=== PATIENT | female | born 2000 | race Caucasian/White ===

== ENCOUNTER 2022-08-26 20:04 | Outpatient (CLI) | payer OTHER, SELFPAY ==
--- OUTSIDE RECORDS SUMMARY | 2022-09-20 11:51 | XMS_ITS | Encounter Summary ---
:2001 Author Organization [facility] Address [address] [place] [address] [address] [place] [address] Care Team Providers Name Role Phone Araceli Desai Md Primary Care Provider Araceli Desai Md Unavailable Encounter Details Date Type Department Care Team Description 09/13/2020 Telephone [facility] Telemed[facility] Hema Spicer Follow Up (Primary Dx); Covid-19 [place] Encounter to Discuss [address] [facility] [place] [address] Social History Tobacco Use Types Packs/Day Years [...] clean your hands with an alcohol based store gift wrap associate that contains at least 60% alcohol, covering all surfaces of yourhands and rubbing them together until they feel dry. Avoid touching your eyes, nose, and mouth with unwashed hands. What you can do to help others: The [place] is supportive of FDA's effort and is committed to assisting with plasma collections from carefully-screened recovered COVID-19 patients to enable rapid access to treatment for the most seriously ill patients. At this time, the [facility] is working closely with FDA to develop a process to identify and qualify individuals who have recovered from the virus and have the necessary antibodies to participate in this effort. The [facility] encourages individuals who have recovered fromCOVID-19 and are currently healthy, to visit [email or web address] to submit their contact i nformation and answer questions to help determine initial eligibility. The [facility] will then follow-up with prospective candidates to confirm eligibility and participation. Please contact the [facility] at [phone] [employer] ( ) and press the prompt for blood or email the Customer Care Group at [email or web address] for further assistance. Advice for caregivers: You [...] follows: Timing of ending quarantine as a facility planner or cohabitant: Your quarantine will end 14 [...] from isolation. Measures that you as a facility planner or cohabitant can take in the home: [...] Office Visit Internal Medicine James Matthews MD [address] [place] [address] 472 (Wo rk) documented as of this encounter Visit Diagnoses Diagnosis Follow up - Primary Encounter to discuss test results Other specified counseling documented in this encounter Additional Health Concerns Infection Onset Date Last Indicated Resolved Time COVID-19 (Confirmed) 09/12/2020 09/12/2020 09/26/2020 7:06 PM EST documented as of this encounter Care Teams Composition Tile Layer Relationship Specialty Start Date End Date Araceli Desai MD PCP - General Pediatrics 07/22/17 04/05/[address] [place] [phone] Araceli Desai MD PCP - Payer 02/03/18 06/02/[address] [place] [address] documented as of this encounter
--- OUTSIDE RECORDS SUMMARY | 2022-09-20 11:51 | XMS_ITS | Encounter Summary ---
:2001 Author Organization [facility] Address [address] [place] [address] [place] [address] Care Team Providers Name Role Phone Araceli [...] Office Visit Internal Medicine James Matthews MD [address] [place] [address] [phone] (Wo rk) documented as of this encounter Visit Diagnoses Not on filedocumented in this encounter Additional Health Concerns Infection Onset Date Last Indicated Resolved Time COVID-19 (Lab Pend) 05/09/2020 05/09/2020 05/10/2020 1 2:55 AM EDT documented as of this encounter Care Teams Nuclear Weapons Specialist Relationship Specialty Start Date End Date Araceli Desai MD PCP - General Pediatrics 07/22/17 04/05/[address] [place] [address] Araceli Desai MD PCP - Payer 02/03/18 06/02/[address] [place] [address] documented as of this encounter
--- OUTSIDE RECORDS SUMMARY | 2022-09-20 11:51 | XMS_ITS | Encounter Summary ---
:2001 Author Organization [facility] Address [address] [facility] [address] [address] Care Team Providers Name Role Phone Araceli Desai Md Primary Care Provider Araceli Desai Md Unavailable Encounter Details Date Type Department Care Team Description 10/17/2020 Letter (Out) [facility] Derek Montero [address] [place] [phone] Social History Tobacco Use Types [...] Visit Internal Medicine James Matthews MD [address] [place], [place] [phone] (Wo rk) documented as of this encounter Visit Diagnoses Not on filedocumented in this encounter Care Teams Manager Casino Relationship Specialty Start Date End Date Araceli Desai MD PCP - General Pediatrics 07/22/17 04/05/[address] [place] [address] Araceli Desai MD PCP - Payer 02/03/18 06/02/[address] [place] [phone] documented as of this encounter
--- OUTSIDE RECORDS SUMMARY | 2022-09-20 11:51 | XMS_ITS | Encounter Summary ---
:2001 Author Organization [facility] Address [address] [facility] [address] [address] Care Team Providers Name Role Phone Araceli Desai Md Primary Care Provider Araceli Desai Md Unavailable Encounter Details Date Type Department Care Team Description 05/09/2020 Office Visit [facility] Araceli Desai MD Shortness of breath (Primary Dx); [address] Encounter for control pills [facility] [place] [place] [address] [phone] Social History Tobacco Use Types Packs/Day Years [...] mother who provides history. Leann. 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 She did practice social distancing other than working. She said it has been hard to take a deep breath since Wednesday. No other symptoms,no hx of asthma. Lives with her Mom and another adult . Appointment made. The family were here in [place] actually when they had COVID, was back [...] DISEASE (COVID-19 PCR) (05/09/2020 5:07 PM EDT) [facility] Method Time Signature CORONAVIRUS Not Detected Not 05/10/2020 [facility] RESULTS Detected 12:55 AM DEPARTMENT OF EDT [...] considered. The Aptima SARS-CoV-2 reagents for the [employer] System are intended for use only by [...] Organization Address City/State/ZIP Code Phon e Number [facility] DEPARTMENT OF PATHOLOGY AND [address] [place] [address] [place] [phone] LAB MEDICINE documented in this encounter Visit Diagnoses Diagnosis Shortness of breath - Primary Encounter for control pills elizabeth mauriciorocky Surveillance of previously prescribed co ntraceptive pill documented in this encounter Additional Health Concerns Infection Onset Date Last Indicated Resolved Time COVID-19 (Lab Pend) 05/09/2020 05/09/2020 05/10/2020 1 2:55 AM EDT documented as of this encounter Care Teams Transportation Consultant Relationship Specialty Start Date End Date Araceli Desai MD PCP - General Pediatrics 07/22/17 04/05/[address] [place] [address] Araceli Desai MD PCP - Payer 02/03/18 06/02/[address] [place] [address] documented as of this encounter
--- OUTSIDE RECORDS SUMMARY | 2022-09-20 11:51 | XMS_ITS | Encounter Summary ---
:[address] [facility] Address [address] [facility] [address] [address] Care Team Providers Name Role Phone Araceli Perry Md Primary Care Provider Araceli Perry Md Unavailable Reason for Visit Reason Comments Complete Physical Exam 21y/o no concerns Encounter Details Date Type Department Care Team Description 10/08/2021 Office Visit [facility] Araceli Perry MD Encounter for routine adult health exami [facility] without abnormal findings (Primary Dx); [address] [place] [address] Low grade glioma of brain ([facility], [place] Seizure disor george ([facility]) [phone] Social History Tobacco Use Types Packs/Day Years [...] those of you cared for by a Child Therapist, we are happy to see you in Pediatrics until your 23rd birthday. Let'smake sure to discuss your transition at each visit to assist you in identifying an Home Administrator or Family Medicine Clinician to assume your [...] for alcohol addiction. ?? Have a designated locomotive driver at all times. A designated locomotive driver is the person who has NOT [...] great place to go for more information: www.[email or web address] [email or web address].org ?? For men: * Tests for sexually [...] great place to go for more information: [email or web address] documented in this encounter Progress Notes Alana Venegas RN - 10/08/2021 2:00 PM EST Patient requests seasonal influenza vaccine. Per Atri standing medication order for FLU vaccine, the vaccine was administered from floor stock; see immunization module for detail. Pt denies history of any severe, life-threatening allergies to the flu vaccine, including componentsof the vaccine and Guillain-Roland Syndrome. Pt is afebrile and has no [...] is followed by the following specialist/s: [facility] specialists for brain tumor care. Eye doctor, [...] 10/2020 no residual tumor on MRI at [facility] ??? Medication intolerance: ibuprofen [Z78.9] 08/11/2017 Got [...] No Known Drug Allergies. School/work: sophomore at [employer] in [place]--philosophy and political science, pre-law track. Diet: Discussed healthy diet for age and importance of not skipping meals, drinking plenty of water and avoiding sugar drinks and processed foods. Discussed need for calcium and vitamin d in diet. pescatarian diet. Cheese, drinks milk. 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 and coming when expected Sleep Problems: [...] 10/08/2021 8:00 PM ESTAssociated Problem(s): Seizure disorder ([facility]) Seizure February 2021 continues on Keppra Assessment & Plan Note - Araceli Perry MD - 10/08/2021 7:56 PM ESTAssociated Problem(s): Glioma of brain ([facility]) MRI q 3 months, now q 6 [...] Visit Internal Medicine James Matthews MD [address] [place] [address] [phone] (Wo rk) documented as of [...] Time Signature CHLAMYDIA PCR Negative Negative 10/09/2021 [facility] 12:42 PM EST DEPARTMENT OF PATHOLOGY AND LAB MEDICINE Comment: Test performed using Aptima Combo2 PCR a ssay. SOURCE URINE 10/09/2021 12:42 PM EST [facility] D EPARTMENT OF PATHOLOGY AND LAB MEDICINE Specimen Anatomical Collection Method Collection Time Receive d Time (Source) Location / / Volume Laterality Urine (URINE) Urine / Unknown 10/08/2021 3:56 PM 10/08 3:56 EST PM EST Araceli Perry LAB URINE ORDERABLES Performing Organization Address City/State/ZIP Code Phon e Number [facility] DEPARTMENT OF PATHOLOGY AND [address] [place] [address] [place] [phone] LAB MEDICINE documented in this encounter Visit [...] INSTRUMENT documented in this encounter Care Teams Machine Or Machinery Mechanic Relationship Specialty Start Date End Date Araceli Perry MD PCP - General Pediatrics 07/22/17 04/05/[address] [place] [address] Araceli Perry MD PCP - Payer 02/03/18 06/02/[address] [place] [address] documented as of this encounter
--- OUTSIDE RECORDS SUMMARY | 2022-09-20 11:51 | XMS_ITS | Encounter Summary ---
:2001 Author Organization [facility] Address [address] [place] [address] Care Team Providers Name Role Phone Elsewhere, Pcp Primary Care Provider Unavailable Reason for Referral MRI/CAT/PET Scan (Routine) - Closed Specialty Diagnoses / Procedures Referred By Contact Refer red To Contact Radiology Diagnoses Glioma Brain (HCC) Darrin Brewster M.D. [place] [facility] Procedures MR Brain without and with IV Contrast [address] [place] [address] Referral ID Status Reason Start Date Expiration Date Visits Requ ested Visits Authorized [id number] Closed 05/23/2021 05/23/2022 1 1 Reason for Visit MRI/CAT/PET Scan (Routine) - Closed Specialty Diagnoses / Procedures Referred By Contact Refer red To Contact Radiology Diagnoses Glioma Brain (HCC) Darrin Brewster M.D. [place] [facility] Procedures MR Brain without and with IV Contrast [address] [place] [address] Referral ID Status Reason Start Date Expiration Date Visits Requ ested Visits Authorized [id number] Closed 05/23/2021 05/23/2022 1 1 Encounter Details Date Type Department Care Team Description 05/26/2021 Hospital Encounter Department of Darrin Brewster Glioma B rain (HCC) Radiology, Timoteo Mora, in [place], [address] [place], [place] [address] [facility] [address] [place], [place] [phone] (Work) [phone] Social History Tobacco Use Types Packs/Day Years [...] Orders documented in this encounter Care Teams Accountant Property Relationship Specialty Start Date End Date Elsewhere, Pcp PCP - General Family Medicine 05/22/21 documented as of this encounter
--- OUTSIDE RECORDS SUMMARY | 2022-09-20 11:51 | XMS_ITS | Encounter Summary ---
:2001 Author Organization [facility] Address [address] [place] [address] Care Team Providers Name Role Phone Elsewhere, Pcp Primary Care Provider Unavailable Reason for Visit Reason Comments Pre-visit Intake Appointment Request (Routine) - Closed Specialty Diagnoses / Procedures Referred By Contact Refer red To Contact Neurology Diagnoses Glioma Brain (HCC) Referral ID Status Reason Start Date Expiration Date Visits Requ ested Visits Authorized [id number] Closed 05/19/2021 05/19/2022 2 1 Encounter Details Date Type Department Care Team Description 05/22/2021 Clinical Communication Visit Review in Pr e-visit Intake [place], [place] [address] [place] [address] Social History Tobacco Use Types Packs/Day Years Used Date Smoking Tobacco: Never Smokeless Tobacco: Never Sex Assigned at Date Recorded Not on file documented as of this encounter Plan of Treatment Not on filedocumented as of this encounter Visit Diagnoses Not on filedocumented in this encounter Care Teams Room Attendants Relationship Specialty Start Date End Date Elsewhere, Pcp PCP - General Family Medicine 05/22/21 documented as of this encounter
--- OUTSIDE RECORDS SUMMARY | 2022-09-20 11:51 | XMS_ITS | Encounter Summary ---
:2001 Author Organization [facility] Address [address] [facility] [address] [place] [address] Care Team Providers Name Role Phone Araceli Desai Md Unavailable James Matthews Md Primary Care Provider Reason for Visit Reason Comments Reschedule Appointment Encounter Details Date Type Department Care Team Description 05/08/2022 Telephone [facility] and Derek Montero RE SCHEDULE APPOINTMENT Gynecology [address] [place] [address] Social History Tobacco Use [...] Office Visit Internal Medicine James Matthews MD [address] [place] [address] 47 (Wo rk) documented as of this encounter Visit Diagnoses Not on filedocumented in this encounter Care Teams Halftone Operator Relationship Specialty Start Date End Date Araceli Desai MD PCP - Payer 02/03/18 06/02/[address] [place] [address] James Matthews MD PCP - General Internal Medicine 04/06/[address] [place] [address] [phone] documented as of this encounter
--- OUTSIDE RECORDS SUMMARY | 2022-09-20 11:51 | XMS_ITS | Encounter Summary ---
:2001 Author Organization [facility] Address [address] [facility] [address] [place] [address] Care Team Providers Name Role Phone Araceli Desai Md Primary Care Provider Araceli Desai Md Unavailable Reason for Visit Reason Comments COVID-19 Medical Advice - with Symptoms Fever Encounter Details Date Type Department Care Team Description 09/11/2020 Telephone [email or web address] Annabelle Dallas RN Suspected Covid-19 Covid-19 [address] Virus Infection [address] [facility] (Primary Dx) [place] [address] [place], [place] [phone] Social History Tobacco Use Types Packs/Day Years [...] patient agrees, appt scheduled for tomorrow in [facility] @ 1:45pm,appt instrux provided. Advised comfort [...] do allow for walk up testing at [facility] if you do not have a car. If you are driving-up, the restaurant team member will be in full personal protective equipment including a mask w/face shield, gown, and gloves. You will not leave your vehicle. If you are walking up at [place], you will be tested outside and will need to call a designated number when you arrive. - There will not be opportunity for an evaluation, assessment, or medical advice. This is similar toa lab visit. - This testing will take place at (location). o [place]: [address] [place] [address]. 3rd level of our patient parking structure. While driving in they should continue driving to the far end of the 3rd level to the south side. There is signage for ???south?? . If the patient is walking up, please call [phone] before entering the building and let the staff know you are walking in for further instructions. o [place]: [address], [place] [address]. Three spots identified on the lower level close to the lower level patient entrance. We will have staff and signs to direct patients. o [place]: [address] [facility] , [place], [place] [address] into the lower level of the garage at [facility] and someone will be helping with way finding. o [place]: [address] [place] [address]. Proceed to the roof of the garage and there willbe people helping with way finding. o [place]: [address] [place] [address]. Patients should be directed towards the parking lot behind the building. At the bottom of the hill leading to the back parking lot, patients shouldtake an immediate left and will see the drive up testing area clearly marked. Staff will be waiting to greet them. We recommend patients requiring testing be on the xm1 tank driver side of the vehicle for ease of testing. o [place]: [address] [place] [address]. Patients should pull up at the front [...] clean your hands with an alcohol based client support manager that contains at least 60% alcohol, covering [...] clean your hands with an alcohol based client support manager thatcontains at least 60% alcohol, covering all [...] or depression? No Is the patient an [employer] Employee? No Time Spent: 5-10 min documented in this encounter Plan of Treatment Upcoming Encounters Date Type Specialty Care Team Description 10/09/2022 Office Visit Internal Medicine James Matthews MD [address] [place] [address] 472 (Wo rk) documented as of this encounter Results (ABNORMAL) CORONAVIRUS DISEASE (COVID-19 PCR) (09/12/2020 3:18 PM EST) [facility] Method Time Signature CORONAVIRUS Detected (A) Not 09/13/2020 [facility] RESULTS Detected 3:23 PM EST DEPARTMENT OF [...] considered. The Aptima SARS-CoV-2 reagents for the [employer] System are intended for use only by qualified and trained clinical laboratory personnel. ??They are for use only under the Food and Drug Administration's Emergency Use Authorization (EUA). IS PATIENT SYMPTOMATIC? Yes 09/13/2020 3 :23 PM EST [facility] DEPARTMENT OF PATHOLOGY AND LAB MEDICINE Specimen Anatomical Collection Method Collection Time Receive d Time (Source) Location / / Volume Laterality Swab Non-blood 09/12/2020 3:18 PM 0 3:18 collection / EST PM EST Unknown Araceli Desai GENERAL LAB Performing Organization Address City/State/ZIP Code Phon e Number [facility] DEPARTMENT OF PATHOLOGY AND [address] [place] [phone] LAB MEDICINE documented in this encounter Visit Diagnoses Diagnosis Suspected COVID-19 virus infection - Makayla renuka documented in this encounter Care Teams Senior Back End Java Developer Relationship Specialty Start Date End Date Araceli Desai MD PCP - General Pediatrics 07/22/17 04/05/[address] [place] [address] Araceli Desai MD PCP - Payer 02/03/18 06/02/[address] [place] [address] documented as of this encounter
--- OUTSIDE RECORDS SUMMARY | 2022-09-20 11:51 | XMS_ITS | Clinical Summary ---
:[address] [facility] Address [address] [place] [address] Care Team Providers Name Role Phone James [...] 10/2020 no residual tumor on MRI at [facility] Medication intolerance: ibuprofen 08/11/2017 Overview: Got [...] by headache specialist Sushil murillo MD in [facility]. Trial of amitriptyline. Then lamictal. Now off all meds except alleve, sumaptriptan. Moved fall 2016 to [place]; doing much debbie r emotionally. MRI x 2 at [facility] (10/06/2016 and) 10/16/2016. Initial finding in left periatrial white matter, second MRI notes minimal if any. 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 Saw neurosurgery at [facility] 09/2017 M [place] ordered Slow growth of [...] Team Description 08/12/2022 Nurse Triage Internal Medicine Viir Corey (Primary Dx); LUIS Rodriguez Insect Bite [...] not intractable Juan Diego lawton MD in [facility]. Trial of am itriptyline. Then lamictal. Now off al l meds except alleve, sumaptriptan . Moved fall 2016 to [place]; doing muc h better emotionally. MRI x 2 at [facility] (10/06/2016 and) 10/16/2016. Initial fi nding in [...] 2021 FLU SEASONAL (#1) 06/11/2022 10/08/2021, 07/13/2018 PAP: UPDATE W EDIT 2022 MODIFIERS CHLAMYDIA SCREENING FEMALE 10/08/2022 10/08/2021, 8, 16-24 [...] Dates Phone Addre ss Type Group [facility] [id number] 2019-Present PO DONN X [id number] PRIMARY CHOICE TOM COLES W/ RIDER [phone] Care Teams Top Lift And Automatic Window Repairer Relationship Specialty Start Date End Date James Matthews MD PCP - General Internal Medicine 04/06/[address] [place] [address] James Matthews MD PCP - Payer 06/03/[address] [place] [address]
--- OUTSIDE RECORDS SUMMARY | 2022-09-20 11:51 | XMS_ITS | Encounter Summary ---
:2001 Author Organization [facility] Address [address] [place] [address] [address] Care Team Providers Name Role Phone Araceli Desai Md Primary Care Provider Araceli Desai Md Unavailable Encounter Details Date Type Department Care Team Description 09/30/2021 Email Encounter [facility] Darlin Galvan, RN My Prescriptions [address] [place] [phone] Social History Tobacco Use Types Packs/Day [...] documented as of this encounter Progress Notes Dralin Galvan, RN - 09/30/2021 11:19 AM EST Time Spent: I spent approximately 11-20 min in chart review, documentation, triage, nursing assessment, patient counseling or providing patient education. documented in this encounter Plan of Treatment Upcoming Encounters Date Type Specialty Care Team Description 10/09/2022 Office Visit Internal Medicine James Matthews MD [address] [place] [phone] (Wo rk) documented as of this encounter Visit Diagnoses Not on filedocumented in this encounter Care Teams Order Desk Caller Relationship Specialty Start Date End Date Araceli Desai MD PCP - General Pediatrics 07/22/17 04/05/[address] [place] [address] Araceli Desai MD PCP - Payer 02/03/18 06/02/[address] [place] [address] documented as of this encounter
--- OUTSIDE RECORDS SUMMARY | 2022-09-20 11:51 | XMS_ITS | Encounter Summary ---
:2001 Author Organization [facility] Address 275 [facility] [address] [address] Care Team Providers Name Role Phone Araceli Desai Md Primary Care Provider Araceli Desai Md Unavailable Encounter Details Date Type Department Care Team Description 02/12/2021 Email Encounter My[facility] Dept Online, [facility] Your invitation to USED BY [facility] TO schedule a COVID-19 CREATE vaccine appointment at USER MESSAGE [employer] ENCOUNTERS BY NON-PROVIDERS Social History Tobacco Use [...] Office Visit Internal Medicine James Matthews MD [address] [place] [address] 02 472 (Wo rk) documented as of this encounter Visit Diagnoses Not on filedocumented in this encounter Care Teams Associate Professor Of Biblical Studies Relationship Specialty Start Date End Date Araceli Desai MD PCP - General Pediatrics 07/22/17 04/05/[address] [place] [address] Araceli Desai MD PCP - Payer 02/03/18 06/02/[address] [place] [address] documented as of this encounter
--- OUTSIDE RECORDS SUMMARY | 2022-09-20 11:51 | XMS_ITS | Encounter Summary ---
:2001 Author Organization [facility] Address [address] [place] [address] Care Team Providers Name Role Phone Elsewhere, Pcp Primary Care Provider Unavailable Reason for Referral Outpatient (Routine) - Closed Specialty Diagnoses / Procedures Referred By Contact Refer red To Contact Neurology Laith Ayala M.D. [facility] [address] [place], [place] [address] Referral ID Status Reason Start Date Expiration Date Visits Requ ested Visits Authorized [id number] Closed 05/26/2021 05/26/2022 1 1 MRI/CAT/PET Scan (Routine) - Closed Specialty Diagnoses / Procedures Referred By Contact Refer red To Contact Radiology Diagnoses Glioma Brain (HCC) Laith Ayala M.D. [facility] Procedures MR Brain without and with IV Contrast [address] [place], [place] [address] Referral ID Status Reason Start Date Expiration Date Visits Requ ested Visits Authorized [id number] Closed 05/26/2021 05/26/2022 1 1 Reason for Visit Appointment Request (Routine) - Closed Specialty Diagnoses / Procedures Referred By Contact Refer red To Contact Neurology Diagnoses Glioma Brain (HCC) Referral ID Status Reason Start Date Expiration Date Visits Requ ested Visits Authorized [id number] Closed 05/19/2021 05/19/2022 2 1 Encounter Details Date Type Department Care Team Description 05/26/2021 Comprehensive Visit Department of Jamie, Glioma Brain (HCC) Neurology in Laith Laughlin M.D. 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 Laith Ayala M.D. - 05/26/2021 1:00 PM [...] total resection. 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 There is no dysmetriaon zhkhjz-hp-itlu and eogt-rbag-naee. Gait/Stance: Stance is normal. Gait is steady [...] Seizure disorder Ms. Garcia now lives in [place] and schedule an appointment today to establish [...] Primary documented in this encounter Care Teams Scientist Propagator Relationship Specialty Start Date End Date Elsewhere, Pcp PCP - General Family Medicine 05/22/21 documented as of this encounter
--- OUTSIDE RECORDS SUMMARY | 2022-09-20 11:51 | XMS_ITS | Encounter Summary ---
:2001 Author Organization [facility] Address [address] [place] [address] Care Team Providers Name Role Phone Elsewhere, Pcp Primary Care Provider Unavailable Reason for Referral MRI/CAT/PET Scan (Routine) - Closed Specialty Diagnoses / Procedures Referred By Contact Refer red To Contact Radiology Diagnoses Glioma Brain (HCC) Darrin Brewster M.D. [facility] Procedures MR Brain without and with IV Contrast [address] [place] [address] Referral ID Status Reason Start Date Expiration Date Visits Requ ested Visits Authorized [id number] Closed 05/23/2021 05/23/2022 1 1 Encounter Details Date Type Department Care Team Description 05/23/2021 Orders Only Department of Neurology Darrin Brewster Glio ma Brain (HCC) in [facility] carol Olivera (Primary Dx) [address] [facility] [address] [place] [phone] [phone] Social History Tobacco Use Types Packs/Day Years [...] (HCC) documented in this encounter Care Teams Leather Patcher Relationship Specialty Start Date End Date Elsewhere, Pcp PCP - General Family Medicine 05/22/21 documented as of this encounter
--- OUTSIDE RECORDS SUMMARY | 2022-09-20 11:51 | XMS_ITS | Encounter Summary ---
:2001 Author Organization [facility] Address [address] [place] [address] [place] [address] Care Team Providers Name Role Phone Araceli Desai Md Primary Care Provider Araceli Desai Md Unavailable Encounter Details Date Type Department Care Team Description 05/10/2020 Letter (Out) Araceli Desai MD [address] [place] [address] 472 (Wo rk) Social History Tobacco [...] Office Visit Internal Medicine James Matthews MD [address] [place] [address] 02 472 (Wo rk) documented as of this encounter Visit Diagnoses Not on filedocumented in this encounter Additional Health Concerns Infection Onset Date Last Indicated Resolved Time COVID-19 (Lab Pend) 05/09/2020 05/09/2020 05/10/2020 1 2:55 AM EDT documented as of this encounter Care Teams Trash Hauler Relationship Specialty Start Date End Date Araceli Desai MD PCP - General Pediatrics 07/22/17 04/05/[address] [place] [address] Araceli Desai MD PCP - Payer 02/03/18 06/02/[address] [place] [address] documented as of this encounter
--- OUTSIDE RECORDS SUMMARY | 2022-09-20 11:51 | XMS_ITS | Clinical Summary ---
:[address] [facility] Address [address] [place] [address] Care Team Providers Name Role Phone Elsewhere, Pcp Primary Care Provider Unavailable Source Comments Patient records contain information from all sites at [facility]. For routine questions regarding patient records, call [phone] during business hours, M-F 8:00 AM - 5:00 PM Central Time. Record requests for emergency care only can be directed to [phone] at any time.[facility] Allergies No known active allergies Medications Medication [...] this topic Medical Devices Implanted Type Area Curing Room Supervisor Device Shelf Expiration Model / Identifier Date Serial / Lot Misc Other Misc Other Mouth Description: Permanent retainer Insurance Payer Benefit Plan / Subscriber ID Effective Phone Address T ype Group Dates [facility] [id number] 2021-Pres [phone] [address] [employer] ent [id number] [place] [address] Care Teams Caustic Liquor Maker Relationship Specialty Start Date End Date Elsewhere, Pcp PCP - General Family Medicine 05/22/21
--- OUTSIDE RECORDS SUMMARY | 2022-09-20 11:51 | XMS_ITS | Encounter Summary ---
:2001 Author Organization [facility] Address [address] [place] [address] [address] [place] [address] Care Team Providers Name Role Phone Araceli [...] Visit Internal Medicine James Matthews MD [address] [place], [place] [address] 472 (Wo rk) documented as of this encounter Visit Diagnoses Not on filedocumented in this encounter Care Teams Furnace Attendant Relationship Specialty Start Date End Date Araceli Desai MD PCP - General Pediatrics 07/22/17 04/05/[address] [place] [address] Araceli Desai MD PCP - Payer 02/03/18 06/02/[address] [place] [address] documented as of this encounter
--- OUTSIDE RECORDS SUMMARY | 2022-09-20 11:51 | XMS_ITS | Encounter Summary ---
:2001 Author Organization [facility] Address [address] [place] [address] [place] [address] Care Team Providers Name Role Phone Araceli Desai Md Primary Care Provider Araceli Desai Md Unavailable Encounter Details Date Type Department Care Team Description 09/13/2020 Letter (Out) Araceli Desai MD [address] [place] [address] 472 (Wo rk) Social History Tobacco Use [...] Visit Internal Medicine James Matthews MD [address] [place] [address] 472 (Wo rk) documented as of this encounter Visit Diagnoses Not on filedocumented in this encounter Additional Health Concerns Infection Onset Date Last Indicated Resolved Time COVID-19 (Confirmed) 09/12/2020 09/12/2020 09/26/2020 7:06 PM EST documented as of this encounter Care Teams Law Firm Receptionist Relationship Specialty Start Date End Date Araceli Desai MD PCP - General Pediatrics 07/22/17 04/05/[address] [place] [address] Araceli Desai MD PCP - Payer 02/03/18 06/02/[address] [place] [address] documented as of this encounter
--- OUTSIDE RECORDS SUMMARY | 2022-09-20 11:51 | XMS_ITS | Encounter Summary ---
:2001 Author Organization [facility] In[facility] Address 275 [facility] [address] [address] Care Team Providers Name Role Phone Araceli Desai Md Primary Care Provider Araceli Desai Md Unavailable Encounter Details Date Type Department Care Team Description 10/17/2020 Notation [facility] Derek Montero [address] [place] [phone] Social History Tobacco Use Types [...] - 10/17/2020 4:54 PM EST Lvm, sent [facility] letter to call to schedule PHR for 2020. documented in this encounter Plan of Treatment Upcoming Encounters Date Type Specialty Care Team Description 10/09/2022 Office Visit Internal Medicine James Matthews MD [address] [place] [address] 472 (Wo rk) documented as of this encounter Visit Diagnoses Not on filedocumented in this encounter Care Teams Rn Pediatric Relationship Specialty Start Date End Date Araceli Desai MD PCP - General Pediatrics 07/22/17 04/05/[address] [place] [address] Araceli Desai MD PCP - Payer 02/03/18 06/02/[address] [place] [address] documented as of this encounter
--- OUTSIDE RECORDS SUMMARY | 2022-09-20 11:51 | XMS_ITS | Encounter Summary ---
:2001 Author Organization [facility] Address [address] [place] [address] [address] [place] [address] Care Team Providers Name Role Phone Araceli Desai Md Primary Care Provider Araceli Desai Md Unavailable Encounter Details Date Type Department Care Team Description 05/30/2021 Email Encounter [facility], [place] [facility] You are eligible to Covid-19 USED BY [employer]ity TO schedule your [address] [facility] CREATE COVID-[place] [address] USER MESSAGE Appointment [phone] ENCOUNTERS BY NON-PROVIDERS Social History Tobacco Use [...] Medicine James Matthews MD [address] [place] [address] 472 (Wo rk) documented as of this encounter Visit Diagnoses Not on filedocumented in this encounter Care Teams Personal Trainer Relationship Specialty Start Date End Date Araceli Desai MD PCP - General Pediatrics 07/22/17 04/05/[address] [place] [address] Araceli Desai MD PCP - Payer 02/03/18 06/02/[address] [place] [address] documented as of this encounter
--- OUTSIDE RECORDS SUMMARY | 2022-09-20 11:51 | XMS_ITS | Encounter Summary ---
:2001 Author Organization [facility] Address 275 [facility] [address] [address] Care Team Providers Name Role Phone James Matthews Md Primary Care Provider James Matthews Md Unavailable Reason for Visit Reason Comments Rash Insect Bite/Sting Encounter Details Date Type Department Care Team Description 08/12/2022 Nurse Triage [place] [facility], Viri Cespedes (Primary Dx); Medicine Jennifer, RN Insect Bite of [address] [place] [address] Abdominal Wall, [place], [place] Initial Encoun ter [phone] Social History [...] Office Visit Internal Medicine James Matthews MD [address] [place] [address] 472 (Wo rk) documented as of this encounter Visit Diagnoses Diagnosis Rash - Primary Rash and other nonspecific skin eruption Insect bite of abdominal wall, initial e ncounter documented in this encounter Care Teams Funeral Planning Counselor Relationship Specialty Start Date End Date James Matthews MD PCP - General Internal Medicine 04/06/[address] [place] [address] James Matthews MD PCP - Payer 06/03/[address] [place] [address] documented as of this encounter
--- OUTSIDE RECORDS SUMMARY | 2022-09-20 11:51 | XMS_ITS | Encounter Summary ---
:2001 Author Organization [facility] Address [address] [place] [address] [place] [address] Care Team Providers Name Role Phone Araceli [...] Visit Internal Medicine James Matthews MD [address] [place] [address] 472 (Wo rk) documented as of this encounter Visit Diagnoses Not on filedocumented in this encounter Care Teams Director Of Grants Relationship Specialty Start Date End Date Araceli Desai MD PCP - General Pediatrics 07/22/17 04/05/[address] [place] [address] Araceli Desai MD PCP - Payer 02/03/18 06/02/[address] [place] [address] documented as of this encounter
--- OUTSIDE RECORDS SUMMARY | 2022-09-20 11:51 | XMS_ITS | Encounter Summary ---
:2001 Author Organization [facility] Address 275 [facility] [place] [address] [place] [address] Care Team Providers Name Role Phone Araceli Desai Md Primary Care Provider Araceli Desai Md Unavailable Encounter Details Date Type Department Care Team Description 10/17/2020 Letter (Out) [facility] Derek Montero [address] [place] [phone] Social History Tobacco Use Types [...] Visit Internal Medicine James Matthews MD [address] [place], [place] [phone] (Wo rk) documented as of this encounter Visit Diagnoses Not on filedocumented in this encounter Care Teams Workers Compensation Defense Attorney Relationship Specialty Start Date End Date Araceli Desai MD PCP - General Pediatrics 07/22/17 04/05/[address] [place] [address] Araceli Desai MD PCP - Payer 02/03/18 06/02/[address] [place] [address] documented as of this encounter
--- OUTSIDE RECORDS SUMMARY | 2022-09-20 11:51 | XMS_ITS | Encounter Summary ---
:2001 Author Organization [facility] Address [address] [place] [address] Care Team Providers Name Role Phone Elsewhere, Pcp Primary Care Provider Unavailable Reason for Visit Reason Comments [facility] (pathology) [facility] Encounter Details Date Type Department Care Team Description 05/30/2021 Clinical Communication Department of Jamie, Auth orization Neurology in Laith Laughlin M.D. (pathology) [place], [facility] [address] (Abarbanel) [place], [place] [address] [facility] [address] [place], [place] [phone] (Work) [phone] Social History Tobacco Use Types Packs/Day Years [...] complete one and fax it back to [phone]. Once received, request will be sent to [...] on filedocumented in this encounter Care Teams Soda Fountain Manager Relationship Specialty Start Date End Date Elsewhere, Pcp PCP - General Family Medicine 05/22/21 documented as of this encounter
--- OUTSIDE RECORDS SUMMARY | 2022-09-20 11:52 | XMS_ITS | Encounter Summary ---
:2001 Author Organization [facility] Address 275 [facility] [address] [address] Care Team Providers Name Role Phone Araceli Desai Md Primary Care Provider Araceli Desai Md Unavailable Reason for Visit Reason Comments Period Concerns Encounter Details Date Type Department Care Team Description 03/29/2018 Nurse Triage [facility] [place], Menstrual Bleeding 485 [facility] [place] Problem (Primary Dx) [facility] [phone] Social History Tobacco Use [...] pills Protocols used: VAGINAL BLEEDING - AFTER [id number] Telephone Encounter - Tami Suh - 03/29/2018 [...] Visit Internal Medicine James Matthews MD [address] [place] [address] 472 (Wo rk) documented as of this encounter Visit Diagnoses Diagnosis Menstrual bleeding problem - Primary Unspecified disorder of menstruation and other abnormal bleeding from female genital tract documented in this encounter Care Teams Consulting Solution Director Relationship Specialty Start Date End Date Araceli Desai MD PCP - General Pediatrics 07/22/17 04/05/[address] [place] [address] Araceli Desai MD PCP - Payer 02/03/18 06/02/[address] [place] [address] documented as of this encounter
--- OUTSIDE RECORDS SUMMARY | 2022-09-20 11:52 | XMS_ITS | Encounter Summary ---
:2001 Author Organization [facility] Address 275 [facility] [address] [address] Care Team Providers Name Role Phone Araceli Desai Md Primary Care Provider Jose Drmumond Md Unavailable [phone] Encounter Details Date Type Department Care Team Description 09/15/2017 Notation [facility] Araceli Dseai MD [address] [place] [phone] [place] [phone] (Wo rk) Social History Tobacco Use Types [...] the original note were not included. Lucero Mark. Araceli Desai MD ? This mom came [...] the hospital about her mri and results(from [place]) They were sent to me on 08/23/2017-by [place] mail, so they should be arriving any day... Lucero ? documented in this encounter Plan of Treatment Upcoming Encounters Date Type Specialty Care Team Description 10/09/2022 Office Visit Internal Medicine James Matthews MD [address] [place] [address] 472 (Wo rk) documented as of this encounter Visit Diagnoses Not on filedocumented in this encounter Care Teams Print Finishing Worker Relationship Specialty Start Date End Date Araceli Desai MD PCP - General Pediatrics 07/22/17 04/05/[address] [place] [address] Jose Drummond MD PCP - Payer 08/11/17 02/02/[address] [place] [phone] documented as of this encounter
--- OUTSIDE RECORDS SUMMARY | 2022-09-20 11:52 | XMS_ITS | Encounter Summary ---
:2001 Author Organization [facility] Address [address] [place] [address] [place] [address] Care Team Providers Name Role Phone Araceli Desai Md Primary Care Provider Araceli Desai Md Unavailable Encounter Details Date Type Department Care Team Description 03/31/2020 Email Encounter [facility] Makenna King, Health Counseling One Robbie Berg MD (Primary Dx) [place] [address] 1 [facility] [phone] [place], [place] [phone] Social History Tobacco Use Types Packs/Day Years [...] Office Visit Internal Medicine James Matthews MD [address] [place] [address] 472 (Wo rk) documented as of this encounter Visit Diagnoses Diagnosis Health counseling - Primary Other specified counseling documented in this encounter Care Teams Drywall Sander Relationship Specialty Start Date End Date Araceli Desai MD PCP - General Pediatrics 07/22/17 04/05/[address] [place] [address] Araceli Desai MD PCP - Payer 02/03/18 06/02/[address] [place] [address] documented as of this encounter
--- OUTSIDE RECORDS SUMMARY | 2022-09-20 11:52 | XMS_ITS | Encounter Summary ---
:2001 Author Organization [facility] Address 275 [facility] [address] [address] Care Team Providers Name Role Phone Araceli Desai Md Primary Care Provider Araceli Desai Md Unavailable Encounter Details Date Type Department Care Team Description 07/21/2018 Telephone [facility] Hema Spicer Follow Up (Primary Dx) [address] [place] [address] Social History Tobacco Use [...] Visit Internal Medicine James Matthews MD [address] [place] [address] 472 (Wo rk) documented as of this encounter Visit Diagnoses Diagnosis Follow up - Primary documented in this encounter Care Teams In Home Aide Relationship Specialty Start Date End Date Araceli Desai MD PCP - General Pediatrics 07/22/17 04/05/[address] [place] [address] Araceli Desai MD PCP - Payer 02/03/18 06/02/[address] [place] [address] documented as of this encounter
--- OUTSIDE RECORDS SUMMARY | 2022-09-20 11:52 | XMS_ITS | Encounter Summary ---
:2001 Author Organization [facility] Address 275 [facility] [address] [address] Care Team Providers Name Role Phone Araceli Desai Md Primary Care Provider Araceli Desai Md Unavailable Reason for Visit Reason Comments Triage/Advice Encounter Details Date Type Department Care Team Description 08/15/2018 Nurse Triage [facility] Nathalie Horan Diagnosis Deferred 485 [facility] (Primary Dx) [place] [address] Social History Tobacco Use Types [...] 08/15/2018 3:54 PM EST Child works at [email or web address] in [place]. Co worker has Hep A. They were [...] Visit Internal Medicine James Matthews MD [address] [place] [address] 472 (Wo rk) documented as of this encounter Visit Diagnoses Diagnosis Diagnosis deferred - Primary Other unknown and unspecified cause of m orbidity or mortality documented in this encounter Care Teams Newborn Photographer Relationship Specialty Start Date End Date Araceli Desai MD PCP - General Pediatrics 07/22/17 04/05/[address] [place] [address] Araceli Desai MD PCP - Payer 02/03/18 06/02/[address] [place] [address] documented as of this encounter
--- OUTSIDE RECORDS SUMMARY | 2022-09-20 11:52 | XMS_ITS | Encounter Summary ---
:2001 Author Organization [facility] Address 275 [facility] [address] [address] Care Team Providers Name Role Phone Araceli Desai Md Primary Care Provider Araceli Desai Md Unavailable Reason for Visit Reason Comments Arm pain/anxiety Room 6 JG Encounter Details Date Type Department Care Team Description 06/21/2019 Office Visit [facility] Ángel Constance Left upper arm pain (Primary Dx); [address] [place] [address] [phone] Social History Tobacco Use Types Packs/Day Years [...] arms/forearms no swelling/bruising/tenderness strength intact warm/pink/well perfused PRODUCTION CONTROL PLANNER MS: appropriate alert/oriented CN: II nml visual [...] Office Visit Internal Medicine James Matthews MD [address] [place] [address] 472 (Wo rk) documented as of this encounter Visit Diagnoses Diagnosis Left upper arm pain - Primary Pain in limb Anxiety Anxiety state, unspecified documented in this encounter Care Teams Warning Coordination Meteorologist Relationship Specialty Start Date End Date Araceli Desai MD PCP - General Pediatrics 07/22/17 04/05/[address] [place] [address] Araceli Desai MD PCP - Payer 02/03/18 06/02/[address] [place] [address] documented as of this encounter
--- OUTSIDE RECORDS SUMMARY | 2022-09-20 11:52 | XMS_ITS | Encounter Summary ---
:2001 Author Organization [facility] Address 275 [facility] [address] [place] [address] Care Team Providers Name Role Phone Araceli Desai Md Primary Care Provider Araceli Desai Md Unavailable Reason for Visit Reason Comments Talk about period Rm 5 DB Encounter Details Date Type Department Care Team Description 02/04/2018 Office Visit [facility] Araceli Desai MD Counseling for [address], oral [facility] contraceptives (Primary [phone] [place], [place] Dx) [phone] Social History Tobacco Use Types Packs/Day Years [...] before you use any other medicines, including onlk-zan-uokmvra medicines. Make sure your doctor knows all [...] Where can you learn more? Go to http://www.Sproxil.net/[employer]ealThinkUp/. Enter P365 in the search box to learn more about Combination Control Pills for Teens: Care Instructions. Current as of: August 31, 2017 Content Version: 11.6 ?? 1231-3915 [facility]. Care instructions adapted under license by [employer]. If you have questions about a medical condition or this instruction, always ask your healthcare professional. [facility] disclaims any warranty or liability for your [...] Visit Internal Medicine James Matthews MD [address] [place] [address] 02 472 (Wo rk) documented as of [...] DAYS added in this encounter Care Teams Secondary Spanish Teacher Relationship Specialty Start Date End Date Araceli Desai MD PCP - General Pediatrics 07/22/17 04/05/[address] [place] [address] Araceli Desai MD PCP - Payer 02/03/18 06/02/[address] [place] [address] documented as of this encounter
--- OUTSIDE RECORDS SUMMARY | 2022-09-20 11:52 | XMS_ITS | Encounter Summary ---
:2001 Author Organization [facility] Address 275 [facility] [address] [place] [address] Care Team Providers Name Role Phone Araceli Desai Md Primary Care Provider Araceli Desai Md Unavailable Reason for Visit Reason Comments Sore Throat room K.B. Encounter Details Date Type Department Care Team Description 07/13/2018 Office Visit [facility] Araceli Desai MD Sore throat (Primary Dx); 485 [facility] 485 [facility] Need for influenza vaccination; [place], [place] Need for Le ctra vaccination; [phone] Prolonged menstrual cycle [phone] Social History Tobacco Use Types Packs/Day Years [...] flu vaccine, including componentsof the vaccine and Guillain-[place] Syndrome. Pt is afebrile and has no [...] Visit Internal Medicine James Matthews MD 485 [place], [place] 242 (Wo rk) documented as of this encounter Procedures Procedure Name Priority Date/Time Associated Diagnosis Comme nts RAPID STREP (OFFICE Routine 07/13/2018 3:52 PM EDT Sore throat TEST) documented in this encounter Results THROAT CULTURE (BETA STREP SCREEN) (07/13/2018 4:44 PM EDT) [facility] Method Time Signature THROAT No Beta 07/15/2018 [facility] B-STREP hemolytic 10:15 AM EDT DEPARTMENT OF SCREEN strep PATHOLOGY AND isolated LAB MEDICINE Specimen Anatomical Collection Method Collection Time Receive d Time (Source) Location / / Volume Laterality Swab (Throat) Non-blood 07/13/2018 4:44 PM 07/13/20 18 4:44 collection / EDT PM EDT Unknown Araceli Desai MICROBIOLOGY LAB Performing Organization Address City/State/ZIP Code Phon e Number [facility] DEPARTMENT OF PATHOLOGY AND [address] [place] [address] [phone] LAB MEDICINE documented in this encounter Visit [...] 07/13/2018 documented in this encounter Care Teams Gear Cutting Machine Set Up Operator Relationship Specialty Start Date End Date Araceli Desai MD PCP - General Pediatrics 07/22/17 04/05/[address] [place] [address] Araceli Desai MD PCP - Payer 02/03/18 06/02/[address] [place] [address] documented as of this encounter
--- OUTSIDE RECORDS SUMMARY | 2022-09-20 11:52 | XMS_ITS | Encounter Summary ---
:2001 Author Organization [facility] Address 275 [facility] [address] [address] Care Team Providers Name Role Phone Araceli Desai Md Primary Care Provider Jose Drummond Md Unavailable [phone] Araceli Desai Md Unavailable Reason for Visit Reason Comments Return Call/ Call Back Encounter Details Date Type Department Care Team Description 08/18/2017 Telephone [facility] Peds RETURN CALL/ CALL BACK [address] [place] [phone] Social History Tobacco Use Types [...] Description 10/09/2022 Office Visit Internal Medicine Byron, Jaems R ., MD [address] [place] [address] (Wo rk) documented as of this encounter Visit Diagnoses Not on filedocumented in this encounter Care Teams Golf Course Architect Relationship Specialty Start Date End Date Araceli Desai MD PCP - General Pediatrics 07/22/17 04/05/[address] [place] [address] Jose Drummond MD PCP - Payer 08/11/17 02/02/[address] [place] [phone] Araceli Desai MD PCP - Payer 02/03/18 06/02/[address] [place] [address] documented as of this encounter
--- OUTSIDE RECORDS SUMMARY | 2022-09-20 11:52 | XMS_ITS | Encounter Summary ---
:2001 Author Organization [facility] Address 275 [facility] [address] [place] [address] Care Team Providers Name Role Phone Araceli Desai Md Primary Care Provider Jose Drummond Md Unavailable [phone] Araceli Desai Md Unavailable Encounter Details Date Type Department Care Team Description 08/05/2017 Telephone [facility] Peds Administrative Encounter 485 [facility] (Primary Dx) [place] [address] Social History Tobacco Use [...] Visit Internal Medicine James Matthews MD 485 [place], [place] [address] 472 (Wo rk) documented as of this encounter Visit Diagnoses Diagnosis Administrative encounter - Primary Encounters for unspecified administrativ e purpose documented in this encounter Care Teams Diver Assistant Relationship Specialty Start Date End Date Araceli Desai MD PCP - General Pediatrics 07/22/17 04/05/[address] [place] [address] Jose Drummond MD PCP - Payer 08/11/17 02/02/[address] [place] [phone] Araceli Desai MD PCP - Payer 02/03/18 06/02/[address] [place] [address] documented as of this encounter
--- OUTSIDE RECORDS SUMMARY | 2022-09-20 11:52 | XMS_ITS | Encounter Summary ---
:2001 Author Organization [facility] Address 275 [facility] [address] [place] [address] Care Team Providers Name Role Phone Araceli Desai Md Primary Care Provider Jose Drummond Md Unavailable [phone] Reason for Referral Specialty (Non Urgent - w/in 3 Months) - Canceled Specialty Diagnoses / Procedures Referred By Contact Refer red To Contact Neurology Diagnoses Migraine with aura and without status migrainosus, not intractable Araceli Desai MD [address] [address] Hospital Department of Neurosurgery [address] [place] [address] Phone: Fax: Referral ID Status Reason Start Expiration Visits Visits Date Date Requested Authorized [id number] Canceled Established 09/13/2017 09/12/2018 6 6 with Specialist Encounter Details Date Type Department Care Team Description 08/13/2017 Orders With [facility] Araceli Desai MD Migraine with aura Comments [address] and without status [place], [place] STREET migrainosus, not [address] [place], [place] intractable (Primary [phone] Dx) Social History Tobacco Use Types Packs/Day [...] to see if can be done at [place] for follow up. documented in this encounter Plan of Treatment Upcoming Encounters Date Type Specialty Care Team Description 10/09/2022 Office Visit Internal Medicine James Matthews MD [address] [place] [address] 472 (Wo rk) Scheduled Referrals Name [...] migrainosus documented in this encounter Care Teams Veterinary Technician Assistant Relationship Specialty Start Date End Date Araceli Desai MD PCP - General Pediatrics 07/22/17 04/05/[address] [place] [address] Jose Drummond MD PCP - Payer 08/11/17 02/02/[address] [place] [phone] documented as of this encounter
--- OUTSIDE RECORDS SUMMARY | 2022-09-20 11:52 | XMS_ITS | Encounter Summary ---
:2001 Author Organization [facility] Address [address] [place], [place] [address] [place] [address] Care Team Providers Name Role Phone Araceli Desai Md Primary Care Provider Araceli Desai Md Unavailable Encounter Details Date Type Department Care Team Description 08/26/2019 Email Encounter [facility] Dept Online, [facility] Appointment Reminder ? USED BY Normal TO [employer] ? USER [...] Visit Internal Medicine James Matthews MD 485 [place], [place] 472 (Wo rk) documented as of this encounter Visit Diagnoses Not on filedocumented in this encounter Care Teams Merchandise Flow Team Leader Relationship Specialty Start Date End Date Araceli Desai MD PCP - General Pediatrics 07/22/17 04/05/[address] [place] [address] Araceli Desai MD PCP - Payer 02/03/18 06/02/[address] [place] [address] documented as of this encounter
--- OUTSIDE RECORDS SUMMARY | 2022-09-20 11:52 | XMS_ITS | Encounter Summary ---
:2001 Author Organization [facility] Address 275 [facility] [address] [place] [address] Care Team Providers Name Role Phone Araceli Desai Md Primary Care Provider Araceli Desai Md Unavailable Reason for Visit Reason Comments Well Child Visit Rm 6 DB Encounter Details Date Type Department Care Team Description 08/22/2018 Office Visit [facility] Araceli Desai MD Encounter for routine child health exami nation without abnormal findings (Primary Dx); 485 [facility] 485 [facility] [place] [address] [phone] Social History Tobacco Use Types Packs/Day Years [...] 08/22/2018 3:21 PM ES T Growth Chart: [facility] (Girls, 2-20 Years) documented in this [...] Save those meaningful thoughts and comments for qeif-ww-rolg conversations with real friends (not just the [...] to adulthood. They have great days and pnf-rq-wpumm days, and successes and failures. Everyone has [...] this year. In a stress management class. [facility] Will do yoga. Let me know her other mother Tammy who was a nurse and did most of the work for [facility] medical care in December of [...] headache specialist Sushil Hoover MD in [facility]. Trial of amitriptyline. Then lamictal. Now off all meds except alleve, sumaptriptan. Moved fall 2017 to [place]; doing much better emotionally. MRI x 2 at [facility] (10/06/2016 and) 10/16/2016. Initial finding in left periatrial white matter, second MRI notes minimal if any. 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 Diet: Discussed healthy diet for age and importance of not skipping meals, drinking plenty of water and avoiding sugar drinks and processed foods. Discussed need for calcium and vitamin d in diet. Healthy eater meat and fish and gets calcium. 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 [employer] Screen- negative Smoking: no [...] Visit Internal Medicine James Matthews MD [address] [place] [address] (Wo rk) documented as of [...] [facility] DEPARTMENT OF PATHOLOGY AND [address] [place], [place] [address] LAB MEDICINE documented in this encounter Visit [...] 08/22/2018 documented in this encounter Care Teams Needle Process Felt Goods Supervisor Relationship Specialty Start Date End Date Araceli Desai MD PCP - General Pediatrics 07/22/17 04/05/[address] [place] [address] Araceli Desai MD PCP - Payer 02/03/18 06/02/[address] [place] [address] documented as of this encounter
--- OUTSIDE RECORDS SUMMARY | 2022-09-20 11:52 | XMS_ITS | Encounter Summary ---
:2001 Author Organization [facility] Address 275 [facility] [address] [place] [address] Care Team Providers Name Role Phone Araceli Desai Md Primary Care Provider Jose Drummond Md Unavailable [phone] Reason for Referral Specialty (Priority - w/in a Month ) - Closed Specialty Diagnoses / Procedures Referred By Contact Refer red To Contact Surgery, General Diagnoses White matter abnormality on MRI of brain Araceli Desai MD [address] [address] Hospital Department of Neurosurgery [address] [place] [address] Phone: Fax: Referral ID Status Reason Start Date Expiration Date Visits V isits Requested Authorized [id number] Closed Service not 08/30/2017 08/29/2018 6 6 locally available Encounter Details Date Type Department Care Team Description 08/13/2017 Telephone [facility] Araceli Desai MD White Matter [address] Abnormality On Mri of [place], [place] [address] Brain (Primary Dx) [phone] [phone] Social History Tobacco Use Types Packs/Day Years [...] MD - 08/13/2017 6:59 PM EDT Called [phone] Asked mother if they have copies of the MRI's. Just have some of the reports. Mother has requested the records. Needs the Neurologist ordered the first one. Then referred to Dr Jero Escobar Neurosurgeon. [facility] in [place] We will call Wednesday to arrange referrals. documented in this encounter Plan of Treatment Upcoming Encounters Date Type Specialty Care Team Description 10/09/2022 Office Visit Internal Medicine James Matthews MD [address] [place] [address] 472 (Wo rk) Scheduled Referrals Name [...] head documented in this encounter Care Teams Nurse Liaison Relationship Specialty Start Date End Date Araceli Desai MD PCP - General Pediatrics 07/22/17 04/05/[address] [place] [address] Jose Drummond MD PCP - Payer 08/11/17 02/02/[address] [place] [phone] documented as of this encounter
--- OUTSIDE RECORDS SUMMARY | 2022-09-20 11:52 | XMS_ITS | Encounter Summary ---
:2001 Author Organization [facility] Address [address] [place] [address] [address] Care Team Providers Name Role Phone Araceli Desai Md Primary Care Provider Araceli Desai Md Unavailable Reason for Referral Imaging (Clinically Urgent - w/in a Week ) - Closed Specialty Diagnoses / Procedures Referred By Contact Refer red To Contact Diagnoses Vision changes Araceli Desai MD [facility] Procedures BRAIN MRI W/O + W/ CONTRAST 485 [place] [address] [place] [address], [address] [place] [address] Phone: [phone] Fax: Referral ID Status Reason Start Date Expiration Date Visits Requ ested Visits Authorized [id number] Closed 11/21/2019 05/21/2021 1 1 Encounter Details Date Type Department Care Team Description 11/21/2019 Telephone [facility] Araceli Desai MD Vision Changes ([facility] Dx) [place], [place] [phone] Social History Tobacco Use Types Packs/Day Years [...] EST Referral signed, to be done at [facility]. documented in this encounter Plan of Treatment Upcoming Encounters Date Type Specialty Care Team Description 10/09/2022 Office Visit Internal Medicine James Matthews MD [address] [place] [address] 47 (Wo rk) Scheduled Orders Name Type Priority Associated Diagnoses Order S chedule BRAIN MRI W/O + W/ CONTRAST IMAGING Routine Vision change s Ordered: 11/21/2019 documented as of this encounter Visit Diagnoses Diagnosis Vision changes - Primary Unspecified visual disturbance documented in this encounter Care Teams Safe Expert Relationship Specialty Start Date End Date Araceli Desai MD PCP - General Pediatrics 07/22/17 04/05/[address] [place] [address] Araceli Desai MD PCP - Payer 02/03/18 06/02/[address] [place] [address] documented as of this encounter
--- OUTSIDE RECORDS SUMMARY | 2022-09-20 11:52 | XMS_ITS | Encounter Summary ---
:2001 Author Organization [facility] Address [address] [place] [address] [place] [address] Care Team Providers Name Role Phone Araceli Dseai Md Primary Care Provider Araceli Desai Md Unavailable Reason for Referral Specialty (Priority - w/in a Month ) - Closed Specialty Diagnoses / Procedures Referred By Contact Refer red To Contact Neurology, Pediatric Diagnoses Lesion of parietal lobe of brain Araceli Desai MD Madsen, Joseph R. [address] [place] [address] Hospital Department of Neurosurgery [address] [place] [address] Phone: Fax: Referral ID Status Reason Start Expiration Visits Visits Date Date Requested Authorized [id number] Closed Established with 11/14/2018 11/14/2019 6 6 Specialist Reason for Visit Reason Comments Referral Encounter Details Date Type Department Care Team Description 11/14/2018 Telephone [facility] Neema Szymanski Lesion of Parietal Lobe [facility] [place] [address] Social History Tobacco Use Types Packs/Day Years [...] referral request: Is the patient new to [facility]? No Has the patient seen this specialist before? Yes Reason/Diagnosis for Visit: Lesion in parietal lobe Clinician's Name: Dr. Camron Haque Name of Location: [facility] Address: [address] [place] [address] FAX number: [phone] Date of Appointment: 11/15/18 Number of Visits Needed, If Known: 6 Who is making request? [facility] Specialty: Neurosurgery documented in this encounter Plan of Treatment Upcoming Encounters Date Type Specialty Care Team Description 10/09/2022 Office Visit Internal Medicine James Matthews MD [address] [place] [address] 652 (Wo rk) Scheduled Referrals Name Type Priority Associated Diagnoses Order S chedule REFERRAL TO PEDI REFERRAL/FUTURE Routine Lesion of parietal Or dered: 11/14/2018 NEUROLOGY lobe of brain documented as of this encounter Visit Diagnoses Diagnosis Lesion of parietal lobe of brain - Prima ry documented in this encounter Care Teams Web Applications Architect Relationship Specialty Start Date End Date Araceli Desai MD PCP - General Pediatrics 07/22/17 04/05/[address] [place] [address] Araceli Desai MD PCP - Payer 02/03/18 06/02/[address] [place] [address] documented as of this encounter
--- OUTSIDE RECORDS SUMMARY | 2022-09-20 11:52 | XMS_ITS | Encounter Summary ---
:2001 Author Organization [facility] Address 275 [facility] [address] [place] [address] Care Team Providers Name Role Phone Araceli Desai Md Primary Care Provider Araceli Desai Md Unavailable Encounter Details Date Type Department Care Team Description 08/15/2018 Orders With [facility] Araceli Desai MD Need for hepatitis A Comments [address] [facility] [address] 485 [facility]RSENMA vaccination (Primary [place], [place] STREET Dx) [address] [place], [place] [phone] Social History Tobacco Use Types Packs/Day Years [...] Visit Internal Medicine James Matthews MD 485 [place], [place] 472 (Wo rk) documented as of this encounter Visit Diagnoses Diagnosis Need for hepatitis A vaccination - Prima ry Need for prophylactic vaccination and in oculation against viral hepatitis documented in this encounter Orders IMMUNIZATIONS/INJECTION Count Last Ordered Date First Ordered Date HEPATITIS A VACCINE PEDI/ADOLESCENT(2 DOSE 1 08/18 SCHED) documented in this encounter Care Teams Monotype Keyboard Operator Relationship Specialty Start Date End Date Araceli Desai MD PCP - General Pediatrics 07/22/17 04/05/[address] [place] [address] Araceli Desai MD PCP - Payer 02/03/18 06/02/[address] [place] [address] documented as of this encounter
--- OUTSIDE RECORDS SUMMARY | 2022-09-20 11:52 | XMS_ITS | Encounter Summary ---
:2001 Author Organization [facility] Address 275 [facility] [address] [place] [address] Care Team Providers Name Role Phone Araceli Desai Md Primary Care Provider Araceli Desai Md Unavailable Encounter Details Date Type Department Care Team Description 08/28/2018 Email Encounter [facility] Araceli Desai MD dates of immunizations [address] [address] [place], [place] [phone] Social History Tobacco Use Types Packs/Day Years [...] Visit Internal Medicine James Matthews MD [address] [place] [address] (Wo rk) documented as of this encounter Visit Diagnoses Not on filedocumented in this encounter Care Teams Anti Air Warfare Operations Officer Relationship Specialty Start Date End Date Araceli Desai MD PCP - General Pediatrics 07/22/17 04/05/[address] [place] [address] Arcaeli Desai MD PCP - Payer 02/03/18 06/02/[address] [place] [address] documented as of this encounter
--- OUTSIDE RECORDS SUMMARY | 2022-09-20 11:52 | XMS_ITS | Encounter Summary ---
:2001 Author Organization [facility] Address 275 [facility] [address] [place] [address] Care Team Providers Name Role Phone Araceli Desai Md Primary Care Provider Araceli Desai Md Unavailable Reason for Visit Reason Comments Emergency Room F/U Rm 4 DB Encounter Details Date Type Department Care Team Description 10/21/2018 Office Visit [facility] Araceli Desai MD Acute suppurative otitis media of left e ar without spontaneous rupture of tympanic membrane, recurrence not specified (Primary Dx); [address] [address] [phone] Social History Tobacco Use Types Packs/Day Years [...] Reviewed recent headache and fever, seen at [facility] 10/19. Tested negative for strep and flu. Received IV hydration and headache improved. Minor headache last night then terrible left earache in the middle of the night. Used a hot compress and ibuprofen and it helped, then another hot compress at 8:30 am. Drank fluids and slept today. Mother asks for help in getting the MRI at [facility]. Has neurosurgery appointment 11/[address] Haque. [...] Visit Internal Medicine James Matthews MD [address] [place] [address] 472 (Wo rk) documented as of this encounter Visit Diagnoses Diagnosis Acute suppurative otitis media of left e ar without spontaneous rupture of tympanic membrane, recurrence not specified - Makayla renuka Brain mass Unspecified condition of brain documented in this encounter Care Teams Nuclear Weapons Mechanical Specialist Relationship Specialty Start Date End Date Araceli Desai MD PCP - General Pediatrics 07/22/17 04/05/[address] [place] [address] Araceli Desai MD PCP - Payer 02/03/18 06/02/[address] [place] [address] documented as of this encounter
--- OUTSIDE RECORDS SUMMARY | 2022-09-20 11:52 | XMS_ITS | Encounter Summary ---
:2001 Author Organization [facility] Address [address] [facility] [address] [address] Care Team Providers Name Role Phone Araceli Desai Md Primary Care Provider Jose Drummond Md Unavailable [phone] Encounter Details Date Type Department Care Team Description 08/18/2017 Notation [facility] Araceli Desai MD Administrative Encounter 485 [facility] 485 [facility] (Primary Dx) [place] [address] [phone] Social History Tobacco Use Types Packs/Day Years [...] I spoke with the imaging department at [facility] in [place] As they requested, I sent a release [...] Visit Internal Medicine James Matthews MD [address] [place] [address] 02 472 (Wo rk) documented as of this encounter Visit Diagnoses Diagnosis Administrative encounter - Primary Encounters for unspecified administrativ e purpose documented in this encounter Care Teams Glass Tinter Relationship Specialty Start Date End Date Araceli Desai MD PCP - General Pediatrics 07/22/17 04/05/[address] [place] [address] Jose Drummond MD PCP - Payer 08/11/17 02/02/[address] [place] [phone] documented as of this encounter
--- OUTSIDE RECORDS SUMMARY | 2022-09-20 11:52 | XMS_ITS | Encounter Summary ---
:2001 Author Organization [facility] Address [address] [place] [address] [address] Care Team Providers Name Role Phone Araceli Desai Md Primary Care Provider Jose Drummond Md Unavailable [phone] Encounter Details Date Type Department Care Team Description 08/13/2017 Email Encounter [facility] Araceli Desai MD [address] [place] [phone] [place] [address] (Wo rk) Social History Tobacco [...] Visit Internal Medicine James Matthews MD [address] [place] [address] 472 (Wo rk) documented as of this encounter Visit Diagnoses Not on filedocumented in this encounter Care Teams Music Copyist Relationship Specialty Start Date End Date Araceil Desai MD PCP - General Pediatrics 07/22/17 04/05/[address] [place] [address] Jose Drummond MD PCP - Payer 08/11/17 02/02/[address] [place] [phone] documented as of this encounter
--- OUTSIDE RECORDS SUMMARY | 2022-09-20 11:52 | XMS_ITS | Encounter Summary ---
:2001 Author Organization [facility] Address 275 [facility] [address] [place] [address] Care Team Providers Name Role Phone Araceli Desai Md Primary Care Provider Araceli Desai Md Unavailable Encounter Details Date Type Department Care Team Description 08/23/2018 Email Encounter [facility] Araceli Desai MD normal test results [address] [address] [place] [phone] Social History Tobacco Use Types Packs/Day Years [...] Visit Internal Medicine James Matthews MD [address] [place] [address] 472 (Wo rk) documented as of this encounter Visit Diagnoses Not on filedocumented in this encounter Care Teams Powerplant Operator Relationship Specialty Start Date End Date Araceli Desai MD PCP - General Pediatrics 07/22/17 04/05/[address] [place] [address] Araceli Desai MD PCP - Payer 02/03/18 06/02/[address] [place] [address] documented as of this encounter
--- OUTSIDE RECORDS SUMMARY | 2022-09-20 11:52 | XMS_ITS | Encounter Summary ---
:2001 Author Organization [facility] Address [address] [place], [place] [address] [place] [address] Care Team Providers Name Role Phone Araceli Desai Md Primary Care Provider Araceli Desai Md Unavailable James Matthews Md Primary Care Provider James Matthews Md Unavailable Reason for Visit Reason Comments Appt Due vm not set up can't leave a message Encounter Details Date Type Department Care Team Description 03/15/2020 Telephone [facility] David Graydennys APPT DUE [address] [place] [address] Social History Tobacco Use Types Packs/Day Years [...] Office Visit Internal Medicine James Matthews MD [address] [place] [address] 472 (Wo rk) documented as of this encounter Visit Diagnoses Not on filedocumented in this encounter Additional Health Concerns Infection Onset Date Last Indicated Resolved Time COVID-19 (Lab Pend) 05/09/2020 05/09/2020 05/10/2020 1 2:55 AM EDT COVID-19 (Confirmed) 09/12/2020 09/12/2020 09/26/2020 7:06 PM EST documented as of this encounter Care Teams Wild Life Manager Relationship Specialty Start Date End Date Araceli Desai MD PCP - General Pediatrics 07/22/17 04/05/[address] [place] [address] Araceli Desai MD PCP - Payer 02/03/18 06/02/[address] [place] [address] James Matthews MD PCP - General Internal Medicine 04/06/[address] [place] [address] James Matthews MD PCP - Payer 06/03/[address] [place] [phone] documented as of this encounter
--- OUTSIDE RECORDS SUMMARY | 2022-09-20 11:52 | XMS_ITS | Encounter Summary ---
:2001 Author Organization [facility] Address [address] [place] [address] [place] [address] Care Team Providers Name Role Phone Araceli Desai Md Primary Care Provider Araceli Desai Md Unavailable Encounter Details Date Type Department Care Team Description 03/11/2020 Email Encounter [facility] Makenna King Rash (Primary Dx) [facility] [place] [address] 1 [facility] [phone] [place] [address] Social History Tobacco Use Types [...] Office Visit Internal Medicine James Matthews MD [address] [place] [address] 472 (Wo rk) documented as of this encounter Visit Diagnoses Diagnosis Rash - Primary Rash and other nonspecific skin eruption documented in this encounter Care Teams Cognos Analyst Relationship Specialty Start Date End Date Araceli Desai MD PCP - General Pediatrics 07/22/17 04/05/[address] [place] [address] Araceli Desai MD PCP - Payer 02/03/18 06/02/[address] [place] [address] documented as of this encounter
--- OUTSIDE RECORDS SUMMARY | 2022-09-20 11:52 | XMS_ITS | Encounter Summary ---
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 Haley Jose reports symptoms of dyspnea for 5 days. Is the patient a healthcare worker, electronic warfare technician, a resident/employee at a congregate setting, orrequire COVID testing as a result of having an upcoming procedure that is in accordance with the [facility] testing priority level 6? No Disposition Recommendation: [facility] ([facility]) - Patient instructed that they are [...] immediately clean your hands with analcohol based data examination clerk that contains at least 60% alcohol, [...] clean your hands with an alcohol based data examination clerk that contains at least 60% alcohol, [...] may have COVID-19. Reminded patient that per [facility] policy, only one visitor is permitted to accompany a patient to their appointment. The visitor does not need to be essential to the visit. As long as the visitor passesour screening criteria, the visitor is permitted to enter the practice. Both the patient and an essential visitor will be asked screening questions upon being greeted at the practice site. Is the patient an [employer] [facility] Employee? No Time Spent: 21-30 min [...] If patient is < 6 schedule in [facility] evaluation center.If >= 6, schedule drive up testing. Haley Garcia reports symptoms of dyspnea for 5 days. Is the patient a healthcare worker, electronic warfare technician, a resident/employee at a congregate setting, or[facility] medical centerire COVID testing as a result of having an upcoming procedure that is in accordance with the [facility] testing priority level 6? No Disposition Recommendation: [facility]ointment ([facility]) - Patient instructed that they are [...] immediately clean your hands with analcohol based data examination clerk that contains at least 60% alcohol, [...] clean your hands with an alcohol based data examination clerk that contains at least 60% alcohol, [...] may have COVID-19. Reminded patient that per [employer] policy, only one visitor is permitted to accompany a patient to their appointment. The visitor does not need to be essential to the visit. As long as the visitor passesour screening criteria, the visitor is permitted to enter the practice. Both the patient and an essential visitor will be asked screening questions upon being greeted at the practice site. Is the patient an [employer] Employee? No Time Spent: 31-40 min documented in this encounter Plan of Treatment Upcoming Encounters Date Type Specialty Care Team Description 10/09/2022 Office Visit Internal Medicine James Matthews MD [address] [place] [address] 472 (Wo rk) documented as of this encounter Visit Diagnoses Not on filedocumented in this encounter Care Teams Custom Tailor Apprentice Relationship Specialty Start Date End Date Araceli Desai MD PCP - General Pediatrics 07/22/17 04/05/[address] [place] [address] Araceli Desai MD PCP - Payer 02/03/18 06/02/[address] [place] [address] documented as of this encounter
--- OUTSIDE RECORDS SUMMARY | 2022-09-20 11:52 | XMS_ITS | Encounter Summary ---
:2001 Author Organization [facility] Address [address] [place] [address] [address] Care Team Providers Name Role Phone Araceli Desai Md Primary Care Provider Araceli Desai Md Unavailable Reason for Referral Specialty (Priority - w/in a Month ) - Closed Specialty Diagnoses / Procedures Referred By Contact Refer red To Contact Visual Services Diagnoses Vision changes H/O brain tumor Araceli Desai MD Mantagos, Iason S. [address] [place] [address] [place] [address] [place] [address] Phone: Fax: Referral ID Status Reason Start Expiration Visits Visits Date Date Requested Authorized [id number] Closed Established with 10/19/2019 10/19/2020 6 6 Specialist Reason for Visit Reason Comments Referral Encounter Details Date Type Department Care Team Description 10/19/2019 Telephone [facility] Peds Vision Changes (Primary 485 [facility] Dx); [place] [address] Social History Tobacco Use Types Packs/Day [...] s/p tumor removal from brain Vendor Name: [facility] Number of Approved Visits: 6 Diagnosis: eye exam s/p tumor removal from brain Scheduling 10/27/2019 Who's is making the request?patient Speciality:Opthamolgly Provider ID: Dr Trino Berman documented in this encounter Plan of Treatment Upcoming Encounters Date Type Specialty Care Team Description 10/09/2022 Office Visit Internal Medicine James Matthews MD [address] [place] [address] [phone] (Wo rk) Scheduled Referrals Name [...] organs documented in this encounter Care Teams Instrument Technician Helper Relationship Specialty Start Date End Date Araceli Desai MD PCP - General Pediatrics 07/22/17 04/05/[address] [place] [address] Araceli Desai MD PCP - Payer 02/03/18 06/02/[address] [place] [address] documented as of this encounter
--- OUTSIDE RECORDS SUMMARY | 2022-09-20 11:52 | XMS_ITS | Encounter Summary ---
:2001 Author Organization [facility] Address 275 [facility] [address] [place] [address] Care Team Providers Name Role Phone Araceli Desai Md Primary Care Provider Araceli Desai Md Unavailable Reason for Visit Reason Comments arm pain Encounter Details Date Type Department Care Team Description 06/21/2019 Telephone [facility] Ana Carrillo Pain of Upper Extremity, 485 [facility] Unspecified Laterality [place], [place] (Primary Dx) [phone] Social History Tobacco [...] seizure Pt was brought by ambulance to [facility] Pt currently on Keppra s/p Brain surgery [...] appointment booked *Copy of ED note from [facility] 04/29/19* Medical Decision Makin. Seizure 3 months [...] Office Visit Internal Medicine James Matthews MD [address] [place] [address] 472 (Wo rk) documented as of this encounter Visit Diagnoses Diagnosis Pain of upper extremity, unspecified lat erality - Primary documented in this encounter Care Teams Traffic Safety Administrator Relationship Specialty Start Date End Date Araceli Desai MD PCP - General Pediatrics 07/22/17 04/05/[address] [place] [address] Araceli Desai MD PCP - Payer 02/03/18 06/02/[address] [place] [phone] documented as of this encounter
--- OUTSIDE RECORDS SUMMARY | 2022-09-20 11:52 | XMS_ITS | Encounter Summary ---
:2001 Author Organization [facility] Address 275 [facility] [address] [place] [address] Care Team Providers Name Role Phone Araceli Desai Md Primary Care Provider Araceli Desai Md Unavailable Reason for Visit Reason Comments MRI APPT Encounter Details Date Type Department Care Team Description 10/25/2018 Telephone [facility] Angeli, Administrative Encounter 485 [facility] (Primary Dx) [facility] [address] Social History Tobacco Use [...] [facility] appt. [phone] documented in this encounter Plan of Treatment Upcoming Encounters Date Type Specialty Care Team Description 10/09/2022 Office Visit Internal Medicine James Matthews MD [address] [place] [address] 472 (Wo rk) documented as of this encounter Visit Diagnoses Diagnosis Administrative encounter - Primary Encounters for unspecified administrativ e purpose documented in this encounter Care Teams Sales Estimator Relationship Specialty Start Date End Date Araceli Desai MD PCP - General Pediatrics 07/22/17 04/05/[address] [place] [address] Araceli Desai MD PCP - Payer 02/03/18 06/02/[address] [place] [address] documented as of this encounter
--- OUTSIDE RECORDS SUMMARY | 2022-09-20 11:52 | XMS_ITS | Encounter Summary ---
:2001 Author Organization [facility] Address [address] [place] [address] [address] Care Team Providers Name Role Phone Araceli Desai Md Primary Care Provider Araceli Desai Md Unavailable Reason for Visit Reason Comments Insurance Approval Encounter Details Date Type Department Care Team Description 02/01/2019 Notation [facility] Araceli Desai MD 0Insurance Approval [address] [place] [phone] [place] [address] (Wo rk) Social History Tobacco [...] Diag: Neoplasm of Unspecified Behavior Reference #: [id number] Procedure: 615.18 Admit Date: 01/26/19 Fac: [facility] Review: Approved Admitting: Camron Haque documented in this encounter Plan of Treatment Upcoming Encounters Date Type Specialty Care Team Description 10/09/2022 Office Visit Internal Medicine James Matthews MD [address] [place] [address] 47 (Wo rk) documented as of this encounter Visit Diagnoses Not on filedocumented in this encounter Care Teams Photo Stylist Relationship Specialty Start Date End Date Araceli Desai MD PCP - General Pediatrics 07/22/17 04/05/[address] [place] [address] Araceli Desai MD PCP - Payer 02/03/18 06/02/[address] [place] [address] documented as of this encounter
--- OUTSIDE RECORDS SUMMARY | 2022-09-20 11:52 | XMS_ITS | Encounter Summary ---
:2001 Author Organization [facility] Address 275 [facility] [address] [place] [address] Care Team Providers Name Role Phone Araceli Desai Md Primary Care Provider Jose Drummond Md Unavailable [phone] Reason for Visit Reason Comments Return Call/ Call Back Encounter Details Date Type Department Care Team Description 08/12/2017 Telephone [facility] Peds Follow Up Re Referral. [address] [place] [address] (Primary Dx) [place] [address] Social History Tobacco Use [...] trying to have her see neurology within [facility] but minimum age is 17. Trying to figure out how to do the MRI at [place]. Will get back to mother. She [facility] Prefers early in day or late in day. documented in this encounter Plan of Treatment Upcoming Encounters Date Type Specialty Care Team Description 10/09/2022 Office Visit Internal Medicine James Matthews MD [address] [place] [address] 472 (Wo rk) documented as of this encounter Visit Diagnoses Diagnosis Follow up re referral. - Primary documented in this encounter Care Teams Park Interpreter Relationship Specialty Start Date End Date Araceli Desai MD PCP - General Pediatrics 07/22/17 04/05/[address] [place] [address] Jose Drummond MD PCP - Payer 08/11/17 02/02/[address] [place] [phone] documented as of this encounter
--- OUTSIDE RECORDS SUMMARY | 2022-09-20 11:52 | XMS_ITS | Encounter Summary ---
:2001 Author Organization [facility] Address 275 [facility] [address] [place] [address] Care Team Providers Name Role Phone Araceli Desai Md Primary Care Provider Araceli Desai Md Unavailable Reason for Visit Reason Comments Urinary Frequency Rm 5 DB Encounter Details Date Type Department Care Team Description 07/18/2018 Office Visit [facility] Gunnar Alva MD Dysuria (Primary Dx) [address] [address] [phone] Social History Tobacco Use Types Packs/Day Years [...] Alva MD - 07/18/2018 4:00 PM EDT [facility]: Pediatrics [address] [place] [address] Today: 07/18/18 Haley is a 17 yrs. [...] followed with serial mris. No reports of power hair clipper sx. ROS: As above Social History No [...] by headache specialist Sushil Hoover MD in [facility]. Trial of amitriptyline. Then lamictal. Now off all meds except alleve, sumaptriptan. Moved fall 2016 to [place]; doing much better emotionally. MRI x 2 at [facility] (10/06/2016 and) 10/16/2016. Initial finding in left periatrial white matter, second MRI notes minimal if any. 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 Saw neurosurgery at [facility] 09/2017 MRI ordered Slow growth of [...] Visit Internal Medicine James Matthews MD 485 [place], [place] [address] (Wo rk) documented as of this encounter Procedures Procedure Name Priority Date/Time Associated Diagnosis Comme nts URINE DIPSTICK Routine 07/18/2018 3:52 PM Dysuria Results for this (OFFICE TEST) EDT procedure are in the results section. documented in this encounter Results URINE CULTURE (07/18/2018 5:15 PM EDT) [facility] gist Method Time Signature CULTURE, 10,000-50,000 07/20/2018 [facility] URINE cfu/mL Mixed 2:39 PM EDT DEPARTMENT OF Gram Positive PATHOLOGY AND Organisms LAB MEDICINE Specimen Anatomical Collection Method Collection Time Receive d Time (Source) Location / / Volume Laterality Urine (URINE) Urine / Unknown 07/18/2018 5:15 PM 07/18 5:15 EDT PM EDT Narrative [facility] DEPARTMENT OF PATHOLOGY AND LAB MED ICINE - 07/20/2018 2:39 PM EDT No predominant organism was identified. Suggest repeat specimen if there is continued concern for UTI. [facility] MICROBIOLOGY LAB Performing Organization Address City/State/ZIP Code Phon e Number [facility] DEPARTMENT OF PATHOLOGY AND [address] [place] [phone] LAB MEDICINE CHLAMYDIA URINE DNA (07/18/2018 5:15 PM EDT) Analysis Performed At Path logist Time Signature CHLAMYDIA PCR Negative Negative 07/19/2018 [facility] 1:07 PM EDT DEPARTMENT OF PATHOLOGY AND LAB MEDICINE Comment: Test performed using Aptima Combo2 PCR a ssay. SOURCE URINE 07/19/2018 1:07 PM EDT [facility] DE PARTMENT OF PATHOLOGY AND LAB MEDICINE Specimen Anatomical Collection Method Collection Time Receive d Time (Source) Location / / Volume Laterality Urine (URINE) Urine / Unknown 07/18/2018 5:15 PM 07/18 5:15 EDT PM EDT [facility] LAB URINE ORDERABLES Performing Organization Address City/State/ZIP Code Phon e Number [facility] DEPARTMENT OF PATHOLOGY AND [address] [place] [phone] LAB MEDICINE URINE DIPSTICK (OFFICE TEST) (07/18/2018 3:52 PM EDT) [facility] gist Method Time Signature LEUKOCYTE Negative Negative [...] Primary documented in this encounter Care Teams Separations Scientist Relationship Specialty Start Date End Date Araceli Desai MD PCP - General Pediatrics 07/22/17 04/05/[address] [place] [address] Araceli Desai MD PCP - Payer 02/03/18 06/02/[address] [place] [address] documented as of this encounter
--- OUTSIDE RECORDS SUMMARY | 2022-09-20 11:52 | XMS_ITS | Encounter Summary ---
:2001 Author Organization [facility] Address 275 [facility] [address] [place] [address] Care Team Providers Name Role Phone Araceli Desai Md Primary Care Provider Araceli Desai Md Unavailable Reason for Visit Reason Comments ER Follow Up [facility] (LORENZANA/Migraine) Encounter Details Date Type Department Care Team Description 10/20/2018 Telephone [facility] Hema Spicer Follow Up (Ed Visit for 485 [facility] Lorenzana) (Primary Dx) [place] [address] Social History Tobacco Use Types [...] on ER visit or hospital discharge from [facility]. Spoke with Mother. How is the [...] PCP Schedule Appts.: PRN Has a Nurse Codifier been involved in your child???s transition home? No Refer to ambulatory case packer if : DX of MEDICALLY COMPLEX is present; if 2 or more hospitalizations in last year; if DME or rehab care is planned and; if parent, nurse , PCP or steam setter recommend. documented in this encounter Plan of Treatment Upcoming Encounters Date Type Specialty Care Team Description 10/09/2022 Office Visit Internal Medicine James Matthews MD [address] [place] [address] 472 (Wo rk) documented as of this encounter Visit Diagnoses Diagnosis Follow up (ED visit for LORENZANA) - Primary documented in this encounter Care Teams Trade Analyst Relationship Specialty Start Date End Date Araceli Desai MD PCP - General Pediatrics 07/22/17 04/05/[address] [place] [address] Araceli Desai MD PCP - Payer 02/03/18 06/02/[address] [place] [address] documented as of this encounter
--- OUTSIDE RECORDS SUMMARY | 2022-09-20 11:52 | XMS_ITS | Encounter Summary ---
:2001 Author Organization [facility] Address [address] [facility] [address] [place] [address] Care Team Providers Name Role Phone Araceli Desai Md Primary Care Provider Araceli Desai Md Unavailable Reason for Visit Reason Comments Surgery F/U Rm 4 DB Encounter Details Date Type Department Care Team Description 02/01/2019 Office Visit [facility] Araceli Desai MD Other constipation (Primary Dx); 485 [facility] Follow-up examination [place] [phone] Social History Tobacco Use Types Packs/Day Years [...] questions or concerns Please call us at [phone] at any time, 24 hours per day. [...] questions or concerns Please call us at [phone] at any time, 24 hours per day. If the office is closed, you will be able to speak with our on-call nurse triage service to discuss your concerns or questions about Haley. documented in this encounter Plan of Treatment Upcoming Encounters Date Type Specialty Care Team Description 10/09/2022 Office Visit Internal Medicine James Matthews MD [address] [place] [address] 02 472 (Wo rk) documented as of [...] 05/23/2020 added in this encounter Care Teams Pharmaceutical Scientist Relationship Specialty Start Date End Date Araceli Desai MD PCP - General Pediatrics 07/22/17 04/05/[address] [place] [address] Araceli Desai MD PCP - Payer 02/03/18 06/02/[address] [place] [phone] documented as of this encounter
--- OUTSIDE RECORDS SUMMARY | 2022-09-20 11:52 | XMS_ITS | Encounter Summary ---
:2001 Author Organization [facility] Address [address] [place] [address] [address] [place] [address] Care Team Providers Name Role Phone Araceli [...] Office Visit Internal Medicine James Matthews MD [address] [place] [address] 02 [phone] (Wo rk) documented as of this encounter Visit Diagnoses Not on filedocumented in this encounter Care Teams Monument Mason Relationship Specialty Start Date End Date Araceli Desai MD PCP - General Pediatrics 07/22/17 04/05/[address] [place] [phone] Araceli Desai MD PCP - Payer 02/03/18 06/02/[address] [place] [phone] documented as of this encounter
--- OUTSIDE RECORDS SUMMARY | 2022-09-20 11:52 | XMS_ITS | Encounter Summary ---
:2001 Author Organization [facility] Address [address] [facility] [address] [place] [address] Care Team Providers Name Role Phone Araceli Desai Md Primary Care Provider Jose Drummond Md Unavailable [phone] Reason for Visit Reason Comments Well Child Visit Rm 5 DB Encounter Details Date Type Department Care Team Description 08/11/2017 Office Visit [facility] Araceli Desai MD Encounter for routine child health exami [facility] without abnormal findings (Primary Dx); [address] Food allergy: coconut; [place], [place] Medication in tolerance: ibuprofen; [id number] Migraine with aura and without status mi grainosus, not intractable; [phone] Motion sickness , initial encounter; (Work) [employer] [...] 08/11/2017 9:01 AM ED T Growth Chart: [facility] (Girls, 2-20 Years) documented in this encounter [...] appear on the front page of the [facility]? If the answer is No, then don't [...] Pediatric Urgent Care hours are available at [facility] on weekends and holidays: Saturdays 10am-5pm and Sundays 12pm-5pm Please call [phone] to schedule. 24 hour telephone medical advice 7 days/week to speak with a nurse Pediatrics [phone] When our office is closed, our telecommunications staff will be happy to provide medical advice by phone or direct you to an emergency room if needed. Copayment for an urgent care appointment is the same as a regular Pediatric appointment. Our preferred [facility] is [facility] and our preferred tertiary hospital is [facility]. IMMUNIZATION REGISTRY NOTICE: You or your child???s shot information is being entered into the [place] Immunization Information System (MIIS), as required by [...] 16 yrs. old female here for well child and family services worker. Here with mother who provides history. Haley [...] on the immunization form brought today from [facility]. were waiting for insurance. Had planned May MRI. Brings notes of Headache evaluation and second MRI reading. Mother notes the headache specialist felt that the MRI findings were not relevant to the headaches, which have diminished in frequency. Mother notes lots of behavioral/emotional things happening previously that have improved markedly since moving to [place]. Previously lived in [place] and most recently [place]. Patient Active Problem List Diagnosis Date Noted ??? Food allergy: coconut [Z91.018] 08/11/2017 hives ??? Medication intolerance: ibuprofen [Z78.9] 08/11/2017 Got rash once, avoids. Tolerates Alleve ??? Migraine with aura and without status migrainosus, not intractable [G43.109] 08/11/2017 Seen by headache specialist Sushil Hoover MD in [facility]. Trial of amitriptyline. Then lamictal. Now off all meds except alleve, sumaptriptan. Moved fall 2016 to [place]; doing much better emotionally. MRI x [address] [facility] [place] (10/06/2016 and) 10/16/2016. Initial finding in left [...] 5 days Grade in school 10th grade [employer] High school performance good Activities: Debate and [employer] and works. 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
--- OUTSIDE RECORDS SUMMARY | 2022-09-20 11:52 | XMS_ITS | Encounter Summary ---
:2001 Author Organization [facility] Address [address] [place] [address] [address] Care Team Providers Name Role Phone Araceli Desai Md Primary Care Provider Araceli Desai Md Unavailable Encounter Details Date Type Department Care Team Description 08/18/2018 Immunization [facility] [address] [place] [phone] Social History Tobacco Use Types [...] Office Visit Internal Medicine James Matthews MD [address] [place] [address] 472 (Wo rk) documented as of this encounter Visit Diagnoses Not on filedocumented in this encounter Orders IMMUNIZATIONS/INJECTION Count Last Ordered Date First Ordered Date HEPATITIS A VACCINE PEDI/ADOLESCENT(2 DOSE 1 08/18 SCHED) documented in this encounter Care Teams Technical Sourcing Recruiter Relationship Specialty Start Date End Date Araceli Desai MD PCP - General Pediatrics 07/22/17 04/05/[address] [place] [phone] Araceli Desai MD PCP - Payer 02/03/18 06/02/[address] [place] [phone] documented as of this encounter
--- OUTSIDE RECORDS SUMMARY | 2022-09-20 11:53 | XMS_ITS | Encounter Summary ---
:2001 Author Organization [facility] Address [address] [facility], [id number] [place] [address] Care Team Providers Name Role Phone Araceli Desai MD Primary Care Provider Reason for Visit Reason Comments Headache Fever Encounter Details Date Type Department Care Team Description 10/19/2018 Emergency [place] [facility] Monty Winters MD Department [address] [phone] Social History Tobacco Use Types Packs/Day Years Used Date Smoking Tobacco: Never Smokeless Tobacco: Never Alcohol Use Standard Drinks/Week Comments Never 0 [...] drinks on one occasion? No t asked Sex Assigned at Date Recorded Not [...] were seen today primarily by the physician biology laboratory assistant. However, you were also seen and evaluated [...] no distress noted. Carri Zapata RN 10/19/18 0477 Carri Zapata RN - 10/19/2018 11:30 PM EST Family very anxious and wants to leave stating we've been here a long time. Provider notified and is now at bedside to speak with pt and family. Carri Zapata RN 10/19/18 3211 Rasta Cole RN - 10/19/2018 5:18 PM [...] rates, when looking at her from the monitoring engineer from a far, were in the 110 [...] voice-recognition software. Monty Winters MD 10/20/18 0151 CATRACHO Ornelas - 10/19/2018 5:04 PM EST Images from [...] radiographs. Dictated: 10/19/2018 9:00 PM Report ID: [id number] Reported By: Pratik Beatty M.D. (resident) ([id number]) Laboratory Labs Reviewed CBC WITH AUTO DIFFERENTIAL [...] following orders were created for panel order [facility] draw. Procedure Abnormality Status --------- ------ Gold Top[[id number]] Final result Gold Top[[id number]] Final result Light Blue Top[[id number]] Final result Lavender Top[[id number]] Red Top[[id number]] Final result Please view results for these [...] generated with voice-recognition software. CATRACHO Ornelas 10/19/18 2258 documented in this encounter Plan of Treatment [...] ation. Dictated: 10/20/2018 12:48 PM Report ID: [id number] Report signed in external system at 10/20 12:48 Reported By: Pratik Beatty M.D. (patricia t) ([id number]) Signed By: Martín Gallagher M.D. (PEDRO Cervantes) Narrative 10/20/2018 12:48 PM EST RESPONSIBLE OUTPLACEMENT CONSULTANT: Martín Gallagher M.D. EXAMINATION: XR CHEST 2 [...] might be different from the original. RESPONSIBLE OUTPLACEMENT CONSULTANT: Martín Gallagher M.D. EXAMINATION: XR CHEST 2 [...] ation. Dictated: 10/20/2018 12:48 PM Report ID: [id number] Report signed in external system at 10/20 12:48 Reported By: Pratik Beatty M.D. (patricia t) ([id number]) Signed By: Martín Gallagher M.D. (PEDRO D) [facility] IM[facility] XR PROCEDURES Throat culture (10/19/2018 8:27 PM EST) [facility] Method Time Signature Throat Culture Normal oral 10/21/2018 [place] liset 11:51 AM EST HOSPITAL LABORATORY Specimen Anatomical Collection Method Collection Time Receive d Time (Source) Location / / Volume Laterality Swab Pharyngeal Non-blood 10/19/2018 8:27 PM 9 8:30 structure / Collection / EST PM EST Unknown Unknown [facility] LAB MICROBIOLOGY - GENERAL O RDERABLES Performing Organization Address City/State/ZIP Code Phon e Number [facility] [address] [place] [address] LABORATORY Group A strep test, rapid (10/19/2018 8:27 PM EST) P athologist Signature Strep A Ag Negative Negative 10/19/2018 [place] 8:47 PM EST HOSPITAL LABORATORY Specimen Anatomical Collection Method Collection Time Receive d Time (Source) Location / / Volume Laterality Swab Pharyngeal Non-blood 10/19/2018 8:27 PM 9 8:30 structure / Collection / EST PM EST Unknown Unknown [facility] MICROBIOLOGY - GENERAL O RDLALO Performing Organization Address City/[facility]/ZIP Code Phon e Number [place] [address] LABORATORY Influenza A/B Antigens, rapid (10/19/2018 8:27 PM EST) Analysis Performed At Patho logist Time Signature Influenza A Ag Negative Negative 10/19/2018 [place] 8:51 PM EST HOSPITAL LABORATORY Influenza B Ag Negative Negative 10/19/2018 [place] 8:51 PM EST HOSPITAL LABORATORY Specimen Anatomical Location / Collection Method Collection Yifan e Received Time (Source) Laterality / Volume Swab Nasopharyngeal Non-blood 10/19/2018 8:27 10/19/2018 8:30 structure / Unknown Collection / PM EST PM EST Unknown [facility] MICROBIOLOGY - GENERAL O CHRYSTAL Performing Organization Address City/[facility]/ZIP Code Phon e Number [place] [address] LABORATORY (ABNORMAL) Urinalysis (10/19/2018 8:27 PM EST) Analysis Performed At Patho logist Time Signature URINE Yes LAB 10/19/2018 [place] SEDIMENTATION URINALYSIS - 8:58 PM HOSPITAL REQUIRED? AUTOMATED EST LABORATORY METHOD Color Light 10/19/2018 [place] Yellow 8:58 PM HOSPITAL EST LABORATORY TURBIDITY Clear CLEAR 10/19/2018 [place] 8:58 PM HOSPITAL EST LABORATORY SG 1.002 1.002 - 10/19/2018 [place] 1.030 8:58 PM HOSPITAL EST LABORATORY pH, Urine 7.0 5.0 - 8.0 10/19/2018 [place] 8:58 PM HOSPITAL EST LABORATORY Bile Negative Negative 10/19/2018 [place] 8:58 PM HOSPITAL EST LABORATORY Albumin Negative Negative 10/19/2018 [place] 8:58 PM HOSPITAL EST LABORATORY Glucose Negative Negative 10/19/2018 [place] 8:58 PM HOSPITAL EST LABORATORY Ketones Trace (A) Negative 10/19/2018 [place] 8:58 PM HOSPITAL EST LABORATORY Blood Negative Negative 10/19/2018 [place] 8:58 PM HOSPITAL EST LABORATORY WBC esterase Negative Negative 10/19/2018 [place] 8:58 PM HOSPITAL EST LABORATORY Nitrite Negative Negative 10/19/2018 [place] 8:58 PM HOSPITAL EST LABORATORY WBC 0-5 0 - 5 /HPF LAB 10/19/2018 [place] URINALYSIS - 8:58 PM HOSPITAL AUTOMATED EST LABORATORY METHOD RBC 0-5 0 - 5 /HPF LAB 10/19/2018 [place] URINALYSIS - 8:58 PM HOSPITAL AUTOMATED EST LABORATORY METHOD EPITH CELLS 0-5 0 - 5 /HPF LAB 10/19/2018 [place] URINALYSIS - 8:58 PM HOSPITAL AUTOMATED EST LABORATORY METHOD WBC Clumps None Seen None Seen LAB 10/19/2018 [place] /HPF URINALYSIS - 8:58 PM HOSPITAL AUTOMATED EST LABORATORY METHOD Specimen Anatomical Collection Method Collection Time Receive d Time (Source) Location / / Volume Laterality Urine Urine specimen Non-blood 10/19/2018 8:27 PM 019 8:31 collection, clean Collection / EST PM EST catch / Unknown Unknown Monty Winters MD LAB URINE ORDERABLES Performing Organization Address City/State/ZIP Code Phon e Number [place] [address] LABORATORY Red Top (10/19/2018 7:03 PM EST) Specimen Anatomical Collection Method / Collection Time Recei olman Time (Source) Location / Volume Laterality Blood Venous blood / Venipuncture / 10/19/2018 7:03 10/19/19 19 7:10 Unknown Unknown PM EST PM EST Monty Winters MD LAB BLOOD ORDERABLES Performing Organization Address City/State/ZIP Code Phon e Number [place] [address] LABORATORY Light Blue Top (10/19/2018 7:03 PM EST) Specimen Anatomical Collection Method / Collection Time Recei olman Time (Source) Location / Volume Laterality Blood Venous blood / Venipuncture / 10/19/2018 7:03 10/19/19 19 7:10 Unknown Unknown PM EST PM EST Monty Winters MD LAB BLOOD ORDERABLES Performing Organization Address City/[facility]/ZIP [facility] Phon e Number [address] [address] LABORATORY Gold Top (10/19/2018 7:03 PM EST) Specimen Anatomical Collection Method / Collection Time Recei olman Time (Source) Location / Volume Laterality Blood Venous blood / Venipuncture / 10/19/2018 7:03 10/19/19 19 7:11 Unknown Unknown PM EST PM EST Monty Winters MD LAB BLOOD ORDERABLES Performing Organization Address City/[facility]/ZIP Code Phon e Number [address] [address] LABORATORY Gold Top (10/19/2018 7:03 PM EST) Specimen Anatomical Collection Method / Collection Time Recei olman Time (Source) Location / Volume Laterality Blood Venous blood / Venipuncture / 10/19/2018 7:03 10/19/19 19 7:10 Unknown Unknown PM EST PM EST Monty Winters MD LAB BLOOD ORDERABLES Performing Organization Address City/[facility]/ZIP Code Phon e Number [address] [address] LABORATORY hCG, serum, qualitative (10/19/2018 7:03 PM EST) Analysis Performed At Patho logist Time Signature HCG SERUM QUAL Negative Negative 10/19/2018 [place] 7:51 PM EST [facility] LABORATORY Specimen Anatomical Collection Method / Collection Time Recei olman Time (Source) Location / Volume Laterality Blood Venous blood / Venipuncture / 10/19/2018 7:03 10/19/19 19 7:10 Unknown Unknown PM EST PM EST Monty Winters MD LAB BLOOD ORDERABLES Performing Organization Address City/[facility] Phon e Number [address] [address] LABORATORY (ABNORMAL) Basic metabolic panel w/GFR (10/19/2018 7:03 PM EST) Patholo gist Method Time Signature Sodium 138 137 - 145 10/19/2018 [place] mmol/L 7:45 PM [facility] LABORATORY Potassium 3.9 3.5 - 5.1 10/19/2018 [place] mmol/L 7:45 PM [facility] LABORATORY CHLORIDE 105 98 - 107 10/19/2018 [place] mmol/L 7:45 PM [facility] LABORATORY CARBON DIOXIDE, 21.0 (L) 22.0 - 10/19/2018 [place] TOTAL 30.0 7:45 PM [facility] mmol/L LABORATORY ANION GAP 12.0 6 - 14 10/19/2018 [place] 7:45 PM [facility] LABORATORY GLUCOSE 127 (H) 70 - 99 10/19/2018 [place] mg/dL 7:45 PM [facility] LABORATORY BUN 6 (L) 7 - 17 10/19/2018 [place] mg/dL 7:45 PM [facility] LABORATORY CREATININE 0.5 0.5 - 1.0 10/19/2018 [place] mg/dL 7:45 PM [facility] LABORATORY CALCIUM 9.3 8.3 - 10.3 10/19/2018 [place] mg/dL 7:45 PM [facility] LABORATORY Specimen Anatomical Collection Method / Collection Time Recei olman Time (Source) Location / Volume Laterality Blood Venous blood / Venipuncture / 10/19/2018 7:03 10/19/19 19 7:10 Unknown Unknown PM [facility] EST Monty Winters MD LAB BLOOD ORDERABLES Performing Organization Address City/State/ZIP Code Phon e Number [facility] [address] [place] [address] LABORATORY (ABNORMAL) CBC auto differential (10/19/2018 7:03 PM EST) [facility] gist Method Time Signature WBC 14.98 (H) 4.50 to 10/19/2018 [place] 13.50 x 7:36 PM [facility] 10*3u/L LABORATORY 10*3/uL nRBC 0 0 - 0 10/19/2018 [place] /100 WBCs 7:36 PM [facility] LABORATORY RBC 4.29 4.10 to 10/19/2018 [place] 5.20 x 7:36 PM [facility] 10*6/uL LABORATORY 10*6/uL HGB 12.4 12.0 to 10/19/2018 [place] 16.0 g/dL 7:36 PM [facility] g/dL LABORATORY HCT 36.9 (L) 37.0% to 10/19/2018 [place] 45.0% % 7:36 PM [facility] LABORATORY MCV 86.0 78.0 to 10/19/2018 [place] 102.0 fL 7:36 [facility] fL LABORATORY MCH 28.9 26.0 - 10/19/2018 [place] 33.0 pg 7:36 PM [facility] LABORATORY MCHC 33.6 21.0 to 10/19/2018 [place] 37.0 g/dl 7:36 PM [facility] g/dL LABORATORY PLT 264 150 to 10/19/2018 [place] 300 x 7:36 PM [facility] 10*3u/L LABORATORY 10*3u/L RDW-CV 14.0 11.5 - 10/19/2018 [place] 14.5 % 7:36 PM [facility] LABORATORY Segmented % 87.9 (H) 30.0 - 10/19/2018 [place] 85.0 % 7:36 [facility] LABORATORY ABS Neutrophil 13.16 (H) 1.5 - 6.5 10/19/2018 [place] 10*3/uL 7:36 [facility] LABORATORY Lymphocytes % 5.9 (L) 15.0 - 10/19/2018 [place] 50.0 % 7:36 PM [facility] LABORATORY ABS Lymphocyte 0.89 (L) 1.0 - 3.7 10/19/2018 [place] 10*3u/L 7:36 [facility] LABORATORY Monocytes % 5.6 0.0 - 10/19/2018 [place] 10.0 % 7:36 PM [facility] LABORATORY Eosinophils % 0.0 0.0 - 5.0 10/19/2018 [place] % 7:36 [facility] LABORATORY Basophil % 0.3 0.0 - 2.0 10/19/2018 [place] % 7:36 [facility] LABORATORY IMM GRAN 0.3 0.0 - 1.0 10/19/2018 [place] % 7:36 [facility] LABORATORY Specimen Anatomical Collection Method / Collection Time Recei olman Time (Source) Location / Volume Laterality Blood Venous blood / Venipuncture / 10/19/2018 7:03 10/19/19 19 7:10 Unknown Unknown PM [facility] EST Monty Winters MD LAB BLOOD ORDERABLES Performing Organization Address City/State/ZIP Code Phon e Number [facility] [address] [place] [address] LABORATORY documented in this encounter Visit Diagnoses [...] 10 mg, intravenous, Once, On Wed10/19/18 at 2039, For 1 dose sodium [...] mg (COMPLETED) 2050 (Given - Provider: Mayelin Mcdowell RN) 25 mg, intravenous, Administer over 5 Mi nutes, Once, Wed10/19/18 at 2034, For 1 dose ketorolac (TORADOL) injection 15 mg (COMPLETED) 2050 (Given - Provider: Mayelin Mcdowell, RN) 15 mg, intravenous, Once, Wed10/19/18 at 2034, For 1 dose prochlorperazine (COMPAZINE) injection 10 mg (COMPLETED) 2051 (Given - Provider: Mayelin Mcdowell RN) 10 mg, intravenous, Once, Wed10/19/18 at [...] (COMPLETED) 221 (New Bag - Provider: Carri Zapata RN)2330 (Stopped - Provider: Carri Zapata RN) 1,000 mL, intravenous, at 1,000 mL/hr, A dminister over 1 Hours, Once, Wed10/19/18 at 2205, For 1 dose documented in this encounter Care Teams Lime Mixer Relationship Specialty Start Date End Date Araceli Desai MD PCP - General Pediatrics 10/19/[address] [place] [phone] documented as of this encounter
--- OUTSIDE RECORDS SUMMARY | 2022-09-20 11:53 | XMS_ITS | Encounter Summary ---
:2001 Author Organization [facility] Address [address] [place] [address] Phone Care Team Providers Name Role Phone Required, No Pcp/Pcp Not Primary Care Provider Unavailable Reason for Referral Consultation (Urgent) - Closed Specialty Diagnoses / Procedures Referred By Contact Refer red To Contact Pediatric Neurology Jenn Pinto MD [address] [address] (DEPT OF MEDICINE) [address] [place] [address] Phone: Fax: Referral ID Status Reason Start Date Expiration Date Visits V isits Requested Authorized [id number] Closed Specialty 04/29/2019 04/29/2020 1 1 Services Required Reason for Visit Reason Comments Seizures Encounter Details Date Type Department Care Team Description 04/29/2019 Emergency [facility] Jenn Pinto, Seizure (CMS/HCC) (Primary Dx); Emergency Department 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 Seizure (Zambian)documented in this encounter Medications at Time of Discharge Medication Sig Dispensed Refills Start Date End Date levETIRAcetam (KEPPRA) 500 Take 1 tablet (500 60 tablet 0 0 04/29/2019 MG tablet mg total) by mouth 2 (two) times a day documented as of this encounter ED Notes Jenn Pinto MD - 04/29/2019 4:38 [place] [address] CC: Chief Complaint Patient presents with ??? [...] She had a stable MRI done at [facility] 3 days ago. She was well when [...] No vomiting. She was at a [employer] volunteering this morning. She denies any drug [...] margins. The plan per her neuro-oncology at [facility] and consultation with neurosurgery at [facility] is every 3 month MRIs. Her last MRI was done 3 days ago and was stable. Vaccines: Up To Date FH: Reviewed and not relevant to the chief complaint SH: Lives in [place] with mom. Down here visiting dad in [place]. Review of Systems Constitutional: Negative for fever. [...] Dr. Jackie Erazo from neuro- oncology at [facility] who agrees with the CT to look [...] Dr. Juan Luis Guido the [facility] at [facility]. 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 Will start Keppra 50omg BID and follow up in clinic this week. Does not recommend transfer to [facility] at this time given recent [...] Father states they went to a restaurant [facility] to get something to eat before leaving [...] Time Signature Preg Test, Negative Negative 04/29/2019 [facility] Urine 5:28 PM EDT [facility] Specimen Anatomical Collection Method Collection Time Receive d Time (Source) Location / / Volume Laterality Urine Non-blood 04/29/2019 5:17 PM 9 5:21 Collection / EDT PM EDT Unknown Narrative [facility] - 2018 5:28 PM EDT If clinical suspicion of persi sts, repeat urine testing at 2-3 days is suggested. Quantitative urine hCG may al so be considered. Jenn Pinto MD LAB URINE ORDERABLES Performing Organization Address City/State/ZIP Code Phon e Number [facility] [address] [place] [address] Urine drugs of abuse screen (04/29/2019 5:17 PM EDT) Patholo gist Method Time Signature Amphetamines, None None 04/29/2019 [facility] [facility] Urine Screen Detected Detected 5:36 PM EDT [facility]OS[facility]ITAL [facility] Barbiturates, None None 04/29/2019 [facility] Urine Screen Detected Detected 5:36 PM EDT [facility]ITAL [facility] Benzodiazepines, None None 04/29/2019 [facility] Urine Screen Detected Detected 5:36 PM EDT [facility]ITAL [facility] Cocaine, Urine None None 04/29/2019 [facility] Screen Detected Detected 5:36 PM EDT [facility]ITAL [facility] Opiates, Urine None None 04/29/2019 [facility] Screen Detected Detected 5:36 PM EDT [facility]ITAL [facility] Cannabinoids None None 04/29/2019 [facility] [facility] (THC), Urine Detected Detected 5:36 PM EDT HOSPITAL Screen LABORATORY Tricyclic None None 04/29/2019 [facility] Antidepressants, Detected Detected 5:36 PM EDT HOSPITAL Urine Screen LABORATORY Fentanyl, Urine None None 04/29/2019 [facility] Screen Detected Detected 5:36 PM [facility] Comment: This test is not FDA approved. It is intended for criminal justice and forensic use only. This screening provid es only a preliminary analytical test result. A more specific alternative chemical met hod must be used in order to obtain a confirmed analytical result. Methadone, Urine None Detected None Detected 04/29/2019 5:36 PM [facility] Oxycodone, Urine None Detected None Detected 04/29/2019 5:36 PM [facility] Buprenorphine, None Detected None Detected 04/29/2019 5:36 P M [facility] Urine [facility] Specimen Anatomical Collection Method Collection Time Receive d Time (Source) Location / / Volume Laterality Urine Urine specimen Non-blood 04/29/2019 5:17 PM 019 5:21 obtained by clean Collection / EDT PM EDT catch procedure / Unknown Unknown Narrative [facility] - 2018 5:36 PM EDT This [...] Organization Address City/State/ZIP Code Phon e Number [facility] [address] [place] [address] CT head without contrast (04/29/2019 4:43 PM [...] Glucose 120 (H) 60 - 100 04/29/2019 [facility] mg/dL 4:38 PM EDT [facility] Comment: @Liquor Merchant:Isidro Sylvester Specimen Anatomical Collection Method Collection Time Receive d Time (Source) Location / / Volume Laterality Blood 04/29/2019 4:32 PM 9 4:38 EDT PM EDT Jenn Pinto MD LAB POCT ORDERABLES - DEVICE Performing Organization Address City/State/ZIP Code Phon e Number [facility] [address] [place], [place] [id number] (ABNORMAL) CBC with auto differential (04/29/2019 4:29 PM EDT) [facility] gist Method Time Signature WBC 6.0 5.5 - 9.3 04/29/2019 [facility] [facility] 10*3 ??l 4:52 PM EDT [facility]OS[facility]ITAL [facility] RBC 3.73 (L) 3.79 - 04/29/2019 [facility] 4.61 10*6 4:52 PM EDT HOSPITAL ??l LABORATORY Hemoglobin 10.3 (L) 11.3 - 04/29/2019 [facility] 13.4 g/dL 4:52 PM EDT [facility] Hematocrit 32.0 (L) 32.1 - 04/29/2019 [facility] 38.7 % 4:52 PM EDT [facility] MCV 86 (H) 80 - 85 04/29/2019 [facility] fL 4:52 PM EDT [facility] MCH 27.6 (L) 28.4 - 04/29/2019 [facility] [place] 30.7 pg 4:52 PM EDT [facility] MCHC 32.2 (L) 33.9 - 04/29/2019 [facility] 35.4 g/dL 4:52 PM EDT [facility] RDW 14.1 12.8 - 04/29/2019 [facility] 14.4 % 4:52 PM EDT [facility] Platelets 247 192 - 307 04/29/2019 [facility] 10*3 ??l 4:52 PM EDT [facility] MPV 10.0 (H) 7.5 - 8.3 04/29/2019 [facility] [place] fL 4:52 PM EDT [facility] Neutrophils % 60.2 45.0 - 04/29/2019 [facility] 76.0 % 4:52 PM EDT [facility] Lymphocytes % 29.8 8.0 - 04/29/2019 [facility] [place] 39.0 % 4:52 PM EDT [facility] Monocytes % 9.0 (H) 4.0 - 7.0 04/29/2019 [facility] % 4:52 PM EDT [facility] Eosinophils % 0.5 (L) 1.0 - 3.0 04/29/2019 [facility] % 4:52 PM EDT [facility] Basophils % 0.3 0.0 - 1.0 04/29/2019 [facility] % 4:52 PM EDT [facility] Immature 0.2 0.0 - 0.9 04/29/2019 [facility] Granulocyte % % 4:52 PM EDT [facility] Neutrophils 3.60 3.04 - 04/29/2019 [facility] [facility] Absolute 6.06 4:52 PM EDT HOSPITAL K/mm3 LABORATORY Absolute 0.01 0.00 - 04/29/2019 [facility] Immature 0.09 4:52 PM EDT HOSPITAL Granulocyte K/mm3 LABORATORY Lymphocytes 1.78 1.17 - 04/29/2019 [facility] Absolute 2.30 4:52 PM EDT HOSPITAL K/mm3 LABORATORY Monocytes 0.54 0.19 - 04/29/2019 [facility] Absolute 0.72 4:52 PM EDT HOSPITAL K/mm3 LABORATORY Eosinophils 0.03 (L) 0.05 - 04/29/2019 [facility] Absolute 0.17 4:52 PM EDT HOSPITAL K/mm3 LABORATORY Basophils 0.02 0.01 - 04/29/2019 [facility] Absolute 0.06 4:52 PM EDT HOSPITAL K/mm3 LABORATORY Specimen Anatomical Collection Method / Collection Time Recei olman Time (Source) Location / Volume Laterality Blood Capillary blood Venipuncture / 04/29/2019 4:29 019 4:33 specimen / Unknown Unknown PM EDT PM EDT Jenn Pinto MD LAB BLOOD ORDERABLES Performing Organization Address City/State/ZIP Code Phon e Number [facility] [address] [place] [address] CK (04/29/2019 4:29 PM EDT) P athologist Signature Total CK 114 24 - 170 04/29/2019 [facility] U/L 5:13 PM EDT [facility]ITAL [facility] Specimen Anatomical Collection Method / Collection Time Recei olman Time (Source) Location / Volume Laterality Blood Capillary blood Venipuncture / 04/29/2019 4:29 019 4:33 specimen / Unknown Unknown PM EDT PM EDT Jenn Pinto MD LAB BLOOD ORDERABLES Performing Organization Address City/State/ZIP Code Phon e Number [facility] [address] [place] [address] (ABNORMAL) Basic metabolic panel (04/29/2019 4:29 PM EDT) P athologist Signature Glucose 99 60 - 100 04/29/2019 [facility] mg/dL 5:07 PM EDT [facility]ITAL [facility] BUN 5 5 - 18 04/29/2019 [facility] [place] mg/dL 5:07 PM T [facility]OS[facility] Creatinine 0.6 0.3 - 1.0 04/29/2019 [place] mg/dL 5:07 PM EDT [facility] eGFR >60.00 04/29/2019 [facility] mL/min/1.73 5:07 PM EDT HOSPITAL m*2 LABORATORY Comment: Unable to calculate, patient age is <18 Sodium 139 135 - 145 mmol/L 04/29/2019 5:07 PM EDT [facility] Potassium 3.6 3.0 - 4.5 mmol/L 04/29/2019 5:07 PM EDT [facility] Chloride 106 99 - 111 mmol/L 04/29/2019 5:07 PM EDT [facility] CO2 19 19 - 25 mmol/L 04/29/2019 5:07 PM EDT [facility] Anion Gap 14 (H) 6 - 12 mmol/L 04/29/2019 5:07 PM EDT [facility] Calcium 8.9 8.5 - 10.5 mg/dL 04/29/2019 5:07 PM EDT [facility] Specimen Anatomical Collection Method / Collection Time Recei olman Time (Source) Location / Volume Laterality Blood Capillary blood Venipuncture / 04/29/2019 4:29 019 4:33 specimen / Unknown Unknown PM EDT PM EDT Jenn Pinto MD LAB BLOOD ORDERABLES Performing Organization Address City/[facility]/ZIP [facility] Phon e Number [facility] [address] [place] [address] ECG (04/29/2019 4:24 PM EDT) Specimen Anatomical [...] prolongation Referred By: JENN PINTO ? Confirmed By:Netfali Salamanca Procedure Note Neftali Salamanca MD - [...] dose documented in this encounter Care Teams Document Examiner Relationship Specialty Start Date End Date Required, No Pcp/Pcp Not PCP - General Garage Door Technician 04/29/19 [address] [place] [address] documented as of this encounter
--- OUTSIDE RECORDS SUMMARY | 2022-09-20 11:53 | XMS_ITS | Clinical Summary ---
:2001 Author Organization [facility] Address [address] [place] [address] Phone Care Team Providers Name Role Phone [...] Last Done Comments COVID-19 Vaccine (#1) 02/22/2002 [facility] Topic HPV Vaccines (1 - 2-dose series) 2012 [facility] Topic Depression Screening 2013 [facility] Topic Chlamydia Screening 2017 [facility] Topic Meningococcal Group B Conjugate Vaccine (1 08/25/20 18 of 2 - Bexsero 2- dose series) [facility] TOPIC AUDIT-C 2019 [facility] TOPIC EDWIN 2019 [facility] TOPIC TOBACCO STATUS ASSESSED 2019 [facility] Topic Tdap Vaccine (1 - Tdap) 2020 [facility] Topic Influenza (Flu) Seasonal (#1) 2022 [facility] Topic Cervical Cancer Screening 2022 Insurance Payer Benefit Plan Subscriber ID Effective Dates Phone Address Type / Group [facility] [id number] 2019-Daniel [phone] [address] Other [employer] t 2 [facility] [phone] [facility] [id number] 2018-Olga Lidia [phone] [address] [facility] [address] [place] [address] [phone] Care Teams Foaming Machine Operator Relationship Specialty Start Date End Date Required, No Pcp/Pcp Not PCP - General Air Reduction Equipment Operator 04/29/19 [address] [place] [address]
--- OUTSIDE RECORDS SUMMARY | 2022-09-20 11:53 | XMS_ITS | Encounter Summary ---
:2001 Author Organization [facility] Address [phone] [address] [place] [place] [address] Care Team Providers Name Role Phone Araceli Desai MD Primary Care Provider Aliya Johnson MD Unavailable Carlos [email or web address] Birgit Pham MD Unavailable Viri Stern RN Unavailable Ashanti Portillo BUSINESS EXCELLENCE MANAGER Unavailable Encounter Details Date Type Department Care Team Description 05/10/2019 Office Visit Pediatric Neuro Aspen Carreno, Brett gr zahida glioma of brain (Primary Dx); Oncology, , PhD Encounter to discuss test results [address] [facility] [address] Blood Disorders [address] [place] [address] [facility] [email or web address] Yesica King, Ma [address] [place] [address] Social History Tobacco Use Types Packs/Day Years [...] counseling documented in this encounter Care Teams Oiler Bander Relationship Specialty Start Date End Date Araceli Desai MD PCP - General 10/14/[address] [place] [phone] [email or web address] Aliya Johnson Primary Oncologist Pediatric Hematology 03/03/19 06/01/22 MD [facility] [address] [place] [phone] [email or web address] Birgit Pham, Fellow Oncologist Pediatrics 03/03/1905/[address] [place] [address] Viri Stern, RN Primary Infusion Nurse 03/03/[address] [place] [phone] [email or web address] Ashanti Portillo, Nurse Practitioner 03/07/19 BUSINESS EXCELLENCE MANAGER [address] [place] [phone] [email or web address] documented as of this encounter Additional Source Comments The information contained in this document represents components of the legal health record. It is not the complete legal health record.[facility]
--- OUTSIDE RECORDS SUMMARY | 2022-09-20 11:53 | XMS_ITS | Encounter Summary ---
:2001 Author Organization [facility] Address [phone] [facility] [place] [address] Care Team Providers Name Role Phone Araceli Desai MD Primary Care Provider Encounter Details Date Type Department Care Team Description 02/14/2019 Office Visit Pediatric Neuro Aliya Johnson Low grade glioma of brain (Primary Dx); OncologyAngeline MD Encounter to discuss test results; [facility] [address] Encounter to discuss treatment options; [place] [address] Visual field defect Blood Disorders [email or web address] [address] [place], [place] [address] [place] [address] Social History Tobacco Use Types Packs/Day Years [...] defect documented in this encounter Care Teams Structural Worker Relationship Specialty Start Date End Date Araceli Desai MD PCP - General 10/14/[address] [place] [address] [phone] [email or web address] documented as of this encounter Additional Source Comments The information contained in this document represents components of the legal health record. It is not the complete legal health record.[facility]
--- OUTSIDE RECORDS SUMMARY | 2022-09-20 11:53 | XMS_ITS | Encounter Summary ---
:2001 Author Organization [facility] Address [phone] [facility] [employer] [place] [address] Care Team Providers Name Role Phone Araceli Desai MD Primary Care Provider Aliya Johnson MD Unavailable Carlos [email or web address] Viri Stern RN Unavailable Ashanti Portillo CONDENSER CLEANER Unavailable Encounter Details Date Type Department Care Team Description 11/29/2019 Office Visit Pediatric Neuro Aspen Carreon MD, PhD [address] [place] [phone] [email or web address] Low grade glioma of brain (Primary Dx); Oncology, Rose Mary Curry MD [address] [place] [phone] [email or web address] Seizures [facility] [address] [place] [address] [address] Leal [address] [address] Social History Tobacco Use Types Packs/Day Years [...] convulsions documented in this encounter Care Teams Medical Records Custodian Relationship Specialty Start Date End Date Araceli Desai MD PCP - General 10/14/[address] [place] [phone] [email or web address] Aliya Johnson Primary Oncologist Pediatric Hematology 03/03/19 06/01/22 MD [facility] [address] [place] [address] [email or web address] Viri Stern, RN Primary Infusion Nurse 03/03/[address] [place] [phone] [email or web address] Ashanti Portillo, Nurse Practitioner 03/07/19 CONDENSER CLEANER [address] [place] [phone] [email or web address] documented as of this encounter Additional Source Comments The information contained in this document represents components of the legal health record. It is not the complete legal health record.[facility]
--- OUTSIDE RECORDS SUMMARY | 2022-09-20 11:53 | XMS_ITS | Encounter Summary ---
:2001 Author Organization [facility] Address [phone] [address] [place] [address] Care Team Providers Name Role Phone Araceli Desai MD Primary Care Provider Aliya Johnson MD Unavailable Carlos @[email or web address] Viri Stern RN Unavailable Ashanti Portillo TOOTH CLERK Unavailable Encounter Details Date Type Department Care Team Description 08/23/2019 Office Visit Pediatric Neuro Aliya Johnson Low grade glioma of cerebrum (Primary Dx); OncologyAngeline MD Encounter to discuss test results; [facility] [address] Seizure disorder; [place] [address] History of anxiety Blood Disorders [email or web address] [address] [place], [address] [place] [address] Social History Tobacco Use Types Packs/Day Years [...] anxiety documented in this encounter Care Teams Glass Cutting Machine Operator Relationship Specialty Start Date End Date Araceli Desai MD PCP - General 10/14/[address] [place] [phone] [email or web address] Aliya Johnson Primary Oncologist Pediatric Hematology 03/03/19 06/01/22 MD [facility] [address] [place] [address] [email or web address] Viri Stern, RN Primary Infusion Nurse 03/03/[address] [place] [phone] [email or web address] Ashanti Portillo, Nurse Practitioner 03/07/19 TOOTH CLERK [address] [place] [address] documented as of this encounter Additional Source Comments The information contained in this document represents components of the legal health record. It is not the complete legal health record.[facility]
--- OUTSIDE RECORDS SUMMARY | 2022-09-20 11:53 | XMS_ITS | Encounter Summary ---
:2001 Author Organization [facility] Address [phone] [address] [place] [address] Care Team Providers Name Role Phone Araceli Desai MD Primary Care Provider Encounter Details Date Type Department Care Team Description 11/07/2018 Hospital Encounter [facility] Microbiology Lab [address] [place] [address] Social History Tobacco Use Types Packs/Day Years [...] Component Value Ref Test Analysis Performed At [facility] Range Method Time Signature Specimen THROAT THROAT [facility] CLINICAL Source/ LABORATORIES Description Special None [facility]ICAL Requests LABORATORIES Culture/Test NO BETA [facility]ICAL HEMOLYTIC LABORATORIES STREPTOCOCCUS ISOLATED Report Status 11/09/2018 FINAL [facility] CL[facility]I [facility] Specimen Anatomical Collection Method Collection Time Receive d Time (Source) Location / / Volume Laterality Throat 11/07/2018 12:43 11/07/2018 PM EST 10:43 PM EST Frandy Henao NP MICROBIOLOGY - GENERAL ORDER RADHA Performing Organization Address City/State/ZIP Code Phon e Number [facility] CLINICAL LABORATORIES [address] [place] [address] documented in this encounter Visit Diagnoses Diagnosis Sore throat Acute pharyngitis documented in this encounter Care Teams Television Equipment Operator Relationship Specialty Start Date End Date Araceli Desai MD PCP - General 10/14/[address] [place] [phone] [email or web address] documented as of this encounter Additional Source Comments The information contained in this document represents components of the legal health record. It is not the complete legal health record.[facility]
--- OUTSIDE RECORDS SUMMARY | 2022-09-20 11:53 | XMS_ITS | Encounter Summary ---
:2001 Author Organization [facility] Address [phone] [address] Care Team Providers Name Role Phone Araceli Desai MD Primary Care Provider Reason for Visit Reason Comments Sore Throat sore throat since 10/14 Encounter Details Date Type Department Care Team Description 11/07/2018 Office Visit [facility] PastFrandy bermudez So re throat (Primary Urgent Care - CLINICAL EDUCATION ACADEMIC COORDINATOR Dx) [address] [place] [id number] [phone] (Wo rk) Social History Tobacco Use Types [...] 11/07/2018 12:[address] Growth Chart: [facility] (Girls, 2-20 Years) documented in this [...] forsore throats and hoarseness. 5. Saline Nasal [place]. (My favorite is Simply Saline Nasal Mist). [...] Rapid Strep A (11/07/2018 12:44 PM EST) [facility] gist Method Time Signature Rapid Strep A Negative, Negative PUC Internal QCs WINGATE acceptable Specimen (Source) Anatomical Collection Method Collection Time Re ceived Time Location / / Volume Laterality Other 11/07/2018 12:44 PM EST Frandy Henao CLINICAL EDUCATION ACADEMIC COORDINATOR POINT OF CARE TEST ORDERABLE S Performing Organization Address City/[facility]/ZIP Code Phon e Number [facility] [address] [place] [address] Throat culture (11/07/2018 12:43 PM EST) Component Value Ref Test Analysis Performed At [facility] gist Range Method Time Signature Specimen THROAT THROAT [facility] Source/ LABORATORIES Description Special None [facility] Requests LABORATORIES Culture/Test NO BETA [facility] HEMOLYTIC LABORATORIES STREPTOCOCCUS ISOLATED Report Status 11/09/2018 FINAL [facility] Specimen Anatomical Collection Method Collection Time Receive d Time (Source) Location / / Volume Laterality Throat 11/07/2018 12:43 11/07/2018 PM EST 10:43 PM EST Frandy Henao NP MICROBIOLOGY - GENERAL ORDER RADHA Performing Organization Address City/[facility]/ZIP Code Phon e Number [facility] [address] [place] [address] documented in this encounter Visit Diagnoses Diagnosis Sore throat - Primary Acute pharyngitis documented in this encounter Care Teams Bindery Machine Feeder Offbearer Relationship Specialty Start Date End Date Araceli Desai MD PCP - General 10/14/[address] [place] [address] [email or web address] documented as of this encounter Additional Source Comments The information contained in this document represents components of the legal health record. It is not the complete legal health record.[facility]
--- OUTSIDE RECORDS SUMMARY | 2022-09-20 11:53 | XMS_ITS | Encounter Summary ---
:2001 Author Organization [facility] [facility] Address [phone] [facility] [place] [address] Care Team Providers Name Role Phone Araceli Desai MD Primary Care Provider Aliya Johnson MD Unavailable Carlos @[email or web address] Viri Stern RN Unavailable Ashanti Portillo SUCTION WORKER Unavailable Encounter Details Date Type Department Care Team Description 05/22/2020 Telemedicine Pediatric Neuro Aliya Johnson Low grade glioma of brain (Primary Dx); OncologyAngeline MD Headache disorder; [facility] [address] Seizure disorder; [place] [address] Encounter to discuss test results Blood Disorders [email or web address] [address] [place], [place] 3 [place] [address] Social History Tobacco Use Types Packs/Day Years [...] counseling documented in this encounter Care Teams Transmissions Systems Operator Relationship Specialty Start Date End Date Araceli Desai MD PCP - General 10/14/[address] [place] [address] [email or web address] Aliya Johnson Primary Oncologist Pediatric Hematology 03/03/19 06/01/22 MD Angeline and Oncology [address] [place] [address] [email or web address] Viri Stern, RN Primary Infusion Nurse 03/03/19 [address] [place] [address] [email or web address] Ashanti Portillo, Nurse Practitioner 03/07/19 SUCTION WORKER [address] [place] [address] [email or web address] documented as of this encounter Additional Source Comments The information contained in this document represents components of the legal health record. It is not the complete legal health record.[facility]
--- OUTSIDE RECORDS SUMMARY | 2022-09-20 11:53 | XMS_ITS | Encounter Summary ---
:2001 Author Organization [employer] [facility] Address [phone] [place] [address] Care Team Providers Name Role Phone Araceli Desai MD Primary Care Provider Aliya Johnson MD Unavailable Carlos [email or web address] Viri Stern RN Unavailable Ashanti Portillo SEARCH STRATEGIST Unavailable Encounter Details Date Type Department Care Team Description 01/16/2021 Orders Only COVID Vaccine Clinic, Scheduling, [facility] Ordering User imm unization [place] To Enable Vaccine [address] [address] Social History Tobacco Use Types Packs/Day Years [...] immunization documented in this encounter Care Teams Digital Librarian Relationship Specialty Start Date End Date Araceli Desai MD PCP - General 10/14/[address] [place] [address] [email or web address] Aliya Johnson Primary Oncologist Pediatric Hematology 03/03/19 06/01/22 MD Angeline and Oncology [address] [place] [address] [email or web address] Viri Stern, RN Primary Infusion Nurse 03/03/[address] [place] [address] [email or web address] Ashanti Portillo, Nurse Practitioner 03/07/19 SEARCH STRATEGIST [address] [place] [address] [email or web address] documented as of this encounter Additional Source Comments The information contained in this document represents components of the legal health record. It is not the complete legal health record.[facility]
--- OUTSIDE RECORDS SUMMARY | 2022-09-20 11:53 | XMS_ITS | Encounter Summary ---
:2001 Author Organization [employer] [facility] Address [phone] [facility] [place] [address] Care Team Providers Name Role Phone Araceli Desai MD Primary Care Provider Viri Stern RN Unavailable Ashanti Portillo RACKING TECHNICIAN Unavailable Michelle Matute MD Unavailable Encounter Details Date Type Department Care Team Description 06/09/2022 Office Visit Pediatric Neuro ElizabethAliya MD [address] [place] [address] [email or web address] Low grade glioma of Oncology, Michelle Matute MD [address] [place] [address] [email or web address] brain (Primary Dx) [facility] [address] [place], [place] [address], [place] 3 [place] [address] Social History Tobacco Use Types Packs/Day Years [...] Primary documented in this encounter Care Teams Teradata Solution Architect Relationship Specialty Start Date End Date Araceli Desai MD PCP - General 10/14/[address] [place] [address] [email or web address] Viri Stern, RN Primary Infusion Nurse 03/03/[address] [place] [address] [email or web address] Ashanti Portillo, Nurse Practitioner 03/07/[address] [address] [email or web address] Michelle Matute MD Primary Oncologist Pediatric Hematology 06/02/[address] [place] [address] [place] [address] [email or web address] documented as of this encounter Additional Source Comments The information contained in this document represents components of the legal health record. It is not the complete legal health record.[facility]
--- OUTSIDE RECORDS SUMMARY | 2022-09-20 11:53 | XMS_ITS | Clinical Summary ---
:2001 Author Organization [facility] Address [address] [facility], [address] [place] [address] Care Team Providers Name Role Phone Araceli [...] Effective Dates Phone Address Type / Group [facility] [id number] 2018-Daniel [phone] [address] HMO PILGRIM PILGRIM HMO t [address] [place] [address] MONIQUE KNOWLES Personal/Family Mother [address] (Home) [place] [address] MONIQUE KNOWLES Personal/Family Mother [address] (Home) [place] [address] MONIQUE KNOWLES Personal/Family Mother [address] (Home) [place] [address] MEDIN,MONIQUE Personal/Family Mother [address] (Home) [place] [address] MEDIN,MONIQUE Personal/Family Mother [address] (Home) [place] [address] MEDIN,MONIQUE Personal/Family Mother [address] (Home) [place] [address] MEDIN,MONIQUE Personal/Family Mother [address] (Home) [place] [address] MEDIN,MONIQUE Personal/Family Mother [address] (Home) [place] [address] MEDIN,MONIQUE Personal/Family Mother [address] (Home) [place] [address] MEDIN,MONIQUE Personal/Family Mother [address] (Home) [place] [address] MEDIN,MONIQUE Personal/Family Mother [address] (Home) [place] [address] MEDIN,MONIQUE Personal/Family Mother [address] (Home) [place] [address] MEDIN,MONIQUE Personal/Family Mother [address] (Home) [place] [address] MEDIN,MONIQUE Personal/Family Mother [address] (Home) [place] [address] MEDIN,MONIQUE Personal/Family Mother [address] (Home) [place] [address] MEDIN,MONIQUE Personal/Family Mother [address] (Home) [place] [address] MEDIN,MONIQUE Personal/Family Mother [address] (Home) [place] [address] MEDIN,MONIQUE Personal/Family Mother [address] (Home) [place] [address] MEDIN,MONIQUE Personal/Family Mother [address] (Home) [place] [address] MEDIN,MONIQUE Personal/Family Mother [address] (Home) [place] [address] MEDIN,MONIQUE Personal/Family Mother [address] (Home) [place] [address] MEDIN,MONIQUE Personal/Family Mother [address] (Home) [place] [address] MEDIN,MONIQUE Personal/Family Mother [address] (Home) [place] [address] MEDIN,MONIQUE Personal/Family Mother [address] (Home) [place] [address] MEDIN,MONIQUE Personal/Family Mother [address] (Home) [place] [address] MEDIN,MONIQUE Personal/Family Mother [address] (Home) [place] [address] MEDIN,MONIQUE Personal/Family Mother [address] (Home) [place] [address] MEDIN,MONIQUE Personal/Family Mother [address] (Home) [place] [address] MEDIN,MONIQUE Personal/Family Mother [address] (Home) [place] [address] MEDIN,MONIQUE Personal/Family Mother [address] (Home) [place] [address] MEDIN,MONIQUE Personal/Family Mother [address] (Home) [place] [address] MEDIN,MONIQUE Personal/Family Mother [address] (Home) [place] [address] MEDIN,MONIQUE Personal/Family Mother [address] (Home) [place] [address] MEDIN,MONIQUE Personal/Family Mother [address] (Home) [place] [address] MEDIN,MONIQUE Personal/Family Mother [address] (Home) [place] [address] MEDIN,MONIQUE Personal/Family Mother [address] (Home) [place] [address] MEDIN,MONIQUE Personal/Family Mother [address] (Home) [place] [address] MEDIN,MONIQUE Personal/Family Mother [address] (Home) [place] [address] MEDIN,MONIQUE Personal/Family Mother [address] (Home) [place] [address] MEDIN,MONIQUE Personal/Family Mother [address] (Home) [place] [address] MEDIN,MONIUQE Personal/Family Mother [address] (Home) [place] [address] MEDIQian,MONIQUE Personal/Family Mother [address] (Home) [place] [address] Care Teams Network Relations Consultant Relationship Specialty Start Date End Date Araceli Desai MD PCP - General Pediatrics 10/19/[address] [place] [address]
--- OUTSIDE RECORDS SUMMARY | 2022-09-20 11:53 | XMS_ITS | Encounter Summary ---
:2001 Author Organization [facility] Address [phone] [facility] [place] [address] Care Team Providers Name Role Phone Araceli Desai MD Primary Care Provider Reason for Visit Reason Comments Nasal Congestion Sore Throat Encounter Details Date Type Department Care Team Description 10/14/2018 Office Visit [facility] Frandy Henao Ac charlie pharyngitis (Primary Dx); Urgent Care - MERGERS AND ACQUISITIONS BANKER Acute upper respiratory infection, unspe [address] [place] [phone] (Wo rk) Social History Tobacco Use Types [...] 10/14/2018 4:59 PM ES T Growth Chart: [facility] (Girls, 2-20 Years) documented in this encounter [...] ?? Be careful when giving your child juqp-eza-ttwqcvg cold or flu medicines and Tylenol at [...] June 15, 2018 Content Version: 11.9 ?? 1030-9323 [employer]. Care instructions adapted under license by your healthcare professional. If you have questions about a medical condition or this instruction, always ask your healthcare professional. [employer] disclaims any warranty or liability for your [...] Get plenty of rest ?? Take an nvcr-doj-pqatfeh pain reliever such as acetaminophen (Tylenol) or [...] for specific medical conditions. ?? 2015 [employer]. Primary Care Operations Improvement Site prepared by the [facility] Laboratory of [employer] Recommendations for sore throats, upper respiratory [...] forsore throats and hoarseness. 5. Saline Nasal [place]. (My favorite is Simply Saline Nasal Mist). [...] Rapid Strep A (10/14/2018 5:17 PM EST) [facility] Method Time Signature Rapid Strep A Negative, Negative PUC Internal QCs RELIANCE acceptable Specimen (Source) Anatomical Collection Method Collection Time Re ceived Time Location / / Volume Laterality Other 10/14/2018 5:17 PM EST Frandy Henao MERGERS AND ACQUISITIONS BANKER POINT OF CARE TEST ORDERABLE S Performing Organization Address City/State/ZIP Code Phon e Number [facility] 11 [place] [address] documented in this encounter Visit Diagnoses Diagnosis Acute pharyngitis - Primary Acute upper respiratory infection, unspe cified documented in this encounter Care Teams Medical Review Specialist Relationship Specialty Start Date End Date Araceli Desai MD PCP - General 10/14/[address] [place] [address] [email or web address] documented as of this encounter Additional Source Comments The information contained in this document represents components of the legal health record. It is not the complete legal health record.[facility]
--- OUTSIDE RECORDS SUMMARY | 2022-09-20 11:53 | XMS_ITS | Encounter Summary ---
:2001 Author Organization [facility] Address [phone] [place] [address] Care Team Providers Name Role Phone Araceli Desai MD Primary Care Provider Aliya Johnson MD Unavailable Carlos @[email or web address] Viri Stern RN Unavailable Ashanti Portillo WAGE AND HOUR INVESTIGATOR Unavailable Encounter Details Date Type Department Care Team Description 11/29/2019 Office Visit Pediatric Neuro Aliya Johnson Low grade glioma of cerebrum (Primary Dx); OncologyAngeline MD Seizure disorder; [facility] [address] Encounter to discuss test results [place] [address] Blood Disorders [email or web address] [address] [place], [place] 3 [place] [address] Social History Tobacco Use Types Packs/Day Years [...] counseling documented in this encounter Care Teams Tennis Ball Cover Cementer Relationship Specialty Start Date End Date Araceli Desai MD PCP - General 10/14/[address] [place] [address] [email or web address] Aliya Johnson Primary Oncologist Pediatric Hematology 03/03/19 06/01/22 MD Angeline and Oncology [address] [place] [address] [email or web address] Viri Stern, RN Primary Infusion Nurse 03/03/19 [address] [place] [address] [email or web address] Ashanti Portillo, Nurse Practitioner 03/07/19 WAGE AND HOUR INVESTIGATOR [address] [place] [address] documented as of this encounter Additional Source Comments The information contained in this document represents components of the legal health record. It is not the complete legal health record.[facility]
--- OUTSIDE RECORDS SUMMARY | 2022-09-20 11:53 | XMS_ITS | Clinical Summary ---
:2001 Author Organization [employer] [facility] Address [phone] [address] [place] [address] Care Team Providers Name Role Phone Araceli Desai MD Primary Care Provider Viri Stern RN Unavailable Ashanti Portillo TRANSCRIBER Unavailable Michelle Matute MD Unavailable Allergies No known active allergies Medications Medication Sig Dispensed Refills Start Date End Date Status BLISOVI FE 1.5, , TK 1 T PO QD 12 09/18/2018 Active 1.5 mg-30 mcg (21)/75 mg (7) tablet SUMAtriptan (IMITREX) TK 1 T PO 1 TIME 0 08/29/2018 Active 100 MG tablet PRN DIRECTED. MAXIMUM 3 TS PER WEEK Active Problems No known active problems Social History Tobacco Use Types Packs/Day Years [...] Health Maintenance Due Date Last Done Comments Adult Td,Tdap Booster 2000 HEPATITIS B VACCINES (1 of 3 - 2001 3-dose series) MMR VACCINES (1 of 1 - 2002 Standard series) PNEUMOCOCCAL VACCINES (0-64 2007 years) (1 - [...] 01/23/2021 INFLUENZA VACCINE (#1) 2022 10/08/2021, 07/13/2018 PAP SMEAR 2022 HEPATITIS A VACCINES Aged Out No longer e ligible based on patient's age to complete this to pic HIB VACCINES Aged Out No longer eligib le based on patient's age to complete this to [facility] MENINGOCOCCAL VACCINES (ACWY) Aged Out No longer eligible based on patient's age to complete this to [facility] Medical Devices Not on file Insurance Payer Benefit Plan Subscriber ID Effective Dates Phone Address Type / Group [facility] [id number] 2017-Pres [phone] [address] HMO PILGRIM PILGRIM GIC ent 4 [place], [place] PRIMARY [address] CHOICE HMO Haley Garcia Personal/Family Self 2000 [address] [facility] (Home) [address] [address] Medin,Haley L Personal/Family Self 2000 [address] [facility] (Home) [address] [address] Medin,Haley L Personal/Family Self 2000 [address] [facility] (Home) [address] [address] Medin,Haley L Personal/Family Self 2000 [address] [facility] (Home) [address] [address] Medin,Haley L Personal/Family Self 2000 [address] [facility] (Home) [address] [place] [address] Medin,Haley L Personal/Family Self 2000 [address] [facility] (Home) [address] [address] Medin,Haley L Personal/Family Self 2000 [address] [facility] (Home) [address] [address] Medin,Haley L Personal/Family Self 2000 [address] [facility] (Home) [address] [address] Care Teams Rn Bone Marrow Transplant Relationship Specialty Start Date End Date Araceli Desai MD PCP - General 10/14/[address] [place] [address] [email or web address] Viri Stern, RN Primary Infusion Nurse 03/03/[address] [place] [address] [email or web address] Ashanti Portillo, Nurse Practitioner 03/07/[address] [address] Michelle Matute MD Primary Oncologist Pediatric Hematology 06/02/[address] [place] [address] [place] [address] [email or web address] Additional Source Comments The information contained in this document represents components of the legal health record. It is not the complete legal health record.[facility]
--- OUTSIDE RECORDS SUMMARY | 2022-09-20 11:53 | XMS_ITS | Encounter Summary ---
:2001 Author Organization [facility] Address [address] [facility], [address] [place] [address] Care Team Providers Name Role Phone Araceli [...] on filedocumented in this encounter Care Teams Help Desk Operator Relationship Specialty Start Date End Date Araceli Desai MD PCP - General Pediatrics 10/19/[address] [place] [address] documented as of this encounter
--- OUTSIDE RECORDS SUMMARY | 2022-09-20 11:53 | XMS_ITS | Encounter Summary ---
:2001 Author Organization [employer] [facility] Address [phone] [address] [place] [address] Care Team Providers Name Role Phone Araceli Desai MD Primary Care Provider Aliya Johnson MD Unavailable Carlos @[email or web address] Viri Stern RN Unavailable Ashanti Portillo PATIENT SERVICES CLERK Unavailable Encounter Details Date Type Department Care Team Description 08/23/2019 Office Visit Pediatric Neuro Aspen Carreno Low gr ade glioma of Oncology, , PhD brain (Primary Dx) [address] [facility] [address] Blood Disorders [address] [place] [address] [facility] [email or web address], [place] 3 [place] [address] Social History Tobacco Use Types Packs/Day Years [...] Primary documented in this encounter Care Teams Wagon Drill Operator Relationship Specialty Start Date End Date Araceli Desai MD PCP - General 10/14/[address] [place] [address] [email or web address] Aliya Johnson Primary Oncologist Pediatric Hematology 03/03/19 06/01/22 MD Angeline and Oncology [address] [place] [address] [email or web address]. [facility] Viri Stern, RN Primary Infusion Nurse 03/03/[address] [place] [address] [email or web address] Ashanti Portillo, Nurse Practitioner 03/07/19 PATIENT SERVICES CLERK [address] [place] [address] [email or web address] documented as of this encounter Additional Source Comments The information contained in this document represents components of the legal health record. It is not the complete legal health record.[facility]
--- OUTSIDE RECORDS SUMMARY | 2022-09-20 11:53 | XMS_ITS | Encounter Summary ---
:2001 Author Organization [facility] Address [phone] [place] [address] Care Team Providers Name Role Phone Araceli Desai MD Primary Care Provider Aliya Johnson MD Unavailable [email or web address] Birgit Pham MD Unavailable Viri Stern RN Unavailable Ashanti Portillo AGRICULTURE MECHANIC Unavailable Encounter Details Date Type Department Care Team Description 05/10/2019 Office Visit Pediatric Neuro Aliya Johnson Low grade glioma of cerebrum (Primary Dx); OncologyAngeline MD Anxiety; [facility] [address] Encounter to discuss test results [facility] [place] [address] Blood Disorders [email or web address] [facility] [place] [place] [address] Social History Tobacco Use Types Packs/Day Years [...] counseling documented in this encounter Care Teams Buildings Painter Relationship Specialty Start Date End Date Araceli Desai MD PCP - General 10/14/[address] [place] [id number] [email or web address] Aliya Johnson Primary Oncologist Pediatric Hematology 03/03/19 06/01/22 MD [facility] On[facility] [address] [place] [id number] [email or web address] Birgit Pham, Fellow Oncologist Pediatrics 03/03/1905/[address] [place] [phone] Viri Stern, RN Primary Infusion Nurse 03/03/[address] [place] [phone] [email or web address] Ashanti Portillo, Nurse Practitioner 03/07/19 AGRICULTURE MECHANIC [address] [place] [phone] documented as of this encounter Additional Source Comments The information contained in this document represents components of the legal health record. It is not the complete legal health record.[facility]
== END 2022-08-26 20:05 | disposition home or self-care (01) ==
PROVIDERS: Visit Provider Family Medicine
DX: R56.9 Unspecified convulsions (principal); S09.90XA Unspecified injury of head, initial encounter; W19.XXXA Unspecified fall, initial encounter; Y92.009 Unspecified place in unspecified non-institutional (private) residence as the place of occurrence of the external cause
CPT/HCPCS: A0425; A0427

== ENCOUNTER 2022-08-26 20:39 | Emergency (ER) | payer OTHER, SELFPAY ==
[2022-08-26 20:47] VITALS: BP 116/73; PULSE 119; RESP 16; TEMP 36.9; O2SAT 100
--- NOTE | 2022-08-26 20:59 | ED.NURSE ---
EMS started IV to LAC, 2.5 mg of diazepam given to pt.
[2022-08-26 21:00] VITALS: BP 111/76; PULSE 106; RESP 16; O2SAT 99
--- NOTE | 2022-08-26 21:05 | ED_ITS ---
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 She is on Keppra 1000 mg twice a day. She has been undergoing a lot of stress with school, and she had a similar seizure about a year ago during finals, and she is having finals currently. She is here with a roommate who apparently noticed a seizure last about a minute half to 2 minutes. Tonic clonic whole-body. Patient thinks she has been taking her Keppra regularly. She denies injury although does state that the back of her head is a little sore but not significantly. No neck pain no scapular pain no low back pain. The patient has not had any fevers chills cough cold or flu-like illness. She does report that she has been quite busy with school in very stressed by school. She states that she thinks stress is trigger for her seizures. Her last seizure was about a year ago. 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 Related Data Home Medications Medication Instructions Recorded Confirmed levetiracetam 1,000 mg tablet mg PO 08/26/22 pyridoxine (vitamin B6) 50 mg mg 08/26/22 tablet Allergies Allergy/AdvReac Type Severity Reaction Status Date / Time No Known Drug Allergies Allergy Verified 08/26/22 20:51 Review of Systems Status of ROS: Reports: 10 or more systems reviewed and unremarkable except as noted in History and below [facility] Medical History Tumor Exam Narrative: Exam Narrative: Objective: In general patient is no apparent distress, very pleasant, alert orient x3 Vital signs are unremarkable other than slightly elevated pulse, O2 sats 100% on room air HEENT is unremarkable no palpable scalp tenderness other than just in the occiput there is mild tenderness but no bruising no abrasion no hematoma or palpable step-off rest of HEENT unremarkable pupils aggression light extra Crohn's intact no facial asymmetry, mouth is clear, neck supple neurologic in upper lower extremities unremarkable, normal strength and sensation in upper extremities moves her lower extremities good peripheral perfusion noted EMS gave her 2.5 mg of diazepam IV. Const: Vital Signs, click to edit/add: Vital Signs - 24 hr 08/26/22 20:47 08/26/22 21:41 08/26/22 21:20 Temperature 98.5 F Pulse Rate [Left P ulse Oximeter] 119 H 102 H 100 Respiratory Rate 16 16 16 Blood Pressure [Ri ght Upper Arm] 116/73 101/63 102/65 Pulse Oximetry 100 99 99 Oxygen Delivery Me thod Room Air Room Air Room Air 08/26/22 21:00 Temperature Pulse Rate [Left P ulse Oximeter] 106 H Respiratory Rate 16 Blood Pressure [Ri ght Upper Arm] 111/76 Pulse Oximetry 99 Oxygen Delivery Me thod Room Air Course Vital Signs Vital signs: Initial Vital Signs Temperature 98.5 F 08/26/22 20:47 Temperature Source Temporal Artery Scan 08/26/22 20:47 Pulse Rate 119 H 08/26/22 20:47 Pulse Rhythm 08/26/22 20:47 Respiratory Rate 16 08/26/22 20:47 Blood Pressure 116/73 08/26/22 20:47 Blood Pressure Mean 87 08/26/22 20:47 Blood Pressure Position Semi-Fowlers 08/26/22 20:47 Pulse Oximetry 100 08/26/22 20:47 Oxygen Delivery Method 08/26/22 20:47 Vital Signs Temperature 98.5 F 08/26/22 20:47 Pulse Rate 119 H 08/26/22 20:47 Respiratory Rate 16 08/26/22 20:47 Blood Pressure 116/73 08/26/22 20:47 Pulse Oximetry 100 08/26/22 20:47 Oxygen Delivery Method 08/26/22 20:47 Temperature 98.5 F 08/26/22 20:47 Pulse Rate 102 H 08/26/22 21:41 Respiratory Rate 16 08/26/22 21:41 Blood Pressure 101/63 08/26/22 21:41 Pulse Oximetry 99 08/26/22 21:41 Oxygen Delivery Method 08/26/22 21:41 Medical Decision Making MDM Narrative Medical decision making narrative: Patient is a very pleasant 22-year-old 22-year-old white female from [place] who has a known seizure disorder, had a seizure. Last seizure was about a year ago. She has been on a stable dose of Keppra. She reports she has been taking her Keppra regularly, has not had any weight changes. Does have significant stressor with school and testing. At this point will check e lectrolytes hemoglobin will give 1 L of IV normal saline. Will give a 500 mg additional Keppra given that Haley does not remember taking her Keppra this morning. Will check a Keppra level. This will be a send out likely take couple days to get back. The patient has had this issue before and I think she in discussion with her and mutual decision making she feels comfortable going back to her dorm with an additional Keppra dose and follow up with local physician in the next couple of days for reassessment. I do not think she needs imaging at this time given she has a known seizure disorder, and I think simply distress exacerbated this, will give her note for off school for the next 5 days until Wednesday room, rest light activity, no exertional activity. Addendum: Patient has remained stable, got an additional dose of Keppra. She can take her usual doses when she goes home. Her CBC looks unremarkable. Will check an electrolyte profile. If that looks good she can be discharged home. I think probably to given the degree of school work and other issue she has with this seizure probably should be off for the next week to 10 days perhaps longer if needed. No written to that effect. She can work with her advise regarding this in her teachers. Update her neurologist or primary care doctor in the next couple of days if she does not have 1 then recheck with a doctor here in the next couple of days. Lab Data Labs: Lab Results 08/26/22 08/26/22 Range/Units 21:15 21:15 WBC 6.62 (4.50-11.00) K/uL RBC 3.78 L (4.00-5.20) m/uL Hgb 12.0 (12.0-16.0) gm/dL Hct 35.7 (33.0-51.0) % MCV 94 (80-100) fL MCH 32 (26-34) pg MCHC 34 (32-36) gm/dL RDW Coeff of Lainey 11.8 (11.5-15.5) % Plt Count 219 (140-440) K/uL Neut % (Auto) 66.2 (42.0-72.0) % Lymph % (Auto) 24.9 (20-44) % [place] % (Auto) 7.3 (0.0-11.0) % Eos % (Auto) 0.9 (0.0-7.0) % Baso % (Auto) 0.5 (0.0-3.0) % Neut # (Auto) 4.39 (1.7-7.0) K/uL Lymph # (Auto) 1.65 (0.90-2.90) K/uL [place] # (Auto) 0.50 (0.00-0.90) K/UL Eos # (Auto) 0.06 (0.00-0.50) K/uL Baso # (Auto) 0.03 (0.00-0.30) K/uL Abs Immat Gran (auto) 0.01 (0.00-0.30) K/uL Imm/Tot Granulo (auto) 0.2 % Sodium 136 (135-149) mmol/L Potassium 3.6 (3.6-5.1) mmol/L Chloride 108 (96-114) mmol/L Carbon Dioxide 21 (20-32) mmol/L BUN 9 (5-24) mg/dL Creatinine 0.5 (0.5-1.5) mg/dL Estimated GFR 137 ml/min Glucose 131 H (60-115) mg/dL Calcium 8.3 L (8.4-10.6) mg/dL Discharge Plan Discharge Clinical Impression: Epileptic seizure Patient Disposition: Home w/ Parent or Adult Condition: Improved Additional Instructions: Light activity, fluids, resume Keppra normal does, follow-up with Primary Care locally in the next 2-3 days, return to ED if problems or concerns, light activity, off school for the next 10 days Activity Level: Light activity Discharge Diet: Regular Prescriptions: No Action pyridoxine (vitamin B6) 50 mg tablet Label Comments: TAKE 1 TABLET BY MOUTH TWICE DAILY levetiracetam 1,000 mg tablet PO Label Comments: TAKE 1 TABLET BY MOUTH TWICE DAILY Stand Alone Forms: MyHealth Info Instructions
[2022-08-26 21:20] VITALS: BP 102/65; PULSE 100; RESP 16; O2SAT 99
[2022-08-26] MEDS: 0.9 % SODIUM CHLORIDE 1000 ml 1,000 ML 6000 ML IV (21:27)
[2022-08-26 21:29] LABS: Basophils Absolute Auto 0.03 K/uL (0.00-0.30); Basophils Percent Auto 0.5 % (0.0-3.0); Eosinophils Absolute Auto 0.06 K/uL (0.00-0.50); Eosinophils Percent Auto 0.9 % (0.0-7.0); Hematocrit 35.7 % (33.0-51.0); Immature Granulocytes Abs Auto 0.01 K/uL (0.00-0.30); Immature Granulocytes Pct Auto 0.2 %; Lymphocytes Absolute Auto 1.65 K/uL (0.90-2.90); Lymphocytes Percent Auto 24.9 % (20-44); Mean Corpuscular HGB Conc 34 gm/dL (32-36); Mean Corpuscular Hemoglobin 32 pg (26-34); Mean Corpuscular Volume 94 fL (80-100); Monocytes Percent Auto 7.3 % (0.0-11.0); Neutrophils Absolute Auto 4.39 K/uL (1.7-7.0); Neutrophils Percent Auto 66.2 % (42.0-72.0); Platelet Count* 219 K/uL (140-440); RDW Coefficient of Variation % 11.8 % (11.5-15.5); Red Blood Count 3.78 m/uL (4.00-5.20); White Blood Count* 6.62 K/uL (4.50-11.00)
[2022-08-26] MEDS: levETIRAcetam 500 MG TABLET PO (21:32)
--- OUTSIDE RECORDS SUMMARY | 2022-08-26 21:37 | XMS_ITS | Encounter Summary ---
:2000 Author Organization [facility] Address [address] [facility] [address] [place] [id number] Care Team Providers Name Role Phone Araceli Desai Md Primary Care Provider Araceli Desai Md Unavailable Encounter Details Date Type Department Care Team Description 10/17/2020 Letter (Out) [facility] Derek Montero [address] [place] [phone] Social History Tobacco Use Types Packs/Day Years Used Date Smoking Tobacco: Never Smokeless Tobacco: Never Alcohol Use Standard Drinks/Week Comments No 0 (1 standard drink = 0.6 oz pure alcoho l) Food Insecurity Answer Date Recorded Within the past 12 months, you worried that your food would Never true 10/08/2021 run out before you got money to buy more. Within the past 12 months, the food you bought just didn't N ever true 10/08/2021 last and you didn't have money to get more. Transportation Needs Answer Date Recorded In the past 12 months, has lack of transportation kept you f rom Yes 10/08/2021 medical appointments or from getting medications? In the past 12 months, has lack of transportation kept you f rom Yes 10/08/2021 meetings, work, or getting things needed for daily living? 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
--- OUTSIDE RECORDS SUMMARY | 2022-08-26 21:37 | XMS_ITS | Encounter Summary ---
:2000 Author Organization [facility] Address [address] [place] [address] Care Team Providers Name Role Phone Elsewhere, Pcp Primary Care Provider Unavailable Reason for Referral Outpatient (Routine) - Closed Specialty Diagnoses / Procedures Referred By Contact Refer red To Contact Neurology Laith Ayala M.D. [facility] [address] [place], [place] [phone] Referral ID Status Reason Start Date Expiration Date Visits Requ ested Visits Authorized [id number] Closed 05/26/2021 05/26/2022 1 1 MRI/CAT/PET Scan (Routine) - Closed Specialty Diagnoses / Procedures Referred By Contact Refer red To Contact Radiology Diagnoses Glioma Brain (HCC) Laith Ayala M.D. [facility] Procedures MR Brain without and with IV Contrast [address] [place], [place] [phone] Referral ID Status Reason Start Date Expiration Date Visits Requ ested Visits Authorized [id number] Closed 05/26/2021 05/26/2022 1 1 Reason for Visit Appointment Request (Routine) - Closed Specialty Diagnoses / Procedures Referred By Contact Refer red To Contact Neurology Diagnoses Glioma Brain (HCC) Referral ID Status Reason Start Date Expiration Date Visits Requ ested Visits Authorized [id number] Closed 05/19/2021 05/19/2022 2 1 Encounter Details Date Type Department Care Team Description 05/26/2021 Comprehensive Visit Department of Jamie, Glioma Brain (HCC) Neurology in Laith Laughlin M.D. (Primary Dx) [place], [place] [address] [facility] [address] [place] [phone] Social History Tobacco Use Types Packs/Day Years Used Date Smoking Tobacco: Never Smokeless Tobacco: Never Sex Assigned at Date Recorded Not on file documented as of this encounter Last Filed Vital Signs Vital Sign Reading Time Taken Comments Blood Pressure 123/71 05/26/2021 12:46 PM CDT Pulse 73 05/26/2021 12:46 PM CDT Temperature 36.8 ??C (98.2 ??F) 05/26/2021 12:46 PM CDT Respiratory Rate - - Oxygen Saturation 98% 05/26/2021 12:46 PM CDT Inhaled Oxygen Concentration - - Weight 47.1 kg (103 lb 15.2 oz) 05/26/2021 12:46 PM CDT Height 158.8 cm (5' 2.52) 05/26/2021 12:46 PM CDT Body Mass Index 18.7 05/26/2021 12:46 PM CDT documented in this encounter Consult Notes Gunnar Louis M.D. - 05/26/2021 1:00 PM CDT Supervisory note for Dr. 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 Details of the history of present illness are as comprehensively outlined by Dr. Ayala. I have nothing to add. I have personally interviewed patient. Relevant issues discussed. Main issue relates to seizure recurrence, in the setting sleep deprivation, onset postoperatively status post trans cortical approach to the lesion. No other specific imaging correlate. Other current relevant issue relatesto the potential presence of a germ line mutation in the tumor. Issues related to that finding discussed. I do not believe that follow-up imaging is required any less than semi annually. In fact if next imaging is stable, annual follow-up is all that is required. [facility] referral postponed for now. Small Keppra dose increase planned per Dr. Ayala. I agree that it may be helpful to outside pathology reviewed here in view of the fact that we will be following the next few years during her college tenure at [employer]. Laith Ayala M.D. - 05/26/2021 1:00 PM CDT CHIEF COMPLAINT/ REASON FOR VISIT Low grade glioma/glioneuronal tumor, establishing care HISTORY OF PRESENT ILLNESS Oncology history is as follows: Oncology History Glioma Brain (HCC) 09/10/2016 Initial Diagnosis MRI performed for migraine headaches demonstrated an enhancing left parietal white matter lesion felt to represent low grade glioma. Followed with imaging for 2.5 years. 01/26/2019 Surgery and Procedures In the setting of slow interval enlargement, surgery was performed with gross total resection. 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 The genetic sequencing identified a mutation in MUTYH as well. 01/26/2019 Other Observation period initiated. INTERVAL HISTORY: Ms. Garcia reports that she has overall done very well since her surgery. She was not treated with chemotherapy or radiation. One month after the surgery she had what is described as a generalized tonic-clonic seizure and since then has been maintained on Keppra 750 milligrams twice daily. Other than seizure she has not had any other apparent sequelae. 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 Her most recent seizure, and second seizure of her life, occurred in February 2021 at the end of her freshman year. At that time she had stress related to finals and had mild sleep deprivation. There was noillness and no missed doses of Keppra. She felt a sudden onset of tingling and some anxiety symptomswith rapid transition to loss of consciousness. She then woke up confused with a laceration on her head. It took 15-30 minutes for her to start returning back toward her baseline. There was no postictal weakness or aphasia. She has never driven and wonders if he would be safe to consider getting her license at some point in the future. According to records it has previously been discussed having a referral to [facility], but this has been declined. SYSTEMS REVIEW Headaches are now rare, with a reduction in frequency since before her surgery. She has no fixed sensory loss or paresthesias, incoordination, gait disturbance, loss of smell, vision loss, field cut, diplopia, vertigo hearing loss, dysarthria, dysphagia for bowel/bladder sphincter disturbance, or trouble with language function or memory. She denies B symptoms, rash, chest pain, and shortness of breath. She has not noticed any side effects from Keppra. She takes an oral contraceptive pill. CURRENT MEDICATIONS Current Outpatient Medications Medication Sig Dispense Refill ??? levETIRAcetam (KEPPRA) 1,000 mg tablet Take 1 tablet (1,000 mg total) by mouth 2 (two) times a day. 60 tablet 11 ??? norethindrone-ethinyl estradiol-iron (Blisovi Fe 1.5/30, 28,) 1.5 mg-30 mcg (21)/75 mg (7) tablet Take 1 tablet by mouth daily. No current facility-administered medications for this visit. Facility-Administered Medications Ordered in Other Visits Medication Dose Route Frequency Provider Last Rate Last Admin ??? LORazepam tablet 0.5 mg (ATIVAN) 0.5 mg sublingual PRN Tyson Overton M.B., B.Ch. ALLERGIES Patient has no known allergies. PAST MEDICAL HISTORY Low grade glioma/glioneuronal tumor PAST SURGICAL HISTORY Craniotomy and tumor resection, January 2019 FAMILY HISTORY No family history of cancers. SOCIAL HISTORY Social History Tobacco Use Smoking Status Never Smoker Smokeless Tobacco Never Used Social History Substance and Sexual Activity Drug Use Not on file Social History Substance and Sexual Activity Alcohol Use Not on file VITAL SIGNS Vitals: 05/26/21 1246 BP: 123/71 BP Location: Left arm Patient Position: Sitting Cuff Size: Regular Pulse: 73 Temp: 36.8 ??C SpO2: 98% Weight: 47.1 kg Height: 158.8 cm PHYSICAL EXAM NEUROLOGICAL EXAM Mental status: The patient is alert, attentive, and oriented. Speech: Speech is clear and easily comprehensible. Language: Normal naming, fluency, comprehension. Cranial nerves: Pupils are 4 mm bilaterally and briskly reactive to light. No ptosis. Visual moore are full to confrontation. Fundoscopic examination normal. In primary gaze, there is no eye deviation. Extraocular movements are full and conjugate. No nystagmus. Facial sensation is intact to light touch in all 3 divisions bilaterally. Facial movements are symmetric. Hearing is grossly normal. Palate elevates symmetrically. No dysarthria. Normal strength in SCMs and trapezius. Tongue protrudes in midline and is without atrophy. Motor: There is no pronator drift of out-stretched arms. Muscle bulk and tone are normal. Strength is 0 bilaterally with shoulder abduction, elbow flexion/extension, wrist extension, finger extension, hip flexion, knee flexion/extension, ankle dorsiflexion, and toe extension. Reflexes: Very mildly increased right BR and patellar reflexes; reflexes are otherwise 0 and symmetric. Plantar responses are flexor bilaterally. Sensory: Temperature, vibration, and joint position sense are normal in all 4 limbs. Coordination: Rapid alternating movements are normal in upper and lower limbs. There is no dysmetriaon [id number] and [id number]. Gait/Stance: Stance is normal. Gait is steady with normal steps, base, arm swing, and turning. Heel,toe, and tandem gait are normal. IMAGING STUDIES & LAB RESULTS MRI brain from today shows findings consistent with gross total resection with no evidence of recurrent/residual disease. Preoperative imaging shows a contrast-enhancing lesion in the left parietal white matter. 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 Garcia now lives in [place] and schedule an appointment today to establish care here for ongoing surveillance and seizure management. 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 While both of these are low-grade pathologies, it may be helpful to have further testing performed to see if a more precise diagnosis can be reached. Fortunately there is no clinical or radiographic evidence of tumor recurrence. She has not had any further testing to determine if the MUTYH mutation is a germline mutation, which could have implications for her overall cancer risk. We will plan for ongoing surveillance imaging, with the next MRI brain in six months. She had a recent breakthrough seizure several months ago in the setting of mild sleep deprivation. Since she has several years of college left and hopes to drive, my hope is to raise the seizure threshold to help protect from recurrent generalized seizure. RECOMMENDATIONS: 1. We will request a pathology review of the outside specimen with the goal of further characterizing the lesion. 2. She would like to think more about having a [facility] evaluation to further investigate the implications of the MUTYH mutation that was detected. 3. I have provided a prescription for an increased dose of Keppra, increasing to Keppra 1000 milligrams twice a day (from 750 BID). 4. We will repeat an MRI brain in six months, at which time we will have a return office visit. 5. I counseled her that there is no contraindication to her eventually driving, but that she will need to work with the DMV to ensure that enough time has passed since her last seizure before being issued a license. PATIENT EDUCATION Ready to learn, no apparent learning barriers were identified; learning preferences include listening. Explained diagnosis and treatment plan; patient expressed understanding of the content. Billing: Total time spent 40 minutes >50% spent counseling and coordinating care. Orders Placed This Encounter Procedures ??? MR Brain without and with IV Contrast ??? Neurology office visit (clinic) documented in this encounter Plan of Treatment Scheduled Orders Name Type Priority Associated Diagnoses Order S chedule MR Brain without Imaging RAD - Routine (most Glioma Brain (HCC ) Expected: and with IV inpatients and all 2 Contrast outpatients) (Approximate), Expires: 05/26/2024 Scheduled Referrals Name Type Priority Associated Diagnoses Order S chedule Neurology office Outpatient Referral Routine Expe cted: visit (clinic) 11/26/2021 (Approximate), Expires: 05/26/2024 documented as of this encounter Visit Diagnoses Diagnosis Glioma Brain (HCC) - Primary documented in this encounter 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
--- OUTSIDE RECORDS SUMMARY | 2022-08-26 21:37 | XMS_ITS | Summary of Care ---
:2000 Author Organization [facility]rolog [facility] Address [address] [place] [address]. [place] [address]- Care Team Providers Name Role Phone DIOGENES BAUER, JUSTINE Primary Care Physician Encounter [facility] [id number] Date(s): 06/10/22 - 06/10/22 [facility], [place] [id number] Encounter Diagnosis Malignant neoplasm of brain, unspecified (Final) - Localization-related (focal) (partial) idiopathic epilepsy and epileptic syndromes with seizures of localized onset, not intractable, without status epilepticus (Final) - Discharge Disposition: Discharge Attending Physician: KARLA MOSHER MD Referring Physician: PETR PERRY MD Allergies, Adverse Reactions, Alerts Substance Reaction Severity Status coconut Active Medications Keppra 1000 mg oral tablet Dose: 1,000 mg, Dose Amount: 1 tab, PO, BID, Dispense Quantity: 60 tab, Refills: 5, Entered: 06/10/22 10:23:00 [employer]) #[id number] Start Date: 06/10/22 Stop Date: 12/07/22 Status: Orderedpyridoxine 50 mg oral tablet Dose: 50 mg, Dose Amount: 1 tab, PO, BID, Dispense Quantity: 60 tab, Refills: 5, Entered: 06/10/22 10:22:00 [employer]) #[id number] Start Date: 06/10/22 Stop Date: 12/07/22 Status: Ordered Problem List Condition Effective Dates Status Health Status Informant Brain tumor of uncertain 01/26/19 Resolved behavior.(Confirmed) Low-grade glioma of brain(Confirmed) Active Seizure disorder(Confirmed) Active
--- OUTSIDE RECORDS SUMMARY | 2022-08-26 21:37 | XMS_ITS | Summary of Care ---
:2001 Author Organization [facility] Address [address] [place] [address]- Care Team Providers Name Role Phone VICKY BAUER, PETR Eric Primary Care Physician Encounter [facility]_CSN [id number] Date(s): 05/21/20 - 05/21/[address] [address]- [facility] Discharge Disposition: Discharge Attending Physician: RAY BOOTH MD Referring Physician: RAY BOOTH MD Allergies, Adverse Reactions, Alerts Substance Reaction Severity Status coconut Active Medications levETIRAcetam 500 mg oral tablet Dose: 750 mg, Dose Amount: 1.5 tab, PO, BID, Dispense Quantity: 90 tab, Refills: 1, Entered: 05/13/20 10:58:00 [facility], [id number] Start Date: 05/13/20 Stop Date: 07/12/20 Status: Ordered Problem List Condition Effective Dates Status Health Status Informant Brain tumor of uncertain 01/26/19 Resolved behavior.(Confirmed) Low-grade glioma of brain(Confirmed) Active Seizure disorder(Confirmed) Active
--- OUTSIDE RECORDS SUMMARY | 2022-08-26 21:37 | XMS_ITS | Encounter Summary ---
:2001 Author Organization [facility] Address [address] [place] [address] Care Team Providers Name Role Phone Elsewhere, Pcp Primary Care Provider Unavailable Reason for Referral MRI/CAT/PET Scan (Routine) - Closed Specialty Diagnoses / Procedures Referred By Contact Refer red To Contact Radiology Diagnoses Glioma Brain (HCC) Darrin Brewster M.D. [facility] Procedures MR Brain without and with IV Contrast [address] [place] [address] Referral ID Status Reason Start Date Expiration Date Visits Requ ested Visits Authorized [id number] Closed 05/23/2021 05/23/2022 1 1 Encounter Details Date Type Department Care Team Description 05/23/2021 Orders Only Department of Neurology Darrin Brewster Glio ma Brain (HCC) in [facility] carol Olivera (Primary Dx) [address] [facility] [address] [place] [phone] Social History Tobacco Use Types Packs/Day Years Used Date Smoking Tobacco: Never Smokeless Tobacco: Never Sex Assigned at Date Recorded Not on file documented as of this encounter Plan of Treatment Not on filedocumented as of this encounter Results MR Brain without and with IV Contrast (05/26/2021 9:53 AM CDT) Anatomical Region Laterality Modality Head, Brain, Neuroradiology RST LOS, Neuroradiology ARZ N/A Magnetic Resonance LOS, Neuroradiology FLA LOS Specimen (Source) Anatomical Collection Method Collection Time Re ceived Time Location / / Volume Laterality 05/26/2021 10:12 AM CDT Impressions 05/26/2021 11:03 AM CDT Stable appearing left parietal resection cavity without evidence for disease progression. Narrative 05/26/2021 11:03 AM CDT EXAM: MR BRAIN WITHOUT AND WITH IV CONTRAST COMPARISON: Outside brain MRI with IV co ntrast from 10/19/2020, 05/21/2020, 11/26/2019, 08/19/2019 and 05/10/2019. No current clinical notes available at time of dictation. FINDINGS: Postoperative changes from a left pariet al craniotomy with underlying left parietal resection cavity contiguous wit h the left lateral ventricular trigone. 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 The resection cavity is unchanged in siz e and morphology comparing back to at least 05/10/2019. Similar minimal residu al enhancement along the posterior anterior aspects of the cavity. Stable g liotic signal about the cavity. No evidence for vasogenic edema or mass eff ect. No new nodular enhancement. No evidence for increased relative cerebral blood volume around the surgical bed. Remainder the brain is normal in signal and morphology. Normal ventricular caliber and intracranial vascular flow v oids. No abnormal restricted diffusion. Procedure Note Marcelina Wallace M.D. - 05/26/2021Format ting of this note might be different from the original. EXAM: MR BRAIN WITHOUT AND WITH IV CONTR AST COMPARISON: Outside brain MRI with IV co ntrast from 10/19/2020, 05/21/2020, 11/26/2019, 08/19/2019 and 05/10/2019. No current clinical notes available at time of dictation. FINDINGS: Postoperative changes from a left pariet al craniotomy with underlying left parietal resection cavity contiguous wit h the left lateral ventricular trigone. 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 The resection cavity is unchanged in siz e and morphology comparing back to at least 05/10/2019. Similar minimal residu al enhancement along the posterior anterior aspects of the cavity. Stable g liotic signal about the cavity. No evidence for vasogenic edema or mass eff ect. No new nodular enhancement. No evidence for increased relative cerebral blood volume around the surgical bed. Remainder the brain is normal in signal and morphology. Normal ventricular caliber and intracranial vascular flow v oids. No abnormal restricted diffusion. IMPRESSION: Stable appearing left parietal resection cavity without evidence for disease progression. Darrin Brewster M.D. [facility] PROCEDURES documented in this encounter Visit Diagnoses Diagnosis Glioma Brain (HCC) - Primary Glioma Brain (HCC) documented in this encounter Care Teams Heavy Equipment Diesel Mechanic Relationship Specialty Start Date End Date Elsewhere, Pcp PCP - General Family Medicine 05/22/21 documented as of this encounter
--- OUTSIDE RECORDS SUMMARY | 2022-08-26 21:37 | XMS_ITS | Encounter Summary ---
:2001 Author Organization [facility] Address [address] [place] [address] Care Team Providers Name Role Phone Elsewhere, Pcp Primary Care Provider Unavailable Reason for Visit Reason Comments Authorization (pathology) [facility] Encounter Details Date Type Department Care Team Description 05/30/2021 Clinical Communication Department of Jamie, Auth orization Neurology in Laith Laughlin M.D. (pathology) [place], [facility] [address] ([place]) [place], [place] [address] [facility] [address] [place], [place] [phone] (Work) [phone] Social History Tobacco Use Types Packs/Day Years Used Date Smoking Tobacco: Never Smokeless Tobacco: Never Sex Assigned at Date Recorded Not on file documented as of this encounter Miscellaneous Notes Telephone Encounter - Misa Overton - 05/30/2021 1:50 PM CDT Called patient to discuss the need for authorization completion so we can request her pathology slides. She will complete one and fax it back to [phone]. Once received, request will be sent to pathology. Order for review has been completed. 06/02: Contacted patient again. Still awaiting authorization form. 06/09: POM sent 06/17: Letter/auth mailed to patient. 06/27: Order for pathology review canceled/ as it has been over 30 days. Will need new order once auth is received. documented in this encounter Plan of Treatment Not on filedocumented as of this encounter Visit Diagnoses Not on filedocumented in this encounter Care Teams Director Supply Relationship Specialty Start Date End Date Elsewhere, Pcp PCP - General Family Medicine 05/22/21 documented as of this encounter
--- OUTSIDE RECORDS SUMMARY | 2022-08-26 21:37 | XMS_ITS | Encounter Summary ---
:[address] [facility] Address [address] [place] [address] [address] Care Team Providers Name Role Phone Araceli Desai Md Primary Care Provider Araceli Desai Md Unavailable Encounter Details Date Type Department Care Team Description 09/30/2021 Email Encounter [facility] Darlin Galvan, RN My Prescriptions [address] [place] [phone] Social History Tobacco Use Types Packs/Day Years [...] on file documented as of this encounter Progress Notes Darlin Galvan, RN - 09/30/2021 11:19 AM EST Time Spent: I spent approximately 11-20 min in chart review, documentation, triage, nursing assessment, patient counseling or providing patient education. documented in this encounter Plan of Treatment Upcoming Encounters Date Type Specialty Care Team Description 10/09/2022 Office Visit Internal Medicine James Matthews MD [address] [place] [phone] (Wo rk) documented as of this encounter Visit Diagnoses Not on filedocumented in this encounter Care Teams Glass Etcher Helper Relationship Specialty Start Date End Date Araceli Desai MD PCP - General Pediatrics 07/22/17 04/05/[address] [place] [address] Araceli Desai MD PCP - Payer 02/03/18 06/02/[address] [place] [address] documented as of this encounter
--- OUTSIDE RECORDS SUMMARY | 2022-08-26 21:37 | XMS_ITS | Encounter Summary ---
:2001 Author Organization [facility] Address [address] [facility] [address] [address] Care Team Providers Name Role Phone Araceli Desai Md Primary Care Provider Araceli Desai Md Unavailable Encounter Details Date Type Department Care Team Description 02/12/2021 Email Encounter [facility] Dept Online, [facility] Your invitation to USED BY [email or web address] TO schedule a COVID-19 CREATE vaccine appointment at USER MESSAGE [employer] ENCOUNTERS BY NON-PROVIDERS Social History Tobacco Use Types Packs/Day Years [...] Office Visit Internal Medicine James Matthews MD [address] [place] [phone] (Wo rk) documented as of this encounter Visit Diagnoses Not on filedocumented in this encounter Care Teams Armored Car Guard And Driver Relationship Specialty Start Date End Date Araceli Desai MD PCP - General Pediatrics 07/22/17 04/05/[address] [place] [address] Araceli Desai MD PCP - Payer 02/03/18 06/02/[address] [place] [address] documented as of this encounter
--- OUTSIDE RECORDS SUMMARY | 2022-08-26 21:37 | XMS_ITS | Summary of Care ---
:2001 Author Organization [facility] Address [address] [place] [address]- Care Team Providers Name Role Phone VICKY BAUER, PETR Eric Primary Care Physician Encounter [facility]_CSN [id number] Date(s): 06/05/21 - 06/05/[address] [address]- Attending Physician: LUISA HUDDLESTON MD Referring Physician: KARLA MOSHER MD Allergies, Adverse Reactions, Alerts Substance Reaction Severity Status coconut Active Problem List Condition Effective Dates Status Health Status Informant Brain tumor of uncertain 01/26/19 Resolved behavior.(Confirmed) Low-grade glioma of brain(Confirmed) Active Seizure disorder(Confirmed) Active
--- OUTSIDE RECORDS SUMMARY | 2022-08-26 21:37 | XMS_ITS | Summary of Care ---
:2001 Author Organization [facility] Address [address] [place] [address]- Care Team Providers Name Role Phone DIOGENES BAUER, JUSTINE Primary Care Physician Encounter [facility]_CSN [id number] Date(s): 06/09/22 - 06/09/[address] [address]- Discharge Disposition: Discharge Attending Physician: RAY BOOTH MD Referring Physician: RAY BOOTH MD Allergies, Adverse Reactions, Alerts Substance Reaction Severity Status coconut Active Problem List Condition Effective Dates Status Health Status Informant Brain tumor of uncertain 01/26/19 Resolved behavior.(Confirmed) Low-grade glioma of brain(Confirmed) Active Seizure disorder(Confirmed) Active
--- OUTSIDE RECORDS SUMMARY | 2022-08-26 21:37 | XMS_ITS | Clinical Summary ---
:2001 Author Organization [facility] Address [address] [place] [address] Care Team Providers Name Role Phone Elsewhere, Pcp Primary Care Provider Unavailable Source Comments Patient records contain information from all sites at [facility]. For routine questions regarding patient records, call [phone] during business hours, M-F 8:00 AM - 5:00 PM Central Time. Record requests for emergency care only can be directed to [phone] at any time.[facility] Allergies No known active allergies Medications Medication Sig Dispensed Refills Start Date End Date Status norethindrone-ethinyl Take 1 tablet by 0 09/18/2018 Active estradiol-iron (Blisovi mouth daily. Fe 1.5/30, 28,) 1.5 mg-30 mcg (21)/75 mg (7) tablet levETIRAcetam (KEPPRA) Take 1 tablet 60 tablet 11 05/26/2021 Active 1,000 mg tablet (1,000 mg total) by mouth 2 (two) times a day. Active Problems Problem Noted Date Glioma Brain 05/26/2021 Social History Tobacco Use Types Packs/Day Years Used Date Smoking Tobacco: Never Smokeless Tobacco: Never Sex Assigned at Date Recorded Not on file Last Filed Vital Signs Vital Sign Reading [...] Mass Index 18.7 05/26/2021 12:46 PM CDT Plan of Treatment Health Maintenance Due Date Last Done Comments Cervical Cancer Screening 2001 Chlamydia and Gonorrhea 2001 Screening HIV Screening 2001 Hearing Screening during 2001 Well Child Visit Hepatitis B Vaccines (1 of 3 2001 - 3-dose series) Hepatitis C Screening 2001 1 week Well Child Check-Up 2001 1 month Well Child Check-Up 2001 2 month Well Child Check-Up 2001 4 month Well Child Check-Up 2001 6 month Well Child / 01/23/2002 Alternative Check-Up 9 month Well Child Check-Up 04/24/2002 12 month Well Child / 07/25/2002 Alternative Check-Up 15 month Well Child Check-Up 10/25/2002 18 month Well Child 01/23/2003 2 year Well Child Check-Up 07/25/2003 30 month Well Child Check-Up 01/24/2004 3 year Well Child Check-Up 07/25/2004 4 year Well Child Check-Up 07/25/2005 5 year Well Child Check-Up 07/25/2006 6 year Well Child Check-Up 07/25/2007 7 year Well Child / 07/25/2008 Alternative Check-Up 8 year Well Child Check-Up 07/25/2009 9 year Well Child Check-Up 07/25/2010 HPV Vaccines (1 - 2-dose 2010 series) 10 year Well Child Check-Up 07/25/2011 11 year Well Child Check-Up 07/25/2012 12 year Well Child Check-Up 07/25/2013 13 year Well Child Check-Up 07/25/2014 14 year Well Child Check-Up 07/25/2015 15 year Well Child Check-Up 07/25/2016 16 year Well Child Check-Up 07/25/2017 17 year Well Child Check-Up 07/25/2018 18 year Well Child Check-Up 07/25/2019 19 year Well Child Check-Up 07/25/2020 COVID-19 Vaccine (3 - 04/10/2021 02/13/2021, 01/23/2021 Booster for Pfizer series) 20 year Well Child Check-Up 07/25/2021 Depression Screening (Annual 10/11/2021 PHQ-2) Influenza Vaccine (#1) 2022 07/25/2020 21 year Well Child Check-Up 07/25/2022 Well Child Check-Up (WCC) 07/25/2022 DTaP,Tdap,and Td Vaccines (7 02/21/2023 02/21/2013, 005, - Td or Tdap) 11/24/2002, Additional history exists Meningococcal Vaccine Completed 07/13/2018 Pneumococcal vaccine (0-64 Aged Out No lo nger eligible years) based on patient 's age to complete this topic Medical Devices Implanted Type Area Quality Management Nurse Device Shelf Expiration Model / Identifier Date Serial / Lot Misc Other Misc Other Mouth Description: Permanent retainer Insurance Payer Benefit Plan / Subscriber ID Effective Phone Address T ype Group Dates [facility] [id number] 2021-Pres [phone] [address] [employer] ent [phone] [place] [address] Care Teams Alarm Investigator Relationship Specialty Start Date End Date Elsewhere, Pcp PCP - General Family Medicine 05/22/21
--- OUTSIDE RECORDS SUMMARY | 2022-08-26 21:37 | XMS_ITS | Summary of Care ---
:2001 Author Organization [facility]. Address [address] [facility] [place] [address]- Care Team Providers Name Role Phone PETR PERRY MD Primary Care Physician Encounter [facility]_CSN [id number] Date(s): 04/23/21 - 04/23/21 [facility] Neurology [facility], [facility] [address] [facility]. [place], [place] [address] Discharge Disposition: Discharge Attending Physician: KARLA MOSHER MD Referring Physician: PETR PERRY MD Allergies, Adverse Reactions, Alerts Substance Reaction Severity Status coconut Active Medications levETIRAcetam 500 mg oral tablet Dose: 750 mg, Dose Amount: 1.5 tab, PO, BID, Dispense Quantity: 270 tab, Refills: 2, Entered: 04/23/21 12:47:00 [facility][id number] Start Date: 04/23/21 Stop Date: 01/18/22 Status: Ordered Problem List Condition Effective Dates Status Health Status Informant Brain tumor of uncertain 01/26/19 Resolved behavior.(Confirmed) Low-grade glioma of brain(Confirmed) Active Seizure disorder(Confirmed) Active
--- OUTSIDE RECORDS SUMMARY | 2022-08-26 21:37 | XMS_ITS | Encounter Summary ---
:2001 Author Organization [facility] Address [address] [place] [address] Care Team Providers Name Role Phone Elsewhere, Pcp Primary Care Provider Unavailable Reason for Referral MRI/CAT/PET Scan (Routine) - Closed Specialty Diagnoses / Procedures Referred By Contact Refer red To Contact Radiology Diagnoses Glioma Brain (HCC) Darrin Brewster M.D. [facility] Procedures MR Brain without and with IV Contrast [address] [place] [address] Referral ID Status Reason Start Date Expiration Date Visits Requ ested Visits Authorized [id number] Closed 05/23/2021 05/23/2022 1 1 Reason for Visit MRI/CAT/PET Scan (Routine) - Closed Specialty Diagnoses / Procedures Referred By Contact Refer red To Contact Radiology Diagnoses Glioma Brain (HCC) Darrin Brewster M.D. [facility] Procedures MR Brain without and with IV Contrast [address] [place] [address] Referral ID Status Reason Start Date Expiration Date Visits Requ ested Visits Authorized [id number] Closed 05/23/2021 05/23/2022 1 1 Encounter Details Date Type Department Care Team Description 05/26/2021 Hospital Encounter Department of Darrin Brewster Glioma B rain (HCC) Radiology, Timoteo Mora, in [place], [address] [place], [place] [address] [facility] [address] [place], [place] [phone] (Work) [phone] Social History Tobacco Use Types Packs/Day Years Used Date Smoking Tobacco: Never Smokeless Tobacco: Never Sex Assigned at Date Recorded Not on file documented as of this encounter Medications at Time of Discharge Medication Sig Dispensed Refills Start Date End Date levETIRAcetam (KEPPRA) Take 1 tablet (1,000 60 tablet 11 1,000 mg tablet mg total) by mouth 2 (two) times a day. norethindrone-ethinyl Take 1 tablet by 0 09/18/20 18 estradiol-iron (Blisovi Fe mouth daily. 1.5/30, 28,) 1.5 mg-30 mcg (21)/75 mg (7) tablet documented as of this encounter Plan of Treatment Not on filedocumented as of this encounter Procedures Procedure Name Priority Date/Time Associated Comments Diagnosis MR BRAIN WITHOUT RAD - Routine 05/26/2021 9:53 Glioma Brain Results for this AND WITH IV (most inpatients AM CDT (HCC) procedure a re in CONTRAST and all the results outpatients) section. documented in this encounter Results MR Brain without and [...] cavity without evidence for disease progression. Darrin SABILLON MRI PROCEDURES documented in this encounter Visit Diagnoses Diagnosis Glioma Brain (HCC) documented in this encounter Administered Medications Inactive Administered Medications - up to 3 most recent administrations Medication Order MAR Action Action Date Dose Rate Site gadobutrol injection 0.01-30 mL Given 05/26/2021 9:46 AM CDT 5 m L (GADAVIST) 0.01-30 mL, intravenous, Once in imaging, contrast, Starting on 05/26/21 at 0903, For 1 dose, Imaging Protocol Orders, Dose per Radiant Medication Guidelines Intrathecal doses greater than 0.25 mL not recommended. sodium chloride (PF) 0.9 % injection 1-1 00 mL Given 05/26/2021 9:46 AM CDT 20 mL 1-100 mL, intravenous, Once, On 05/26/21 at 0915, For 1 dose, Imaging Protocol Orders documented in this encounter Care Teams Roofer Helper Relationship Specialty Start Date End Date Elsewhere, Pcp PCP - General Family Medicine 05/22/21 documented as of this encounter
--- OUTSIDE RECORDS SUMMARY | 2022-08-26 21:37 | XMS_ITS | Encounter Summary ---
:2001 Author Organization [facility] Address [address] [facility] [address] [address] Care Team Providers Name Role Phone Araceli Desai Md Primary Care Provider Araceli Desai Md Unavailable Encounter Details Date Type Department Care Team Description 10/17/2020 Notation [facility] Derek Montero [address] [place] [phone] Social History Tobacco Use Types [...] documented as of this encounter Progress Notes Derek Montero - 10/17/2020 4:54 PM EST Lvm, sent [facility] letter to call to schedule PHR for 2020. documented in this encounter Plan of Treatment Upcoming Encounters Date Type Specialty Care Team Description 10/09/2022 Office Visit Internal Medicine James Matthews MD [address] [place] [address] (Wo rk) documented as of this encounter Visit Diagnoses Not on filedocumented in this encounter Care Teams Fact Checker Relationship Specialty Start Date End Date Araceli Desai MD PCP - General Pediatrics 07/22/17 04/05/[address] [place] [address] Araceli Desai MD PCP - Payer 02/03/18 06/02/[address] [place] [address] documented as of this encounter
--- OUTSIDE RECORDS SUMMARY | 2022-08-26 21:37 | XMS_ITS | Summary of Care ---
:2001 Author Organization [facility] Address [address] [place] [address]- Care Team Providers Name Role Phone PETR PERRY MD Primary Care Physician Encounter [facility]_CSN [id number] Date(s): 10/19/20 - 10/19/[address] [address]- [facility] Discharge Disposition: Discharge Attending Physician: RAY BOOTH MD Referring Physician: PETR PERRY MD Allergies, Adverse Reactions, Alerts Substance Reaction Severity Status coconut Active Problem List Condition Effective Dates Status Health Status Informant Brain tumor of uncertain 01/26/19 Resolved behavior.(Confirmed) Low-grade glioma of brain(Confirmed) Active Seizure disorder(Confirmed) Active
--- OUTSIDE RECORDS SUMMARY | 2022-08-26 21:37 | XMS_ITS | Encounter Summary ---
:2000 Author Organization [facility] Address [address] [facility] [address] [address] Care Team Providers Name Role Phone Araceli Perry Md Primary Care Provider Araceli Perry Md Unavailable Reason for Visit Reason Comments Complete Physical Exam 21y/o no concerns Encounter Details Date Type Department Care Team Description 10/08/2021 Office Visit [facility] Araceli Perry MD Encounter for routine adult health exami [facility] without abnormal findings (Primary Dx); [address] [place] [address] Low grade glioma of brain ([facility] Seizure disor george ([facility]) [phone] Social History Tobacco Use Types Packs/Day Years [...] Sign Reading Time Taken Comments Blood Pressure 118/64 10/08/2021 1:53 PM EST Pulse 78 10/08/2021 1:53 PM EST Temperature - - Respiratory Rate - - Oxygen Saturation - - Inhaled Oxygen Concentration - - Weight 44.6 kg (98 lb 6.4 oz) 10/08/2021 1:53 PM EST Height 160.7 cm (5' 3.25) 10/08/2021 1:53 PM EST Body Mass Index 17.29 10/08/2021 1:53 PM EST documented in this encounter Patient Instructions Patient InstructionsAraceli Perry MD - 10/08/2021 2:00 PM EST Patient Education Patient Education It was great to see you today for your annual visit. We hope you had a good visit and that we answered all your questions. Follow up is a lanier part of your treatment and safety. Be sure to make, and go to all visits and callus if you have any concerns. We recommend that you have a routine checkup every year. For those of you cared for by a Door Maker, we are happy to see you in Pediatrics until your 24rd birthday. Let'smake sure to discuss your transition at each visit to assist you in identifying an Radiation Physicist or Family Medicine Clinician to assume your care after you leave Pediatrics. Those of you with a Family Medicine Physician do not need to transition your care. Below we have included some useful information regarding your health; if you have any concerns or questions, do not hesitate to contact us. Nutrition: ?? Eat 3 nutritious meals a day, breakfast is an especially important meal. Select a nutritious lunch from cafeterias, restaurants or, better yet, pack a balanced lunch. ? ?? Focus on food choices that help you stay healthy. * Eat lots of fruits and vegetables, especially the colorful ones. * Focus on whole-grain breads, cereals and other grain products. * Have 3 or more servings of low-fat (1%) or fat free milk and other low-fat dairy products. If you are unable, please consider taking Calcium and Vitamin D supplements. It is recommended that adults consume 1,000 mg of Calcium and 1,000 IUs of Vitamin D daily. * Eat lean meats, chicken, fish and other sources of protein and iron. * Limit high-calorie and fast foods. * Drink plenty of water. Physical Activity: ?? Get at least 1 hour of physical activity on most, if not all days of the week. Walking is a good choice. You also may want to do other activities, such as running, swimming, cycling, weight training/resistance training or playing tennis or team sports. ?? To prevent injuries, use appropriate safety equipment (such as a helmet, a mouth guard, eye protection, wrist guards and elbow and knee pads) when participating in physical activity. ?? Drink plenty of water to maintain hydration lost during physical activity to prevent heat-relatedillnesses, such as heat cramps, exhaustion and heat stroke. ?? Cut back on physical inactivity by limiting the time you spend watching TV or using other devices(iPads, computers, phones), other than for work or school to no more than 2 hours a day. Safety: ?? Always wear sunscreen on exposed skin. Make sure the sunscreen blocks ultraviolet rays (both UVA and UVB) and has a sun protection factor (SPF) of at least 15. Use it every day, even when it is cloudy. ?? See a dentist two times a year for checkups and to have your teeth cleaned. ?? Wear a seatbelt in the car; do not text or use your cell phone while operating your motor vehicle. Insist that all your passengers wear seatbelts as well. ?? Reduce injuries through use of bicycle, motorcycle and appropriate sports helmets. ?? Do not smoke or allow others to smoke around you, or use non-cigarette tobacco products or vaping. E-cigarettes, vaping and Juuling also contain nicotine and are not shown to be a safer alternative to cigarettes: they are also addictive. If you need help quitting, talk to us about stop-smoking pro grams and medicines. These can increase your chances of quitting for good. ?? While we do not endorse alcohol use for our patients who are under age 21 we recognize there are people who will use alcohol. ?? If you do drink alcohol, do so in moderation and hopefully with responsible adult supervision. Avoid binge drinking or drinking large quantities of alcohol rapidly (shots) as it is easy to become dangerously impaired and may increase your risk for alcohol addiction. ?? Have a designated food mobile driver at all times. A designated food mobile driver is the person who has NOT been drinking at ALL, not the person who has had the fewest drinks!! Immunizations: ?? You should be up to date on all routine immunizations at this point, but if you are not you may be due for catch up vaccines; ask us about when they are due. ?? Talk to your health care provider about HPV vaccine (Gardasil) if you have not already received it. This is given as a series of 2 or 3 doses. This vaccine protects against the 9 most common strainsof the Human papilloma virus that cause cervical cancer in women/girls, cause abnormal Pap smears and cause genital warts in men and women. This virus is the most common sexually transmitted infection,and can be passed on through intimate genital contact (skin to skin), not just through intercourse, and this infection is not well prevented by condom use. We recommend this for female AND male patients. Sexual Health: ?? Talk to us about whether you have any risk factors for sexually transmitted diseases (STDs). ?? We recommend that all young adults are screened for chlamydia infection annually. ?? Use control if you do not want to have children at this time. Talk with us about the choices available and what might be best for you. ?? Remember, the oral contraceptive pill given to women prevents but not STDs. Use condoms! Health Screening: ?? Follow your doctor's advice about when to have certain tests. These tests can spot problems early. ?? After 18, we may test your cholesterol, blood pressure and blood sugar levels. ?? How frequently we do this will depend on your age, family history or other factors that can increase your risk for certain conditions. ?? Have your eyes checked every year or two or as often as your doctor suggests. ?? For women: * Talk to your doctor about whether breast self-examination is right for you. * Begin Pap tests at age 21. A Pap test is the best way to find cervical cancer, or pre-cancerous conditions. The test often is part of a pelvic exam. Ask how often to have this test (usually every OTHER year, if your Paps have been normal). * Tests for sexually transmitted diseases (STDs). If you are sexually active, you should be screened for chlamydia yearly, even if you have no symptoms. This is done as either a vaginal swab or a urine test. * Ask whether you should have other tests for STDs. You may be at risk if you have sex with more than one person, especially if your partners do not wear condoms. * This website is a great place to go for more information: www.[employer].org ?? For men: * Tests for sexually transmitted diseases (STDs). You should be screened for chlamydia yearly, even if you have no symptoms. This is usually a urine test. Ask whether you should have other tests for STDs. You may be at risk if you have sex with more than one person, especially if you do not wear a condom. * Testicular cancer exam. You should be doing a testicular self-exam monthly, beginning at age 16 years. Discuss self-examination with your clinician. * This website is a great place to go for more information: [email or web address] documented in this encounter Progress Notes Alana Venegas RN - 10/08/2021 2:00 PM EST Patient requests seasonal influenza vaccine. Per Atri standing medication order for FLU vaccine, the vaccine was administered from floor stock; see immunization module for detail. Pt denies history of any severe, life-threatening allergies to the flu vaccine, including componentsof the vaccine and Guillain-Larkspur Syndrome. Pt is afebrile and has no history of syncope with injections or immunizations. Prior to giving the immunization, the following actions were conducted: - Verification of patient identity - Verification of status for women of child bearing years. - Verification that immunization is indicated per prior review of EMR Time Spent: I spent approximately 0-4 min in chart review, documentation, triage, nursing assessment, patient counseling or providing patient education. Araceli Perry MD - 10/08/2021 2:00 PM EST 21 yrs. here for routine physical exam. New health issues or patients concerns since last check: noted not able to drive due to seizure February 2021, on Keppra. Only other medication is control pill. Tolerating the pill well (we changed it a few years ago(2017) from 20 to 30 mcg of estrogen. Works well Meditates, really helps with stress/anxiety. Patient is followed by the following specialist/s: [facility] specialists for brain tumor care. Eye doctor, dentist. Patient Active Problem List Diagnosis Date Noted ??? COVID-19 virus infection [U07.1] 09/13/2020 ??? 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 Resected 2018. No residual tumor 10/2020 ??? Seizure disorder [G40.909] 05/22/2019 Seizure February 2021 continues on Keppra ??? Counseling for control, oral contraceptives [Z30.09] 02/04/2018 Oc start 02/2018, mother aware per Haley. ??? Brain mass [G93.89] 11/10/2017 See under Migraine: Low grade glioma 10/18/2017 slow growing.02/21/2019 neurosurgery note: Pathology report. 10/2020 no residual tumor on MRI at [facility] ??? Medication intolerance: ibuprofen [Z78.9] 08/11/2017 Got rash once, avoids. Tolerates Alleve ??? Motion sickness [T75.3XXA] 08/11/2017 headache if reads in car ??? 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 Has seen dermatology in past. No symptoms ??? Wears glasses [Z97.3] 08/11/2017 Current Outpatient Medications on File Prior to Visit: Medication Sig ??? norethindrone-ethinyl estradiol-iron (ZHEN FE 1.5/30, 28,) 1.5mg-30mcg (21)/75 mg (7) tablet Take 1 tablet by mouth daily ??? levETIRAcetam (KEPPRA) 500 mg tablet Take 500 mg by mouth twice daily No Known Drug Allergies. 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 Diet: Discussed healthy diet for age and importance of not skipping meals, drinking plenty of water and avoiding sugar drinks and processed foods. Discussed need for calcium and vitamin d in diet. pescatarian diet. Cheese, drinks milk. 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 . She passed today's screen. These resultswere reviewed and discussed at today's visit. Score 2 not difficult at all Cardiac risk: low Patient and/or parent answers NO to all of the following questions: Is there a history of premature (less than 55) heart disease in your family? Has there been any unexplained due to heart disease in young family members? Have you ever fainted or experience dizziness during or following exercise? Have you experience chest pain or tightness following exercise? Have you ever had palpitations? Patient feels that their health does not limit her sporting activities. PHYSICAL EXAMINATION: Blood pressure 118/64, pulse 78, height 5' 3.25 (1.607 m), weight 98 lb 6.4 oz (44.6 kg). Estimated body mass index is 17.29 kg/m?? as calculated from the following: Height as of this encounter: 5' 3.25 (1.607 m). Weight as of this encounter: 98 lb 6.4 oz (44.6 kg). General: Well appearing, comfortable HEENT: No dental anomalies. No thyromegaly or thyroid nodules. No neck masses. Nl tympanic membranesand ear canals. Lungs: Clear to auscultation and good aeration. Heart : Regular rate and rhythym, S1and S2 normal, no murmurs noted in standing or supine position. Abdomen: Soft, non-tender, not distended, no masses or HSM. Femoral pulses: bilateral 2+ pulses. : Normal genital exam for age No breast masses Extremities: Moves all extremities equally. Normal gait for age, no limp. Skin: no abnormal lesions. Neuro: Alert, oriented to place and time. NLstrength and coordination. Nl sensation. EOMs intact, Pupils equal and reactive to light. NL reflexes. CN intact. 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 STD screening done if indicated. As above urine for chlamydia. Weight now back in prior range. No red flags Flu vaccine today with consent. Anticipatory guidance and safety concerns appropriate for age - discussed see AVS Risk for cardiac disease assessed and discussed today. Patient is low risk. Risk for tuberculosis exposure done today. Patient is low risk. Immunizations: Age appropriate immunizations ordered. Access to VIS sheets provided along with opportunity to discuss risks and benefits of today's immunizations. Verbal consent obtained. Follow up: Routine [facility] in one year. documented in this encounter Miscellaneous Notes Assessment & Plan Note - Araceli Perry MD - 10/08/2021 8:00 PM ESTAssociated Problem(s): Seizure disorder ([facility]) Seizure February 2021 continues on Keppra Assessment & Plan Note - Araceli Perry MD - 10/08/2021 7:56 PM ESTAssociated Problem(s): Glioma of brain ([facility]) MRI q 3 months, now q 6 months Assessment & Plan Note - Araceli Perry MD - 10/08/2021 7:56 PM ESTAssociated Problem(s): Migraine without aura and without status migrainosus, not intractable (Resolved 10/08/2021) No recurrence of migraines. Rare stress headache. Addendum Note - Araceli Perry MD - 10/08/2021 2:00 PM EST Addended by: ARACELI PERRY MD on: 10/09/2021 02:52 PM Modules accepted: Orders documented in this encounter Plan of Treatment Upcoming Encounters Date Type Specialty Care Team Description 10/09/2022 Office Visit Internal Medicine James Matthews MD [address] [place] [address] [phone] (Wo rk) documented as of this encounter Procedures Procedure Name Priority Date/Time Associated Diagnosis Comme nts BRIEF Routine 10/08/2021 2:19 PM Encounter for routine EMOTIONAL/BEHAVIORAL EST adult health ASSESSMENT , W/ SCORING examination witho ut AND DOCUMENTATION, PER abnormal findings STANDARDIZED INSTRUMENT documented in this encounter Results CHLAMYDIA URINE DNA (10/08/2021 3:56 PM EST) Analysis Performed At Patho logist Time Signature CHLAMYDIA PCR Negative Negative 10/09/2021 [facility] 12:42 PM EST DEPARTMENT OF PATHOLOGY AND LAB MEDICINE Comment: Test performed using Aptima Combo2 PCR a ssay. SOURCE URINE 10/09/2021 12:42 PM EST [facility] D EPARTMENT OF PATHOLOGY AND LAB MEDICINE Specimen Anatomical Collection Method Collection Time Receive d Time (Source) Location / / Volume Laterality Urine (URINE) Urine / Unknown 10/08/2021 3:56 PM 10/08 3:56 EST PM EST Araceli Perry LAB URINE ORDERABLES Performing Organization Address City/State/ZIP Code Phon e Number [facility] DEPARTMENT OF PATHOLOGY AND [address] [place] [address] [place] [phone] LAB MEDICINE documented in this encounter Visit Diagnoses Diagnosis Encounter for routine adult health exami nation without abnormal findings - Primary Low grade glioma of brain (CMS-HCC) Malignant neoplasm of brain, unspecified site Seizure disorder (CMS-HCC) Unspecified epilepsy without mention of intractable epilepsy documented in this encounter Discontinued Medications Medication Sig Discontinue Reason Start Date End Date SUMAtriptan 100 mg tablet TK 1 T PO 1 TIME Med List Clean-up 201710/08/2021 PRN DIRECTED. MAXIMUM 3 TS PER WEEK phenazopyridine 95 mg Take 1 tablet by Med List Clean-up 07/18/2018 10/08/2021 tabletIndications: Dysuria mouth three times daily as needed (bladder pain) (available over the counter) levETIRAcetam (KEPPRA) 500 Take 500 mg by Med List Clean-up 019 10/09/2021 mg tablet mouth twice daily documented as of this encounter Historical Medications This list may reflect changes made after this encounter. Medication Sig Dispensed Refills Start Date End Date clonazePAM 1 mg Take 1 mg by mouth 0 05/15/2019 tablet,disintegrating as needed For seizure > 3 minutes or for seizure cluster levETIRAcetam (KEPPRA) Take 1,000 mg by 0 021 1,000 mg tablet mouth twice daily added in this encounter Orders IMMUNIZATIONS/INJECTION Count Last Ordered Date First Ordered Date INFLUENZA VACCINE, SINGLE DOSE SYRINGE, 1 10/08/20 21 0.5 ML, >/=6 MOS PROCEDURES Count Last Ordered Date First Ordered Date BRIEF EMOTIONAL/BEHAVIORAL ASSESSMENT , 10/08 SCORING AND DOCUMENTATION, PER STANDARDIZED INSTRUMENT documented in this encounter Care Teams Division Controller Relationship Specialty Start Date End Date Araceli Perry MD PCP - General Pediatrics 07/22/17 04/05/[address] [place] [phone] Araceli Perry MD PCP - Payer 02/03/18 06/02/[address] [place] [phone] documented as of this encounter
--- OUTSIDE RECORDS SUMMARY | 2022-08-26 21:37 | XMS_ITS | Encounter Summary ---
:2000 Author Organization [facility] Address [address] [facility] [address] [place] [address] Care Team Providers Name Role Phone Araceli Desai Md Unavailable James Matthews Md Primary Care Provider Reason for Visit Reason Comments Reschedule Appointment Encounter Details Date Type Department Care Team Description 05/08/2022 Telephone [facility] and Derek Montero RE SCHEDULE APPOINTMENT Gynecology [address] [place] [phone] Social History Tobacco Use Types [...] this encounter Miscellaneous Notes Telephone Encounter - Derek Montero - 05/08/2022 10:25 AM EDT LVM appt on 06/10 has been reschedule from Dr. Koehler to Dr. Lai. Same day 06/10appt time change to 3:20. documented in this encounter Plan of Treatment Upcoming Encounters Date Type Specialty Care Team Description 10/09/2022 Office Visit Internal Medicine James Matthews MD [address] [place] [address] [phone] (Wo rk) documented as of this encounter Visit Diagnoses Not on filedocumented in this encounter Care Teams Respiratory Care Specialist Relationship Specialty Start Date End Date Araceli Desai MD PCP - Payer 02/03/18 06/02/[address] [place] [phone] James Matthews MD PCP - General Internal Medicine 04/06/[address] [place] [phone] documented as of this encounter
--- OUTSIDE RECORDS SUMMARY | 2022-08-26 21:37 | XMS_ITS | Encounter Summary ---
:2001 Author Organization [facility] Address [address] [place] [address] [phone] [place] [address] Care Team Providers Name Role Phone Araceli Desai Md Primary Care Provider Araceli Desai Md Unavailable Encounter Details Date Type Department Care Team Description 09/13/2020 Telephone [facility] Hema Spicer Follow Up (Primary Dx); Covid-19 [place] Encounter to Discuss [address] [facility] [place] [address] Social History Tobacco Use Types Packs/Day Years [...] Assigned at Date Recorded Not on file COVID-19 Exposure Response Date Recorded In the last month, have you been in contact with Yes 09/11/2020 9:40 AM EST someone who was confirmed or suspected to have Coronavirus / COVID-19? documented as of this encounter Miscellaneous Notes Telephone Encounter - Hema Spicer RN - 09/13/2020 5:39 PM EST Mild sxs-resolving. Discussed pos covid. Will continue quarantine. Will cb if concerning sxs. Pt agrees w/ plan. Your testing for the COVID-19 Virus was positive. It is important to understand what to expect, how to manage symptoms, and keep people around you safe. What to Expect and When to Call: Most people with COVID-19 experience symptoms that are not too severe. You should start to improve over the next several days, but monitor yourself and reach out to us should you develop shortness of breath, a fast heart rate, ongoing or persistent chest or abdominal pain, persistent high fevers, confusion, or trouble eating and drinking. Medications to Treat Symptoms: There is no specific medication or treatment for COVID-19. If your cough is severe, ask about cough medications. You may feel better if pain and fever are controlled withAcetaminophen (Tylenol). You may take Ibuprofen (Motrin) or Naproxen (Aleve) if you cannot take Acetaminophen. If you use an inhaler, reach out to see if you need to use it more regularly. When Can you Expect to be Able to Leave Isolation: Remain in home isolation until at least 24 hours has passed since you've had fever without using fever reducing medicines, your cold symptoms are improving, and at least ten days have passed since your first symptoms appeared. If you are a health careprovider returning to work, check with your employer regarding additional measures. These may include wearing a facemask in the healthcare facility until symptoms completely resolve or 14 days after illness onset (whichever is longer). They may also request you restrict contact with severely immunocompromised patients (e.g., transplant, hematology-oncology) until 14 days after illness onset. Some employers may require you to have a negative COVID-19 test before returning to work so please check withyour employer for their guidelines. What you can do to avoid spreading COVID-19 to others: It is thought the virus spreads from person to person through respiratory droplets, so it is important to practice social distancing and wash your hands often. ??? Stay home except to get medical care: Don't go to work, school, public areas or use public transportation, ride shares, or taxis. ??? Separate yourself from other people in your home: When possible, stay in a different room from other people. If you, or someone you live with, is , on medications that weaken the immune system, or has cancer be sure to bring it to your care team's attention. If available, use a separate bathroom. ??? Call ahead before visiting your doctor: Before any medical appointments, call the healthcare provider and tell them that you have COVID-19 so they can take steps to keep other people from getting infected. ??? Wear a facemask: If possible, wear a facemask when in a room with other people and when you visit a healthcare provider. If you cannot wear one, others should do so or not stay in a room with you. ??? Cover your coughs and sneezes: Cover your mouth and nose with a tissue, or cough or sneeze into your sleeve. Throw used tissues in a lined trash can. ??? Wash your hands: After you cough and sneeze and frequently at other times, wash your hands thoroughly with soap and water for at least 20 seconds. If soap and water are not available, clean your hands with an alcohol based stockroom clerk that contains at least 60% alcohol, covering all surfaces of yourhands and rubbing them together until they feel dry. Avoid touching your eyes, nose, and mouth with unwashed hands. What you can do to help others: The [facility] [facility] is supportive of FDA's effort and is committed to assisting with plasma collections from carefully-screened recovered COVID-19 patients to enable rapid access to treatment for the most seriously ill patients. At this time, the [facility] is working closely with FDA to develop a process to identify and qualify individuals who have recovered from the virus and have the necessary antibodies to participate in this effort. The [facility] encourages individuals who have recovered fromCOVID-19 and are currently healthy, to visit [email or web address] to submit their contact i nformation and answer questions to help determine initial eligibility. The [facility] will then follow-up with prospective candidates to confirm eligibility and participation. Please contact the [facility] at [phone] [employer] ( ) and press the prompt for blood or email the Customer Care Group at [email or web address] for further assistance. Advice for caregivers: You can help your loved one by: ??? Understanding instructions for medications and care ??? Monitoring for worsening or concerning symptoms (see above) ??? Shopping for food, medications, and basic needs You can protect yourself and others by: ??? Calling ahead to make sure healthcare providers know your loved one has COVID-19 ??? Making sure anyone who does not need to be in the home stays away, especially those at increasedrisk for complications of COVID-19 such as those > 65, young children, women, and peoplewho are immunocompromised or have chronic heart, lung and kidney conditions ??? Maintaining good airflow in shared spaces ??? Wearing a disposable facemask, gown, and gloves when coming in contact with blood, body fluids and/or secretions, disposing of protective gear in a lined container and washing hands immediately after removal ??? Avoiding touching your eyes, nose, and mouth with unwashed hands ??? Avoiding sharing household items like dishes, drinking glasses, cups, eating utensils, towels, or bedding ??? Cleaning ???high-touch?? surfaces, such as counters, tabletops, doorknobs, bathroom fixtures, toilets, phones, keyboards, tablets, and bedside tables, every day with a diluted bleach solution or ahousehold disinfectant with a label that says ???EPA-approved.?? To make a bleach solution at home,add 1 tablespoon of bleach to 1 quart (4 cups) of water. For a larger supply, add ?? cup of bleach to 1 gallon (16 cups) of water ??? Washing laundry thoroughly with the warmest temperatures recommended on the clothing label ??? Monitoring yourself for symptoms. Those who do not follow precautions when in close contact witha person who is confirmed to have COVID-19 are considered ???close contacts?? and should monitor their health. ??? Discussing additional questions with your healthcare provider or state and local health department Additional guidance regarding quarantine for persons caring for someone with proven or probable COVID-19 disease Since you stay with someone who has probable or proven COVID-19 disease, we are concerned that you may have been exposed to COVID before the person staying with you learned that s/he had COVID-19. To ensure everyone???s safety, we are recommending that you remain in quarantine. If you continue to livewith and/or care for the person with COVID-19, the quarantine guidance is as follows: Timing of ending quarantine as a presser and shaper knitted goods or cohabitant: Your quarantine will end 14 days after your last close contact with the person with COVID-19 you arecaring for or living with (being within 6 feet for more than 10 minutes or any contact with his/her body fluids and/or secretions, or providing care without wearing protective equipment). If you are not able to remain out of close contact with the person who is ill, your quarantine should extend for 14 days beyond s/he is ???cleared?? from isolation. Measures that you as a presser and shaper knitted goods or cohabitant can take in the home: Stay at home and use a separate bedroom and bathroom if possible; do not have visitors in the home; do your best to stay at least 6 feet away from other people in the house; and do not have any visitors to your house during this time. Wash your hands frequently with soap and water for at least 20 seconds and do not share eating or drinking utensils with anybody. Monitor your health every day: ?? Be alert for any symptoms of COVID-19, including fever, cough or shortness of breath. ?? Do health checks including taking your temperature every morning and every night or anytime you feel like you might have a fever. ?? If you need to seek medical care, call to inform your doctor that you are under quarantine, and do not take public transportation, taxis, or ride-shares to get to your appointment. If you are employed in a field which is considered an essential service, you should contact and inform your employer of the dates of your expected end of quarantine. documented in this encounter Plan of Treatment Upcoming Encounters Date Type Specialty Care Team Description 10/09/2022 Office Visit Internal Medicine James Matthews MD [address] [place] [address] (Wo rk) documented as of this encounter Visit Diagnoses Diagnosis Follow up - Primary Encounter to discuss test results Other specified counseling documented in this encounter Additional Health Concerns Infection Onset Date Last Indicated Resolved Time COVID-19 (Confirmed) 09/12/2020 09/12/2020 09/26/2020 7:06 PM EST documented as of this encounter Care Teams Leather Belt Loop Cutter Relationship Specialty Start Date End Date Araceli Desai MD PCP - General Pediatrics 07/22/17 04/05/[address] [place] [id number] Araceli Desai MD PCP - Payer 02/03/18 06/02/[address] [place] [phone] documented as of this encounter
--- OUTSIDE RECORDS SUMMARY | 2022-08-26 21:37 | XMS_ITS | Encounter Summary ---
:2001 Author Organization [facility] Address [address] [place] [address] [phone] [place] [address] Care Team Providers Name Role Phone Aarceli Desai Md Primary Care Provider Araceli Desai Md Unavailable Encounter Details Date Type Department Care Team Description 05/30/2021 Email Encounter [facility] You are eligible to Covid-19 USED BY [facility] TO schedule your [facility] CREATE [place] [address] USER MESSAGE Appointment [phone] ENCOUNTERS BY NON-PROVIDERS Social History Tobacco Use [...] Office Visit Internal Medicine James Matthews MD [address] [place] [address] 472 (Wo rk) documented as of this encounter Visit Diagnoses Not on filedocumented in this encounter Care Teams Vegetable Washer Relationship Specialty Start Date End Date Araceli Desai MD PCP - General Pediatrics 07/22/17 04/05/[address] [place] [id number] Araceli Desai MD PCP - Payer 02/03/18 06/02/[address] [place] [phone] documented as of this encounter
--- OUTSIDE RECORDS SUMMARY | 2022-08-26 21:37 | XMS_ITS | Clinical Summary ---
:2001 Author Organization [facility] Address [address] [place] [address] Care Team Providers Name Role Phone James Matthews Md Primary Care Provider James Matthews Md Unavailable Allergies No known active allergies Medications Medication Sig Dispensed Refills Start Date End Date Status levETIRAcetam (KEPPRA) Take 1,000 mg by 0 09/20/2021 Active 1,000 mg tablet mouth twice daily clonazePAM 1 mg Take 1 mg by 0 05/15/2019 Active tablet,disintegrating mouth as needed For seizure > 3 minutes or for seizure cluster norethindrone-ethinyl Take 1 tablet by 90 tablet 3 04/27/2022 Active estradiol-iron (ZHEN mouth daily FE 1.5/30, 28,) 1.5mg-30mcg (21)/75 mg (7) tablet Active Problems Problem Noted Date COVID-19 virus infection 09/13/2020 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 Resected 2018. No residual tumor 10/2020 Last Assessment & Plan: MRI q 3 months, now q 6 months Seizure disorder 05/22/2019 Overview: Seizure February 2021 continues on Keppra Last Assessment & Plan: Seizure February 2021 continues on Keppra Counseling for control, oral contraceptives 01/10 Overview: Oc start 02/2018, mother aware per Haley . Brain mass 11/10/2017 Overview: Images from the original note were not i ncluded. 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 10/2020 no residual tumor on MRI at [facility] Medication intolerance: ibuprofen 08/11/2017 Overview: Got rash once, avoids. Tolerates Alleve Motion sickness 08/11/2017 Overview: headache if reads in car [place]-wine stain of skin 08/11/2017 Overview: Right medial thigh. Has seen dermatology in past. No symptoms Wears glasses 08/11/2017 Resolved Problems Problem Noted Date Resolved Date Food allergy: coconut 08/11/2017 10/08/2021 Overview: Hives once, has had many times with no r eaction, will resolve Migraine without aura and without status migrainosus, not 10/08/2021 intractable Overview: Seen by headache specialist Sushil murillo MD in [facility]. Trial of amitriptyline. Then lamictal. Now off all meds except alleve, sumaptriptan. Moved fall 2016 to [place]; doing much debbie r emotionally. MRI x 2 at [facility] (10/06/2016 and) 10/16/2016. Initial finding in left periatrial white matter, second MRI notes minimal if any. 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 Saw neurosurgery at [facility] 09/2017 M RI ordered Slow growth of an enhancing left periatrial mass over serial studies, as detailed above. 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 2.No evidence of tumor dissemination. T o follow with serial MRI's no surgery indicated now. Last Assessment & Plan: No recurrence of migraines. Rare stress headache. Encounters Date Type Specialty Care Team Description 08/12/2022 Nurse Triage Internal Medicine Viri Corey (Primary Dx); LUIS Rodriguez Insect Bite of Abdominal Wall, Initial Encounter from Last 3 Months Immunizations Name Administration Dates Next Due COVID-19 (PFIZER) Vaccine, 02/13/2021, 01/23/2021 30mcg/0.3mL, 12YRS+, Diluent Reconstituted, IM DTaP Vaccine 08/26/2005, 11/24/2002, 02/24/2002, 2001, 2001 Hep A Vaccine Pedi/Adol-2 Dose Sched 08/18/2018 Hepatitis B Vaccine Pedi/adolescent 3 08/01/2012, 02/24/2002 , 2001 Dose Schedule Influenza Vaccine, Single Dose Syringe 10/08/2021, 8 or MDV, 0.5 mL, >/=6 MOS MMR Vaccine 08/16/2005, 11/24/2002 Meningococcal ACWY (Menactra) 07/13/2018 Conjugate Vaccine Polio Vaccine (Inactivated) 08/26/2005, 02/23/2003, 12/24/19 02, 2001 TdaP 02/21/2013 Varicella Vaccine 04/11/2009, 08/23/2002 Surgical History Surgery Date Site/Laterality Comments cranial surgery for sagittal 2001 - 10/10/2002 age 9 months synostosis Medical History Medical History Date Comments Medication intolerance: ibuprofen 08/11/2017 Got ra sh once, avoids. Tolerates Alleve Migraine without aura and without 08/11/2017 Seen b y headache specialist Migvis status migrainosus, not intractable Juan Diego lawton MD in [facility]. Trial of am itriptyline. Then lamictal. Now off al l meds except alleve, sumaptriptan . Moved fall 2016 to [place]; doing muc h better emotionally. MRI x 2 at [facility] (10/06/2016 and) 10/16/2016. Initial fi nding in left periatrial white mat ter, second MRI notes minimal if any . Surgical defects in the calv Family History Medical History Relation Comments Alcoholism Father Headaches/migraine Maternal Aunt Psych - depression Maternal Aunt Diabetes - type II Maternal Grandmother Alcoholism Mother Cancer - breast Mother Diabetes - type II Mother Headaches/migraine Mother Hyperlipidemia Mother Psych - depression Mother Relation Status Comments Father Maternal Aunt Maternal Grandmother Mother Social History Tobacco Use Types Packs/Day Years [...] Assigned at Date Recorded Not on file Obstetrics History Last Filed Vital Signs Vital Sign Reading Time Taken Comments Blood Pressure 118/64 10/08/2021 1:53 PM EST Pulse 78 10/08/2021 1:53 PM EST Temperature 37.1 ??C (98.7 ??F) 05/09/2020 2:15 PM EDT Respiratory Rate 16 10/21/2018 5:14 PM EST Oxygen Saturation 98% 05/09/2020 2:15 PM EDT Inhaled Oxygen Concentration - - Weight 44.6 kg (98 lb 6.4 oz) 10/08/2021 1:53 PM EST Height 160.7 cm (5' 3.25) 10/08/2021 1:53 PM EST Body Mass Index 17.29 10/08/2021 1:53 PM EST Plan of Treatment Upcoming Encounters Date Type Specialty Care Team Description 10/09/2022 Office Visit Internal Medicine James Matthews MD [address] [place] 472 (Wo rk) Health Maintenance Due Date Last Done Comments HEPATITIS A VACCINE (2 of 2 02/15/2019 08/18/2018 - 2-dose series) HEP C SCREENING 2019 HIV SCREENING 2019 COVID-19 Vaccine (3 - 04/10/2021 02/13/2021, 01/23/2021 Booster for Pfizer series) LIPID SCREENING 2021 FLU SEASONAL (#1) 06/11/2022 10/08/2021, 07/13/2018 CHLAMYDIA SCREENING FEMALE 10/08/2022 10/08/2021, 8, 16-24 07/18/2018 PERIODIC HEALTH REVIEW 10/08/2022 10/08/2021 DTAP/TDAP/TD VACCINE (7 - 02/21/2023 02/21/2013, 08/26/2005 , Td or Tdap) 11/24/2002, Additional history exists RUBELLA Completed 08/16/2005, 11/24/2002 HEPATITIS B VACCINE Completed 08/01/2012, 02/24/2002, 2001 MENINGOCOCCAL VACCINE Completed 07/13/2018 (ACWY) HPV VACCINE Discontinued PNEUMOCOCCAL VACCINE(S) Aged Out No longe r eligible based on patient 's age to complete this topic Insurance Payer Benefit Plan / Subscriber ID Effective Dates Phone Addre ss Type Group [facility] [id number] 2019-Present PO DONN X [id number] PRIMARY CHOICE TOM COLES W/ RIDER [phone] Care Teams Business Machines Teacher Relationship Specialty Start Date End Date James Matthews MD PCP - General Internal Medicine 04/06/[address] [place] [phone] James Matthews MD PCP - Payer 06/03/[address] [place] [phone]
--- OUTSIDE RECORDS SUMMARY | 2022-08-26 21:37 | XMS_ITS | Encounter Summary ---
:2001 Author Organization [facility] Address [address] [facility] [address] [address] Care Team Providers Name Role Phone Araceli Desai Md Primary Care Provider Araceli Desai Md Unavailable Encounter Details Date Type Department Care Team Description 10/17/2020 Letter (Out) [facility] Derek Montero [address] [place] [phone] Social History Tobacco Use Types [...] Visit Internal Medicine James Matthews MD [address] [place], [place] [phone] (Wo rk) documented as of this encounter Visit Diagnoses Not on filedocumented in this encounter Care Teams Lens Blocker Relationship Specialty Start Date End Date Araceli Desai MD PCP - General Pediatrics 07/22/17 04/05/[address] [place] [phone] Araceli Desai MD PCP - Payer 02/03/18 06/02/[address] [place] [phone] documented as of this encounter
--- OUTSIDE RECORDS SUMMARY | 2022-08-26 21:37 | XMS_ITS | Encounter Summary ---
:2001 Author Organization [facility] Address [address] [place] [address] Care Team Providers Name Role Phone Elsewhere, Pcp Primary Care Provider Unavailable Reason for Visit Reason Comments Pre-visit Intake Appointment Request (Routine) - Closed Specialty Diagnoses / Procedures Referred By Contact Refer red To Contact Neurology Diagnoses Glioma Brain (HCC) Referral ID Status Reason Start Date Expiration Date Visits Requ ested Visits Authorized [id number] Closed 05/19/2021 05/19/2022 2 1 Encounter Details Date Type Department Care Team Description 05/22/2021 Clinical Communication Visit Review in Pr e-visit Intake [place], [place] [address] [place] [address] Social History Tobacco Use Types Packs/Day Years Used Date Smoking Tobacco: Never Smokeless Tobacco: Never Sex Assigned at Date Recorded Not on file documented as of this encounter Plan of Treatment Not on filedocumented as of this encounter Visit Diagnoses Not on filedocumented in this encounter Care Teams Threshing Machine Operator Relationship Specialty Start Date End Date Elsewhere, Pcp PCP - General Family Medicine 05/22/21 documented as of this encounter
--- OUTSIDE RECORDS SUMMARY | 2022-08-26 21:37 | XMS_ITS | Encounter Summary ---
:2001 Author Organization [facility] Address [address] [facility] [address] [address] Care Team Providers Name Role Phone James Matthews Md Primary Care Provider James Matthews Md Unavailable Reason for Visit Reason Comments Rash Insect Bite/Sting Encounter Details Date Type Department Care Team Description 08/12/2022 Nurse Triage [place] [facility], Viri Cespedes (Primary Dx); Medicine Jennifer, RN Insect Bite of [address] [place] [address] Abdominal Wall, [place], [place] Initial Encoun ter [phone] Social History Tobacco Use Types Packs/Day [...] this encounter Miscellaneous Notes Telephone Encounter - Viri Corey RN - 08/12/2022 3:04 PM EDT Pt called c/o rash from possible insect bites She reports the bites are all over One on ankle and two on the back of her knee, 8 on waist area She noticed these bites this morning She woke up in the middle of the night last night and reports felt like something happened but didnot notice any bites at that time Did have some itchiness last night Denies fever Denies pus or drainage coming from the bumps Denies fatigue or joint pain Denies SOB or trouble breathing Denies areas being tender to touch Rash is very itchy, pt reports looks like mosquito bites She reports her boyfriend is outside a lot and thought it may be from spider bites Pt is at school out of [place] Went to school nurse office today but pt reports they were closed Pt reports she had not cleaned her sheets in 2 weeks, did wash them this morning She has taken a shower and applied antibiotic cream to the sites Advised patient to try antihistamine as well as hydrocortisone cream for a few days and if still w/ itchiness can switch to calamine Went over worrisome sx such as fever, spreading redness, pain as this would require local UC eval Pt verbalized understanding All questions/concerns addressed Reason for Disposition ??? Itchy insect bite Protocols used: INSECT BITE-A-[place] documented in this encounter Plan of Treatment Upcoming Encounters Date Type Specialty Care Team Description 10/09/2022 Office Visit Internal Medicine James Matthews MD [address] [place] [address] (Wo rk) documented as of this encounter Visit Diagnoses Diagnosis Rash - Primary Rash and other nonspecific skin eruption Insect bite of abdominal wall, initial e ncounter documented in this encounter Care Teams Teletype Adjuster Relationship Specialty Start Date End Date James Matthews MD PCP - General Internal Medicine 04/06/[address] [place] [phone] James Matthews MD PCP - Payer 06/03/[address] [place] [phone] documented as of this encounter
[2022-08-26 21:38] LABS: Slide Review Reflex No
--- OUTSIDE RECORDS SUMMARY | 2022-08-26 21:38 | XMS_ITS | Encounter Summary ---
:2001 Author Organization [facility] Address [address] [facility] [address] [place] [address] Care Team Providers Name Role Phone Araceli Desai Md Primary Care Provider Araceli Desai Md Unavailable Reason for Visit Reason Comments Surgery F/U Rm 4 DB Encounter Details Date Type Department Care Team Description 02/01/2019 Office Visit [facility] Araceli Desai MD Other constipation (Primary Dx); [address] [facility] 485 [facility] Follow-up examination [place] [address] [phone] Social History Tobacco Use Types Packs/Day Years [...] Sign Reading Time Taken Comments Blood Pressure 114/62 02/01/2019 11:01 AM EDT Pulse 103 02/01/2019 11:01 AM EDT Temperature 37.1 ??C (98.8 ??F) 02/01/2019 11:01 AM EDT Respiratory Rate - - Oxygen Saturation - - Inhaled Oxygen Concentration - - Weight 50.2 kg (110 lb 9.6 oz) 02/01/2019 11:01 AM EDT Height - - Body Mass Index - - documented in this encounter Patient Instructions Patient InstructionsAraceli Desai MD - 02/01/2019 10:40 AM EDT Haley's DIAGNOSIS ?? Constipation, post op. PERSONALIZED TREATMENT PLAN ?? If possible increase some walking ?? Fiber foods ?? Senekot or Metamucil or Citrucel are all possibilities PERSONALIZED FOLLOW UP PLAN ?? Call us if ... ?? you have any questions or concerns Please call us at [phone] at any time, 24 hours per day. If the office is closed, you will be able to speak with our on-call nurse triage service to discuss your concerns or questions about Haley. documented in this encounter Progress Notes Araceli Desai MD - 02/01/2019 10:40 AM EDT Here with mother who provides history. 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 Has sutures for long wound left parietal area. Scalp is slightly fluctuant but no erythema, no discharge . Symptoms of right visual field loss is already improving a bit. Is also dizzy/light headed. Also constipated. Last BM was 2 days ago, small amount. Feels the need to go. Miralax is not helping. Has finished the dexamethasone and is continuing the Keppra. Discussed the dizzy feeling likely justpost-op. Can start to walk a bit more to help with the bowel functions. Discussed brain taking over functions, is aware. Gets a headache if is up and about--coming here was stressful. They are waiting for the pathology note. The operative note is very encouraging that the resection was total. First biopsy looked non malignant Can wash her hair tonight they think, will check the post-op notes. Has letters for school. Likely will need to do books on audible--says reading is very hard., Intake and output: Eating well. Current mgt: as above Patient Active Problem List Diagnosis Code ??? Food allergy: coconut Z91.018 ??? Medication intolerance: ibuprofen Z78.9 ??? Migraine without aura and without status migrainosus, not intractable G43.009 ??? Motion sickness T75.3XXA ??? 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 Wears glasses Z97.3 ??? Brain mass G93.9 ??? Counseling for control, oral contraceptives Z30.09 Current Outpatient Prescriptions: dexamethasone 1 mg tablet levETIRAcetam (KEPPRA) 500 mg tablet TK 1 T PO BID phenazopyridine 95 mg tablet Take 1 tablet by mouth three times daily as needed (bladder pain) (available over the counter) SUMAtriptan 100 mg tablet TK 1 T PO 1 TIME PRN DIRECTED. MAXIMUM 3 TS PER WEEK norethindrone-ethinyl estradiol-iron (ZHEN FE 1.5/30, 28,) 1.5mg-30mcg (21)/75 mg (7) tablet Take 1tablet by mouth daily No Known Drug Allergies. PE: Alert, cooperative, nontoxic appearing 18 Yrs 5 Mos female BP (!) 114/62 (Site: Right Arm, Positioning: Sitting, Cuff Size: Regular) Pulse (!) 103 Temp 98.8 ??F (37.1 ??C) (Temporal Artery) Wt 110 lb 9.6 oz (50.2 kg) BMI 19.59 kg/m2 HEENT: eyes clear; Has sutures for long wound left parietal area. Scalp is slightly fluctuant but no erythema, no discharge . Neck: fully supple LNs: no enlarged or tender nodes Chest: clear breath sounds throughout Heart: RRR w/o (m) Abd: soft and slightly distended, normal bowel sounds Neuro: Very intact speech/cognition. Moving a bit slowly. DTR's 0-1+ at knees. Skin: no rash Patient Instructions Haley's DIAGNOSIS ?? Constipation, post op. S/p brain tumor resection. PERSONALIZED TREATMENT PLAN ?? If possible increase some walking ?? Fiber foods ?? Senekot or Metamucil or Citrucel are all possibilities PERSONALIZED FOLLOW UP PLAN ?? Call us if ... ?? you have any questions or concerns Please call us at [phone] at any time, 24 hours per day. If the office is closed, you will be able to speak with our on-call nurse triage service to discuss your concerns or questions about Haley. documented in this encounter Plan of Treatment Upcoming Encounters Date Type Specialty Care Team Description 10/09/2022 Office Visit Internal Medicine James Matthews MD [address] [place] [address] 02 472 (Wo rk) documented as of this encounter Visit Diagnoses Diagnosis Other constipation - Primary Follow-up examination after neurological surgery Follow-up examination, following other s urgery documented in this encounter Historical Medications This list may reflect changes made after this encounter. Medication Sig Dispensed Refills Start Date End Date levETIRAcetam (KEPPRA) 500 mg TK 1 T PO BID 0 07/03/2019 tablet dexamethasone 1 mg tablet 0 01/28/2019 05/23/2020 added in this encounter Care Teams Gluing Machine Feeder Relationship Specialty Start Date End Date Araceli Desai MD PCP - General Pediatrics 07/22/17 04/05/[address] [place] [address] Araceli Desai MD PCP - Payer 02/03/18 06/02/[address] [place] [phone] documented as of this encounter
--- OUTSIDE RECORDS SUMMARY | 2022-08-26 21:38 | XMS_ITS | Encounter Summary ---
:2001 Author Organization [facility] Address [address] [place] [address] [address] Care Team Providers Name Role Phone Araceli Desai Md Primary Care Provider Araceli Desai Md Unavailable Encounter Details Date Type Department Care Team Description 08/18/2018 Immunization [facility] [address] [place] [phone] Social History Tobacco Use Types Packs/Day Years Used Date Smoking Tobacco: Never Assessed Food Insecurity Answer Date Recorded Within the [...] documented as of this encounter Progress Notes Hema Spicer RN - 08/18/2018 3:30 PM EST Patient identified by full name and . Patient was administered HEPA vaccine and tolerated well. VIS was reviewed. documented in this encounter Plan of Treatment Upcoming Encounters Date Type Specialty Care Team Description 10/09/2022 Office Visit Internal Medicine James Matthews MD [address] [place] [address] (Wo rk) documented as of this encounter Visit Diagnoses Not on filedocumented in this encounter Orders IMMUNIZATIONS/INJECTION Count Last Ordered Date First Ordered Date HEPATITIS A VACCINE PEDI/ADOLESCENT(2 DOSE 1 08/18 SCHED) documented in this encounter Care Teams Credit Card Associate Relationship Specialty Start Date End Date Araceli Desai MD PCP - General Pediatrics 07/22/17 04/05/[address] [place] [address] Araceli Desai MD PCP - Payer 02/03/18 06/02/[address] [place] [address] documented as of this encounter
--- OUTSIDE RECORDS SUMMARY | 2022-08-26 21:38 | XMS_ITS | Encounter Summary ---
:2001 Author Organization [facility] Address [address] [place] [address] [address] [place] [address] Care Team Providers Name Role Phone Araceli Desai Md Primary Care Provider Araceli Desai Md Unavailable Encounter Details Date Type Department Care Team Description 09/11/2020 Travel Social History Tobacco Use Types Packs/Day Years [...] / COVID-19? documented as of this encounter Plan of Treatment Upcoming Encounters Date Type Specialty Care Team Description 10/09/2022 Office Visit Internal Medicine James Matthews MD [address] [place] [address] 472 (Wo rk) documented as of this encounter Visit Diagnoses Not on filedocumented in this encounter Care Teams High School Admissions Representative Relationship Specialty Start Date End Date Araceli Desai MD PCP - General Pediatrics 07/22/17 04/05/[address] [place] [phone] Araceli Desai MD PCP - Payer 02/03/18 06/02/[address] [place] [phone] documented as of this encounter
--- OUTSIDE RECORDS SUMMARY | 2022-08-26 21:38 | XMS_ITS | Encounter Summary ---
:2001 Author Organization [facility] Address [address] [facility] [address] [address] Care Team Providers Name Role Phone Araceli Desai Md Primary Care Provider Jose Drummond Md Unavailable [phone] Encounter Details Date Type Department Care Team Description 09/15/2017 Notation [facility] Araceli Desai MD [address] [place] [phone] [place] [phone] (Wo rk) Social History Tobacco Use Types Packs/Day Years [...] documented as of this encounter Progress Notes Araceli Desai MD - 09/15/2017 1:06 PM EST Images from the original note were not included. Lucero Mrak. Araceli Desai MD ? This mom came by on wednesday and got the cd and the medical records Just an fyi ? Previous Messages ?? ----- Message ----- ? From: Araceli Desai MD ? Sent: 08/30/2017 ?? 4:48 PM ? To: Lucero Mark Subject: RE: Just an FYI ? Thanks for following up. ?? Araceli ----- Message ----- ? From: Lucero Mark ? Sent: 08/30/2017 ?? 3:58 PM ? To: Araceli Desai MD Subject: Just an FYI ? Just an FYI-I followed up with the hospital about her mri and results(from [place]) They were sent to me on 08/23/2017-by US mail, so they should be arriving any day... Lucero ? documented in this encounter Plan of Treatment Upcoming Encounters Date Type Specialty Care Team Description 10/09/2022 Office Visit Internal Medicine James Matthews MD [address] [place] [address] [phone] (Wo rk) documented as of this encounter Visit Diagnoses Not on filedocumented in this encounter Care Teams Paralegal Supervisor Relationship Specialty Start Date End Date Araceli Desai MD PCP - General Pediatrics 07/22/17 04/05/[address] [place] [address] Jose Drummond MD PCP - Payer 08/11/17 02/02/[address] [place] [phone] documented as of this encounter
--- OUTSIDE RECORDS SUMMARY | 2022-08-26 21:38 | XMS_ITS | Encounter Summary ---
:2001 Author Organization [facility] Address [address] [facility] [address] [place] [address] Care Team Providers Name Role Phone Araceli Desai Md Primary Care Provider Araceli Desai Md Unavailable Reason for Visit Reason Comments Talk about period Rm 5 DB Encounter Details Date Type Department Care Team Description 02/04/2018 Office Visit [facility] Araceli Desai MD Counseling for [address], oral [facility] contraceptives (Primary [phone] [place], [place] Dx) [phone] Social History Tobacco Use Types Packs/Day Years [...] Sign Reading Time Taken Comments Blood Pressure 106/62 02/04/2018 3:32 PM EDT Pulse 78 02/04/2018 3:32 PM EDT Temperature 36.8 ??C (98.2 ??F) 02/04/2018 3:07 PM EDT Respiratory Rate - - Oxygen Saturation - - Inhaled Oxygen Concentration - - Weight 42.4 kg (93 lb 6.4 oz) 02/04/2018 3:07 PM EDT Height - - Body Mass Index - - documented in this encounter Patient Instructions Patient InstructionsAraceli Desai MD - 02/04/2018 3:36 PM EDT Images from the original note were not included. Combination Control Pills for Teens: Care Instructions Your Care Instructions Combination control pills are used to prevent . They give you a regular dose of the hormones estrogen and progestin. You take a hormone pill every day to prevent . control pills come in packs. The most common type has 3 weeks of hormone pills. Some packs have sugar pills (they do not contain any hormones) for the fourth week. During that fourth no-hormone week, you have your period. After the fourth week (28 days), you start a new pack. Some control pills are packaged in different ways. For example, some have hormone pills for the fourth week instead of sugar pills. Taking hormones for the entire month causes you to not have periods or to have fewer periods. Others are packaged so that you have a period every 3 months. Your doctor will tell you what type of pills you have. Follow-up care is a lanier part of your treatment and safety. Be sure to make and go to all appointments, and call your doctor if you are having problems. It's also a good idea to know your test results and keep a list of the medicines you take. How can you care for yourself at home? How do you take the pill? ?? Follow your doctor's instructions about when to start taking your pills. Use backup control, such as a condom, or don't have intercourse for 7 days after you start your pills. ?? Take your pills every day, at about the same time of day. To help yourself do this, try to take them when you do something else every day, such as brushing your teeth. ?? Use latex condoms every time you have sex. Use them from the beginning to the end of sexual contact. Use a female condom if your partner doesn't have or won't use a condom. What if you forget to take a pill? Always read the label for specific instructions, or call your doctor. Here are some basic guidelines: ?? If you miss 1 hormone pill, take it as soon as you remember. Ask your doctor if you may need to use a backup control method, such as a condom, or not have intercourse. It's best to always use a condom when you have sex. ?? If you miss 2 or more hormone pills, take one as soon as you remember you forgot them. Then read the pill label or call your doctor about instructions on how to take your missed pills. Use a backup method of control or don't have intercourse for 7 days. is more likely if you miss more than 1 pill. ?? If you had intercourse, you can use emergency contraception, such as the morning-after pill (PlanB). You can use emergency contraception for up to 5 days after having had intercourse, but it works best if you take it right away. What else do you need to know? ?? The pill has side effects. ?? You may have very light or skipped periods. ?? You may have bleeding between periods (spotting). This usually decreases after 3 to 4 months. ?? You may have mood changes, less interest in sex, or weight gain. ?? The pill may reduce acne, heavy bleeding and cramping, and symptoms of premenstrual syndrome. ?? Check with your doctor before you use any other medicines, including [id number] medicines. Make sure your doctor knows all of the medicines, vitamins, herbal products, and supplements you take. control hormones may not work as well to prevent when combined with other medicines. ?? The pill doesn't protect against sexually transmitted infections (STIs), such as herpes or HIV/AIDS. Use latex condoms every time you have sex. Use them from the beginning to the end of sexual contact. ?? You should never feel pressured to have sex. It's okay to say no anytime you want to stop. ?? It's important to feel safe with your sex partner and with the activities you are doing together.If you don't feel safe, talk with an adult you trust. When should you call for help? Watch closely for changes in your health, and be sure to contact your doctor if you have any problems. Where can you learn more? Go to http://www.Stitcher.net/SpectraRepealmymxlog/. Enter P365 in the search box to learn more about Combination Control Pills for Teens: Care Instructions. Current as of: August 31, 2017 Content Version: 11.6 ?? [id number] [employer]. Care instructions adapted under license by [employer]. If you have questions about a medical condition or this instruction, always ask your healthcare professional. [employer] disclaims any warranty or liability for your use of this information. documented in this encounter Ordered Prescriptions Prescription Sig Dispensed Refills Start Date End Date norethindrone-ethinyl Take 1 tablet by 28 tablet 12 02/05/20 18 07/18/2018 estradiol (ZHEN FE 10/30, mouth daily ,) 1 mg-20 mcg (21)/75 mg (7) tablet documented in this encounter Progress Notes Araceli Desai MD - 02/04/2018 3:10 PM EDT Here to discuss her menses. Interested in control. Has a boyfriend. No ic yet, talking about it. Mother knows about this appointment and seeking ocp. Discussed LARC. States never had an aura or perhaps once had an aura but not since. Has migraines, took half a sumatriptan 2 weeks ago for a headache. No aura then. Patient Active Problem List Diagnosis Code ??? Food allergy: coconut Z91.018 ??? Medication intolerance: ibuprofen Z78.9 ??? Migraine without aura and without status migrainosus, not intractable G43.009 ??? Motion sickness T75.3XXA ??? 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 Wears glasses Z97.3 ??? Brain mass G93.9 No Known Drug Allergies. Current Outpatient Prescriptions on File Prior to Visit: SUMAtriptan 100 mg tablet Take 1 tablet by mouth once as needed Take as directed maximum 3 per week BP 106/62 Pulse 78 Temp 98.2 ??F (36.8 ??C) (Temporal Artery) Wt 93 lb 6.4 oz (42.4 kg) LMP 01/24/2018 (Exact Date) BMI 16.6 kg/m2 Discussion of ocp. To start ocs. Counseled re risks, benefits, and how to take, what to do if missespills. Also about breakthrough bleeding in first 3 months. To call if any problems. Advised that does not prevent STD's, less effective for control first month and if on additional medications. Asked to also read the package insert instructions. BP is low , can recheck at her next physical. Counseled about emotional impact of intimacy. documented in this encounter Plan of Treatment Upcoming Encounters Date Type Specialty Care Team Description 10/09/2022 Office Visit Internal Medicine James Matthews MD [address] [place] [address] [phone] (Wo rk) documented as of this encounter Visit Diagnoses Diagnosis Counseling for control, oral contr aceptives - Primary General counseling for prescription of o ral contraceptives documented in this encounter Discontinued Medications Medication Sig Discontinue Reason Start Date End Date ondansetron 4 mg tablet TK 1 T PO BID PRN 11/13/2017 02/04/2018 oseltamivir (TAMIFLU) 75 TK 1 C PO BID FOR 11/15/2017 02/04/2018 mg capsule 5 DAYS documented as of this encounter Historical Medications This list may reflect changes made after this encounter. Medication Sig Dispensed Refills Start Date End Date ondansetron 4 mg tablet TK 1 T PO BID PRN 0 11/1302/04/2018 oseltamivir (TAMIFLU) 75 TK 1 C PO BID FOR 5 0 02/04/2018 mg capsule DAYS added in this encounter Care Teams Supervisor Nurse Relationship Specialty Start Date End Date Araceli Desai MD PCP - General Pediatrics 07/22/17 04/05/[address] [place] [address] Araceli Desai MD PCP - Payer 02/03/18 06/02/[address] [place] [phone] documented as of this encounter
--- OUTSIDE RECORDS SUMMARY | 2022-08-26 21:38 | XMS_ITS | Encounter Summary ---
:2001 Author Organization [email or web address] Address [address] [facility] [address] [place] [address] Care Team Providers Name Role Phone Araceli Desai Md Primary Care Provider Araceli Desai Md Unavailable Reason for Visit Reason Comments ER Follow Up [facility] (LORENZANA/Migraine) Encounter Details Date Type Department Care Team Description 10/20/2018 Telephone [facility] Hema Spicer Follow Up (Ed Visit for [address] [facility] [place]) (Primary Dx) [place] [address] Social History Tobacco Use Types Packs/Day [...] this encounter Miscellaneous Notes Telephone Encounter - Kriss Hess RN - 10/20/2018 11:12 AM EST ER or Hospital discharge diagnosis: Nonintractable headache, unspecified chronicity pattern, unspecified headache type Call to family to follow up on ER visit or hospital discharge from [facility]. Spoke with Mother. How is the child doing? Symptoms and concerns: Mom reported pt went to ED for excruciating LORENZANA, which she had the night before last,then went away and then came back yesterday. Pt thought it wasn't a migraine as it presented differently than a migraine. Pt also developed fever last night, T102 tympanic. Mom had to leave ED visit early, dad was with pt for the end & d/c of visit, but before mom leftpt was not doing well. At ED, flu, pneumonia, strep were ruled out; gave pt a migraine cocktail. Also, pt had 3 bags of NS IV fluids in ED. ED thought perhaps dx of viral meningitis, not bacterial because of lack of stiffness to neck and how pt presented. LP was discussed but pt became very anxious with this suggestion and family declined. Chest x-rays normal. Pt currently sleeping at home, accompanied by boyfriend. Mom is going to check in on pt soon & see if pt continues with fever. Informed mom will send update to PCP, call back 03/05 if pt worsens or any Qs/concerns; mom had no Qsat this time. Mom verbalized understanding of plan. Were medications prescribed? No Has child started taking medications? No. Do you have questions about the medication ? no I ???d like to review all other medications and OTC that your child is taking (MED REVIEW and DOCUMENTATION ) What follow up did the ER or hospital discharge plan recommend? PCP or Specialty? PCP Schedule Appts.: PRN Has a Nurse Residential Designer been involved in your child???s transition home? No Refer to ambulatory manager green if : DX of MEDICALLY COMPLEX is present; if 2 or more hospitalizations in last year; if DME or rehab care is planned and; if parent, nurse , PCP or marine steamfitter recommend. documented in this encounter Plan of Treatment Upcoming Encounters Date Type Specialty Care Team Description 10/09/2022 Office Visit Internal Medicine James Matthews MD [address] [place] [address] (Wo rk) documented as of this encounter Visit Diagnoses Diagnosis Follow up (ED visit for LORENZANA) - Primary documented in this encounter Care Teams Beauty Advisor Relationship Specialty Start Date End Date Araceli Desai MD PCP - General Pediatrics 07/22/17 04/05/[address] [place] [phone] Araceli Desai MD PCP - Payer 02/03/18 06/02/[address] [place] [phone] documented as of this encounter
--- OUTSIDE RECORDS SUMMARY | 2022-08-26 21:38 | XMS_ITS | Encounter Summary ---
:2000 Author Organization [facility] Address [address] [facility] [address] [address] Care Team Providers Name Role Phone Araceli Desai Md Primary Care Provider Araceli Desai Md Unavailable Encounter Details Date Type Department Care Team Description 05/09/2020 Office Visit [facility] Araceli Desai MD Shortness of breath (Primary Dx); [address] [facility] [place] [phone] Social History Tobacco Use Types Packs/Day Years [...] Sign Reading Time Taken Comments Blood Pressure - - Pulse 98 05/09/2020 2:15 PM EDT Temperature 37.1 ??C (98.7 ??F) 05/09/2020 2:15 PM EDT Respiratory Rate - - Oxygen Saturation 98% 05/09/2020 2:15 PM EDT Inhaled Oxygen Concentration - - Weight 49.3 kg (108 lb 9.6 oz) 05/09/2020 2:15 PM EDT Height - - Body Mass Index - - documented in this encounter Progress Notes Araceli Desai MD - 05/09/2020 2:00 PM EDT Here with mother who provides history. Leann. 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 She did practice social distancing other than working. She said it has been hard to take a deep breath since Wednesday. No other symptoms,no hx of asthma. Lives with her Mom and another adult . Appointment made. The family were here in [place] actually when they had COVID, was back in the beginning of the outbreak. 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 Symptom of difficulty taking a deep breath since Wednesday, 6 days ago. No other symptoms. Also had questions about the pill. Will be distant from boyfriend, thought should have a respite from the pill for fertility sake. Discussed this is not an issue, but okay to do if would like to have abreak from it. Will think about it. States had field cut right after surgery but this is now gone. Notes gag reflex is diminished so throat tests not difficult for her. Taking seizure medication, doesn't note any adverse effects. Intake and output: Wt Readings from Last 5 Encounters: 05/09/20 : 108 lb 9.6 oz (49.3 kg) 06/21/19 : 104 lb 6.4 oz (47.4 kg) 02/01/19 : 110 lb 9.6 oz (50.2 kg) 10/21/18 : 107 lb (48.5 kg) 08/22/18 : 104 lb 3.2 oz (47.3 kg) Current mgt: this appointment Patient Active Problem List Diagnosis Code ??? Food allergy: coconut Z91.018 ??? Medication intolerance: ibuprofen Z78.9 ??? Migraine without aura and without status migrainosus, not intractable G43.009 ??? Motion sickness T75.3XXA ??? 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 Wears glasses Z97.3 ??? Brain mass G93.89 ??? Counseling for control, oral contraceptives Z30.09 Current Outpatient Medications Medication Sig ??? norethindrone-ethinyl estradiol-iron (ZHEN FE .03/09, ,) 1.5mg-30mcg (21)/75 mg (7) tablet Take 1 tablet by mouth daily ??? levETIRAcetam (KEPPRA) 500 mg tablet Take 500 mg by mouth twice daily ??? dexamethasone 1 mg tablet ??? phenazopyridine 95 mg tablet Take 1 tablet by mouth three times daily as needed (bladder pain) (available over the counter) ??? SUMAtriptan 100 mg tablet TK 1 T PO 1 TIME PRN DIRECTED. MAXIMUM 3 TS PER WEEK No Known Drug Allergies. PE: Alert, cooperative, nontoxic appearing, talking normally 19 Yrs female Pulse 98 Temp 98.7 ??F (37.1 ??C) (Oral) Wt 108 lb 9.6 oz (49.3 kg) SpO2 98% HEENT: eyes clear; TMs pearly cohen; nose normal turbinates ; OP pink moist mm's tonsils 0+ no erythema of soft palate Neck: fully supple LNs: no enlarged or tender nodes Chest: clear breath sounds throughout Heart: RRR w/o (m) Skin: no rash. Port wine stain as noted above on right medial thigh A: Subjective feeling of shortness of breath. Normal exam . Advised re ocp, research on later fertility/cancer risk. P: COVID-19 testing sent See AVS documented in this encounter Plan of Treatment Upcoming Encounters Date Type Specialty Care Team Description 10/09/2022 Office Visit Internal Medicine James Matthews MD [address] [place] [address] (Wo rk) documented as of this encounter Results CORONAVIRUS DISEASE (COVID-19 PCR) (05/09/2020 5:07 PM EDT) [facility] Method Time Signature CORONAVIRUS Not Detected Not 05/10/2020 [facility] RESULTS Detected 12:55 AM DEPARTMENT OF EDT PATHOLOGY AND LAB MEDICINE Comment: This test is intended to be performed on respiratory specimens collected from individuals meeting the Centers for Disease Control and Prevention (CDC) criteria for COVID-19 testing https://www.cdc.gov/coronavirus/2019-nco v/hcp/index.html A DETECTED result indicates that RNA fro m SARS-CoV-2 is present and the patient is considered infected with the virus. ??DETECTED results do not rule out bacterial infection or co-infection with other v iruses. ??Laboratories within the [place] and its territories are required to report all positive results to the appropriate public health authorities. A NOT DETECTED result indicates that the SARS-CoV-2 RNA is not present above the limit of detection in the specimen. ??It does not rule out the possibility of COVID-19 and should not be used as the sole basis for patient management decisions. ??Laboratory test results should be considered in the context of clinical observations and epidemiological data. An INVALID result may indicate that ther e is an inhibitory substance present in the patient sample. ??Repeat sample collection should be considered. The [employer]ptima SARS-CoV-2 reagents for the [employer] System are intended for use only by qualified and trained clinical laboratory personnel. ??They are for use only under the Food and Drug Administration's Emergency Use Authorization (EUA). Specimen Anatomical Collection Method Collection Time Receive d Time (Source) Location / / Volume Laterality Swab Non-blood 05/09/2020 5:07 PM 0 5:07 collection / EDT PM EDT Unknown Araceli Desai GENERAL LAB Performing Organization Address City/State/ZIP Code Phon e Number [facility] DEPARTMENT OF PATHOLOGY AND [address] [place] [address] [place] [phone] LAB MEDICINE documented in this encounter Visit Diagnoses Diagnosis Shortness of breath - Primary Encounter for control pills elizabeth mauriciorocky Surveillance of previously prescribed co ntraceptive pill documented in this encounter Additional Health Concerns Infection Onset Date Last Indicated Resolved Time COVID-19 (Lab Pend) 05/09/2020 05/09/2020 05/10/2020 1 2:55 AM EDT documented as of this encounter Care Teams Time Study Analyst Relationship Specialty Start Date End Date Araceli Desai MD PCP - General Pediatrics 07/22/17 04/05/[address] [place] [phone] Araceli Desai MD PCP - Payer 02/03/18 06/02/[address] [place] [address] documented as of this encounter
--- OUTSIDE RECORDS SUMMARY | 2022-08-26 21:38 | XMS_ITS | Encounter Summary ---
:2001 Author Organization [facility] Address [address] [place], [place] [id number] [place] [address] Care Team Providers Name Role Phone Araceli Desai Md Primary Care Provider Araceli Desai Md Unavailable Encounter Details Date Type Department Care Team Description 08/26/2019 Email Encounter My[facility] Dept Online, [facility] Appointment Reminder ? USED BY [employer] TO [employer] ? USER MESSAGE Travel Impact ENCOUNTERS BY NON-PROVIDERS Social History Tobacco Use [...] Visit Internal Medicine James Matthews MD [address] [place], [place] [address] (Wo rk) documented as of this encounter Visit Diagnoses Not on filedocumented in this encounter Care Teams Vehicle Operator Relationship Specialty Start Date End Date Araceli Desai MD PCP - General Pediatrics 07/22/17 04/05/[address] [place] [address] Araceli Desai MD PCP - Payer 02/03/18 06/02/[address] [place] [phone] documented as of this encounter
--- OUTSIDE RECORDS SUMMARY | 2022-08-26 21:38 | XMS_ITS | Encounter Summary ---
:2001 Author Organization [facility] Address [address] [place] [address] [place] [address] Care Team Providers Name Role Phone Araceli Desai Md Primary Care Provider Araceli Desai Md Unavailable Reason for Referral Specialty (Priority - w/in a Month ) - Closed Specialty Diagnoses / Procedures Referred By Contact Refer red To Contact Neurology, Pediatric Diagnoses Lesion of parietal lobe of brain Araceli Desai MD Madsen, Joseph R. [address] [place] [address] Hospital Department of Neurosurgery [address] [place] [address] Phone: Fax: Referral ID Status Reason Start Expiration Visits Visits Date Date Requested Authorized [id number] Closed Established with 11/14/2018 11/14/2019 6 6 Specialist Reason for Visit Reason Comments Referral Encounter Details Date Type Department Care Team Description 11/14/2018 Telephone [facility] Neema Szymanski Lesion of Parietal Lobe [address] [facility] (Primary Dx) [place] [address] Social History Tobacco Use Types Packs/Day Years [...] this encounter Miscellaneous Notes Telephone Encounter - Neema Szymanski - 11/14/2018 10:51 AM EST This is a referral request: [facility]? No Has the patient seen this specialist before? Yes Reason/Diagnosis for Visit: Lesion in parietal lobe Clinician's Name: Dr. Camron Haque Name of Location: [facility] Address: [address] [place] [address] FAX number: [phone] Date of Appointment: 11/15/18 Number of Visits Needed, If Known: 6 Who is making request? [facility] Specialty: Neurosurgery documented in this encounter Plan of Treatment Upcoming Encounters Date Type Specialty Care Team Description 10/09/2022 Office Visit Internal Medicine James Matthews MD [address] [place] [address] (Wo rk) Scheduled Referrals Name Type Priority Associated Diagnoses Order S chedule REFERRAL TO PEDI REFERRAL/FUTURE Routine Lesion of parietal Or dered: 11/14/2018 NEUROLOGY lobe of brain documented as of this encounter Visit Diagnoses Diagnosis Lesion of parietal lobe of brain - Prima ry documented in this encounter Care Teams Loan Counselor Relationship Specialty Start Date End Date Araceli Desai MD PCP - General Pediatrics 07/22/17 04/05/[address] [place] [address] Araceli Desai MD PCP - Payer 02/03/18 06/02/[address] [place] [address] documented as of this encounter
--- OUTSIDE RECORDS SUMMARY | 2022-08-26 21:38 | XMS_ITS | Encounter Summary ---
:2001 Author Organization [employer] Address [address] [facility] [address] [place] [address] Care Team Providers Name Role Phone Araceli Desai Md Primary Care Provider Araceli Desai Md Unavailable Reason for Visit Reason Comments Emergency Room F/U Rm 4 DB Encounter Details Date Type Department Care Team Description 10/21/2018 Office Visit [facility] Araceli Desai MD Acute suppurative otitis media of left e ar without spontaneous rupture of tympanic membrane, recurrence not specified (Primary Dx); [address] [address] [phone] Social History Tobacco Use Types Packs/Day Years [...] Sign Reading Time Taken Comments Blood Pressure 112/64 10/21/2018 5:14 PM EST Pulse 86 10/21/2018 5:14 PM EST Temperature 36.6 ??C (97.9 ??F) 10/21/2018 5:14 PM EST Respiratory Rate 16 10/21/2018 5:14 PM EST Oxygen Saturation 99% 10/21/2018 5:14 PM EST Inhaled Oxygen Concentration - - Weight 48.5 kg (107 lb) 10/21/2018 5:14 PM EST Height - - Body Mass Index - - documented in this encounter Patient Instructions Patient InstructionsAraceli Desai MD - 10/21/2018 5:45 PM EST Left ear infection. P: Will treat with amoxicillin. Take with food, consider a probiotic with it. Head elevation, continue hot compress, pain medications. We will work on the MRI issue on Wednesday. documented in this encounter Ordered Prescriptions Prescription Sig Dispensed Refills Start Date End Date amoxicillin 875 mg tablet Take 1 tablet by 20 tablet 0 10/1110/31/2018 mouth twice daily for 10 days documented in this encounter Progress Notes Araceli Desai MD - 10/21/2018 5:45 PM EST Here with mother who provides additional history. HPI: Reviewed recent headache and fever, seen at [facility] 10/19. Tested negative for strep and flu. Received IV hydration and headache improved. Minor headache last night then terrible left earache in the middle of the night. Used a hot compress and ibuprofen and it helped, then another hot compress at 8:30 am. Drank fluids and slept today. Mother asks for help in getting the MRI at [facility]. Has neurosurgery appointment 11/[address] Haque. They worried it was the tumor when she had the intense headache . Intake and output: Wt Readings from Last 5 Encounters: 10/21/18 : 107 lb (48.5 kg) 08/22/18 : 104 lb 3.2 oz (47.3 kg) 07/18/18 : 104 lb 9.6 oz (47.4 kg) 07/13/18 : 103 lb 9.6 oz (47 kg) 02/04/18 : 93 lb 6.4 oz (42.4 kg) Current mgt: as above Patient Active Problem List Diagnosis Code ??? Food allergy: coconut Z91.018 ??? Medication intolerance: ibuprofen Z78.9 ??? Migraine without aura and without status migrainosus, not intractable G43.009 ??? Motion sickness T75.3XXA ??? 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 Wears glasses Z97.3 ??? Brain mass G93.9 ??? Counseling for control, oral contraceptives Z30.09 Current Outpatient Prescriptions: amoxicillin 875 mg tablet Take 1 tablet by mouth twice daily for 10 days phenazopyridine 95 mg tablet Take 1 tablet [...] PE: Alert, cooperative, nontoxic appearing 18 Yrs 1 Mos female BP 112/64 (Site: Right Arm, Positioning: Sitting, Cuff Size: Regular) Pulse 86 Temp 97.9 ??F (36.6 ??C) (Temporal Artery) Resp 16 Wt 107 lb (48.5 kg) SpO2 99% BMI 18.95 kg/m2 HEENT: eyes clear; TMs pearly cohen on right, left is bulging and red and opaque ; nose congested; OPsome erythema of the uvula and soft palate, tonsils pink 0-1+ Neck: fully supple LNs: no enlarged or tender nodes Chest: clear breath sounds throughout Heart: RRR w/o (m) Abd: soft and normal bowel sounds. Skin: no rash A: LOM P: Will treat with amoxicillin. Take with food, consider a probiotic with it We will work on the MRI issue on Wednesday. documented in this encounter Plan of Treatment Upcoming Encounters Date Type Specialty Care Team Description 10/09/2022 Office Visit Internal Medicine James Matthews MD [address] [place] [address] (Wo rk) documented as of this encounter Visit Diagnoses Diagnosis Acute suppurative otitis media of left e ar without spontaneous rupture of tympanic membrane, recurrence not specified - Makayla renuka Brain mass Unspecified condition of brain documented in this encounter Care Teams Keno Writer / Runner Relationship Specialty Start Date End Date Araceli Desai MD PCP - General Pediatrics 07/22/17 04/05/[address] [place] [phone] Araceli Desai MD PCP - Payer 02/03/18 06/02/[address] [place] [phone] documented as of this encounter
--- OUTSIDE RECORDS SUMMARY | 2022-08-26 21:38 | XMS_ITS | Encounter Summary ---
:2000 Author Organization [facility] Address [address] [facility] [address] [place] [address] Care Team Providers Name Role Phone Araceli Desai Md Primary Care Provider Araceli Desai Md Unavailable Reason for Visit Reason Comments COVID-19 Medical Advice - with Symptoms Fever Encounter Details Date Type Department Care Team Description 09/11/2020 Telephone [facility] Annabelle Dallas RN Suspected Covid-19 Covid-19 [address] Virus Infection [address] [facility] (Primary Dx) [place] [address] [place], [place] [id number] Social History Tobacco Use Types Packs/Day Years [...] this encounter Miscellaneous Notes Telephone Encounter - Annabelle Dallas RN - 09/11/2020 11:21 AM EST Images from the original note were not included. Called & spoke with patient, reports she was recently exposed to COVID19, isolating away from family members. Developed a fever last night, TMax99, mild sore throat, occasiona cough & nasal congestion. Denies increased WOB, swallowing without difficulty. Denies other symptoms. Well hydrated. COVID testing recommended, patient agrees, appt scheduled for tomorrow in [employer] [facility] @ 1:45pm,appt instrux provided. Advised comfort measures for symptoms. Continue COVID19 precautions as listed below. F/u with PCP for new/worsening/persistent symptoms. Patient agrees. COVID-19 TRIAGE AND CARE GUIDANCE: Assessment: COVID-19 Triage Call Assessment 1. Does the patient have a fever (>=100.4) OR any new, worsened or unexplained respiratory symptoms (including cough, congestion, wheezing, shortness of breath, sore throat, etc.)? OR Does the patient have painful, tender or itchy red or purple bumps on fingers or toes? OR Does the patient have newonset or worsening diarrhea? OR Does the patient have sudden loss of taste or smell?: Yes 2. How would you rate your current symptom?: 2 - mild a. How would you rate your symptom at baseline?: 2 - mild b. Is your symptom currently preventing you from any of your usual daily activities such as walkingup or down stairs, bathing, getting dressed, food preparation, laundry, or any exercise you do at home?: No c. What activities are you not able to do now but you were able to do before?: No change 3. Does the patient meet criteria for COVID testing?: Yes 4. Does the patient have risk for progression to severe disease OR prolonged symptoms for > 14 day OR have painful, tender or itchy red or purple bumps on fingers or toes?: No Disposition: Testing is warranted. If patient is < 2 schedule in-person appointment. If >= 2, schedule drive up testing. Disposition Recommendation: PLEASE GET CAR MAKE AND MODEL AND ENTER INTO APPOINTMENT NOTES I advised the patient to come in for COVID Drive-up or Walk-up testing and provided the information below. - If the patient is a child who will need assistance with obtaining a throat swab, please bring another adult with you who can help support him/her during the test and provide comfort on the drive home. If a second adult is unable to accompany you, please plan to join your child in the back seat or our outdoor testing area once you park your car. If your child feels more comfortable in the front seatand they meet requirements then this is okay as well. - During our screening process you have been identified as a patient eligible to visit one of our regional drive-through or walk-up specimen collection locations. - You will be able to drive up in your car to a designated area and one of our team members will greet you and obtain a specimen to send off for testing. We do allow for walk up testing at [facility] if you do not have a car. If you are driving-up, the steamtable attendant railroad will be in full personal protective equipment including a mask w/face shield, gown, and gloves. You will not leave your vehicle. If you are walking up at [facility], you will be tested outside and will need to call a designated number when you arrive. - There will not be opportunity for an evaluation, assessment, or medical advice. This is similar toa lab visit. - This testing will take place at (location). o [place]: [address] [place] [address]. 3rd level of our patient parking structure. While driving in they should continue driving to the far end of the 3rd level to the south side. There is signage for ???south?? . If the patient is walking up, please call [phone] before entering the building and let the staff know you are walking in for further instructions. o [place]: [address], [place] [address]. Three spots identified on the lower level close to the lower level patient entrance. We will have staff and signs to direct patients. o [place]: [address] [facility] , [place], [place] [address] the lower level of the garage at [facility] [address] [facility] and someone will be helping with way finding. o [place]: [address] [place] [address]. Proceed to the roof of the garage and there willbe people helping with way finding. o [place]: [address] [place] [address]. Patients should be directed towards the parking lot behind the building. At the bottom of the hill leading to the back parking lot, patients shouldtake an immediate left and will see the drive up testing area clearly marked. Staff will be waiting to greet them. We recommend patients requiring testing be on the wrecking car driver side of the vehicle for ease of testing. o [place]: [address] [place] [address]. Patients should pull up at the front entrance. There will be cones, signs, and people helping with way finding. - [place] things to know: ??? The specimen collection process should only take between 10-15 minutes, but please be prepared to wait. ??? You will drive through a secured area and will remain in your vehicle throughout the entire process. ??? No restrooms will be available. ??? Please bring water and other items to be comfortable while waiting. ??? Once your specimen has been collected, you will be handed an information sheet about how to obtain your test results. - Do you have any additional questions? The following information below was provided to the patient while they await their appointment. Please call us back immediately if your symptoms become worse (e.g., difficulty breathing, chest pain, confusion, blue lips) while you wait for your video visit or call back from a provider. Stay home except to get medical care. If you have exposure to a person who has definitely been proven to have COVID- 19, you should restrict or limit activities outside your home, except for getting medical care. If you are ill but were nottested, you should contact your employer to determine if they think that you should avoid going to work. For the present, avoid going to school, or public areas, and avoid using public transportation or taxis. Separate yourself from other people in your home. As much as possible, you should stay in a different room from other people in your home. Also, you should use a separate bathroom, if available. As much as possible, maintain 6 feet between you and anyone who lives with you, or have other people in your home stay in a separate room from you. Wear a facemask: You should wear a facemask when are around people without symptoms. People who livewith you should consider wearing a mask while they are in the same room with you until you are feeling better. Cover coughs and sneezes. Cover your mouth and nose with a tissue when you cough or sneeze, or coughor sneeze into your sleeve. Throw used tissues in a lined trash can, and immediately wash your handswith soap and water for at least 20 seconds. If soap and water are not available, immediately clean your hands with an alcohol based medical scientific officer that contains at least 60% alcohol, covering all surfaces of your hands and rubbing them together until they feel dry. Soap and water should be used preferentially if hands are visibly soiled. Wash your hands. Wash your hands often and thoroughly with soap and water for at least 20 seconds. If soap and water are not available, immediately clean your hands with an alcohol based medical scientific officer thatcontains at least 60% alcohol, covering all surfaces of your hands and rubbing them together until they feel dry. Soap and water should be used preferentially if hands are visibly soiled. Avoid touching your eyes, nose, and mouth with unwashed hands. Avoid sharing household items. You should not share dishes, drinking glasses, cups, eating utensils,towels, bedding, or other items with other people in your home. After using these items, you should wash them thoroughly with soap and water. Patient describes symptoms of stress, anxiety, worry, fear, or depression? No Is the patient an [employer] Employee? No Time Spent: 5-10 min documented in this encounter Plan of Treatment Upcoming Encounters Date Type Specialty Care Team Description 10/09/2022 Office Visit Internal Medicine James Matthews MD [address] [place] [address] 472 (Wo rk) documented as of this encounter Results (ABNORMAL) CORONAVIRUS DISEASE (COVID-19 PCR) (09/12/2020 3:18 PM EST) [facility] Method Time Signature CORONAVIRUS Detected (A) Not 09/13/2020 [facility] RESULTS Detected 3:23 PM EST DEPARTMENT OF PATHOLOGY AND LAB MEDICINE Comment: This test [...] considered. The Aptima SARS-CoV-2 reagents for the [employer] System are intended for use only by qualified and trained clinical laboratory personnel. ??They are for use only under the Food and Drug Administration's Emergency Use Authorization (EUA). IS PATIENT SYMPTOMATIC? Yes 09/13/2020 3 :23 PM EST [facility] DEPARTMENT OF PATHOLOGY AND LAB MEDICINE Specimen Anatomical Collection Method Collection Time Receive d Time (Source) Location / / Volume Laterality Swab Non-blood 09/12/2020 3:18 PM 0 3:18 collection / EST PM EST Unknown Araceli Desai GENERAL LAB Performing Organization Address City/State/ZIP Code Phon e Number [facility] DEPARTMENT OF PATHOLOGY AND [address] [place] [address] [phone] LAB MEDICINE documented in this encounter Visit Diagnoses Diagnosis Suspected COVID-19 virus infection - Makayla renuka documented in this encounter Care Teams Taper Machine Relationship Specialty Start Date End Date Araceli Desai MD PCP - General Pediatrics 07/22/17 04/05/[address] [place] [address] Araceli Desai MD PCP - Payer 02/03/18 06/02/[address] [place] [address] documented as of this encounter
--- OUTSIDE RECORDS SUMMARY | 2022-08-26 21:38 | XMS_ITS | Encounter Summary ---
:2001 Author Organization [facility] Address [address] [facility] [address] [place] [address] Care Team Providers Name Role Phone Araceli Desai Md Primary Care Provider Araceli Desai Md Unavailable Reason for Visit Reason Comments Urinary Frequency Rm 5 DB Encounter Details Date Type Department Care Team Description 07/18/2018 Office Visit [facility] Gunnar Alva MD Dysuria (Primary Dx) [address] [phone] Social History Tobacco Use Types Packs/Day Years [...] Taken Comments Blood Pressure - - Pulse - - Temperature 36.8 ??C (98.3 ??F) 07/18/2018 3:49 PM EDT Respiratory Rate - - Oxygen Saturation - - Inhaled Oxygen Concentration - - Weight 47.4 kg (104 lb 9.6 oz) 07/18/2018 3:49 PM EDT Height - - Body Mass Index - - documented in this encounter Patient Instructions Patient InstructionsSGunnar abdalla MD - 07/18/2018 4:00 PM EDT Stay well hydrated, Cranberry juice might help Warm bath, Apply vaseline or a& d ointment vaginally, Call if fever, vomiting, back pain, We will be in touch with results. documented in this encounter Ordered Prescriptions Prescription Sig Dispensed Refills Start Date End Date phenazopyridine 95 mg Take 1 tablet by 30 tablet 0 07/18/20 18 10/08/2021 tabletIndications: Dysuria mouth three times daily as needed (bladder pain) (available over the counter) documented in this encounter Progress Notes Gunnar Alva MD - 07/18/2018 4:00 PM EDT [facility]: Pediatrics [address] [place] [address] Today: 07/18/18 Haley is a 17 yrs. female who presents today for an evaluation of a UTI. HPI: - Haley complains that she feels as though she always needs to go to the bathroom, and that he doesnot feel as though her bladder is completely emptying. She has had UTIs and yeast infections before. - Denies fever, vomiting, back pain, vaginal discharge, rash, or itching. Currently menstruating. - Haley was last seen five days ago for a sore throat. She was prescribed Penicillin, which she hadfinished six days ago. - pmhx notable for brain glioma, slow growing, followed with serial mris. 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 ROS: As above Social History No concerns. Sexually active with boyfriend. Condoms always. Last coitus four days ago. Family History: The patient???s family history was reviewed: No family history on file. No new FHx elicited. Current Outpatient Prescriptions: SUMAtriptan 100 mg tablet TK 1 T PO 1 TIME PRN DIRECTED. MAXIMUM 3 TS PER WEEK norethindrone-ethinyl estradiol-iron (ZHEN FE 1.5/30, 28,) 1.5mg-30mcg (21)/75 mg (7) tablet Take 1tablet by mouth daily Patient Active Problem List Diagnosis Date Noted ??? Counseling for control, oral contraceptives [Z30.09] 02/04/2018 Oc start 02/2018, mother aware per Haley. ??? 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 Food allergy: coconut [Z91.018] 08/11/2017 hives ??? Medication intolerance: ibuprofen [Z78.9] 08/11/2017 Got rash once, avoids. Tolerates Alleve ??? Migraine without aura and without status migrainosus, not intractable [G43.009] 08/11/2017 Seen by headache specialist Sushil Hoover MD in [facility]. Trial of amitriptyline. Then lamictal. Now off all meds except alleve, sumaptriptan. Moved fall 2016 to [place]; doing much better emotionally. MRI x 2 at [facility] (10/06/2016 and) 10/16/2016. Initial finding in left periatrial white matter, second MRI notes minimal if any. 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 Saw neurosurgery at [facility] 09/2017 MRI ordered Slow growth of an enhancing left periatrial massover serial studies, as detailed above. 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 2.No evidence of tumor dissemination. To follow with serial MRI's no surgery indicated now. ??? Motion sickness [T75.3XXA] 08/11/2017 headache if reads in car ??? 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 Has seen dermatology in past. No symptoms ??? Wears glasses [Z97.3] 08/11/2017 Exam: General: Alert, well-appearing in NAD HEENT: PERRL, EOMI, sclera not injected or icteric, moist mucous membranes, oropharynx was benign with normal dentition and normal tonsils without lesions, enlargement, or exudate. Neck: Supple, no cervical or supraclavicular lymphadenopathy, trachea midline, Normal thyroid without mass/ No thyromegaly Lungs: Clear to auscultation bilaterally, no wheezes or rales, normal respiratory effort. Cor: Regular rate and rhythm, no murmurs, rubs or gallops heard. S2 splitting normally Abdomen: Normoactive bowel sounds presents, soft, non-tender, non-distended without hepatosplenomegaly. No masses, Bladder tender to palpation or when jumping. : Exam deferred today due to current period. Skin: Normal turgor without rashes Temp 98.3 ??F (36.8 ??C) (Temporal Artery) Wt 104 lb 9.6 oz (47.4 kg) BMI 18.59 kg/m2 Urine dip normal aside from trace blood. Assessment/Plan: Haley Garcia is a 17 yrs. female. The following has been addressed today: Dysuria - Complains of urinary frequency and incomplete bladder emptying. Hx of UTIs and yeast infections, but negative urine dip today. I suspect likely viral or irritant urethritis. - Differentials include: contact Urethritis, possible yeast infection (recently finished antibiotic dose for strep), UTI (although urine dip was negative). - Urine culture sent to lab. - Chlamydia screen ordered. - Recommended staying well hydrated. Drink cranberry juice. Takes warm baths. Apply Vaseline or A&D ointment vaginally. Pyridium prescribed with Dr. wallace input. - Will follow-up if symptoms worsen or patient develops fever, back pain, or begins vomiting. Otherwise follow-up with results of tests. Follow up: No Follow-up on file. or call sooner as needed for new concerns or questions. I personally scribed for Dr. Gunnar Alva MD on 07/18/2018 at 3:45 PM. . The documentation recorded by the Scribe accurately reflects the service I personally performed and the decisions made by me. Gunnar Alva MD, 07/18/2018, 4:32 PM documented in this encounter Plan of Treatment Upcoming Encounters Date Type Specialty Care Team Description 10/09/2022 Office Visit Internal Medicine James Matthews MD [address] [place], [place] [address] 472 (Wo rk) documented as of this encounter Procedures Procedure Name Priority Date/Time Associated Diagnosis Comme nts URINE DIPSTICK Routine 07/18/2018 3:52 PM Dysuria Results for this (OFFICE TEST) EDT procedure are in the results section. documented in this encounter Results URINE CULTURE (07/18/2018 5:15 PM EDT) [facility] gist Method Time Signature CULTURE, 10,000-50,000 07/20/2018 [facility] URINE cfu/mL Mixed 2:39 PM EDT DEPARTMENT OF Gram Positive PATHOLOGY AND Organisms LAB MEDICINE Specimen Anatomical Collection Method Collection Time Receive d Time (Source) Location / / Volume Laterality Urine (URINE) Urine / Unknown 07/18/2018 5:15 PM 07/18 5:15 EDT PM EDT Narrative [facility] DEPARTMENT OF PATHOLOGY AND LAB MED ICINE - 07/20/2018 2:39 PM EDT No predominant organism was identified. Suggest repeat specimen if there is continued concern for UTI. Gunnar Alva MICROBIOLOGY LAB Performing Organization Address City/State/ZIP Code Phon e Number [facility] DEPARTMENT OF PATHOLOGY AND [address] [place] [phone] LAB MEDICINE CHLAMYDIA URINE DNA (07/18/2018 5:15 PM EDT) Analysis Performed At Path logist Time Signature CHLAMYDIA PCR Negative Negative 07/19/2018 [facility] 1:07 PM EDT DEPARTMENT OF PATHOLOGY AND LAB MEDICINE Comment: Test performed using Aptima Combo2 PCR a ssay. SOURCE URINE 07/19/2018 1:07 PM EDT [facility] DE PARTMENT OF PATHOLOGY AND LAB MEDICINE Specimen Anatomical Collection Method Collection Time Receive d Time (Source) Location / / Volume Laterality Urine (URINE) Urine / Unknown 07/18/2018 5:15 PM 07/18 5:15 EDT PM EDT Gunnar Alva LAB URINE ORDERABLES Performing Organization Address City/State/ZIP Code Phon e Number [facility] DEPARTMENT OF PATHOLOGY AND [address] [place] [address] [phone] LAB MEDICINE URINE DIPSTICK (OFFICE TEST) (07/18/2018 3:52 PM EDT) [facility] gist Method Time Signature LEUKOCYTE Negative Negative ESTERASE (U) NITRITE (U) Negative Negative UROBILINOGEN (U) 0.2 0.2 - 1.0 mg/dL PROTEIN (U) Negative Neg-Trace PH (U) 6.0 5.0 - 9.0 BLOOD (U) Trace-intact Negative SPECIFIC GRAVITY 1.005 1.001 - DIPSTICK (U) 1.035 KETONE (U) Negative Negative BILIRUBIN (U) Negative Negative GLUCOSE QUAL (U) Negative Negative g/dl Specimen (Source) Anatomical Collection Method Collection Time Re ceived Time Location / / Volume Laterality 07/18/2018 3:52 PM EDT Tami Silverio - 07/18/2018 3:52 PM EDT Performed, resulted, and entered by Mary Suh on July 18, 2018. Gunnar Alva CLINICAL UNIT LAB TESTING documented in this encounter Visit Diagnoses Diagnosis Dysuria - Primary documented in this encounter Care Teams Stage Hand Relationship Specialty Start Date End Date Araceli Desai MD PCP - General Pediatrics 07/22/17 04/05/[address] [place] [address] Araceli Desai MD PCP - Payer 02/03/18 06/02/[address] [place] [address] documented as of this encounter
--- OUTSIDE RECORDS SUMMARY | 2022-08-26 21:38 | XMS_ITS | Encounter Summary ---
:2001 Author Organization [facility] Address [address] [place] [address] [place] [address] Care Team Providers Name Role Phone Araceli Desai Md Primary Care Provider Araceli Desai Md Unavailable Encounter Details Date Type Department Care Team Description 03/11/2020 Email Encounter [facility] Makenna King Rash (Primary Dx) One [facility] [place] [address] [facility] [phone] [place] [address] Social History Tobacco Use Types Packs/Day Years [...] month, have you been in contact with No / Unsure 03/08/2020 8:51 AM EDT someone who was confirmed or suspected to have Coronavirus / COVID-19? documented as of this encounter Plan of Treatment Upcoming Encounters Date Type Specialty Care Team Description 10/09/2022 Office Visit Internal Medicine James Matthews MD [address] [place] [address] 472 (Wo rk) documented as of this encounter Visit Diagnoses Diagnosis Rash - Primary Rash and other nonspecific skin eruption documented in this encounter Care Teams Data Center Consultant Relationship Specialty Start Date End Date Araceli Desai MD PCP - General Pediatrics 07/22/17 04/05/[address] [place] [address] Araceli Desai MD PCP - Payer 02/03/18 06/02/[address] [place] [address] documented as of this encounter
--- OUTSIDE RECORDS SUMMARY | 2022-08-26 21:38 | XMS_ITS | Encounter Summary ---
:2001 Author Organization [facility] Address [address] [place] [address] [address] [place] [address] Care Team Providers Name Role Phone Araceli Desai Md Primary Care Provider Araceli Desai Md Unavailable Encounter Details Date Type Department Care Team Description 05/09/2020 Travel Social History Tobacco Use Types Packs/Day [...] been in contact with No / Unsure 05/09/2020 5:06 PM EDT someone who was confirmed or suspected to have Coronavirus / COVID-19? documented as of this encounter Plan of Treatment Upcoming Encounters Date Type Specialty Care Team Description 10/09/2022 Office Visit Internal Medicine James Matthews MD [address] [place] [address] 472 (Wo rk) documented as of this encounter Visit Diagnoses Not on filedocumented in this encounter Additional Health Concerns Infection Onset Date Last Indicated Resolved Time COVID-19 (Lab Pend) 05/09/2020 05/09/2020 05/10/2020 1 2:55 AM EDT documented as of this encounter Care Teams Rn Gyn Relationship Specialty Start Date End Date Araceli Desai MD PCP - General Pediatrics 07/22/17 04/05/[address] [place] [address] Araceli Desai MD PCP - Payer 02/03/18 06/02/[address] [place] [address] documented as of this encounter
--- OUTSIDE RECORDS SUMMARY | 2022-08-26 21:38 | XMS_ITS | Encounter Summary ---
:2001 Author Organization [facility] Address [address] [facility] [address] [address] Care Team Providers Name Role Phone Araceli Desai Md Primary Care Provider Araceli Desai Md Unavailable Reason for Visit Reason Comments Arm pain/anxiety Room 6 JG Encounter Details Date Type Department Care Team Description 06/21/2019 Office Visit [facility] Ángel Constance Left upper arm pain (Primary Dx); [address] [place] [phone] Social History Tobacco Use Types Packs/Day Years [...] Sign Reading Time Taken Comments Blood Pressure 118/76 06/21/2019 1:31 PM EDT Pulse - - Temperature 36.9 ??C (98.5 ??F) 06/21/2019 1:07 PM EDT Respiratory Rate - - Oxygen Saturation - - Inhaled Oxygen Concentration - - Weight 47.4 kg (104 lb 6.4 oz) 06/21/2019 1:07 PM EDT Height - - Body Mass Index - - documented in this encounter Progress Notes Constance Neal MD - 06/21/2019 1:00 PM EDT here w/ mom CC/HPI: left upper arm this morning x 2 hrs waxing and waning dull - no hx sports - no hx injury arm pain occurred couple of hours after conversation about financial issues made me nervous pt endorses hx anxiety had one previous episode of left arm pain mom reports this previous episode preceded a seizure by one week to one month pt reports she is now well and asymptomatic no arm pain no headache no visual changes no numbness/tinging/weakness walking well ROS: uri symptoms no runny nose no sorethroat no cough no sob no chest pain no fevers no po solids ok po fluids ok uo ok abd pain no vomiting no aches no neck ache no energy level fine MEDS: keppra SUMAtriptan prn - once in pasty 3 mos OCP Current medications, allergies and problem list were reviewed today from the EMR central listing. 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] Wears glasses [Z97.3] Brain mass [G93.9] Counseling for control, oral contraceptives [Z30.09] PE alert nad/no resp distress nontoxic good eye contact/nml affect HEENT (R) TM neg (L) TM neg oropharynx neg tonsils no hypertrophy/erythema/exudate uvula midline/no difficulty opening mouth trachea midline/mobile nontender mmm EYES vane neom conjunctivae w/o inflam or discharge upper/lower eyelids neg/no erythema/swelling NECK supple/full range of motion/without masses or significant adenopathy LN neg cerv/tonsillar CHEST no tachypnea no g/f/retractions good a/e bilat no wheezes no rales CV RRR; no murmur; warm/pink well perfused/brisk cap refill GI soft no hsm; no masses; not distended/nontender/no guarding/no rebound MSK Cervical/neck full and painless range of motion no paraspinal muscle tenderness no pain to palpation over the bony prominences of the spine trapezius - mild bilateral tenderness UE shoulders/clavicles/elbows/wrists/hands no swelling/bruising/tenderness full and painless range of motion upper arms/forearms no swelling/bruising/tenderness strength intact warm/pink/well perfused CLINICAL APPLICATION MANAGER MS: appropriate alert/oriented CN: II nml visual moore fundi - grossly nml II-III vane III-IV- neom V nml facial sensation VII strength bilat symm IX-X-XII nml swallow/gag symm tongue protrusion XI nml lat head movements nml shoulder shrug MOTOR: nml strength/tone UE LE =/= no pronator drift SENSORY: nml UE LE negative Romberg REFLEXES: biceps C5C6 knee L(2,3)4 2+ bilat symm BABINSKI: negative (no extensor plantar response) CEREBELLAR: nml FN nml gait no involuntary movements AP 1/ left arm pain now resolved otherwise well by history and on exam monitor f/u prn persistent symptoms/changes/concerns 2/ 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 discussed left arm pain not likely a sz prodrome given previous hx and time course recommend contact neuro to inform and seek advice 3/ discussed hx anxiety advise family/pt consider therapist for support documented in this encounter Plan of Treatment Upcoming Encounters Date Type Specialty Care Team Description 10/09/2022 Office Visit Internal Medicine James Matthews MD [address] [place] [address] 472 (Wo rk) documented as of this encounter Visit Diagnoses Diagnosis Left upper arm pain - Primary Pain in limb Anxiety Anxiety state, unspecified documented in this encounter Care Teams Business Consultant Relationship Specialty Start Date End Date Araceli Desai MD PCP - General Pediatrics 07/22/17 04/05/[address] [place] [address] Araceli Desai MD PCP - Payer 02/03/18 06/02/[address] [place] [address] documented as of this encounter
--- OUTSIDE RECORDS SUMMARY | 2022-08-26 21:38 | XMS_ITS | Encounter Summary ---
:2001 Author Organization [facility] Address [address] [place] [address] [address] [place] [address] Care Team Providers Name Role Phone Araceli Desai Md Primary Care Provider Araceli Desai Md Unavailable Encounter Details Date Type Department Care Team Description 03/08/2020 Travel Social History Tobacco Use Types Packs/Day [...] Office Visit Internal Medicine James Matthews MD [address] [place] [address] 02 472 (Wo rk) documented as of this encounter Visit Diagnoses Not on filedocumented in this encounter Care Teams Geospatial Applications Developer Relationship Specialty Start Date End Date Araceli Desai MD PCP - General Pediatrics 07/22/17 04/05/[address] [place] [address] Araceli Desai MD PCP - Payer 02/03/18 06/02/[address] [place] [address] documented as of this encounter
--- OUTSIDE RECORDS SUMMARY | 2022-08-26 21:38 | XMS_ITS | Encounter Summary ---
:2001 Author Organization [facility] Address [address] [place] [address] [place] [address] Care Team Providers Name Role Phone Araceli Desai Md Primary Care Provider Araceli Desai Md Unavailable Encounter Details Date Type Department Care Team Description 03/31/2020 Email Encounter [facility] Makenna King, Health Counseling One Robbie Berg MD (Primary Dx) [place] [phone] 1 [facility] [phone] [place], [place] [id number] Social History Tobacco Use Types Packs/Day Years [...] Visit Internal Medicine James Matthews MD [address] [place] [address] 472 (Wo rk) documented as of this encounter Visit Diagnoses Diagnosis Health counseling - Primary Other specified counseling documented in this encounter Care Teams High School Biology Teacher Relationship Specialty Start Date End Date Araceli Desai MD PCP - General Pediatrics 07/22/17 04/05/[address] [place] [address] Araceli Desai MD PCP - Payer 02/03/18 06/02/[address] [place] [address] documented as of this encounter
--- OUTSIDE RECORDS SUMMARY | 2022-08-26 21:38 | XMS_ITS | Encounter Summary ---
:2001 [facility] Address [address] [place] [address] [place] [address] Care Team Providers Name Role Phone Araceli Desai Md Primary Care Provider Araceli Desai Md Unavailable Encounter Details Date Type Department Care Team Description 05/10/2020 Letter (Out) Araceli Desai MD [address] [place] [address] 472 (Wo rk) Social History Tobacco Use Types [...] Office Visit Internal Medicine James Matthews MD [address] [place] [address] 472 (Wo rk) documented as of this encounter Visit Diagnoses Not on filedocumented in this encounter Additional Health Concerns Infection Onset Date Last Indicated Resolved Time COVID-19 (Lab Pend) 05/09/2020 05/09/2020 05/10/2020 1 2:55 AM EDT documented as of this encounter Care Teams Thai Masseur Relationship Specialty Start Date End Date Araceli Desai MD PCP - General Pediatrics 07/22/17 04/05/[address] [place] [address] Araceli Desai MD PCP - Payer 02/03/18 06/02/[address] [place] [address] documented as of this encounter
--- OUTSIDE RECORDS SUMMARY | 2022-08-26 21:38 | XMS_ITS | Encounter Summary ---
:2001 Author Organization [facility] Address [address] [place] [address] [address] Care Team Providers Name Role Phone Araceli Desai Md Primary Care Provider Araceli Desai Md Unavailable Reason for Referral Specialty (Priority - w/in a Month ) - Closed Specialty Diagnoses / Procedures Referred By Contact Refer red To Contact Visual Services Diagnoses Vision changes H/O brain tumor Araceli Desai MD Mantagos, Iason S. [address] [place] [address] [place] [address] [place] [address] Phone: Fax: Referral ID Status Reason Start Expiration Visits Visits Date Date Requested Authorized [id number] Closed Established with 10/19/2019 10/19/2020 6 6 Specialist Reason for Visit Reason Comments Referral Encounter Details Date Type Department Care Team Description 10/19/2019 Telephone [facility] Peds Vision Changes (Primary [address] [facility] Dx); [place] [address] Social History Tobacco Use Types Packs/Day [...] this encounter Miscellaneous Notes Telephone Encounter - Linn Cabello - 10/19/2019 11:53 AM EST Clinical History/Reason For Referral: eye vision s/p tumor removal from brain Vendor Name: [facility] Number of Approved Visits: 6 Diagnosis: eye exam s/p tumor removal from brain Scheduling 10/27/2019 Who's is making the request?patient Speciality:Opthamolgly Provider ID: Dr Trino Berman documented in this encounter Plan of Treatment Upcoming Encounters Date Type Specialty Care Team Description 10/09/2022 Office Visit Internal Medicine James Matthews MD [address] [place] [address] [phone] (Wo rk) Scheduled Referrals Name Type Priority Associated Diagnoses Order S chedule REFERRAL TO PEDI REFERRAL/FUTURE Routine Vision changes Ordered: 10/19/2019 VISUAL SERVICES H/O brain tumor documented as of this encounter Visit Diagnoses Diagnosis Vision changes - Primary Unspecified visual disturbance H/O brain tumor Personal history of other disorders of n ervous system and sense organs documented in this encounter Care Teams Sheet Rocker Relationship Specialty Start Date End Date Araceli Desai MD PCP - General Pediatrics 07/22/17 04/05/[address] [place] [address] Araceli Desai MD PCP - Payer 02/03/18 06/02/[address] [place] [phone] documented as of this encounter
--- OUTSIDE RECORDS SUMMARY | 2022-08-26 21:38 | XMS_ITS | Encounter Summary ---
:2001 Author Organization [facility] Address [address] [facility] [address] [place] [address] Care Team Providers Name Role Phone Araceli Desai Md Primary Care Provider Araceli Desai Md Unavailable Reason for Visit Reason Comments MRI APPT Encounter Details Date Type Department Care Team Description 10/25/2018 Telephone [facility] Angeli, Administrative Encounter [address] [facility] (Primary Dx) [facility] [phone] Social History Tobacco Use Types Packs/Day [...] this encounter Miscellaneous Notes Telephone Encounter - Tami Suh - 10/25/2018 2:28 PM EST Spoke to Neurosurgery department and they said that the MRI order was in for contrast/no contrast. Family just needed to call the Radiology department to book appt. Spoke to mom and gave mom the [facility]t. [phone] documented in this encounter Plan of Treatment Upcoming Encounters Date Type Specialty Care Team Description 10/09/2022 Office Visit Internal Medicine James Matthews MD [address] [place] [address] 472 (Wo rk) documented as of this encounter Visit Diagnoses Diagnosis Administrative encounter - Primary Encounters for unspecified administrativ e purpose documented in this encounter Care Teams Manufacturing Supervisor Relationship Specialty Start Date End Date Araceli Desai MD PCP - General Pediatrics 07/22/17 04/05/[address] [place] [address] Araceli Desai MD PCP - Payer 02/03/18 06/02/[address] [place] [phone] documented as of this encounter
--- OUTSIDE RECORDS SUMMARY | 2022-08-26 21:38 | XMS_ITS | Encounter Summary ---
:2001 Author Organization [facility] Address [address] [facility] [address] [address] Care Team Providers Name Role Phone Araceli Desai Md Primary Care Provider Araceli Desai Md Unavailable Encounter Details Date Type Department Care Team Description 07/21/2018 Telephone [facility] Hema Spicer Follow Up (Primary Dx) [address] [place] [address] Social History Tobacco Use [...] Telephone Encounter - Hema Spicer RN - 07/22/2018 11:27 AM EDT S/w mom again. Denies flank pain, vaginal itching/rash, fever, or difficulty voiding. Advised to cb if above s/s occur as well as hematuria. Parent is comfortable and agrees with plan Parent will call with any questions or concerns Telephone Encounter - Hema Spicer RN - 07/21/2018 3:28 PM EDT L/m to call us back Telephone Encounter - Hema Spicer RN - 07/21/2018 9:28 AM EDT ? Hi, culture grew low levels of multiple bacteria so probably not a true infection. ??Can you check with patient. If symptoms persist, should have a new repeat clean voided specimen. Thanks Duong S/w Mom: Hasn't c/o urinary pain in last few days. Has not mentioned any vaginal d/c, hematura. Denies vomiting. Also wanted to ask: -still feeling like can't fully void? Emptying bladder? -any fever? -any flank pain? -any vaginal rash or itching? Mom would like to cb w/ daughter to rcv more info. documented in this encounter Plan of Treatment Upcoming Encounters Date Type Specialty Care Team Description 10/09/2022 Office Visit Internal Medicine James Matthews MD [address] [place] [address] 472 (Wo rk) documented as of this encounter Visit Diagnoses Diagnosis Follow up - Primary documented in this encounter Care Teams Php Programmer Relationship Specialty Start Date End Date Araceli Desai MD PCP - General Pediatrics 07/22/17 04/05/[address] [place] [address] Araceli Desai MD PCP - Payer 02/03/18 06/02/[address] [place] [address] documented as of this encounter
--- OUTSIDE RECORDS SUMMARY | 2022-08-26 21:38 | XMS_ITS | Encounter Summary ---
:2000 Author Organization [facility] Address [address] [place] [id number] Care Team Providers Name Role Phone Araceli Desai Md Primary Care Provider Araceli Desai Md Unavailable Reason for Visit Reason Comments COVID-19 Medical Advice - with Symptoms Encounter Details Date Type Department Care Team Description 05/08/2020 Telephone [employer] [facility] YOLY Fajardo MEDICAL ADVICE Covid-19 LUIS Plummer - WITH SYMPTOMS [address] [place] [address] Social History Tobacco Use Types Packs/Day Years [...] this encounter Miscellaneous Notes Telephone Encounter - TanaKavithaLUIS - 05/08/2020 1:01 PM EDT Images from the original note were not included. 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 She did practice social distancing other thanworking. She said it has been hard to take a deep breath since Wednesday. No other symptoms,no hx of asthma. Lives with her Mom and another adult . Appointment made. COVID-19 TRIAGE AND CARE GUIDANCE: Assessment: COVID-19 [...] sudden loss of taste or smell?: Yes (SOB,hard to take a deep breath,spoke without difficulty.) 2. How would you rate your current symptom?: 3 - moderate (hard to taek a deep breath) a. How would you rate your symptom at baseline?: 0 - no symptom(s) b. Is your symptom currently preventing you [...] Testing is warranted. If patient is < 6 schedule in [facility] evaluation center.If >= 6, schedule drive up testing. Haley Jose reports symptoms of dyspnea for 5 days. Is the patient a healthcare worker, blind installer, a resident/employee at a congregate setting, orrequire COVID testing as a result of having an upcoming procedure that is in accordance with the [facility] testing priority level 6? No Disposition Recommendation: [facility] Urgent Care Appointment ([facility]) - Patient instructed that they are being booked for an Urgent Care appointment for evaluation by a clinician. They are not being booked for testing for COVID. Their symptoms will be evaluated by clinician in Urgent Care who will make a determination at that time if any testing is warranted. Based on our conversation, you should stay at home while awaiting your upcoming appointment. While you await this next step, please let us know if your symptoms worsen, especially if you develop new orworsening difficulty breathing or shortness of breath, persistent pain or pressure in the chest, confusion, or bluish lips or face. Here are some things you can do while waiting for your appointment: ??? Stay home except to get medical care If you have exposure to a person who has definitely been proven to have COVID- 19, you should restrict or limit activities outside your home, except for getting medical care. If you are ill but were nottested, you should contact your employer to determine if they think that you should avoid going to work. For the present, you should avoid going to school, or public areas, and avoid using public transportation or taxis until you have improvement in symptoms or are without fever for 48 hours without using any fever reducing medications. ??? Separate yourself from other people in your home As much as possible, you should stay in a different room from other people in your home. Also, you should use a separate bathroom, if available. ??? Wear a facemask You should wear a facemask when you visit a healthcare provider. As much as possible, maintain 6 feet between you and anyone who lives with you, or have other people in your home stay in a separate room from you. People who live with you should consider wearing a mask while they are in the same room with you until you are feeling better. ??? Cover your coughs and sneezes Cover your mouth and nose with a tissue when you cough or sneeze, or you can cough or sneeze into your sleeve. Throw used tissues in a lined trash can, and immediately wash your hands with soap and water for at least 20 seconds. If soap and water are not available, immediately clean your hands with analcohol based media senior recruiter that contains at least 60% alcohol, covering all surfaces of your hands and rubbing them together until they feel dry. Soap and water should be used preferentially if hands are visibly soiled. ??? Wash your hands Wash your hands often and thoroughly with soap and water for at least 20 seconds. If soap and water are not available, immediately clean your hands with an alcohol based media senior recruiter that contains at least 60% alcohol, covering all surfaces of your hands and rubbing them together until they feel dry. Soap and water should be used preferentially if hands are visibly soiled. Avoid touching your eyes, nose, and mouth with unwashed hands. ??? Avoid sharing household items You should not share dishes, drinking glasses, cups, eating utensils, towels, bedding, or other items with other people in your home. After using these items, you should wash them thoroughly with soap and water. ??? Monitor your symptoms Seek prompt medical attention if your illness is worsening (e.g., difficulty breathing). Before going to your medical appointments, call the healthcare provider and share your symptoms with them, and if you were exposed to someone who has been presumptively diagnosed or definitively diagnosed with COVID-19 infection. This will help the healthcare provider's office take steps to keep other people fromgetting infected. Ask your healthcare provider to call the local or state health department if your symptoms are thought to be consistent with COVID-19 or if your exposure was thought to be concerning enough that you may have COVID-19. Reminded patient that per [facility] policy, only one visitor is permitted to accompany a patient to their appointment. The visitor does not need to be essential to the visit. As long as the visitor passesour screening criteria, the visitor is permitted to enter the practice. Both the patient and an essential visitor will be asked screening questions upon being greeted at the practice site. Is the patient an [employer] Employee? No Time Spent: 21-30 min COVID-19 TRIAGE AND CARE GUIDANCE: Assessment: COVID-19 [...] sudden loss of taste or smell?: Yes (SOB,hard to take a deep breath,spoke without difficulty.) 2. How would you rate your current symptom?: 3 - moderate (hard to taek a deep breath) a. How would you rate your symptom at baseline?: 0 - no symptom(s) b. Is your symptom currently preventing you [...] Testing is warranted. If patient is < 6 schedule in [facility] evaluation center.If >= 6, schedule drive up testing. Haley Garcia reports symptoms of dyspnea for 5 days. Is the patient a healthcare worker, blind installer, a resident/employee at a congregate setting, or[facility]ark [facility] COVID testing as a result of having an upcoming procedure that is in accordance with the [facility] testing priority level 6? No Disposition Recommendation: [facility] Urgent Care Appointment ([facility]) - Patient instructed that they are being booked for an Urgent Care appointment for evaluation by a clinician. They are not being booked for testing for COVID. Their symptoms will be evaluated by clinician in Urgent Care who will make a determination at that time if any testing is warranted. Based on our conversation, you should stay at home while awaiting your upcoming appointment. While you await this next step, please let us know if your symptoms worsen, especially if you develop new orworsening difficulty breathing or shortness of breath, persistent pain or pressure in the chest, confusion, or bluish lips or face. Here are some things you can do while waiting for your appointment: ??? Stay home except to get medical care If you have exposure to a person who has definitely been proven to have COVID- 19, you should restrict or limit activities outside your home, except for getting medical care. If you are ill but were nottested, you should contact your employer to determine if they think that you should avoid going to work. For the present, you should avoid going to school, or public areas, and avoid using public transportation or taxis until you have improvement in symptoms or are without fever for 48 hours without using any fever reducing medications. ??? Separate yourself from other people in your home As much as possible, you should stay in a different room from other people in your home. Also, you should use a separate bathroom, if available. ??? Wear a facemask You should wear a facemask when you visit a healthcare provider. As much as possible, maintain 6 feet between you and anyone who lives with you, or have other people in your home stay in a separate room from you. People who live with you should consider wearing a mask while they are in the same room with you until you are feeling better. ??? Cover your coughs and sneezes Cover your mouth and nose with a tissue when you cough or sneeze, or you can cough or sneeze into your sleeve. Throw used tissues in a lined trash can, and immediately wash your hands with soap and water for at least 20 seconds. If soap and water are not available, immediately clean your hands with analcohol based media senior recruiter that contains at least 60% alcohol, covering all surfaces of your hands and rubbing them together until they feel dry. Soap and water should be used preferentially if hands are visibly soiled. ??? Wash your hands Wash your hands often and thoroughly with soap and water for at least 20 seconds. If soap and water are not available, immediately clean your hands with an alcohol based media senior recruiter that contains at least 60% alcohol, covering all surfaces of your hands and rubbing them together until they feel dry. Soap and water should be used preferentially if hands are visibly soiled. Avoid touching your eyes, nose, and mouth with unwashed hands. ??? Avoid sharing household items You should not share dishes, drinking glasses, cups, eating utensils, towels, bedding, or other items with other people in your home. After using these items, you should wash them thoroughly with soap and water. ??? Monitor your symptoms Seek prompt medical attention if your illness is worsening (e.g., difficulty breathing). Before going to your medical appointments, call the healthcare provider and share your symptoms with them, and if you were exposed to someone who has been presumptively diagnosed or definitively diagnosed with COVID-19 infection. This will help the healthcare provider's office take steps to keep other people fromgetting infected. Ask your healthcare provider to call the local or state health department if your symptoms are thought to be consistent with COVID-19 or if your exposure was thought to be concerning enough that you may have COVID-19. Reminded patient that per [employer] policy, only one visitor is permitted to accompany a patient to their appointment. The visitor does not need to be essential to the visit. As long as the visitor passesour screening criteria, the visitor is permitted to enter the practice. Both the patient and an essential visitor will be asked screening questions upon being greeted at the practice site. Is the patient an [employer] Employee? No Time Spent: 31-40 min documented in this encounter Plan of Treatment Upcoming Encounters Date Type Specialty Care Team Description 10/09/2022 Office Visit Internal Medicine James Matthews MD [address] [place] [phone] (Wo rk) documented as of this encounter Visit Diagnoses Not on filedocumented in this encounter Care Teams Low Altitude Air Defense Gunner Relationship Specialty Start Date End Date Araceli Desai MD PCP - General Pediatrics 07/22/17 04/05/[address] [place] [id number] Araceli Desai MD PCP - Payer 02/03/18 06/02/[address] [place] [phone] documented as of this encounter
--- OUTSIDE RECORDS SUMMARY | 2022-08-26 21:38 | XMS_ITS | Encounter Summary ---
:2000 Author Organization [facility] Address [address] [facility] [address] [address] Care Team Providers Name Role Phone Araceli Desai Md Primary Care Provider Araceli Desai Md Unavailable Reason for Visit Reason Comments Period Concerns Encounter Details Date Type Department Care Team Description 03/29/2018 Nurse Triage [place] [place], Menstrual Bleeding [address] [facility] [place] Problem (Primary Dx) [facility] [place] [id number] Social History Tobacco Use Types Packs/Day [...] this encounter Miscellaneous Notes Telephone Encounter - Donna Gallego RN - 03/29/2018 4:11 PM EDT She is having her period for 10 days, started light and the week before her placebo pills. She had heavier bleeding for a few days after that and is now spotting. She is now down to the last 2 placebo pills and then will start the next pack. This is only month 2 of her OCP. We discussed that breakthrough bleeding can happen in the first three months of taking the pill. She will call if bleeding worsens or if has any fruther questions or concerns. Reason for Disposition ??? Taking control pills and hasn't missed taking any pills Protocols used: VAGINAL BLEEDING - AFTER [id number] Telephone Encounter - Tami Suh - 03/29/2018 3:55 PM EDT Mom called saying daughter is concerned about her period. She has had it for 10 days and has been spotting for the past two days. Mom would like to speak to a nurse to see if she should be seen. documented in this encounter Plan of Treatment Upcoming Encounters Date Type Specialty Care Team Description 10/09/2022 Office Visit Internal Medicine James Matthews MD [address] [place] [phone] (Wo rk) documented as of this encounter Visit Diagnoses Diagnosis Menstrual bleeding problem - Primary Unspecified disorder of menstruation and other abnormal bleeding from female genital tract documented in this encounter Care Teams Quality Process Lead Relationship Specialty Start Date End Date Araceli Desai MD PCP - General Pediatrics 07/22/17 04/05/[address] [place] [phone] Araceli Desai MD PCP - Payer 02/03/18 06/02/[address] [place] [phone] documented as of this encounter
--- OUTSIDE RECORDS SUMMARY | 2022-08-26 21:38 | XMS_ITS | Encounter Summary ---
:2000 Author Organization [facility] Address [address] [place] [address] [place] [phone] Care Team Providers Name Role Phone Araceli Desai Md Primary Care Provider Araceli Desai Md Unavailable Encounter Details Date Type Department Care Team Description 09/13/2020 Letter (Out) Araceli Desai MD [address] [place] [phone] (Wo rk) Social History Tobacco Use [...] Office Visit Internal Medicine James Matthews MD [address] [place] [address] [phone] (Wo rk) documented as of this encounter Visit Diagnoses Not on filedocumented in this encounter Additional Health Concerns Infection Onset Date Last Indicated Resolved Time COVID-19 (Confirmed) 09/12/2020 09/12/2020 09/26/2020 7:06 PM EST documented as of this encounter Care Teams Patient Transport Orderly Relationship Specialty Start Date End Date Araceli Desai MD PCP - General Pediatrics 07/22/17 04/05/[address] [place] [phone] Araceli Desai MD PCP - Payer 02/03/18 06/02/[address] [place] [phone] documented as of this encounter
--- OUTSIDE RECORDS SUMMARY | 2022-08-26 21:38 | XMS_ITS | Encounter Summary ---
:2000 Author Organization [facility] Address [address] [facility] [address] [place] [address] Care Team Providers Name Role Phone Araceli Desai Md Primary Care Provider Araceli Desai Md Unavailable Reason for Visit Reason Comments Well Child Visit Rm 6 DB Encounter Details Date Type Department Care Team Description 08/22/2018 Office Visit [facility] Araceli Desai MD Encounter for routine child health exami nation without abnormal findings (Primary Dx); [address] [facility] 485 [facility] Encounter for [place] [phone] Social History Tobacco Use Types Packs/Day Years [...] Sign Reading Time Taken Comments Blood Pressure 110/66 08/22/2018 3:21 PM EST Pulse - - Temperature - - Respiratory Rate - - Oxygen Saturation - - Inhaled Oxygen Concentration - - Weight 47.3 kg (104 lb 3.2 oz) 08/22/2018 3:21 PM EST Height 160 cm (5' 3) 08/22/2018 3:21 PM EST Body Mass Index 18.46 08/22/2018 3:21 PM EST Body Mass Index Percentile 16.85 % 08/22/2018 3:21 PM ES T Growth Chart: [facility][NOTE 3] (Girls, 2-20 Years) documented in this encounter Patient Instructions Patient InstructionsAraceli Desai MD - 08/22/2018 3:38 PM EST 14-17 Year old It was great to see you today for your annual visit. We hope you had a good visit and that we answered all your questions. Follow up is a lanier part of your treatment and safety. Be sure to make, and go to all visits and callus if you have any concerns. We recommend that you have a routine check up every year through adolescence. We are happy to see you in pediatrics until your 23rd birthday and after this time can help you transition to a primary care provider in our internal medicine department. Below we have included some useful information regarding your health; if you have any concerns or questions, do not hesitate to contact us. Nutrition: ?? Try and eat 3 nutritious meals a day; breakfast is an especially important meal. ?? Make sure to eat at least 5 servings of fruits and vegetables a day. ?? Select healthier options for lunch from the cafeteria or plan ahead and pack lunches and snacks for the day; this will help you make healthier food choices and decrease the chance of eating fast foods. ?? Drink plenty of water; choose water instead of soda or sports drinks. ?? Try and eat meals with your family as often as you can. Vitamin D: ?? It is particularly important for adolescents to have enough calcium and Vitamin D. We know that calcium and Vitamin D are good for our bones but also research shows Vitamin D may decrease the risk of developing illnesses like diabetes and cancer. If you don't drink milk, make sure to look for supplements, for example Viactiv or Caltrate D. You need 1,300 mg of calcium a day and 400- 1,000 IU of Vitamin D a day. Physical Activity: ?? Try and be active for 1 hour on most, if, not all, days of the week. You don't have to do it all at once; you can break it up into shorter times of activity throughout the day. This can include: physical education, planned physical activities, recreation games, organized sports, etc. ?? Drink plenty of water to maintain hydration lost during physical activity to avoid heat-related illnesses, such as heat cramps, exhaustion and heat stroke. ?? Cut back on the amount of time you spend watching TV and other devices (iPads, computers), outside of homework, to no more than 2 hours a day. Sleep: ?? Practice good sleep hygiene and get a good night's sleep. Don't watch TV, play video games, use your phone or computer or eat before bed. ?? Getting at least 9 hours of sleep per night will help you concentrate at school, feel happier andwill minimize cravings for sugary and unhealthy foods. Safety: ?? Be sure to wear helmets when you ride a bike, ski, roller skate/roller blade, skateboard or snowboard. If you have a head injury - STOP what you are doing and do not return to sports until you see adoctor and have been cleared by them. Concussions can lead to severe learning problems and mood disorders; getting a second head injury when you are recovering from one can be very dangerous. ?? Protect your skin by putting on sunscreen before going outside. ?? Be comfortable telling friends no if you don't want to do something that doesn't feel right to you. Accept no graciously when your friends don't want to do something you've asked of them. ?? There is no such thing as a safe drug. Anything that can impair your judgment has the potentialto hurt you. Feel comfortable saying no to drugs. ?? Don't carry weapons or hang out with people who do. ?? Be careful about what you post online. Privacy settings on a lot of websites and online social networks are constantly changing and everyday it becomes more challenging to know what is truly private. Save those meaningful thoughts and comments for wvuv-fk-fevr conversations with real friends (not just the cyber kind)! ?? Refrain from posting negative or damaging comments about people online. And, if you are being bullied or know someone who is the victim of bullying on the Internet or in everyday life, please notifysomeone you trust. Relationships: ?? If you are dating or in a relationship, remember that healthy relationships are built on respecting one another, sharing common interests, having a life outside of the relationship and being able tosettle disagreements in a respectful and loving manner. Please notify someone you trust if you are being physically, emotionally or sexually abused. ?? If you are confused or have questions about your sexual orientation or gender identity, find someone you trust to talk to, such as a family member, close friend or your doctor. It may not be easy, but in the end it will be better if you do. Mental Wellbeing: ?? Most people your age experience ups and downs as they transition from adolescence to adulthood. They have great days and xgl-tz-rxfhu days, and successes and failures. Everyone has stress in his or her life. There are many healthy and productive ways to manage stress, such as reading a book or writing in a journal, going for a walk, listening to music, meditation or counseling. It's important for you to figure out how to deal with stress in the ways that work best for you. ?? If you or someone you know is feeling depressed, anxious or having thoughts or plans to end theirlife, please tell someone! Driving: ?? When driving, ALWAYS wear your seatbelt and let your friends know that they must wear their seatbelts when riding in your car. ?? Keep your eyes on the road at all times. Everyone knows that it's dangerous (and illegal) to textwhile driving. It is also dangerous to turn around to look at someone in the back seat, bend over topick-up something that slipped out of your hands, etc. Remember that accidents happen in a matter ofseconds. Finally, we are always here to address any questions or concerns that you may have. Please do not hesitate to contact us. Your next annual appointment is in 1 year. Please be sure to arrive 15 minutes early to your appointment; late arrivals may be asked to reschedule. For great information on all topics related to your health, please visit: [email or web address] A note for Parents/Guardians: Bit by bit, most teens are learning to think in more complex ways. They start to think about the future results of their actions. It's normal for teens to focus a lot on how they look, talk or view politics. This is a way for teens to help define who they are. The natural changes your teen goes through during adolescence can be difficult for both you and yourteen. Your love and guidance during this time can help your teen make good decisions. How can you care for your child at home? ?? Be involved and supportive. ?? Try to accept the natural changes in your relationship with your teen. It is normal for teens to want more independence. ?? Recognize that your teen may be less willing to be involved in some family events and may start to challenge your authority. But, keeping your teen involved in some family events is healthy and goodfor your teen. ?? Respect your teen's need for privacy. Be open with your teen if you have safety concerns. ?? Be flexible. Allow your teen to test, explore and communicate within limits, but stay firm and consistent. ?? Establish realistic family rules, and give your teen more responsibility, as he or she seems ready. Set clear limits and consequences if rules are broken. ?? Help build your teen's confidence by paying attention. When he or she wants to talk, try to stop what you are doing and really listen. ?? Along with your teen, decide which activities are okay to do on his/her own, such as staying homealone or going out with friends who drive. ?? Spend personal, fun time with your teen. Try to keep a sense of humor and praise positive behaviors. ?? Encourage your teen to be active for at least 1 hour each day. Plan family activities, such as trips to the park, walks, bike rides, swimming and gardening. ?? Encourage healthy eating habits. Your teen needs nutritious meals and healthy snacks each day. Stock up on fruits and vegetables. Have nonfat and low-fat dairy foods available. When should you call for help? Watch closely for changes in your child's health, and be sure to contact your doctor if you need information about raising your teen. This may include questions about: ?? Your teen's diet and nutrition. ?? Your teen's sexuality or about sexually transmitted diseases (STDs). ?? Helping your teen take charge of his or her own health and medical care. ?? Vaccinations your teen might need. ?? Alcohol, illegal drugs or smoking. ?? You have other questions or concerns. documented in this encounter Progress Notes Araceli Desai MD - 08/22/2018 3:00 PM EST 17 yrs. here for routine physical exam. Here with mother. ( mother). New health issues or patients concerns since last check: ocp change, first month on it. Will see if the spotting is improved. Home from school a month ago with a migraine did not have to take the sumatriptan. Has been pretty good this year. In a stress management class. [facility] Will do yoga. Let me know her other mother Tammy who was a nurse and did most of the work for [facility] medical care in December of this year. Patient is followed by the following specialist/s: neurosurgery will have another MRI, they will call to schedule it. Patient Active Problem List Diagnosis Date Noted [...] by headache specialist Sushil Hoover MD in [facility]. Trial of amitriptyline. Then lamictal. Now off all meds except alleve, sumaptriptan. Moved fall 2017 to [place]; doing much better emotionally. MRI x 2 at [facility] (10/06/2016 and) 10/16/2016. Initial finding in left periatrial white matter, second MRI notes minimal if any. 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 Saw neurosurgery at [facility] 09/2017 MRI ordered Slow growth of an [...] ??? Wears glasses [Z97.3] 08/11/2017 Current Outpatient Prescriptions: phenazopyridine 95 mg tablet Take 1 tablet by mouth three times daily as needed (bladder pain) (available over the counter) SUMAtriptan 100 mg tablet TK 1 T PO 1 TIME PRN DIRECTED. MAXIMUM 3 TS PER WEEK norethindrone-ethinyl estradiol-iron (ZHEN FE 1.5/30, 28,) 1.5mg-30mcg (21)/75 mg (7) tablet Take 1tablet by mouth daily No Known Drug Allergies. 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 Diet: Discussed healthy diet for age and importance of not skipping meals, drinking plenty of water and avoiding sugar drinks and processed foods. Discussed need for calcium and vitamin d in diet. Healthy eater meat and fish and gets calcium. 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 . She passed today's screen. These resultswere reviewed and discussed at today's visit. Score 1 PSC Score 16 no concerns. Cardiac risk: low Family History Problem Relation Age of Onset ??? Alcoholism Mother ??? Cancer - Breast Mother ??? Diabetes - Type II Mother ??? Headaches/Migraine Mother ??? Hyperlipidemia Mother ??? Psych - Depression Mother ??? Alcoholism Father ??? Diabetes - Type II Maternal Grandmother ??? Headaches/Migraine Maternal Aunt ??? Psych - Depression Maternal Aunt Patient and/or parent answers NO to all [...] her sporting activities. PHYSICAL EXAMINATION: Blood pressure 110/66, height 5' 3 (1.6 m), weight 104 lb 3.2 oz (47.3 kg), last menstrual period 08/07/2018. Estimated body mass index is 18.46 kg/(m^2) as calculated from the following: Height as of this encounter: 5' 3 (1.6 m). Weight as of this encounter: 104 lb 3.2 oz (47.3 kg). General: Well appearing, appears calm, talks openly and very poised HEENT: No dental anomalies. No thyromegaly or thyroid nodules. No neck masses. Nl tympanic membranesand ear canals. Lungs: Clear to auscultation and good aeration. Heart : Regular rate and rhythym, S1and S2 normal, no murmurs noted Abdomen: Soft, non-tender, not distended, no masses or HSM. Femoral pulses: bilateral 2+ pulses. : Pubic hair is Brodie 5 Brodie 5 for breast development No breast masses SBE discussed Extremities: Moves all extremities equally. Normal gait for age, no limp. Skin: no abnormal lesions. Spine: No-minimal scoliosis, mild right sided elevation upper back on forward bend. Neuro: Alert, oriented to place and time. NLstrength and coordination. Nl sensation. EOMs intact, Pupils equal and reactive to light. NL reflexes. CN intact. ASSESMENT: Healthy young adult here for a yearly visit Issues as above. Wears glasses, passed hearing. Will be getting MRI yearly family to call. PLAN: BMI reviewed and discussed. STD screening done if indicated. Urine for chlamydia. bmi 18.46 Last Flu shot administered on 07/13/2018 Confirmed Mother is pretty sure she had the HPV vaccine, will try to find the dates. Thinks when she was 13 years old Due for second Hep A in February, had Menactra in July. Anticipatory guidance and safety concerns appropriate for [...] in one year. documented in this encounter Plan of Treatment Upcoming Encounters Date Type Specialty Care Team Description 10/09/2022 Office Visit Internal Medicine James Matthews MD [address] [place] [phone] (Wo rk) documented as of this encounter Procedures Procedure Name Priority Date/Time Associated Diagnosis Comme nts BRIEF Routine 08/22/2018 3:38 PM Encounter for routine EMOTIONAL/BEHAVIORAL EST child health ASSESSMENT , W/ SCORING examination witho ut AND DOCUMENTATION, PER abnormal findings STANDARDIZED INSTRUMENT HEARING SCREENING Routine 08/22/2018 3:26 PM Encounter for hea ring (OFFICE TEST P/F) EST test documented in this encounter Results CHLAMYDIA URINE DNA (08/22/2018 5:45 PM EST) Analysis Performed At Patho logist Time Signature CHLAMYDIA PCR Negative Negative 08/23/2018 [facility] 1:27 PM EST DEPARTMENT OF PATHOLOGY AND LAB MEDICINE Comment: Test performed using Aptima Combo2 PCR a ssay. SOURCE URINE 08/23/2018 1:27 PM EST [facility] DE PARTMENT OF PATHOLOGY AND LAB MEDICINE Specimen Anatomical Collection Method Collection Time Receive d Time (Source) Location / / Volume Laterality Urine (URINE) Urine / Unknown 08/22/2018 5:45 PM 08/22 5:45 EST PM EST Araceli Desai LAB URINE ORDERABLES Performing Organization Address City/State/ZIP Code Phon e Number [facility] DEPARTMENT OF PATHOLOGY AND [address] [place], [place] [phone] LAB MEDICINE documented in this encounter Visit Diagnoses Diagnosis Encounter for routine child health exami nation without abnormal findings - Primary Routine or child health check documented in this encounter Orders PROCEDURES Count Last Ordered Date First Ordered Date BRIEF EMOTIONAL/BEHAVIORAL ASSESSMENT , W/ 08/22 SCORING AND DOCUMENTATION, PER STANDARDIZED INSTRUMENT HEARING SCREENING (OFFICE TEST P/F) 1 08/22/2018 documented in this encounter Care Teams Art Supervisor Relationship Specialty Start Date End Date Araceli Desai MD PCP - General Pediatrics 07/22/17 04/05/[address] [place] [id number] Araceli Desai MD PCP - Payer 02/03/18 06/02/[address] [place] [address] documented as of this encounter
--- OUTSIDE RECORDS SUMMARY | 2022-08-26 21:38 | XMS_ITS | Encounter Summary ---
:2001 Author Organization [facility] Address [address] [place] [address] [address] Care Team Providers Name Role Phone Araceli Desai Md Primary Care Provider Araceli Desai Md Unavailable Reason for Referral Imaging (Clinically Urgent - w/in a Week ) - Closed Specialty Diagnoses / Procedures Referred By Contact Refer red To Contact Diagnoses Vision changes Araceli Desai MD [facility] Procedures BRAIN MRI W/O + W/ CONTRAST [address] [place] [address] [place] [address], [address] [place] [address] Phone: [phone] Fax: Referral ID Status Reason Start Date Expiration Date Visits Requ ested Visits Authorized [id number] Closed 11/21/2019 05/21/2021 1 1 Encounter Details Date Type Department Care Team Description 11/21/[address] [facility] Araceli Desai MD Vision Changes ([facility] [address] [facility] [address] [facility] Dx) [place], [place] [id number] [phone] Social History Tobacco Use Types Packs/Day Years [...] this encounter Miscellaneous Notes Telephone Encounter - Araceli Desai MD - 11/21/2019 1:48 PM EST Referral signed, to be done at [facility]. documented in this encounter Plan of Treatment Upcoming Encounters Date Type Specialty Care Team Description 10/09/2022 Office Visit Internal Medicine James Matthews MD [address] [place] [address] 47 (Wo rk) Scheduled Orders Name Type Priority Associated Diagnoses Order S chedule BRAIN MRI W/O + W/ CONTRAST IMAGING Routine Vision change s Ordered: 11/21/2019 documented as of this encounter Visit Diagnoses Diagnosis Vision changes - Primary Unspecified visual disturbance documented in this encounter Care Teams Figure Skater Relationship Specialty Start Date End Date Araceli Desai MD PCP - General Pediatrics 07/22/17 04/05/[address] [place] [id number] Araceli Desai MD PCP - Payer 02/03/18 06/02/[address] [place] [phone] documented as of this encounter
--- OUTSIDE RECORDS SUMMARY | 2022-08-26 21:38 | XMS_ITS | Encounter Summary ---
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 Co worker has Hep A. They were advised to receive the Hep A vaccine FRANCIE. She is scheduled for 08/18/18. Reason for Disposition ??? Well child question and nurse able to answer Protocols used: NO PROTOCOL CALL - WELL CHILD-P-[place] Telephone Encounter - Nathalie Horan - 08/15/2018 3:41 PM EST Haley has questions about the vaccines she has received. documented in this encounter Plan of Treatment Upcoming Encounters Date Type Specialty Care Team Description 10/09/2022 Office Visit Internal Medicine James Matthews MD [address] [place] [address] (Wo rk) documented as of this encounter Visit Diagnoses Diagnosis Diagnosis deferred - Primary Other unknown and unspecified cause of m orbidity or mortality documented in this encounter Care Teams Insurance Representative Relationship Specialty Start Date End Date Araceli Desai MD PCP - General Pediatrics 07/22/17 04/05/[address] [place] [address] Araceli Desai MD PCP - Payer 02/03/18 06/02/[address] [place] [phone] documented as of this encounter
--- OUTSIDE RECORDS SUMMARY | 2022-08-26 21:38 | XMS_ITS | Encounter Summary ---
:2001 Author Organization [facility] Address [address] [facility] [address] [place] [address] Care Team Providers Name Role Phone Araceli Desai Md Primary Care Provider Araceli Desai Md Unavailable Encounter Details Date Type Department Care Team Description 08/23/2018 Email Encounter [facility] Araceli Desai MD normal test results [address] [address] [place], [place] [phone] Social History Tobacco Use Types Packs/Day Years [...] Office Visit Internal Medicine James Matthews MD [address] [place] [address] (Wo rk) documented as of this encounter Visit Diagnoses Not on filedocumented in this encounter Care Teams Filter Helper Relationship Specialty Start Date End Date Araceli Desai MD PCP - General Pediatrics 07/22/17 04/05/[address] [place] [phone] Araceli Desai MD PCP - Payer 02/03/18 06/02/[address] [place] [address] documented as of this encounter
--- OUTSIDE RECORDS SUMMARY | 2022-08-26 21:38 | XMS_ITS | Encounter Summary ---
:2001 Author Organization [facility] Address [address] [facility] [address] [place] [address] Care Team Providers Name Role Phone Araceli Desai Md Primary Care Provider Araceli Desai Md Unavailable Reason for Visit Reason Comments Sore Throat room K.B. Encounter Details Date Type Department Care Team Description 07/13/2018 Office Visit [facility] Araceli Desai MD Sore throat (Primary Dx); 485 [facility] 485 [facility] Need for influenza vaccination; [place], [place] Need for Le ctra vaccination; [id number] Prolonged menstrual cycle [phone] Social History Tobacco Use Types Packs/Day Years [...] - Pulse - - Temperature 36.8 ??C (98.2 ??F) 07/13/2018 3:42 PM EDT Respiratory Rate - - Oxygen Saturation - - Inhaled Oxygen Concentration - - Weight 47 kg (103 lb 9.6 oz) 07/13/2018 3:42 PM EDT Height - - Body Mass Index - - documented in this encounter Ordered Prescriptions Prescription Sig Dispensed Refills Start Date End Date norethindrone-ethinyl Take 1 tablet by 28 tablet 12 07/13/20 18 07/03/2019 estradiol-iron (ZHEN FE mouth daily 1.5/, 28,) 1.5mg-30mcg (21)/75 mg (7) tablet documented in this encounter Progress Notes Araceli Desai MD - 07/13/2018 3:30 PM EDT Here with mother who provides history. [facility]en [facility], thought just had a cold. Was never really bad--diagnosed with strep. Finished the antibiotics, penicillin last night . A little sore throat at night and in the morning again. LMP 07/02 Will be starting new pack next week. Is a Wednesday start. Started on OCP, periods are long-lasting. Called in and we discussed might change but the third pack. Had been on lower dose ocp, partly due to headache history but no auras, no miggraines in a long time. Is happy her weight is up. Discussed her follow up with the neurosurgeon, was to be seen again in a year, will call for follow up. No symptoms at all. Patient Active Problem List Diagnosis Code ??? Food allergy: coconut Z91.018 ??? Medication intolerance: ibuprofen Z78.9 ??? Migraine without aura and without status migrainosus, not intractable G43.009 ??? Motion sickness T75.3XXA ??? 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 Wears glasses Z97.3 ??? Brain mass G93.9 ??? Counseling for control, oral contraceptives Z30.09 No Known Drug Allergies. Current Outpatient Prescriptions: penicillin v potassium 500 mg tablet Take 500 mg by mouth twice daily SUMAtriptan 100 mg tablet TK 1 T PO 1 TIME PRN DIRECTED. MAXIMUM 3 TS PER WEEK norethindrone-ethinyl estradiol (ZHEN FE 10/30, ,) 1 mg-20 mcg (21)/75 mg (7) tablet Take 1 tabletby mouth daily PE: Nontoxic-appearing. Alert, interactive Temp 98.2 ??F (36.8 ??C) (Temporal Artery) Wt 103 lb 9.6 oz (47 kg) BMI 18.41 kg/m2 HEENT Nose no congestion. Oral cavity: no lesions; tonsils no enlarged, centered about midline, no exudate no injection: soft palate no injection . Moist mucous membranes. TM's: pearly cohen, transparent. EOM's normal No conjunctival injection. no photophobia. Neck supple; no adenopathy cervical or axillary Chest Clear, easy respirations no gfr Cor RRR no murmur nontachycardic Abd: soft no hsm nontender no mass, normoactive bowel sounds Skin : no rash, normal turgor, warm and dry Rapid strep: negative A/P: Sore throat, just finished treatment for strep. Also issue with long menses on lower dose ocp. Will switch to higher strength to support the uterinetissue better with her next pack. Okayed Menactra and influenza vaccines as she is feeling pretty well today. See AVS. Soothing measures discussed- lozenges, tea with honey, gargling with warm salt water. Alana Venegas RN - 07/13/2018 3:30 PM EDT Patient identified by full name and . Patient was administered Menactra vaccine with consent and tolerated well. VIS reviewed. Patient requests seasonal influenza vaccine. Per [facility] standing medication order for FLU vaccine, the vaccine was administered from floor stock; see immunization module for detail. Pt denies history of any severe, life-threatening allergies to the flu vaccine, including componentsof the vaccine and Guillain-Friedheim Syndrome. Pt is afebrile and has no history of syncope with injections or immunizations. Prior to giving the immunization, the following actions were conducted: - Verification of patient identity - Verification that immunization is indicated per prior review of EMR - Review of allergies and potential side effects - Verification that the patient has reviewed and verified receipt of the VIS form about the vaccine. documented in this encounter Plan of Treatment Upcoming Encounters Date Type Specialty Care Team Description 10/09/2022 Office Visit Internal Medicine James Matthews MD 485 [place], [place] [address] (Wo rk) documented as of this encounter Procedures Procedure Name Priority Date/Time Associated Diagnosis Comme nts RAPID STREP (OFFICE Routine 07/13/2018 3:52 PM EDT Sore throat TEST) documented in this encounter Results THROAT CULTURE (BETA STREP SCREEN) (07/13/2018 4:44 PM EDT) [facility] Method Time Signature THROAT No Beta 07/15/2018 [facility] B-STREP hemolytic 10:15 AM EDT DEPARTMENT OF SCREEN strep PATHOLOGY AND isolated LAB MEDICINE Specimen Anatomical Collection Method Collection Time Receive d Time (Source) Location / / Volume Laterality Swab (Throat) Non-blood 07/13/2018 4:44 PM 07/13/20 18 4:44 collection / EDT PM EDT Unknown Araceli Desai MICROBIOLOGY LAB Performing Organization Address City/State/ZIP Code Phon e Number [facility] DEPARTMENT OF PATHOLOGY AND [address] [place] [address] [phone] LAB MEDICINE documented in this encounter Visit Diagnoses Diagnosis Sore throat - Primary Acute pharyngitis Need for influenza vaccination Need for prophylactic vaccination and in oculation against influenza Need for Menactra vaccination Need for other specified prophylactic va ccination against single bacterial disease Prolonged menstrual cycle Excessive or frequent menstruation documented in this encounter Discontinued Medications Medication Sig Discontinue Reason Start Date End Date penicillin v potassium Take 500 mg by mouth 07/02/2018 07/18/2018 500 mg tablet twice daily norethindrone-ethinyl Take 1 tablet by 02/04/2018 estradiol (ZHEN FE mouth daily ,) 1 mg-20 mcg (21)/75 mg (7) tablet documented as of this encounter Historical Medications This list may reflect changes made after this encounter. Medication Sig Dispensed Refills Start Date End Date SUMAtriptan 100 mg tablet TK 1 T PO 1 TIME PRN 2 06/24/2018 10/08/2021 DIRECTED. MAXIMUM 3 TS PER WEEK penicillin v potassium Take 500 mg by mouth 0 07/18/2018 500 mg tablet twice daily added in this encounter Orders Lab Orders Without Results Count Last Ordered Date Fir st Ordered Date RAPID STREP (OFFICE TEST) 1 07/13/2018 IMMUNIZATIONS/INJECTION Count Last Ordered Date First Ordered Date INFLUENZA VACCINE, PRESERV FREE, 0.5 ML, 1 018 >/=6 MOS (GSK) OR >/= 36 MOS (SANOFI) MENACTRA 1 07/13/2018 documented in this encounter Care Teams [facility] Relationship Specialty Start Date End Date Araceli Desai MD PCP - General Pediatrics 07/22/17 04/05/[address] [place] [address] Araceli Desai MD PCP - Payer 02/03/18 06/02/[address] [place] [address] documented as of this encounter
--- OUTSIDE RECORDS SUMMARY | 2022-08-26 21:38 | XMS_ITS | Encounter Summary ---
:2001 Author Organization [facility] Address [address] [place] [address] [address] Care Team Providers Name Role Phone Araceli Desai Md Primary Care Provider Araceli Desai Md Unavailable Reason for Visit Reason Comments Insurance Approval Encounter Details Date Type Department Care Team Description 02/01/2019 Notation [facility] Araceli Desai MD 0Insurance Approval [address] [place] [phone] [place] [address] (Wo rk) Social History Tobacco Use Types [...] documented as of this encounter Progress Notes Tami Suh - 02/01/2019 2:01 PM EDT Primary Diag: Neoplasm of Unspecified Behavior Reference #: [id number] Procedure: 615.18 Admit Date: 01/26/19 Fac: [facility] Review: Approved Admitting: Camron Haque documented in this encounter Plan of Treatment Upcoming Encounters Date Type Specialty Care Team Description 10/09/2022 Office Visit Internal Medicine James Matthews MD [address] [place] [address] (Wo rk) documented as of this encounter Visit Diagnoses Not on filedocumented in this encounter Care Teams Advisory Services Associate Relationship Specialty Start Date End Date Araceli Desai MD PCP - General Pediatrics 07/22/17 04/05/[address] [place] [address] Araceli Desai MD PCP - Payer 02/03/18 06/02/[address] [place] [address] documented as of this encounter
--- OUTSIDE RECORDS SUMMARY | 2022-08-26 21:38 | XMS_ITS | Encounter Summary ---
:2001 Author Organization [facility] Address [address] [place] [address] [address] [place] [address] Care Team Providers Name Role Phone Araceli Desai Md Primary Care Provider Araceli Desai Md Unavailable Encounter Details Date Type Department Care Team Description 05/08/2020 Travel Social History Tobacco Use Types Packs/Day [...] Visit Internal Medicine James Matthews MD 485 [place], [place] [address] (Wo rk) documented as of this encounter Visit Diagnoses Not on filedocumented in this encounter Care Teams Invoicing Specialist Relationship Specialty Start Date End Date Araceli Desai MD PCP - General Pediatrics 07/22/17 04/05/[address] [place] [address] Araceli Desai MD PCP - Payer 02/03/18 06/02/[address] [place] [address] documented as of this encounter
--- OUTSIDE RECORDS SUMMARY | 2022-08-26 21:38 | XMS_ITS | Encounter Summary ---
:2001 Author Organization [facility] Address 275 [facility] [address] [place] [address] Care Team Providers Name Role Phone Araceli Desai Md Primary Care Provider Araceli Desai Md Unavailable Encounter Details Date Type Department Care Team Description 08/15/2018 Orders With [facility] Araceli Desai MD Need for hepatitis A Comments [address] [facility] [address] 485 [place] vaccination (Primary [place], [place] STREET Dx) [phone] [place], [place] [phone] [id number] Social History Tobacco Use Types Packs/Day Years [...] Visit Internal Medicine James Matthews MD 485 [place], [place] [address] (Wo rk) documented as of this encounter Visit Diagnoses Diagnosis Need for hepatitis A vaccination - Prima ry Need for prophylactic vaccination and in oculation against viral hepatitis documented in this encounter Orders IMMUNIZATIONS/INJECTION Count Last Ordered Date First Ordered Date HEPATITIS A VACCINE PEDI/ADOLESCENT(2 DOSE 1 08/18 SCHED) documented in this encounter Care Teams Director Of Plant Operations Relationship Specialty Start Date End Date Araceli Desai MD PCP - General Pediatrics 07/22/17 04/05/[address] [place] [address] Araceli Desai MD PCP - Payer 02/03/18 06/02/[address] [place] [address] documented as of this encounter
--- OUTSIDE RECORDS SUMMARY | 2022-08-26 21:38 | XMS_ITS | Encounter Summary ---
:2001 Author Organization [facility] Address 275 [facility] [address] [place] [address] Care Team Providers Name Role Phone Araceli Desai Md Primary Care Provider Araceli Desai Md Unavailable Encounter Details Date Type Department Care Team Description 08/28/2018 Email Encounter [facility] Araceli Desai MD dates of immunizations [address] [address] [place], [place] [phone] Social History Tobacco Use Types Packs/Day Years [...] Visit Internal Medicine James Matthews MD [address] [place] [address] (Wo rk) documented as of this encounter Visit Diagnoses Not on filedocumented in this encounter Care Teams Jewel Setter Relationship Specialty Start Date End Date Araceli Desai MD PCP - General Pediatrics 07/22/17 04/05/[address] [place] [address] Araceli Desai MD PCP - Payer 02/03/18 06/02/[address] [place] [address] documented as of this encounter
--- OUTSIDE RECORDS SUMMARY | 2022-08-26 21:38 | XMS_ITS | Encounter Summary ---
:2001 Author Organization [facility] Address [address] [place], [place] [address] [place] [address] Care Team Providers Name Role Phone Araceli Desai Md Primary Care Provider Araceli Desai Md Unavailable James Matthews Md Primary Care Provider James Matthews Md Unavailable Reason for Visit Reason Comments Appt Due vm not set up can't leave a message Encounter Details Date Type Department Care Team Description 03/15/2020 Telephone [facility] David Graydennys APPT DUE [address] [place] [address] Social History Tobacco Use Types Packs/Day Years [...] this encounter Miscellaneous Notes Telephone Encounter - Mir Gray - 03/15/2020 11:52 AM EDT vm not set up can't leave a message documented in this encounter Plan of Treatment Upcoming Encounters Date Type Specialty Care Team Description 10/09/2022 Office Visit Internal Medicine James Matthews MD [address] [place] [address] (Wo rk) documented as of this encounter Visit Diagnoses Not on filedocumented in this encounter Additional Health Concerns Infection Onset Date Last Indicated Resolved Time COVID-19 (Lab Pend) 05/09/2020 05/09/2020 05/10/2020 1 2:55 AM EDT COVID-19 (Confirmed) 09/12/2020 09/12/2020 09/26/2020 7:06 PM EST documented as of this encounter Care Teams Home Theater Installer Relationship Specialty Start Date End Date Araceli Desai MD PCP - General Pediatrics 07/22/17 04/05/[address] [place] [address] Araceli Desai MD PCP - Payer 02/03/18 06/02/[address] [place] [address] James Matthews MD PCP - General Internal Medicine 04/06/[address] [place] [address] James Matthews MD PCP - Payer 06/03/[address] [place] [address] documented as of this encounter
--- OUTSIDE RECORDS SUMMARY | 2022-08-26 21:38 | XMS_ITS | Encounter Summary ---
:2001 Author Organization [facility] Address [address] [facility] [address] [place] [address] Care Team Providers Name Role Phone Araceli Desai Md Primary Care Provider Araceli Desai Md Unavailable Reason for Visit Reason Comments arm pain Encounter Details Date Type Department Care Team Description 06/21/2019 Telephone [facility] Ana Carrillo Pain of Upper Extremity, 485 [facility] Unspecified Laterality [place], [place] (Primary Dx) [phone] Social History Tobacco Use Types Packs/Day [...] this encounter Miscellaneous Notes Telephone Encounter - Hayley Szymanski RN - 06/21/2019 10:53 AM EDT Spoke to pt's mother Reports pt at school c/o left arm pain No known injury Mom reports about a month ago pt experienced the same arm pain A few days later pt was [place] the beach, fell to the ground, tonic-clonic jerking and ? Had a seizure Pt was brought by ambulance to [facility] Pt currently on Keppra s/p Brain surgery in January Pt has had no seizure activity since the incident on the beach a month ago Pt at school scared she may have another sz because of the incident at the beach and a few days prior she had arm pain Pt also feeling stressed about finances and school Mom wondering if pt is having anxiety Pt has been unsuccessfully with finding a therapist for pt Advised mom pt should be evaluated Mom agreed - appointment booked *Copy of ED note from [facility] 04/29/19* Medical Decision Makin. 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 Given that she was mildly confused when she got here, I felt that that was more consistent with being postictal as opposed to syncope. I am not concerned for heat stroke despite whether given that she was swimming and that she felt well all the way up until this immediate event. Also she was normothermic when she arrived here. Her labs in her imaging are reassuring. I am not concerned for intracranial infection given rapid return to baseline, no meningismus, no fevers,reassuring labs. Agree with neurology and neurosurgery as above that there is concern for seizure focus around the scar tissue post operatively. Will start keppra as per their recommendation, strict RTED if she is to have another seizure. To follow up with neurology in 36 ours for EEG and appointment.I suspect that headache is post seizure headache and I am reassured by the stable imaging, normal exam, And near resolution in the ED. ? Telephone Encounter - Ana Carrillo - 06/21/2019 10:42 AM EDT Child is in pain with her elbow and mom is concerned she is having symptoms of having a seizure . Please call mom back. documented in this encounter Plan of Treatment Upcoming Encounters Date Type Specialty Care Team Description 10/09/2022 Office Visit Internal Medicine James Matthews MD [address] [place] [address] (Wo rk) documented as of this encounter Visit Diagnoses Diagnosis Pain of upper extremity, unspecified lat erality - Primary documented in this encounter Care Teams Terminal Operations Manager Relationship Specialty Start Date End Date Araceli Desai MD PCP - General Pediatrics 07/22/17 04/05/[address] [place] [address] Araceli Desai MD PCP - Payer 02/03/18 06/02/[address] [place] [address] documented as of this encounter
--- OUTSIDE RECORDS SUMMARY | 2022-08-26 21:39 | XMS_ITS | Encounter Summary ---
:2001 Author Organization [facility] Address [address] [facility] [address] [place] [address] Care Team Providers Name Role Phone Araceli Desai Md Primary Care Provider Jose Drummond Md Unavailable [phone] Reason for Referral Specialty (Non Urgent - w/in 3 Months) - Canceled Specialty Diagnoses / Procedures Referred By Contact Refer red To Contact Neurology Diagnoses Migraine with aura and without status migrainosus, not intractable Araceli Desai MD [address] [address] Hospital Department of Neurosurgery [address] [place] [address] Phone: Fax: Referral ID Status Reason Start Expiration Visits Visits Date Date Requested Authorized [id number] Canceled Established 09/13/2017 09/12/2018 6 6 with Specialist Encounter Details Date Type Department Care Team Description 08/13/2017 Orders With [facility] Araceli Desai MD Migraine with aura Comments [address] and without status [place], [place] STREET migrainosus, not [phone] [place], [place] intractable (Primary [phone] Dx) Social History Tobacco Use Types Packs/Day Years [...] encounter Progress Notes Araceli Desai MD - 08/13/2017 12:10 PM EDT [facility] Still working on the MRI to see if can be done at [place] for follow up. documented in this encounter Plan of Treatment Upcoming Encounters Date Type Specialty Care Team Description 10/09/2022 Office Visit Internal Medicine James Matthews MD [address] [place] [address] (Wo rk) Scheduled Referrals Name Type Priority Associated Diagnoses Order S chedule REFERRAL TO REFERRAL/FUTURE Routine Migraine with aura and Or dered: 08/13/2017 NEUROLOGY without status migrainosus, not intractable documented as of this encounter Visit Diagnoses Diagnosis Migraine with aura and without status mi grainosus, not intractable - Primary Migraine with aura, without mention of i ntractable migraine without mention of status migrainosus documented in this encounter Care Teams Houseman Relationship Specialty Start Date End Date Araceli Desai MD PCP - General Pediatrics 07/22/17 04/05/[address] [place] [address] Jose Drummond MD PCP - Payer 08/11/17 02/02/[address] [place] [phone] documented as of this encounter
--- OUTSIDE RECORDS SUMMARY | 2022-08-26 21:39 | XMS_ITS | Clinical Summary ---
:2000 Author Organization [facility] Address [address], [address] [place] [address] Care Team Providers Name Role Phone Araceli Desai MD Primary Care Provider Allergies No known active allergies Medications Medication Sig Dispensed Refills Start Date End Date Status SUMAtriptan (IMITREX) Take 100 mg by 0 Active 100 mg tablet mouth daily as needed for migraine. May repeat dose once in 2 hours if no relief. Do not exceed 2 doses in 24 hours. Social History Tobacco Use Types Packs/Day Years Used Date Never Smoker Smokeless Tobacco: Never Used Alcohol Use Standard Drinks/Week Comments Never 0 (1 standard drink = 0.6 oz pure alcoho l) Alcohol Habits Answer Date Recorded How often do you have a drink containing alcohol? Never 10/19/2018 How many drinks containing alcohol do you have on a typical Not asked day when you are drinking? How often do you have six or more drinks on one occasion? No t asked Comment: Not asked Sex Assigned at Date Recorded Not on file Last Filed Vital Signs Vital Sign Reading Time Taken Comments Blood Pressure 109/48 10/19/2018 11:41 PM EST Pulse 120 10/19/2018 11:41 PM EST Temperature 37.2 ??C (98.9 ??F) 10/19/2018 11:41 PM EST Respiratory Rate 16 10/19/2018 11:41 PM EST Oxygen Saturation 100% 10/19/2018 11:41 PM EST Inhaled Oxygen Concentration - - Weight - - Height - - Body Mass Index - - Plan of Treatment Health Maintenance Due Date Last Done Comments CoVid-19 Vaccine (#1) 02/22/2002 Varicella Vaccines (1 of 2 - 2-dose 2002 childhood series) HPV Vaccines (1 - 2-dose series) 2012 Chlamydia Screening 2017 Hepatitis C Screening 2019 Periodic Health Exam 2019 Tetanus Diphtheria and Pertussis 2020 Vaccines (TD and TDaP) (1 - Tdap) Influenza (Seasonal) 05/11/2022 Cervical Cancer Screening 2022 HIB Vaccines Aged Out No longer eligib le based on patient's age to complete this topic IPV Vaccines Aged Out No longer eligib le based on patient's age to complete this topic Meningococcal Vaccine Aged Out No longer eligible based on patient's age to complete this topic Pneumococcal PCV13 0-5 YRS Aged Out No lo nger eligible based on patient's age to complete this topic Insurance Payer Benefit Plan Subscriber ID Effective Dates Phone Address Type / Group [facility] [id number] 2018-Daniel [phone] [address] HMO [employer] [address] [place] [address] MONIQUE KNOWLES Personal/Family Mother [address] (Home) [place] [address] MONIQUE KNOWLES Personal/Family Mother [address] (Home) [place] [address] MONIQUE KNOWLES Personal/Family Mother [address] (Home) [place] [address] MONIQUE KNOWLES Personal/Family Mother [address] (Home) [place] [address] MEDIN,MONIQUE Personal/Family Mother [address] (Home) [place] [address] MEDIN,MONIQUE Personal/Family Mother [address] (Home) [place] [address] MEDIN,MONIQUE Personal/Family Mother [address] (Home) [place] [address] MEDIN,MONIQUE Personal/Family Mother [address] (Home) [place] [address] MEDIN,MONIQUE Personal/Family Mother [address] (Home) [place] [address] MEDIN,MONIQUE Personal/Family Mother [address] (Home) [place] [address] MEDIN,MONIQUE Personal/Family Mother [address] (Home) [place] [address] MEDIN,MONIQUE Personal/Family Mother [address] (Home) [place] [address] MEDIN,MONIQUE Personal/Family Mother [address] (Home) [place] [address] MEDIN,MONIQUE Personal/Family Mother [address] (Home) [place] [address] MEDIN,MONIQUE Personal/Family Mother [address] (Home) [place] [address] MEDIN,MONIQUE Personal/Family Mother [address] (Home) [place] [address] MEDIN,MONIQUE Personal/Family Mother [address]Home) [place] [address] MEDIN,MONIQUE Personal/Family Mother [address] (Home) [place] [address] MEDIN,MONIQUE Personal/Family Mother [address] (Home) [place] [address] MEDIN,MONIQUE Personal/Family Mother [address] (Home) [place] [address] MEDIN,MONIQUE Personal/Family Mother [address]Home) [place] [address] MEDIN,MONIQUE Personal/Family Mother [address]Home) [place] [address] MEDIN,MONIQUE Personal/Family Mother [address]Home) [place] [address] MEDIN,MONIQUE Personal/Family Mother [address]Home) [place] [address] MEDIN,MONIQUE Personal/Family Mother [address] (Home) [place] [address] MEDIN,MONIQUE Personal/Family Mother [address] (Home) [place] [address] MEDIN,MONIQUE Personal/Family Mother [address] (Home) [place] [address] MEDIN,MONIQUE Personal/Family Mother [address] (Home) [place] [address] MEDIN,MONIQUE Personal/Family Mother [address]Home) [place] [address] MEDIN,MONIQUE Personal/Family Mother [address] (Home) [place] [address] MEDIN,MONIQUE Personal/Family Mother [address] (Home) [place] [address] MEDIN,MONIQUE Personal/Family Mother [address] (Home) [place] [address] MEDIN,MONIQUE Personal/Family Mother [address] (Home) [place] [address] MEDIQian,MONIQUE Personal/Family Mother [address] (Home) [place] [address] MEDIN,MONIQUE Personal/Family Mother [address] (Home) [place] [address] MEDIN,MONIQUE Personal/Family Mother [address] (Home) [place] [address] MEDIN,MONIQUE Personal/Family Mother [address] (Home) [place] [address] MEDIN,MONIQUE Personal/Family Mother [address] (Home) [place] [address] MEDIN,MONIQUE Personal/Family Mother [address] (Home) [place] [address] MEDIN,MONIQUE Personal/Family Mother [address] (Home) [place] [address] MEDIN,MONIQUE Personal/Family Mother [address] (Home) [place] [address] MEDIN,MONIQUE Personal/Family Mother [address] (Home) [place] [address] MEDIN,MONIQUE Personal/Family Mother [address] (Home) [place] [address] Care Teams Shuttle 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
--- OUTSIDE RECORDS SUMMARY | 2022-08-26 21:39 | XMS_ITS | Encounter Summary ---
:2000 Author Organization [facility] Address [address] [place] [address] Phone Care Team Providers Name Role Phone Required, No Pcp/Pcp Not Primary Care Provider Unavailable Reason for Referral Consultation (Urgent) - Closed Specialty Diagnoses / Procedures Referred By Contact Refer red To Contact Pediatric Neurology Jenn Pinto MD [address] [address] (DEPT OF MEDICINE) [address] [place] [address] Phone: Fax: Referral ID Status Reason Start Date Expiration Date Visits V isits Requested Authorized [id number] Closed Specialty 04/29/2019 04/29/2020 1 1 Services Required Reason for Visit Reason Comments Seizures Encounter Details Date Type Department Care Team Description 04/29/2019 Emergency [facility] Jenn Pinto, Seizure (CMS/HCC) (Primary Dx); Emergency Department Glial neoplasm of brain ([facility]/HCC) [address] [place] [id number] Social History Tobacco Use Types Packs/Day Years Used Date Smoking Tobacco: Never Smokeless Tobacco: Never Sex Assigned at Date Recorded Not on file documented as of this encounter Last Filed Vital Signs Vital Sign Reading Time Taken Comments Blood Pressure 128/64 04/29/2019 9:54 PM EDT Pulse 75 04/29/2019 9:54 PM EDT Temperature 37.1 ??C (98.8 ??F) 04/29/2019 9:54 PM EDT Respiratory Rate 16 04/29/2019 9:54 PM EDT Oxygen Saturation 99% 04/29/2019 9:54 PM EDT Inhaled Oxygen Concentration - - Weight 47.6 kg (104 lb 15 oz) 04/29/2019 4:36 PM EDT Height - - Body Mass Index - - documented in this encounter Discharge Instructions Discharge InstructionsJenn Pinto MD - 04/29/2019 9:52 PM EDT You may not drive until cleared by neurology. Please be sure to have a friend with you when you are swimming or in an unsafe place. AttachmentsThe following attachments cannot be sent through Care Everywhere. Seizure (Emirati)documented in this encounter Medications at Time of Discharge Medication Sig Dispensed Refills Start Date End Date levETIRAcetam (KEPPRA) 500 Take 1 tablet (500 60 tablet 0 0 04/29/2019 MG tablet mg total) by mouth 2 (two) times a day documented as of this encounter ED Notes Jenn Pinto MD - 04/29/2019 4:38 [place] [address] CC: Chief Complaint Patient presents with ??? Seizures HPI: 18 y.o. female 3 months postoperative from a resection of a glial tumor in the left parietal lobe onthe edge of the lateral ventricle with clear margins comes into the emergency department with seizure. She has no history of seizure. She was briefly on Keppra postoperatively however has since stoppedas per neuro- oncology recommendations. She had a stable MRI done at [facility] 3 days ago. She was well when she woke up this morning. She went to the beach and felt well. She walked off and went to a restaurant with air conditioning. While sitting at the restaurant, mom israel notes that she had sudden loss of consciousness, tonic- clonic jerking of her upper extremities that lasted less than 5 minutes and she was not responsive during this time. Stopped on its own. Upon EMS arrival dad states that shewas very confused. She does not member this event or most of the ambulance ride here. Dad feels thatfatimah is even confused now that she is here. Of note, she has had several weeks of paresthesias of herleft eyebrow. No other numbness tingling weakness. No head trauma. She was swimming at the beach and only outside for about 2 hours. EMS did not take a temperature. However, she felt well the entire time she was on the beach and walking off the beach until this event. No vomiting. She was at a dog half-way volunteering this morning. She denies any drug use to me. She denies the possibility of being . No vomiting or diarrhea. Eating drinking normally today. Otherwise well without complaint. 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 The plan per her neuro-oncology at [facility] and consultation with neurosurgery at [facility] is every 3 month MRIs. Her last MRI was done 3 days ago and was stable. Vaccines: Up To Date FH: Reviewed and not relevant to the chief complaint SH: Lives in [place] with mom. Down here visiting dad in [place]. Review of Systems Constitutional: Negative for fever. HENT: Negative for congestion. Eyes: Negative for discharge. Respiratory: Negative for cough. Gastrointestinal: Negative for diarrhea and vomiting. Skin: Negative for rash. Neurological: Negative for seizures. Hematological: Does not bruise/bleed easily. All other systems reviewed and negative except as noted. BP 122/78 (BP Location: Right arm, Patient Position: Sitting) Pulse (!) 123 Temp 98.4 ??F (36.9 ??C) Resp (!) 18 Wt 47.6 kg (104 lb 15 oz) SpO2 100% General Appearance: Very Well Appearing Head: Nontraumatic Normocephalic ENT: Moist Mucus Membranes Neck: Supple Cardiac: Regular Rhythm, Normal S1 and S2, no murmurs rubs or gallops Lung: Clear to ascultation bilaterally Abdomen: Soft nontender nondistended no organomegaly : Deferred MSK: No bony tenderness Skin: No rash petechiae ecchymosis Neuro: Some difficulty with word finding, knows her name and where she lives however is slow to be able to tell me where she is now what type of building she is or how she got here. Normal strength normal sensation no ataxia pupils equally round and reactive to light extraocular motions intact Psychiatric: Normal affect ED Course: EKG obtained and reviewed by me. Sinus tachycardia, normal axis, normal intervals, no evidence of WPW, Brugada, ventricular hypertrophy or HOCM. 5:26 PM: Case d/w Dr. Jackie Erazo from neuro- oncology at [facility] who agrees with the CT to look for edema and given that it is normal has nothing to add given that it is normal, defers to neurosurgery at this time. /5:45 PM: Case d/w Dr. Corey Mcdowell from neurosurgery who feels that given the recent Mri and stable HCTtoday, there is no acute neurosurgery intervention. Recommend neurology for further seizure management. Patient reexamined. Word finding difficulties are resolved. Exam is back to baseline. 5:58 PM: Case d/w Dr. Juan Luis Guido the NOW at [facility]. 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 Will start Keppra 50omg BID and follow up in clinic this week. Does not recommend transfer to [facility] at this time given recent MRI which is stable, and that theywould not do an EEG overnight given that she is back to baseline and that it is weekend. We appreciate their help. 6:23 PM: Mild frontal headache. Normal exam. Mom updated and on her way. She has no further questions at this time. 7:42 PM: headache improving but not resolved. 9:54 PM: headache stable and near resolved. Neurological exam is normal. Family feels comfortable going home. She has been advised that she CANNOT DRIVE until cleared by neurology and she does not drive so has no problem with this. She will not swim alone or be in an unsafe situation or place (like swimming) alone until seen by neurology. Medical Decision Makin. Seizure 3 months postop [...] exam, And near resolution in the ED. Jenn Pinto MD 04/29/19 2200 Catalina Oates RN - 04/29/2019 4:14 PM EDT Haley Garcia is a 18 y.o. female presenting with Seizures Pt arrives via ems. Was at the beach all day with father. Father states they went to a restaurant [employer] to get something to eat before leaving and pt was seated and slumped over into chair had 5min seizure like activity per dad. Pt was stiffened up and had some shaking per dad. No urinary or bowel inc. No seizure activity for ems. Was confused on ems arrival. Arrives alert and confused. documented in this encounter Plan of Treatment Scheduled Referrals Name Type Priority Associated Diagnoses Order S chedule Referral to Outpatient Referral Routine Ordered: Neurology - 04/29/2019 Pediatric documented as of this encounter Procedures Procedure Name Priority Date/Time Associated Comments Diagnosis HCG, QUALITATIVE, STAT 04/29/2019 5:17 PM Resu lts for this URINE EDT procedure are i n the results section. URINE DRUGS OF ABUSE STAT 04/29/2019 5:17 PM R esults for this SCREEN EDT procedure are i n the results section. CT HEAD WO CONTRAST STAT 04/29/2019 4:43 PM Re sults for this EDT procedure are i n the results section. POCT GLUCOSE METER Routine 04/29/2019 4:32 PM Res ults for this EDT procedure are i n the results section. CBC WITH AUTO STAT 04/29/2019 4:29 PM Results for this DIFFERENTIAL EDT procedure are i n the results section. CK STAT 04/29/2019 4:29 PM Results f or this EDT procedure are i n the results section. BASIC METABOLIC PANEL STAT 04/29/2019 4:29 PM Results for this EDT procedure are i n the results section. ECG 12-LEAD STAT 04/29/2019 4:24 PM Results f or this EDT procedure are i n the results section. documented in this encounter Results HCG, Qualitative, Urine (04/29/2019 5:17 PM EDT) Analysis Performed At Patho logist Time Signature Preg Test, Negative Negative 04/29/2019 [facility] Urine 5:28 PM EDT [facility] Specimen Anatomical Collection Method Collection Time Receive d Time (Source) Location / / Volume Laterality Urine Non-blood 04/29/2019 5:17 PM 9 5:21 Collection / EDT PM EDT Unknown Narrative [facility] - 2018 5:28 PM EDT If clinical suspicion of persi sts, repeat urine testing at 2-3 days is suggested. Quantitative urine hCG may al so be considered. Jenn Pinto MD LAB URINE ORDERABLES Performing Organization Address City/State/ZIP Code Phon e Number [facility] [address] [place] [address] Urine drugs of abuse screen (04/29/2019 5:17 PM EDT) Patholo gist Method Time Signature Amphetamines, None None 04/29/2019 [facility] Urine Screen Detected Detected 5:36 PM EDT [facility]ITAL [facility] Barbiturates, None None 04/29/2019 [facility] Urine Screen Detected Detected 5:36 PM EDT [facility]ITAL [facility] Benzodiazepines, None None 04/29/2019 [facility] Urine Screen Detected Detected 5:36 PM EDT [facility]ITAL [facility] Cocaine, Urine None None 04/29/2019 [facility] Screen Detected Detected 5:36 PM EDT [facility]ITAL [facility] Opiates, Urine None None 04/29/2019 [facility] Screen Detected Detected 5:36 PM EDT [facility] Cannabinoids None None 04/29/2019 [facility] (THC), Urine Detected Detected 5:36 PM EDT HOSPITAL Screen LABORATORY Tricyclic None None 04/29/2019 [facility] Antidepressants, Detected Detected 5:36 PM EDT HOSPITAL Urine Screen LABORATORY Fentanyl, Urine None None 04/29/2019 [facility] Screen Detected Detected 5:36 PM [facility] Comment: This test is not FDA approved. It is intended for criminal justice and forensic use only. This screening provid es only a preliminary analytical test result. A more specific alternative chemical met hod must be used in order to obtain a confirmed analytical result. Methadone, Urine None Detected None Detected 04/29/2019 5:36 PM [facility] Oxycodone, Urine None Detected None Detected 04/29/2019 5:36 PM [facility] Buprenorphine, None Detected None Detected 04/29/2019 5:36 P M [facility] Urine [facility] Specimen Anatomical Collection Method Collection Time Receive d Time (Source) Location / / Volume Laterality Urine Urine specimen Non-blood 04/29/2019 5:17 PM 019 5:21 obtained by clean Collection / EDT PM EDT catch procedure / Unknown Unknown Narrative [facility] - 2018 5:36 PM EDT This is a screening test for urine drugs of ABUSE only. ??It is not designed or intended to monitor t reatment or assess patient compliance. ? ?Those purposes are best served by a specific assay for the specific drug being administered. ?? Like any screening test, this drug scree n has inherent limitations. ?? A result of NONE DETECTED indicates the absence of the major metabolites of the tested drugs or their presence at a level below the cut-off concentration (see below). ??False negative results may be due to the pharmacokinetics of the drug and /or the timing of the sample relative to the use of the drug in question. ?? A POSITIVE result is a presumptive quali tative positive which indicates that the major metabolites of the tested drugs are likely present at or above their cut- off concentration (see below). ??False pos itive results may be caused by cross-josette cting substances. ??Unconfirmed positive results of this screening test must not be used for non-medical purposes. ?? Cutoffs for Drug Classes: Amphetamines ? 100 ng/mL Barbiturates ? 200 ng/mL Benzodiazepines ??100 ng/mL Cocaine ?300 ng/mL Opiates ?300 ng/mL TCA ?300 ng/mL THC ?50 ng/mL Fentanyl ?2 ng/mL Methadone ?300 ng/ml Oxycodone ?100 ng/ml Buprenorphine ?5 ng/ml Jenn Pinto MD LAB URINE ORDERABLES Performing Organization Address City/State/ZIP Code Phon e Number [facility] [address] [place] [address] CT head without contrast (04/29/2019 4:43 PM EDT) Anatomical Region Laterality Modality Head and Neck Computed Tomography Specimen (Source) Anatomical Collection Method Collection Time Re ceived Time Location / / Volume Laterality 04/29/2019 4:22 PM EDT Impressions 04/29/2019 5:05 PM EDT Impression: Left parietal craniotomy and underlying encephalomalacia. No acute intracranial abnormality. Narrative 04/29/2019 5:05 PM EDT Study: CT of the head without IV contrast. Indication: ??new onset seizure, prior i ntracranial tumor s/p removal Comparison: None Technique: ??CT scan of the head without the use of intravenous contrast. ??Coronal and sagittal reformats obtained. ??Iterative reconstruction technique was utilized for radiation dose reduction. Findings: The patient is status post left parietal craniotomy. There is also small right temporal calvarial defect (series 2, image 38). L eft linear encephalomalacia tracking from the craniotomy site into the occipital horn of the left lateral ventricle. No acute intracranial hemorrhage, edema, mass eff ect or infarct. Procedure Note Jero Vides MD - 04/29/2019Formatti ng of this note might be different from the original. Study: CT of the head without IV contras t. Indication: new onset seizure, prior int racranial tumor s/p removal Comparison: None Technique: CT scan of the head without t he use of intravenous contrast. Coronal and sagittal reformats obtained. Iterative r econstruction technique was utilized for radiation dose reduction. Findings: The patient is status post left parietal craniotomy. There is also small right temporal calvarial defect (series 2, image 38). L eft linear encephalomalacia tracking from the craniotomy site into the occipital horn of the left lateral ventricle. No acute intracranial hemorrhage, edema, mass eff ect or infarct. Impression: Left parietal craniotomy and underlying encephalomalacia. No acute intracranial abnormality. Jenn Pinto MD IMG CT PROCEDURES (ABNORMAL) POCT Glucose Meter (04/29/2019 4:32 PM EDT) P athologist Signature POC Glucose 120 (H) 60 - 100 04/29/2019 [facility] mg/dL 4:38 PM EDT [facility] Comment: @Test Specialist:Isidro Sylvester Specimen Anatomical Collection Method Collection Time Receive d Time (Source) Location / / Volume Laterality Blood 04/29/2019 4:32 PM 9 4:38 EDT PM EDT Jenn Pinto MD LAB POCT ORDERABLES - DEVICE Performing Organization Address City/State/ZIP Code Phon e Number [facility] [address] [place], [place] [id number] (ABNORMAL) CBC with auto differential (04/29/2019 4:29 PM EDT) [facility] gist Method Time Signature WBC 6.0 5.5 - 9.3 04/29/2019 [facility] 10*3 ??l 4:52 PM EDT [facility] RBC 3.73 (L) 3.79 - 04/29/2019 [facility] 4.61 10*6 4:52 PM EDT HOSPITAL ??l LABORATORY Hemoglobin 10.3 (L) 11.3 - 04/29/2019 [facility] 13.4 g/dL 4:52 PM EDT [facility] Hematocrit 32.0 (L) 32.1 - 04/29/2019 [facility] 38.7 % 4:52 PM EDT [facility] MCV 86 (H) 80 - 85 04/29/2019 [facility] fL 4:52 PM EDT [facility] MCH 27.6 (L) 28.4 - 04/29/2019 [facility] 30.7 pg 4:52 PM EDT [facility] MCHC 32.2 (L) 33.9 - 04/29/2019 [facility] 35.4 g/dL 4:52 PM EDT [facility] RDW 14.1 12.8 - 04/29/2019 [facility] 14.4 % 4:52 PM EDT [facility] Platelets 247 192 - 307 04/29/2019 [facility] 10*3 ??l 4:52 PM EDT [facility] MPV 10.0 (H) 7.5 - 8.3 04/29/2019 [facility] fL 4:52 PM EDT [facility] Neutrophils % 60.2 45.0 - 04/29/2019 [facility] 76.0 % 4:52 PM EDT [facility] Lymphocytes % 29.8 8.0 - 04/29/2019 [facility] 39.0 % 4:52 PM EDT [facility] Monocytes % 9.0 (H) 4.0 - 7.0 04/29/2019 [facility] % 4:52 PM EDT [facility] Eosinophils % 0.5 (L) 1.0 - 3.0 04/29/2019 [facility] % 4:52 PM EDT [facility] Basophils % 0.3 0.0 - 1.0 04/29/2019 [facility] % 4:52 PM EDT [facility] Immature 0.2 0.0 - 0.9 04/29/2019 [facility] Granulocyte % % 4:52 PM EDT [facility] Neutrophils 3.60 3.04 - 04/29/2019 [facility] Absolute 6.06 4:52 PM EDT HOSPITAL K/mm3 LABORATORY Absolute 0.01 0.00 - 04/29/2019 [facility] Immature 0.09 4:52 PM EDT HOSPITAL Granulocyte K/mm3 LABORATORY Lymphocytes 1.78 1.17 - 04/29/2019 [facility] Absolute 2.30 4:52 PM EDT HOSPITAL K/mm3 LABORATORY Monocytes 0.54 0.19 - 04/29/2019 [facility] Absolute 0.72 4:52 PM EDT HOSPITAL K/mm3 LABORATORY Eosinophils 0.03 (L) 0.05 - 04/29/2019 [facility] Absolute 0.17 4:52 PM EDT HOSPITAL K/mm3 LABORATORY Basophils 0.02 0.01 - 04/29/2019 [facility] Absolute 0.06 4:52 PM EDT [facility]OSPITAL K/mm3 LABORATORY Specimen Anatomical Collection Method / Collection Time Recei olman Time (Source) Location / Volume Laterality Blood Capillary blood Venipuncture / 04/29/2019 4:29 019 4:33 specimen / Unknown Unknown PM EDT PM EDT Jenn Pinto MD LAB BLOOD ORDERABLES Performing Organization Address City/State/ZIP Code Phon e Number [facility] [address] [place] [address] CK (04/29/2019 4:29 PM EDT) P athologist Signature Total CK 114 24 - 170 04/29/2019 [facility] U/L 5:13 PM EDT [facility] Specimen Anatomical Collection Method / Collection Time Recei olman Time (Source) Location / Volume Laterality Blood Capillary blood Venipuncture / 04/29/2019 4:29 019 4:33 specimen / Unknown Unknown PM EDT PM EDT Jenn Pinto MD LAB BLOOD ORDERABLES Performing Organization Address City/State/ZIP Code Phon e Number [facility] [address] [place] [address] (ABNORMAL) Basic metabolic panel (04/29/2019 4:29 PM EDT) P athologist Signature Glucose 99 60 - 100 04/29/2019 [facility] mg/dL 5:07 PM EDT [facility] BUN 5 5 - 18 04/29/2019 [facility] mg/dL 5:07 PM T [facility] Creatinine 0.6 0.3 - 1.0 04/29/2019 [facility] mg/dL 5:07 PM EDT [facility] eGFR >60.00 04/29/2019 [facility] mL/min/1.73 5:07 PM EDT HOSPITAL m*2 LABORATORY Comment: Unable to calculate, patient age is <18 Sodium 139 135 - 145 mmol/L 04/29/2019 5:07 PM EDT [facility] Potassium 3.6 3.0 - 4.5 mmol/L 04/29/2019 5:07 PM EDT [facility] Chloride 106 99 - 111 mmol/L 04/29/2019 5:07 PM EDT [facility] CO2 19 19 - 25 mmol/L 04/29/2019 5:07 PM EDT [facility] Anion Gap 14 (H) 6 - 12 mmol/L 04/29/2019 5:07 PM EDT [facility] Calcium 8.9 8.5 - 10.5 mg/dL 04/29/2019 5:07 PM EDT [facility] Specimen Anatomical Collection Method / Collection Time Recei olman Time (Source) Location / Volume Laterality Blood Capillary blood Venipuncture / 04/29/2019 4:29 019 4:33 specimen / Unknown Unknown PM EDT PM EDT Jenn Pinto MD LAB BLOOD ORDERABLES Performing Organization Address City/[facility]/ZIP [facility] Phon e Number [facility] [address] [place] [address] ECG (04/29/2019 4:24 PM EDT) Specimen Anatomical Collection Method Collection Time Receive d Time (Source) Location / / Volume Laterality 04/29/2019 4:24 PM 9 EDT 11:53 AM EDT Impressions MUSE - 05/01/2019 11:53 AM EDT Test Reason : Reason for Exam:->? SZ, TACHYCARDIA Vent. Rate : 116 BPM ? Atrial Rate : 116 BPM ?? P-R Int : 152 ms ?QRS D ur : 088 ms ?QT Int : 328 ms ? P-R-T Axe s : 066 038 048 degrees ?? QTc Int : 455 ms Sinus tachycardia borderline QT prolongation Referred By: JENN PINTO ? Confirmed By:Neftali Salamanca Procedure Note Neftali Salamanca MD - 05/01/2019Formatt ing of this note might be different from the original. IMPRESSION Test Reason : Reason for Exam:->? SZ, TA CHYCARDIA Vent. Rate : 116 BPM Atrial Rate : 116 BPM P-R Int : 152 ms QRS Dur : 088 ms QT Int : 328 ms P-R-T Axes : 066 038 04 8 degrees QTc Int : 455 ms Sinus tachycardia borderline QT prolongation Referred By: JENN PINTO Confirmed B y:Neftali Salamanca Jenn Pinto MD ECG ORDERABLES Performing Organization Address City/State/ZIP Code Phon e Number MUSE documented in this encounter Visit Diagnoses Diagnosis Seizure (CMS/HCC) - Primary Other convulsions Glial neoplasm of brain (CMS/HCC) documented in this encounter Administered Medications Inactive Administered Medications - up to 3 most recent administrations Medication Order MAR Action Action Date Dose Rate Site acetaminophen (TYLENOL) tablet 650 Given 04/29/2019 8:05 PM EDT 650 mg mg 650 mg, Oral, Once, On 04/29/19 at 2004, For 1 dose ketorolac injection (TORADOL) 15 mg Given 04/29/2019 6:27 PM EDT 15 mg 15 mg, Intravenous, Once, On 04/29/19 at 1827, For 1 dose levETIRAcetam (KEPPRA) tablet 500 mg Given 04/29/2019 8:05 PM EDT 500 mg 500 mg, Oral, Once, On 04/29/19 at 2004, For 1 dose sodium chloride 0.9 % bolus New Bag 04/29/2019 6:27 PM EDT 1,000 m L 2000 mL/hr 1,000 mL 1,000 mL, Intravenous, at 2,000 mL/hr, Administer over 30 Minutes, Once, On 04/29/19 at 1827, For 1 dose sodium chloride 0.9 % bolus New Bag 04/29/2019 8:01 PM EDT 1,000 m L 2000 mL/hr 1,000 mL 1,000 mL, Intravenous, at 2,000 mL/hr, Administer over 30 Minutes, Once, On 04/29/19 at 2000, For 1 dose documented in this encounter Active and Recently Administered Medications Times are shown in EDT. Scheduled Medication Order 04/27/2019 04/28/2019 04/29/2019 acetaminophen (TYLENOL) tablet 650 mg (COMPLETED) 2004 (Given - Provider: Catalina Oates RN) 650 mg, Oral, Once, 04/29/19 at 2004, For 1 dose ketorolac injection (TORADOL) 15 mg (COMPLETED) 1826 (Given - Provider: Catalina Oates RN) 15 mg, Intravenous, Once, 04/29/19 at 1826, For 1 dose levETIRAcetam (KEPPRA) tablet 500 mg (COMPLETED) 2004 (Given - Provider: Catalina Oates RN) 500 mg, Oral, Once, 04/29/19 at 2004, For 1 dose sodium chloride 0.9 % bolus 1,000 mL (COMPLETED) 1826 (New Bag - Provider: Catalina Oates, LUIS)2004 (Stopped - Provider: Catalina Oates RN) 1,000 mL, Intravenous, at 2,000 mL/hr, A dminister over 30 Minutes, Once, 04/29/19 at 1827, For 1 dose sodium chloride 0.9 % bolus 1,000 mL (COMPLETED) 2000 (New Bag - Provider: Catalina Oates RN)2146 (Stopped - Provider: Catalina Oates RN) 1,000 mL, Intravenous, at 2,000 mL/hr, A dminister over 30 Minutes, Once, 04/29/19 at 2000, For 1 dose documented in this encounter Care Teams Director Agency & Strategic Partnerships Relationship Specialty Start Date End Date Required, No Pcp/Pcp Not PCP - General Computer Systems Information Director 04/29/19 [address] [place] [address] documented as of this encounter
--- OUTSIDE RECORDS SUMMARY | 2022-08-26 21:39 | XMS_ITS | Encounter Summary ---
:2001 Author Organization [facility] Address [address] [facility] [address] [place] [address] Care Team Providers Name Role Phone Araceli Desai Md Primary Care Provider Jose Drummond Md Unavailable [phone] Reason for Referral Specialty (Priority - w/in a Month ) - Closed Specialty Diagnoses / Procedures Referred By Contact Refer red To Contact Surgery, General Diagnoses White matter abnormality on MRI of brain Araceli Desai MD [address] [address] Hospital Department of Neurosurgery [address] [place] [address] Phone: Fax: Referral ID Status Reason Start Date Expiration Date Visits V isits Requested Authorized [id number] Closed Service not 08/30/2017 08/29/2018 6 6 locally available Encounter Details Date Type Department Care Team Description 08/13/2017 Telephone [facility] Araceli Desai MD White Matter [address] Abnormality On Mri of [place], [place] [address] Brain (Primary Dx) [id number] [phone] Social History Tobacco Use Types Packs/Day Years [...] Telephone Encounter - Araceli Desai MD - 08/13/2017 6:59 PM EDT Called [phone] Asked mother if they have copies of the MRI's. Just have some of the reports. Mother has requested the records. Needs the Neurologist ordered the first one. Then referred to Dr Jero Escobar Neurosurgeon. [facility] [place] [facility] in [place] We will call Wednesday to arrange referrals. documented in this encounter Plan of Treatment Upcoming Encounters Date Type Specialty Care Team Description 10/09/2022 Office Visit Internal Medicine James Matthews MD [address] [place] [phone] (Wo rk) Scheduled Referrals Name Type Priority Associated Diagnoses Order S chedule REFERRAL TO REFERRAL/FUTUR Routine White matter Ordered: NEUROSURGERY (BRAIN) E abnormality on MRI o f 08/13/2017 brain documented as of this encounter Visit Diagnoses Diagnosis White matter abnormality on MRI of brain - Primary Nonspecific (abnormal) findings on radio logical and other examination of skull and head documented in this encounter Care Teams Wind Turbine Engineer Relationship Specialty Start Date End Date Araceli Desai MD PCP - General Pediatrics 07/22/17 04/05/[address] [place] [address] Jose Drummond MD PCP - Payer 08/11/17 02/02/[address] [place] [phone] documented as of this encounter
--- OUTSIDE RECORDS SUMMARY | 2022-08-26 21:39 | XMS_ITS | Encounter Summary ---
:2001 Author Organization [facility] Address [address] [facility], [address] [place] [address] Care Team Providers Name Role Phone Araceli Desai MD Primary Care Provider Encounter Details Date Type Department Care Team Description 10/19/2018 Travel Social History Tobacco Use Types Packs/Day [...] on filedocumented in this encounter Care Teams Switchboard Wire Worker Helper Relationship Specialty Start Date End Date Araceli Desai MD PCP - General Pediatrics 10/19/[address] [place] [address] documented as of this encounter
--- OUTSIDE RECORDS SUMMARY | 2022-08-26 21:39 | XMS_ITS | Encounter Summary ---
:2001 Author Organization [facility] Address [address] [facility] [address] [address] Care Team Providers Name Role Phone Araceli Desai Md Primary Care Provider Jose Drummond Md Unavailable [phone] Araceli Desai Md Unavailable Reason for Visit Reason Comments Return Call/ Call Back Encounter Details Date Type Department Care Team Description 08/18/2017 Telephone [facility] Peds RETURN CALL/ CALL BACK [address] [place] [phone] Social History Tobacco Use Types [...] Team Description 10/09/2022 Office Visit Internal Medicine Byron, James R ., MD [address] [place] [address] (Wo rk) documented as of this encounter Visit Diagnoses Not on filedocumented in this encounter Care Teams Credit Review Officer Relationship Specialty Start Date End Date Araceli Desai MD PCP - General Pediatrics 07/22/17 04/05/[address] [place] [address] Jose Drummond MD PCP - Payer 08/11/17 02/02/[address] [place] [phone] Araceli Desai MD PCP - Payer 02/03/18 06/02/[address] [place] [address] documented as of this encounter
--- OUTSIDE RECORDS SUMMARY | 2022-08-26 21:39 | XMS_ITS | Encounter Summary ---
:2001 Author Organization [facility] Address [address] [facility] [address] [address] Care Team Providers Name Role Phone Araceli Desai Md Primary Care Provider Jose Drummond Md Unavailable [phone] Encounter Details Date Type Department Care Team Description 08/18/2017 Notation [facility] Araceli Desai MD Administrative Encounter 485 [facility] 485 [facility] (Primary Dx) [place] [phone] Social History Tobacco Use Types Packs/Day Years [...] encounter Progress Notes Araceli Desai MD - 08/18/2017 3:30 PM EST Images from the original note were not included. I spoke with the imaging department at [facility] in [place] As they requested, I sent a release of information to the department, they will forward the 2 MRI/1CTSCAN and reports to me, via regular mail Hopefully by the middle of next week it will be here I will call them Wednesday to make sure this is on its way. I will also let the family know as well Lucero ? Previous Messages ?? ----- Message ----- ? From: Araceli Desai MD ? Sent: 08/13/2017 ?? 6:51 PM ? To: Lucero EricJarocho Mark, * Hi, Can you let me know about scheduling this person with neurology and then let me know who it is so I can contact the neurologist (phone number). Araceli Rico documented in this encounter Plan of Treatment Upcoming Encounters Date Type Specialty Care Team Description 10/09/2022 Office Visit Internal Medicine James Matthews MD [address] [place] [phone] (Wo rk) documented as of this encounter Visit Diagnoses Diagnosis Administrative encounter - Primary Encounters for unspecified administrativ e purpose documented in this encounter Care Teams Director Of Nuclear Medicine Relationship Specialty Start Date End Date Araceli Desai MD PCP - General Pediatrics 07/22/17 04/05/[address] [place] [phone] Jose Drummond MD PCP - Payer 08/11/17 02/02/[address] [place] [phone] documented as of this encounter
--- OUTSIDE RECORDS SUMMARY | 2022-08-26 21:39 | XMS_ITS | Encounter Summary ---
:2001 Author Organization [facility] Address [address] [facility] [address] [place] [address] Care Team Providers Name Role Phone Araceli Desai Md Primary Care Provider Jose Drummond Md Unavailable [phone] Reason for Visit Reason Comments Well Child Visit Rm 5 DB Encounter Details Date Type Department Care Team Description 08/11/2017 Office Visit [facility] Araceli Desai MD Encounter for routine child health exam[facility] without abnormal findings (Primary Dx); [address] Food allergy: coconut; [place], [place] Medication in tolerance: ibuprofen; [phone] Migraine with aura and without status mi grainosus, not intractable; [phone] Motion sickness , initial encounter; (Work) Port-wine stain of skin; Wears gla sses Social History Tobacco Use Types Packs/Day Years [...] Sign Reading Time Taken Comments Blood Pressure 104/58 08/11/2017 9:01 AM EDT Pulse - - Temperature - - Respiratory Rate - - Oxygen Saturation - - Inhaled Oxygen Concentration - - Weight 41.5 kg (91 lb 9.6 oz) 08/11/2017 9:01 AM EDT Height 159.8 cm (5' 2.9) 08/11/2017 9:01 AM EDT Body Mass Index 16.28 08/11/2017 9:01 AM EDT Body Mass Index Percentile 2.59 % 08/11/2017 9:01 AM ED T Growth Chart: [facility] (Girls, 2-20 Years) documented in this encounter Patient Instructions Patient InstructionsTami Suh - 08/11/2017 9:00 AM EDT Well visit 14 to 15 years old After Your Visit Your Care Instructions Nutrition Eat more... fruits and vegetables! Eat at least 5 servings per day! Plan ahead: packing lunches or snacks will make it easier to make healthier food choices and decrease the chance of ending up at a fast food restaurant. Make your drinks of choice milk and water. Studies show that 1 can of soda per day can lead to 1 pound of weight gain per month! Limit soda and juice to special occasions. Drink more water! Vitamin D: It is particularly important for teens to get enough Calcium and Vitamin D. You need 1300 mg of calcium a day and 400-1000 IU a day of vitamin D a day. Without vitamin D only about 10% of the calcium that you eat gets absorbed. We know that Vitamin D and calcium are good for our bones but exciting newresearch suggests that keeping our Vitamin D levels helps keep our muscles strong, and may decrease the risk of developing illnesses like diabetes and cancer! Look for supplements to help keep your levels up, specially if you don't drink milk. Safety Protect your brain: wear helmets to ride a bike, ski, rollerskate, skateboard or snowboard. If you have a head injury - STOP what you are doing and DO NOT return to sports until seen and cleared by oneof us. Concussions can lead to severe learning problems and mood disorders, and getting a second head injury while you are still recovering from one can be VERY dangerous! Protect the largest organ in your body: your skin! Put on sunscreen before going outside. Don't carry weapons or hang out with people who do. They can be magnets for trouble. Be comfortable telling friends no if you don't want to do something that doesn't feel right for you. Accept no graciously when your friends don't want to do something you have asked of them. There is no such thing as a safe drug. Anything that can impair your judgment has the potential tohurt you. Feel comfortable saying no to drugs. When posting on social websites, ask yourself this question: Would I want what I am about to post to appear on the front page of the [employer]? If the answer is No, then don't post it. Privacy settings on a lot of websites and online social networks are constantly changing and everyday it becomes more challenging to know what is truly private. Save those meaningful thoughts and comments for face to face conversations with real friends (not just the cyber kind)! Refrain from posting negative or damaging comments about people on-line. And, if you are being bullied or know someone who is the victim of bullying on the internet or in everyday life, please notify someone you trust. Exercise at least one hour a day! It is a great way to take care of your body and mind. Sleep Practice good sleep hygiene and get a good night's sleep. Don't watch TV, play video games or eat right before bed. Get at least 9 hrs of sleep per night and feel happier, be better able to concentrate at school and minimize cravings for sugary and unhealthy foods. Relationships If you are dating or in a relationship, remember that healthy relationships are built on respecting one another, sharing common interests, having a life outside of the relationship and being able to settle disagreements in a respectful and loving manner. Please notify your doctor or nurse practitionerif you are being physically, emotionally or sexually abused. Talk to someone if you are confused or worried about your sexual orientation. It may not be easy, but in the end it will be better if you do. Find someone you trust such as your doctor, parent, close friend, etc. Mental well being If you or someone you know is feeling depressed and having thoughts or plans to end their life, please tell someone! Suicide is among the top five causes of among teens, and is entirely preventable! Stress Being stressed has become way too common for our young adults. Learn to manage your time well and don't overschedule your life. Learn how to find healthy and productive ways to handle stress, like reading a good book, going for a walk with a friend or writing in a diary. Finally, we are always here to address any questions or concerns that you may have. Please do not hesitate to contact us. Be well! For great information on all topics related to your health, please visit: [email or web address] Please schedule your next appointment in 1 year. Please call 2-3 months prior to your desire appointment date. Please arrive 10 min early to your appointment, late arrivals may be asked to reschedule. Hours of Operation Wednesday through Wednesday 8:00am-6:00pm Pediatric Urgent Care hours are available at [facility] on weekends and holidays: Saturdays 10am-5pm and Sundays 12pm-5pm Please call [phone] to schedule. 24 hour telephone medical advice 7 days/week to speak with a nurse Pediatrics [phone] When our office is closed, our telecommunications staff will be happy to provide medical advice by phone or direct you to an emergency room if needed. Copayment for an urgent care appointment is the same as a regular Pediatric appointment. Our preferred [facility] is [facility] and our preferred tertiary hospital is [facility]. IMMUNIZATION REGISTRY NOTICE: You or your child???s shot information is being entered into the [place] Immunization Information System (MIIS), as required by law. The MIIS is a confidential, statewide immunization tracking system. You can choose to restrict who may see your or your child???s shot information in the MIIS at any time. documented in this encounter Ordered Prescriptions Prescription Sig Dispensed Refills Start Date End Date SUMAtriptan 100 mg tablet Take 1 tablet by 8 tablet 0 10/201611/10/2017 mouth once as needed Take as directed maximum 3 per week documented in this encounter Progress Notes Araceli Desai MD - 08/11/2017 9:20 AM EDT Haley Garcia is a 16 yrs. 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 Here with mother who provides history. Haley was screened today using the PSC Survey -- Score: 9 PSC Youth Report -- Score: 6. She passed today's screen. These results were reviewed and discussed at today's visit The family has the following concerns: Has a cold, hanging on. Decline Flu vaccine today. Thinks she had HPV series which is not on the immunization form brought today from [facility]. were waiting for insurance. Had planned May MRI. Brings notes of Headache evaluation and second MRI reading. Mother notes the headache specialist felt that the MRI findings were not relevant to the headaches, which have diminished in frequency. Mother notes lots of behavioral/emotional things happening previously that have improved markedly since moving to [place]. Previously lived in [place] and most recently [place]. Patient Active Problem List Diagnosis Date Noted ??? Food allergy: coconut [Z91.018] 08/11/2017 hives ??? Medication intolerance: ibuprofen [Z78.9] 08/11/2017 Got rash once, avoids. Tolerates Alleve ??? Migraine with aura and without status migrainosus, not intractable [G43.109] 08/11/2017 Seen by headache specialist Sushil Hoover MD in [facility]. Trial of amitriptyline. Then lamictal. Now off all meds except alleve, sumaptriptan. Moved fall 2016 to [place]; doing much better emotionally. MRI x 2 at [facility] (10/06/2016 and) 10/16/2016. Initial finding in left periatrial white matter, second MRI notes minimal if any. 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 ??? Motion sickness [T75.3XXA] 08/11/2017 headache if reads in car Diet bmi 2nd %ile, always small. all food groups, except doesn't drink milk or Likes cheese. Eat a lot of beans Eats salmon often Need for 1200 mg calcium per day discussed Sleep : 7 hours at the least tries to keep a regular schedule Elimination : fine Menstrual history Patient's last menstrual period was 08/02/2017 (exact date). regular 5 days Grade in school 10th grade [employer] High school performance good Activities: Debate and [employer] and works. 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 Sumatriptan 100 mg verbal report The following developmental issues were discussed: Interaction with family and Study habits Personal social areas discussed included: mood and attitude Anticipatory Guidance was given for Physical activity Safety and sports issues were covered, including: seat belts, bicycle helmets, risk taking, driving safety and driving while intoxicated Dental care (including routine brushing)is being provided PE: BP 104/58 (Site: Right Arm, Positioning: Sitting, Cuff Size: Regular) Ht 5' 2.9 (1.598 m) Wt 91 lb 9.6 oz (41.5 kg) LMP 08/02/2017 (Exact Date) BMI 16.28 kg/m2 Blood Pressure: Blood pressure percentiles are 26.7 % systolic and 24.3 % diastolic based on NHBPEP's 4th Report. Estimated body mass index is 16.28 kg/(m^2) as calculated from the following: Height as of this encounter: 5' 2.9 (1.598 m). Weight as of this encounter: 91 lb 9.6 oz (41.5 kg). BMI % is 3 %ile based on CDC 2-20 Years BMI-for-age data using vitals from 08/11/2017. General-alert, active and cooperative Eyes-clear conjunctiva, ADAM, EOMI, flat disks bilaterally Ears-cohen TMs with no effusion seen. Nose,Throat- normal nose, dentition and oropharynx. Neck-supple without adenopathy or thyromegaly. Lungs-clear breath sounds bilaterally Breasts - Brodie stage 5. Heart- regular rate and rhythm with normal S1 and S2; no extra heart sounds heard. Abdomen-soft, non tender, no hepatosplenomegaly, no masses, no CVA tenderness. Back-no scoliosis. -pubic hair was Brodie stage 5. No inguinal hernia. Extremities - full ROM of extremities; good muscle strength and tone. Skin-no rash or birthmarks. Deep pink irregular macules on right upper inner thigh with no growth discrepancy Neuro: fundi with flat sharp discs,CN 2->12 intact. DTR's 2-3+ symmetric ankles, knees , brachialis. Normal NICOLAS, F->N, H->S, Romberg negative, strength grossly intact, normal gait. Well almost 17 year old, improved migraine headache frequency. Needs referral to neurology, will see if can be done internally. Will obtain additional immunization and other history. Follow up per above. documented in this encounter Plan of Treatment Upcoming Encounters Date Type Specialty Care Team Description 10/09/2022 Office Visit Internal Medicine James Matthews MD [address] [place], [place] 02 [facility] [phone] (Wo rk) documented as of this encounter Procedures Procedure Name Priority Date/Time Associated Diagnosis Comme nts SUBSTANCE ABUSE/ALCOHOL Routine 08/11/2017 9:20 AM Encounter f or routine ASSESSMENT/COUNSELING EDT child health examination without abnormal findings TOBACCO Routine 08/11/2017 9:20 AM Encounter for routine ASSESSMENT/COUNSELING EDT child health examination without abnormal findings SEATBELT COUNSELING Routine 08/11/2017 9:20 AM Encounter for r outine EDT child health examination without abnormal findings BRIEF Routine 08/11/2017 9:20 AM Encounter for routine EMOTIONAL/BEHAVIORAL EDT child health ASSESSMENT , W/ SCORING examination witho ut AND DOCUMENTATION, PER abnormal findings STANDARDIZED INSTRUMENT TUBERCULOSIS RISK Routine 08/11/2017 9:20 AM Encounter for rou ricardo ASSESSMENT: LOW EDT child health examination without abnormal findings documented in this encounter Visit Diagnoses Diagnosis Encounter for routine child health exami nation without abnormal findings - Primary Routine infant or child health check Food allergy: coconut Other adverse food reactions, not elsewh ere classified Medication intolerance: ibuprofen Other drug allergy Migraine with aura and without status mi grainosus, not intractable Migraine with aura, without mention of i ntractable migraine without mention of status migrainosus Motion sickness, initial encounter 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 Wears glasses Other specified conditions influencing h ealth status documented in this encounter Orders PROCEDURES Count Last Ordered Date First Ordered Date BRIEF EMOTIONAL/BEHAVIORAL ASSESSMENT , W/ 1 08/11 SCORING AND DOCUMENTATION, PER STANDARDIZED INSTRUMENT SEATBELT COUNSELING 1 08/11/2017 SUBSTANCE ABUSE/ALCOHOL 1 08/11/2017 ASSESSMENT/COUNSELING TOBACCO ASSESSMENT/COUNSELING 1 08/11/2017 TUBERCULOSIS RISK ASSESSMENT: LOW 1 08/11/2017 documented in this encounter Care Teams Carpet Tile Layer Relationship Specialty Start Date End Date Araceli Desai MD PCP - General Pediatrics 07/22/17 04/05/[address] [place] [address] Jose Drummond MD PCP - Payer 08/11/17 02/02/[address] [place] [phone] documented as of this encounter
--- OUTSIDE RECORDS SUMMARY | 2022-08-26 21:39 | XMS_ITS | Encounter Summary ---
:2001 Author Organization [facility] Address [address] [facility] [address] [place] [address] Care Team Providers Name Role Phone Araceli Desai Md Primary Care Provider Jose Drummond Md Unavailable [phone] Araceli Desai Md Unavailable Encounter Details Date Type Department Care Team Description 08/05/2017 Telephone [facility] Peds Administrative Encounter 485 [facility] (Primary Dx) [place] [phone] Social History Tobacco Use [...] Visit Internal Medicine James Matthews MD 485 [place], [place] [phone] (Wo rk) documented as of this encounter Visit Diagnoses Diagnosis Administrative encounter - Primary Encounters for unspecified administrativ e purpose documented in this encounter Care Teams Breaker Engineer Relationship Specialty Start Date End Date Araceli Desai MD PCP - General Pediatrics 07/22/17 04/05/[address] [place] [address] Jose Drummond MD PCP - Payer 08/11/17 02/02/[address] [place] [phone] Araceli Desai MD PCP - Payer 02/03/18 06/02/[address] [place] [phone] documented as of this encounter
--- OUTSIDE RECORDS SUMMARY | 2022-08-26 21:39 | XMS_ITS | Encounter Summary ---
:2001 Author Organization [facility] Address [address] [place] [address] [address] Care Team Providers Name Role Phone Araceli Desai Md Primary Care Provider Jose Drummond Md Unavailable [phone] Encounter Details Date Type Department Care Team Description 08/13/2017 Email Encounter [facility] Araceli Desai MD [address] [place] [phone] [place] [address] (Wo rk) Social History Tobacco [...] Office Visit Internal Medicine James Matthews MD [address] [place] [phone] (Wo rk) documented as of this encounter Visit Diagnoses Not on filedocumented in this encounter Care Teams Pipe Smoking Machine Operator Relationship Specialty Start Date End Date Araceli Desai MD PCP - General Pediatrics 07/22/17 04/05/[address] [place] [phone] Jose Drummond MD PCP - Payer 08/11/17 02/02/[address] [place] [phone] documented as of this encounter
--- OUTSIDE RECORDS SUMMARY | 2022-08-26 21:39 | XMS_ITS | Encounter Summary ---
:2001 [facility] Organization [facility] Address [address] [facility] [address] [place] [address] Care Team Providers Name Role Phone Araceli Desai Md Primary Care Provider Jose Drummond Md Unavailable [phone] Reason for Visit Reason Comments Return Call/ Call Back Encounter Details Date Type Department Care Team Description 08/12/2017 Telephone [facility] Peds Follow Up Re Referral. [address] [place] [address] (Primary Dx) [place] [address] Social History Tobacco Use [...] Telephone Encounter - Araceli Desai MD - 08/12/2017 4:50 PM EDT Spoke with mother. Let her know I was trying to have her see neurology within [facility] but minimum age is 17. Trying to figure out how to do the MRI at [place]. Will get back to mother. She [facility] Prefers early in day or late in day. documented in this encounter Plan of Treatment Upcoming Encounters Date Type Specialty Care Team Description 10/09/2022 Office Visit Internal Medicine James Matthews MD [address] [place] [address] [phone] (Wo rk) documented as of this encounter Visit Diagnoses Diagnosis Follow up re referral. - Primary documented in this encounter Care Teams Marketing Database Analyst Relationship Specialty Start Date End Date rAaceli Desai MD PCP - General Pediatrics 07/22/17 04/05/[address] [place] [address] Jose Drummond MD PCP - Payer 08/11/17 02/02/[address] [place] [phone] documented as of this encounter
--- OUTSIDE RECORDS SUMMARY | 2022-08-26 21:39 | XMS_ITS | Clinical Summary ---
:2001 Author Organization [facility] Address [address] [place] [address] Phone Care Team Providers Name Role Phone Required, No Pcp/Pcp Not Primary Care Provider Unavailable Allergies No known active allergies Medications Medication Sig Dispensed Refills Start Date End Date Status levETIRAcetam (KEPPRA) Take 1 tablet 60 tablet 0 04/29/2019 Active 500 MG tablet (500 mg total) by mouth 2 (two) times a day Social History Tobacco Use Types Packs/Day Years [...] Health Maintenance Due Date Last Done Comments COVID-19 Vaccine (#1) 02/22/2002 [facility] Topic HPV Vaccines (1 - 2-dose series) 2012 [facility] Topic Depression Screening 2013 [facility] Topic Chlamydia Screening 2017 [facility] Topic Meningococcal Group B Conjugate Vaccine (1 08/25/20 18 of 2 - Bexsero 2- dose series) [facility] TOPIC AUDIT-C 2019 [facility] TOPIC EDWIN 2019 [facility] TOPIC TOBACCO STATUS ASSESSED 2019 [facility] Topic Tdap Vaccine (1 - Tdap) 2020 [facility] Topic Influenza (Flu) Seasonal (#1) 2022 [facility] Topic Cervical Cancer Screening 2022 Insurance Payer Benefit Plan Subscriber ID Effective Dates Phone Address Type / Group [facility] [id number] 2019-Daniel [phone] [address] Other PILGRIM PILGRIM t 2 [facility] [address] [facility] [id number] 2018-Olga Lidia [phone] [address] [facility] [address] [place] [phone] Care Teams Import Export Manager Relationship Specialty Start Date End Date Required, No Pcp/Pcp Not PCP - General Flume Ride Operator 04/29/19 [address] [place] [address]
[2022-08-26 21:40] LABS: Chloride* 108 mmol/L (96-114); Potassium* 3.6 mmol/L (3.6-5.1); Sodium* 136 mmol/L (135-149)
--- OUTSIDE RECORDS SUMMARY | 2022-08-26 21:40 | XMS_ITS | Clinical Summary ---
:2001 Author Organization [facility] Address [phone] [facility] [employer] [place] [address] Care Team Providers Name Role Phone Araceli Desai MD Primary Care Provider Viri Stern RN Unavailable Ashanti Portillo RN CARDIAC Unavailable Michelle Matute MD Unavailable Allergies No known active allergies Medications Medication Sig Dispensed Refills Start Date End Date Status BLISOVI FE 1.5, 28, TK 1 T PO QD 12 09/18/2018 Active 1.5 mg-30 mcg (21)/75 mg (7) tablet SUMAtriptan (IMITREX) TK 1 T PO 1 TIME 0 08/29/2018 Active 100 MG tablet PRN DIRECTED. 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) Michelle Matute MD from Last 3 Months Social History Tobacco Use Types Packs/Day Years Used Date Smoking Tobacco: Never Smokeless Tobacco: Never Alcohol Use Standard Drinks/Week Comments No 0 (1 standard drink = 0.6 oz pure alcoho l) Sex Assigned at Date Recorded Not on file Last Filed Vital Signs Vital Sign Reading Time Taken Comments Blood Pressure 96/67 10/14/2018 4:59 PM EST Pulse 88 10/14/2018 4:59 PM EST Temperature 36.7 ??C (98 ??F) 11/07/2018 12:18 PM EST Respiratory Rate - - Oxygen Saturation 98% 11/07/2018 12:18 PM EST Inhaled Oxygen Concentration - - Weight 49.9 kg (110 lb) 11/07/2018 12:18 PM EST Height 160 cm (5' 3) 11/07/2018 12:18 PM EST Body Mass Index 19.49 11/07/2018 12:18 PM EST Plan of Treatment Health Maintenance Due Date Last Done Comments HEPATITIS B VACCINES (1 of 3 - 2001 3-dose series) MMR VACCINES (1 of 1 - 2002 Standard series) VARICELLA VACCINES (1 of 2 - 2002 2-dose childhood series) DEVELOPMENTAL/BEHAVIORAL 2004 SCREENING (PHQ, PSC, or SWYC) PNEUMOCOCCAL VACCINES (0-64 2007 years) (1 - PCV) COMBINED DTaP,Tdap,Td (1 - 2008 Tdap) HPV VACCINES (1 - 2-dose 2012 series) SMOKING Hx and SMOKELESS 2014 TOBACCO SCREENING CHLAMYDIA SCREENING 2017 ADOLESCENT UNIVERSAL LIPID 2018 SCREENING DEPRESSION SCREENING 2019 HEPATITIS C SCREENING 2019 HIV ONE-TIME SCREENING (18-65 2019 YEARS) COVID-19 VACCINE (3 - Booster 04/10/2021 02/13/2021, for Pfizer series) 01/23/2021 INFLUENZA VACCINE (#1) 2022 10/08/2021, 07/13/2018 HEPATITIS A VACCINES Aged Out No longer e ligible based on patient's age to complete this to pic HIB VACCINES Aged Out No longer eligib le based on patient's age to complete this to pic MENINGOCOCCAL VACCINES (ACWY) Aged Out No longer eligible based on patient's age to complete this to pic Medical Devices Not on file Insurance Payer Benefit Plan Subscriber ID Effective Dates Phone Address Type / Group [facility] [id number] 2017-Pres [phone] [address] HMO PILGRIM PILGRIM GIC ent 4 [place], [facility] [phone] CHOICE HMO Medin,Haley L Personal/Family Self 2000 [address] [facility] (Home) [address] [address] Medin,Haley L Personal/Family Self 2000 [address] [facility] (Home) [address] [address] Medin,Haley L Personal/Family Self 2000 [address] [facility] (Home) [address] [address] Medin,Haley L Personal/Family Self 2000 [address] [facility] (Home) [address] [address] Medin,Haley L Personal/Family Self [address] [place] [address] (Home[address] [address] Medin,Haley L Personal/Family Self [address] [place] [address] (Home[address] [address] Medin,Haley L Personal/Family Self [address] [place] [address] (Home) [address] [address] Medin,Haley L Personal/Family Self [address] [place] [address] (Home) [address] [address] Care Teams Oil Well Services Dispatcher Relationship Specialty Start Date End Date Araceli Desai MD PCP - General 10/14/[address] [place] [address] Viri Stern, RN Primary Infusion Nurse 03/03/19 [email or web address] Ashanti Portillo, Nurse Practitioner 03/07/19 RN [email or web address] Michelle Matute MD Primary Oncologist Pediatric Hematology 06/02/[address] [place] [address] [place] [address] [email or web address] Additional Source Comments The information contained in this document represents components of the legal health record. It is not the complete legal health record.[facility]
--- OUTSIDE RECORDS SUMMARY | 2022-08-26 21:40 | XMS_ITS | Encounter Summary ---
:2001 Author Organization [employer] [facility] Address [phone] [facility] [place] [address] Care Team Providers Name Role Phone Araceli Desai MD Primary Care Provider Aliya Johnson MD Unavailable Viri Stern RN Unavailable Ashanti Portillo CARTON MAKING MACHINE OPERATOR Unavailable Encounter Details Date Type Department Care Team Description 11/29/2019 Office Visit Pediatric Neuro Aliya Johnson Low grade glioma of cerebrum (Primary Dx); OncologyAngeline MD Seizure disorder; [facility]/[address] Encounter to discuss test results [place] [address] Blood Disorders [phone] (Wo rk) Center [address] [email or web address] Yesica [place], [address] [place] [address] Social History Tobacco Use Types Packs/Day Years Used Date Smoking Tobacco: Never Smokeless Tobacco: Never Alcohol Use Standard Drinks/Week Comments No 0 (1 standard drink = 0.6 oz pure alcoho l) Sex Assigned at Date Recorded Not on file documented as of this encounter Plan of Treatment Not on filedocumented as of this encounter Visit Diagnoses Diagnosis 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 Seizure disorder Unspecified epilepsy without mention of intractable epilepsy Encounter to discuss test results Other specified counseling documented in this encounter Care Teams Customer Development Manager Relationship Specialty Start Date End Date Araceli Desai MD PCP - General 10/14/[address] [place] [phone] Aliya Johnson Primary Oncologist Pediatric Hematology 03/03/19 06/01/22 MD Angeline and Oncology [email or web address] Viri Stern, RN Primary Infusion Nurse 03/03/19 [email or web address] Ashanti Portillo, Nurse Practitioner 03/07/19 CARTON MAKING MACHINE OPERATOR documented as of this encounter Additional Source Comments The information contained in this document represents components of the legal health record. It is not the complete legal health record.[facility]
--- OUTSIDE RECORDS SUMMARY | 2022-08-26 21:40 | XMS_ITS | Encounter Summary ---
:2001 Author Organization [employer] [facility] Address [phone] [facility] [place] [address] Care Team Providers Name Role Phone Araceli Desai MD Primary Care Provider Encounter Details Date Type Department Care Team Description 02/14/2019 Office Visit Pediatric Neuro Aliya Johnson Low grade glioma of brain (Primary Dx); OncologyAngeline MD Encounter to discuss test results; [facility]/[address] Encounter to discuss treatment options; [place] [address] Visual field defect Blood Disorders [phone] (Wo rk) [facility] Brianna [email or web address] Yesica [place], [place] [address] [place] [address] Social History Tobacco Use Types Packs/Day Years Used Date Smoking Tobacco: Never Smokeless Tobacco: Never Alcohol Use Standard Drinks/Week Comments No 0 (1 standard drink = 0.6 oz pure alcoho l) Sex Assigned at Date Recorded Not on file documented as of this encounter Plan of Treatment Not on filedocumented as of this encounter Visit Diagnoses Diagnosis Low grade glioma of brain - Primary Encounter to discuss test results Other specified counseling Encounter to discuss treatment options 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 It is not the complete legal health record.[facility]
--- OUTSIDE RECORDS SUMMARY | 2022-08-26 21:40 | XMS_ITS | Encounter Summary ---
:2001 Author Organization [facility] Address [phone] [place] [address] Care Team Providers Name Role Phone Araceli Desai MD Primary Care Provider Viri Stern RN Unavailable Ashanti Portillo EMBOSSED OR IMPRESSED LETTERING PAINTER Unavailable Michelle Matute MD Unavailable Encounter Details Date Type Department Care Team Description 06/09/2022 Office Visit Pediatric Neuro Aliya Johnson MD [address] [place] [address] [email or web address] Low grade glioma of Oncology, Michelle Matute MD [address] [place] [address] [email or web address] brain (Primary Dx) [facility] [address] [place] [id number] Social History Tobacco Use Types Packs/Day Years [...] Low grade glioma of brain - Primary documented in this encounter Care Teams Lead Manufacturing Technician Relationship Specialty Start Date End Date Araceli Desai MD PCP - General 10/14/[address] [place] [address] Viri Stern, RN Primary Infusion Nurse 03/03/19 [email or web address] Ashanti Portillo, Nurse Practitioner 03/07/19 EMBOSSED OR IMPRESSED LETTERING PAINTER Michelle Matute MD Primary Oncologist Pediatric Hematology 06/02/[address] [place] [address] [place] [address] [email or web address] documented as of this encounter Additional Source Comments The information contained in this document represents components of the legal health record. It is not the complete legal health record.[facility]
--- OUTSIDE RECORDS SUMMARY | 2022-08-26 21:40 | XMS_ITS | Encounter Summary ---
:2001 Author Organization [facility] Address [phone] [address] [place] [address] Care Team Providers Name Role Phone Araceli Desai MD Primary Care Provider Reason for Visit Reason Comments Sore Throat sore throat since 10/14 Encounter Details Date Type Department Care Team Description 11/07/2018 Office Visit [facility] Frandy Henao So re throat (Primary Urgent Care - [facility] Dx) [facility] [address] [place] [phone] (Wo rk) Social History Tobacco Use Types [...] Pressure - - Pulse - - Temperature 36.7 ??C (98 ??F) 11/07/2018 12:18 PM EST Respiratory Rate - - Oxygen Saturation 98% 11/07/2018 12:18 PM EST Inhaled Oxygen Concentration - - Weight 49.9 kg (110 lb) 11/07/2018 12:18 PM EST Height 160 cm (5' 3) 11/07/2018 12:18 PM EST Body Mass Index 19.49 11/07/2018 12:18 PM EST Body Mass Index Percentile 29.49 % 11/07/2018 12:[address] Growth Chart: [facility] (Girls, 2-20 Years) documented in this encounter Patient Instructions Patient InstructionsFrandy Henao NP - 11/07/2018 12:10 PM EST Recommendations for sore throats, upper respiratory illnesses and sinus infections 1. Drink plenty of decaffeinated fluids. This will help break up congestion, keeps your airways moist and keeps you from becoming dehydrated. 2. Warm salt water gargles and / or Hot decaffeinated tea (adding honey is a natural way to suppressyour cough and soothing to your throat). This will help get rid of post nasal drip covering the backof your throat. It is sticky like eggs stuck on a plate. Just as scrubbing with hot water gets rid of the eggs, gargling and warm fluids help to loosen the post nasal drip so you can cough it up. 3. Run a humidifier. Especially at night when you are sleeping. This also helps to keep your nose and respiratory passaged moist. It is a must if you have a sore throat or have hoarseness. Dry environments make this worse. 4. Steam Inhalations. Instructions: boil about a cup of water and then pour it in a bowl. Put a towel over your head and position your face over the steamy bowl of water. Careful not to get too close. This is an excellent way to relieve sinus pain / pressure and to moisten your airways. Also great forsore throats and hoarseness. 5. Saline Nasal [place]. (My favorite is Simply Saline Nasal Mist). Instructions: Do two sprays each nostril every 2-3 hours as needed. This acts as a natural decongestant without drying out your respiratory passages. It also helps make it easier to blow your nose and keeps your nasal passages moist. Itis great for folks who get bloody noses from repeatedly blowing their nose. Do this instead of sniffling. 6. Steroid Nasal Inhaler (Ex: Flonase / Nasacort). Instructions: two sprays each nostril daily. These help to shrink down your nasal turbinates??? and only need to be used once daily. Use saline spray prior to administrating to help create a clear passage. It does take a few days for the steroid inhalers to reach their full potential so do not become discouraged if you do not feel immediate relief. 7. Topical nasal decongestant. (Afrin - oxymetazoline). Instructions: two sprays each nostril twice a day as needed. This is a great addition for the first three days of steroid nasal inhaler use. It gives immediate relief but should not be used more than 3 days. Recommended patient follow above recommendations more consistently. Patient is to follow up with PCPif no improvement in symptoms in 5 days. documented in this encounter Progress Notes Frandy Henao NP - 11/07/2018 12:10 PM EST Subjective: Patient ID: Haley Garcia is a 18 y.o. female. Patient seen on 10/14/18 for sore throat. Had negative rapid strep at that time. Seen by PCP for an ear infection on 10/21/18 and treated with Amoxicillin. Patient reports her throat has waxed and waned since 10/14/18. For the past week throat has felt worse, especially when swallowing. Reports she sometimes runs humidifier at night. Has tried drinking decaf tea at most once a day. Does not do gargles. Did not do saline mist that was recommended either. Sore Throat This is a new problem. The current episode started more than 1 month ago. The problem has been waxing and waning. Neither side of throat is experiencing more pain than the other. There has been no fever. The pain is at a severity of 4/10. The pain is mild. Associated symptoms include coughing. Pertinent negatives include no abdominal pain, congestion, diarrhea, drooling, ear discharge, ear pain, headaches, hoarse voice, plugged ear sensation, neck pain, shortness of breath, stridor, swollen glands, trouble swallowing or vomiting. She has had no exposure to strep. Treatments tried: decaf tea and sometimes humidifier, lozenges. The treatment provided mild relief. Review of Systems Constitutional: Negative. HENT: Positive for sore throat. Negative for congestion, drooling, ear discharge, ear pain, hoarse voice and trouble swallowing. Eyes: Negative. Respiratory: Positive for cough. Negative for shortness of breath and stridor. Cardiovascular: Negative. Gastrointestinal: Negative. Negative for abdominal pain, diarrhea and vomiting. Endocrine: Negative. Genitourinary: Negative. Musculoskeletal: Negative. Negative for neck pain. Skin: Negative. Allergic/Immunologic: Negative. Neurological: Negative. Negative for headaches. Hematological: Negative. Psychiatric/Behavioral: Negative. Objective: Physical Exam Constitutional: She is oriented to person, place, and time. Vital signs are normal. She appears well-developed and well-nourished. Non-toxic appearance. No distress. HENT: Head: Normocephalic and atraumatic. Right Ear: Hearing, tympanic membrane, external ear and ear canal normal. Left Ear: Hearing, external ear and ear canal normal. Tympanic membrane is injected. Nose: Mucosal edema and rhinorrhea present. Right sinus exhibits no maxillary sinus tenderness and no frontal sinus tenderness. Left sinus exhibits no maxillary sinus tenderness and no frontal sinus tenderness. Mouth/Throat: Uvula is midline and mucous membranes are normal. Posterior oropharyngeal erythema (cobblestoning) present. Tonsils are 1+ on the right. Tonsils are 1+ on the left. No tonsillar exudate. Eyes: EOM are normal. Pupils are equal, round, and reactive to light. No scleral icterus. Neck: Normal range of motion. Neck supple. Cardiovascular: Normal rate, regular rhythm and normal heart sounds. No murmur heard. Pulmonary/Chest: Effort normal and breath sounds normal. No respiratory distress. Abdominal: Soft. She exhibits no distension. There is no tenderness. There is no rebound and no guarding. Musculoskeletal: Normal range of motion. She exhibits no edema. Lymphadenopathy: She has cervical adenopathy. Right cervical: Superficial cervical adenopathy present. Left cervical: Superficial cervical adenopathy present. Neurological: She is alert and oriented to person, place, and time. She has normal strength. No cranial nerve deficit or sensory deficit. Skin: Skin is warm and dry. No rash noted. She is not diaphoretic. No pallor. Psychiatric: She has a normal mood and affect. Nursing note and vitals reviewed. Assessment/Plan: Diagnosis Plan 1. Sore throat Throat culture POCT Rapid Strep A Procedure: Procedures documented in this encounter Plan of Treatment Not on filedocumented as of this encounter Procedures Procedure Name Priority Date/Time Associated Diagnosis Comme nts POCT RAPID STREP A Routine 11/07/2018 12:44 PM Sore throat Re sults for this EST procedure are i n the results section. documented in this encounter Results POCT Rapid Strep A (11/07/2018 12:44 PM EST) [facility] gist Method Time Signature Rapid Strep A Negative, Negative PUC Internal QCs [facility] acceptable Specimen (Source) Anatomical Collection Method Collection Time Re ceived Time Location / / Volume Laterality Other 11/07/2018 12:44 PM EST Frandy Henao [facility] POINT OF CARE TEST ORDERABLE S Performing Organization Address City/[facility]/ZIP Code Phon e Number [facility] [address] [place] [address] Throat culture (11/07/2018 12:43 PM EST) Component Value Ref Test Analysis Performed At [facility] Style Jukebox Range Method Time Signature Specimen THROAT THROAT [facility] Source/ LABORATORIES Description Special None [facility] Requests LABORATORIES Culture/Test NO BETA [facility] HEMOLYTIC LABORATORIES STREPTOCOCCUS ISOLATED Report Status 11/09/[address] [facility] Specimen Anatomical Collection Method Collection Time Receive d Time (Source) Location / / Volume Laterality Throat 11/07/2018 12:43 11/07/2018 PM EST 10:43 PM EST Frandy Henao [facility] MICROBIOLOGY - GENERAL ORDER RADHA Performing Organization Address City/State/ZIP Code Phon e Number [facility] [address] [place] [phone] documented in this encounter Visit Diagnoses Diagnosis Sore throat - Primary Acute pharyngitis documented in this encounter Care Teams Motion Picture Camera Lens Technician Relationship Specialty Start Date End Date Araceli Desai MD PCP - General 10/14/[address] [place] [address] documented as of this encounter Additional Source Comments The information contained in this document represents components of the legal health record. It is not the complete legal health record.[facility]
--- OUTSIDE RECORDS SUMMARY | 2022-08-26 21:40 | XMS_ITS | Encounter Summary ---
:2001 Author Organization [employer] [facility] Address [phone] Formerly [facility] [address] [place] [address] Care Team Providers Name Role Phone Araceli Desai MD Primary Care Provider Aliya Johnson MD Unavailable Birgit Pham MD Unavailable Viri Stern RN Unavailable Ashanti Portillo DEPUTY GRAND JURY Unavailable Encounter Details Date Type Department Care Team Description 05/10/2019 Office Visit Pediatric Neuro Aliya Johnson Low grade glioma of cerebrum (Primary Dx); OncologyAngeline MD Anxiety; [facility]/[address] Encounter to discuss test results [place] [address] Blood Disorders [phone] (Wo rk) Center [facility] Juan Pablo [email or web address] Yesica Leal, [address] [place] [address] Social History Tobacco Use Types Packs/Day Years [...] 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 Anxiety Anxiety state, unspecified Encounter to discuss test results Other specified counseling documented in this encounter Care Teams Bookkeeper Assistant Relationship Specialty Start Date End Date Araceli Desai MD PCP - General 10/14/[address] [place] [id number] Aliya Johnson Primary Oncologist Pediatric Hematology 03/03/19 06/01/22 MD Angeline and Oncology [email or web address] Birgit Pham, Fellow Oncologist Pediatrics 03/03/1905/14 Viri Stern, RN Primary Infusion Nurse 03/03/19 [email or web address] Ashanti Portillo, Nurse Practitioner 03/07/19 DEPUTY GRAND JURY documented as of this encounter Additional Source Comments The information contained in this document represents components of the legal health record. It is not the complete legal health record.[facility]
--- OUTSIDE RECORDS SUMMARY | 2022-08-26 21:40 | XMS_ITS | Encounter Summary ---
:2001 Author Organization [employer] [facility] Address [phone] Formerly [facility] [place] [address] Care Team Providers Name Role Phone Araceli Desai MD Primary Care Provider Aliya Johnson MD Unavailable Viri Stern RN Unavailable Ashanti Portillo SOFTWARE BUSINESS ANALYST Unavailable Encounter Details Date Type Department Care Team Description 08/23/2019 Office Visit Pediatric Neuro Aspen Carreno Low gr ade glioma of Oncology, , PhD brain (Primary Dx) [facility] [address] Blood Disorders [address] [place] [address] [facility] [email or web address] YesicaBurgess, [address] [place] [address] Social History Tobacco Use Types Packs/Day Years [...] Primary documented in this encounter Care Teams Accounting Director Relationship Specialty Start Date End Date Araceli Desai MD PCP - General 10/14/[address] [place] [phone] Aliya Johnson Primary Oncologist Pediatric Hematology 03/03/19 06/01/22 MD Angeline and Oncology [email or web address] Viri Stern, RN Primary Infusion Nurse 03/03/19 [email or web address] Ashanti Portillo, Nurse Practitioner 03/07/19 [email or web address] [email or web address] documented as of this encounter Additional Source Comments The information contained in this document represents components of the legal health record. It is not the complete legal health record.[facility]
--- OUTSIDE RECORDS SUMMARY | 2022-08-26 21:40 | XMS_ITS | Encounter Summary ---
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 Encounter Details Date Type Department Care Team Description 01/16/2021 Orders Only COVID Vaccine Clinic, Scheduling, [facility] En counter for [facility] Ordering User imm unization [place] To Enable Vaccine [address] [phone] Social History Tobacco Use Types Packs/Day Years Used Date Smoking Tobacco: Never Smokeless Tobacco: Never Alcohol Use Standard Drinks/Week Comments No 0 (1 standard drink = 0.6 oz pure alcoho l) Sex Assigned at Date Recorded Not on file documented as of this encounter Plan of Treatment Not on filedocumented as of this encounter Visit Diagnoses Diagnosis Encounter for immunization documented in this encounter Care Teams Dental Floss Packer Relationship Specialty Start Date End Date Araceli Desai MD PCP - General 10/14/[address] [place] [address] [phone] Aliya Johnson Primary Oncologist Pediatric Hematology 03/03/19 06/01/22 MD Angeline and Oncology [email or web address] Viri Stern, RN Primary Infusion Nurse 03/03/19 [email or web address] Ashanti Portillo, Nurse Practitioner 03/07/19 [facility] [email or web address] documented as of this encounter Additional Source Comments The information contained in this document represents components of the legal health record. It is not the complete legal health record.[facility]
--- OUTSIDE RECORDS SUMMARY | 2022-08-26 21:40 | XMS_ITS | Encounter Summary ---
:2000 Author Organization [facility] Address [address] [facility], [address] [place] [address] Care Team Providers Name Role Phone Araceli Desai MD Primary Care Provider Reason for Visit Reason Comments Headache Fever Encounter Details Date Type Department Care Team Description 10/19/2018 Emergency [facility] Monty Winters MD Department [address] [place] [id number] [place] [address] [phone] Social History Tobacco Use Types Packs/Day Years [...] documented in this encounter Discharge Instructions Discharge InstructionsTomarcial Winters MD - 10/19/2018 11:35 PM EST You were seen today primarily by the physician assistant center director. However, you were also seen and evaluated fully by an attending physician. If you have any questions for the attending physician or would like to see them prior to discharge, you may request to do so. You were seen in the ER today for evaluation of recent URI symptoms, fever, and headache. While in the ER your exam was overall reassuring. You had blood work, urinalysis, chest x-ray, flu swab, and rapid strep testing. The blood work was noted for a slightly elevated white blood cell count. The chest x-ray did not show signs of pneumonia. The urinalysis does not show signs of infection. The rapid strep is negative. Influenza swabs are negative. While in the department we discussed the possibility of meningitis and the need for a lumbar puncture for diagnosis. At this time after discussion of the risks and benefits you/her parents would not like to proceed with the lumbar puncture. As we discussed, it is possible that you may have viral meningitis but without the lumbar puncture will not be able to formally diagnose this. Also, we noted that your heart rate was elevated while in the emergency department. We treated you with intravenous fluids to correct for dehydration, and also with antifever medicines to correct for elevated temperature. Some of the elevated heart rate may be related to anxiety caused by being in the healthcare setting. I recommend that you have your heart rate rechecked by your physician at sometime in the near future. Please follow-up closely with your PCP. Please stay well-hydrated plenty of fluids. Please use Tylenol and ibuprofen at home for discomfort and fever control. Acetaminophen (Tylenol) 500-1000 mg every 4 hrs (but no more than 3000 mg in one day!). Please return to the ER for any new or worsening symptoms including continued fever, changes or worsening of her headache, stiffness, alterations in mental status, vision changes, chest pain, difficulty breathing, vomiting, coughing up blood, urinary symptoms, numbness, tingling, speech changes, gait changes, difficulty moving arms or leg, or any other concerning symptoms. documented in this encounter Medications at Time of Discharge Medication Sig Dispensed Refills Start Date End Date SUMAtriptan (IMITREX) 100 Take 100 mg by mouth 0 mg tablet daily as needed for migraine. May repeat dose once in 2 hours if no relief. Do not exceed 2 doses in 24 hours. documented as of this encounter ED Notes Carri Zapata RN - 10/19/2018 11:42 PM EST D/c instructions discussed, questions answered, pt verbalized understanding. Pt ambulatory on d/c, accompanied by family, steady gait observed, no distress noted. Carri Zapata RN 10/19/18 8540 Carri Zapata RN - 10/19/2018 11:30 PM EST Family very anxious and wants to leave stating we've been here a long time. Provider notified and is now at bedside to speak with pt and family. Carri Zapata RN 10/19/18 1461 Rasta Cole RN - 10/19/2018 5:18 PM EST Pt c/o fever 101.5 and migraine last night and went away. This morning the migraine came back since 10 am. Nausea no vomiting Monty Winters MD - 10/19/2018 5:04 PM EST Images from the original note were not included. ATTENDING PHYSICIAN ATTESTATION NOTE (PA-C) Date of Emergency Department Visit: 10/19/2018 I have performed a history and physical examination of the patient and discussed her management withthe PA-C. I have reviewed the PA-C's note, documented findings and plan of care. Exceptions, if any,are noted below. Please see the PA note for details regarding this case. On my history, she reports feeling sick for 7 days. Initial symptoms were sore throat and rhinorrhea. Today she manifested fever for the first time. She also developed headache. This was bitemporal andretro-orbital. It was associated with the sore throat and the runny nose. There is never any symptoms of meningismus or neck stiffness. She never had any alterations in her mental status. She never developed a rash. There are no pulmonary symptoms, abdominal symptoms, or dysuria. On exam, when I saw her, she was quite well-appearing. Initially febrile, her fever had broken. Heart rates, when looking at her from the panel monitor from a far, were in the 110 range. However, when I entered the room, she became quite anxious, and her heart rate would go up to 140 or so. Her physical exam was unrevealing. Pupils round and reactive to light. Her neck was completely supple in flexion and extension. The jolt accentuation maneuver was normal. Her mental status was sharp and crisp, normal. The neurologic exam was nonfocal. Lungs clear, no heart murmurs, abdomen soft nontender, no arthritis noted, no rashes noted, but completely benign. Presumptively this is a viral illness as there is no focal bacterial source found. Certainly meningitis was very carefully considered in this case, given headache as a primary symptom. That being said,her neck is completely supple and her mental status is completely normal. Certainly, there does not appear to be any evidence for bacterial meningitis, although she surely may have a mild case of viralmeningitis. This diagnostic thinking was discussed in detail with the patient and the family, multiple times, by both the PA and myself. The patient is quite nervous about a potential lumbar puncture, and neither she nor her family want to proceed with this. They do understand that she may have undiagn osed meningitis. Regarding this, exquisitely detail the discharge instructions were provided for thepatient. She was observed here in the emergency department for multiple hours. She remained tachycardic, however the seem to be greatly exacerbated whenever I entered the room, probably related to a white coat sort of syndrome. She did receive 3 L of intravenous fluids and antipyretics. After this treatment, she and the family were quite anxious with a disposition of discharged home. They understand that she has persistent tachycardia. They understand this is abnormal and that we would like to observe her longer. They will follow-up with primary care, and they will return if there are any worsening symptoms. See the PA-C's note for additional details. - - - - - - - - - - - - - - - - - - - - - - - - - - - - - - - - - - - - - - - - - - - - - - - - - - - - - - - - - - - - - - - - Details of any procedures performed during this visit are documented separately in Procedure Notes. All nursing notes and information was reviewed during this visit. Portions of this electronic health record were generated with voice-recognition software. Monty Winters MD 10/20/18 0151 Сергей Duque PA - 10/19/2018 5:04 PM EST Images from the original note were not included. Date of Emergency Department Visit: 10/19/2018 HISTORY OF PRESENT ILLNESS Triage chief complaint: Headache and Fever Haley Garcia is a 18 y.o.female with a history of migraine headaches who presents today for URI symptoms, headache, and fever. Patient states she has had nasal congestion, sore throat, runny nose, and a mild nonproductive cough for approximately 6 or 7 days. Patient states she has had intermittent headaches this week which have been coming and going. Patient states today she noted a fever of 101 ??F at home. Patient states around 10 AM she had gradual onset with worsening of a headache which is frontal in nature behind her eyes and her forehead. Patient states this is in similar location though slightly larger area compared to her previous headaches. Patient took her sumatriptan without much relief. Since arrival patient is received IV fluids and Tylenol given by triage nurse and she states her headache is improved from 8.5 to a 6 out of 10. Patient has had no vomiting. Patient has had multiple sick contacts at home including her father and her boyfriend as well. Patient is currently in high school. Patient denies any vision changes, chest pain, difficulty breathing, vomiting, urinary symptoms, leg swelling, numbness, tingling, any focal weakness. REVIEW OF SYSTEMS Constitutional: ( - ) fever; ( - ) chills HEENT: ( - ) visual changes; ( - ) sore throat Respiratory: ( - ) cough; ( - ) dyspnea Cardiovascular: ( - ) chest pain; ( - ) palpitations Gastrointestinal: ( - ) abdominal pain; ( - ) nausea Genitourinary: ( - ) dysuria; ( - ) flank pain Neurologic: ( - ) focal numbness; ( - ) focal weakness Integumentary: ( - ) rash; ( - ) lesions See HPI for additional details. All other systems reviewed and are negative. PAST HISTORY Past Medical History She has a past medical history of Migraine. Problem List Shedoes not have a problem list on file. Past Surgical History She has a past surgical history that includes Elevation of depressed skull fracture. Family History Her family history is not on file. Social History She reports that she has never smoked. She has never used smokeless tobacco. She reports that she does not drink alcohol or use drugs. CURRENT MEDICATIONS AND ALLERGIES Current Medications Current Facility-Administered Medications: ??? sodium chloride 0.9 % bolus 1,000 mL, 1,000 mL, intravenous, Once, CATRACHO Ornelas, Last Rate: 1,000 mL/hr at 10/19/182216, 1,000 mL at 10/19/182216 Current Outpatient Medications: ??? SUMAtriptan (IMITREX) 100 mg tablet, Take 100 mg by mouth daily as needed for migraine. May repeat dose once in 2 hours if no relief. Do not exceed 2 doses in 24 hours., Disp: , Rfl: Allergies Patient has no known allergies. PHYSICAL EXAMINATION Triage vital signs: Blood pressure 107/45, pulse (!) 133, temperature 98.7 ??F, temperature source Oral, resp. rate 16, SpO2 98 %. Constitutional: No acute distress. No diaphoresis. Nontoxic in appearance. Head: NCAT Eyes: Normal ocular motions. Normal conjunctiva. ENT: Moist membranes. No oral lesions. No epistaxis. Posterior oropharynx mildly erythematous without tonsillar edema or exudate. Neck: Supple, nontender, no meningismus. Cardiovascular: Regular rhythm. Intact radial pulses. Respiratory: Normal respiratory rate. Normal respiratory effort. Clear to auscultation bilaterally. Gastrointestinal: Abdomen non-distended. Non-tender throughout. Genitourinary: Deferred. Back: No CVAT bilaterally Musculoskeletal: Normal range of motion. No deformities. No LE edema bilaterally. Integumentary: Warm. No rashes. Neurologic: Awake and alert. Normal muscle tone. Cranial nerves II through XII intact. Strength and sensation intact and symmetric throughout bilateral upper and lower 70s. Clear speech. Steady gait. DATA Radiology X-ray Chest 2 Views Preliminary Result Normal chest radiographs. Dictated: 10/19/2018 9:00 PM Report ID: [id number] Reported By: Pratik Beatty M.D. (resident) ([id number]) Laboratory Labs Reviewed CBC WITH AUTO DIFFERENTIAL - Abnormal Result Value WBC 14.98 (*) nRBC 0 RBC 4.29 HGB 12.4 HCT 36.9 (*) MCV 86.0 MCH 28.9 MCHC 33.6 PLT 264 RDW-CV 14.0 Segmented % 87.9 (*) ABS Neutrophil 13.16 (*) Lymphocytes % 5.9 (*) ABS Lymphocyte 0.89 (*) Monocytes % 5.6 Eosinophils % 0.0 Basophil % 0.3 IMM GRAN 0.3 BASIC METABOLIC PANEL - Abnormal Sodium 138 Potassium 3.9 CHLORIDE 105 CARBON DIOXIDE, TOTAL 21.0 (*) ANION GAP 12.0 GLUCOSE 127 (*) BUN 6 (*) CREATININE 0.5 CALCIUM 9.3 URINALYSIS - Abnormal URINE SEDIMENTATION REQUIRED? Yes Color Light Yellow TURBIDITY Clear SG 1.002 pH, Urine 7.0 Bile Negative Albumin Negative Glucose Negative Ketones Trace (*) Blood Negative WBC esterase Negative Nitrite Negative WBC 0-5 RBC 0-5 EPITH CELLS 0-5 WBC Clumps None Seen INFLUENZA A/B ANTIGENS, RAPID - Normal Influenza A Ag, EIA Negative Influenza B Ag, EIA Negative GROUP A STREP ANTIGEN - Normal Strep A Ag Negative HCG, SERUM, QUALITATIVE - Normal HCG SERUM QUAL Negative THROAT CULTURE RAINBOW DRAW Narrative: The following orders were created for panel order [place] draw. Procedure Abnormality Status --------- ------ Gold Top[[id number]] Final result Gold Top[[id number]] Final result Light Blue Top[[id number]] Final result Lavender Top[[id number]] Red Top[[id number]] Final result Please view results for these tests on the individual orders. GOLD TOP GOLD TOP LIGHT BLUE TOP RED TOP ED COURSE, ASSESSMENT, AND PLAN Emergency Department Course Assessment and Plan Patient is a 18-year-old female with a history of migraine headaches who presents today for URI symptoms, headache, and fever. Patient here is overall nontoxic in appearance and has a nonfocal neurologic examination. Patient has mild posterior oropharynx erythema without tonsillar edema or exudate. Atthis time will plan for infectious workup including blood work, urinalysis, rapid strep, influenza, and chest x-ray imaging. Patient treated with IV fluids and Tylenol by nursing staff at triage. At this time consideration for viral illness, strep pharyngitis, influenza, and consideration for possiblemeningitis. Patient noted for leukocytosis of almost 15. HCG is negative. Rapid strep is negative. Influenza swabs are negative. Urinalysis without signs of infection. No gross electrolyte derangements. Patient was initially treated with Tylenol which somewhat improved her fever. We will plan for further IV fluids. X-ray clear. Workup is overall reassuring. At this time I had lengthy discussion with patient and both of her parents about the possibility of an nontoxic and has no numbness or a lengthy discussion about the risksand benefits of evaluation for meningitis with lumbar puncture. After further discussion and discussion of risks and benefits family declines LP. I did discuss the possibility of viral meningitis as well and that without lumbar puncture bacterial or viral meningitis will not be formally diagnosed. They accept this at this time and agree with plan for discharge and follow-up. Patient continues to be mildly tachycardic, treated with further IV fluids. Headache is drastically improved following medications. Patient still mildly tachycardic here, treated with IV fluids further. Patient and family still comfortable plan for discharge and follow-up following IV fluids. Remainder of care was signed out to at 2300 pending further IV fluids and likely discharge home. Procedures Details of any procedures performed during this visit are documented separately in Procedure Notes. Diagnosis Final diagnoses: [R51] Nonintractable headache, unspecified chronicity pattern, unspecified headache type [J06.9] Upper respiratory tract infection, unspecified type Disposition Signed out to Dr. Winters Condition Stable CATRACHO Ornelas October 19, 2018, 10:59 PM - - - - - - - - - - - - - - - - - - - - - - - - - - - - - - - - - - - - - - - - - - - - - - - - - - - - - - - - - - - - - - - - All nursing notes and information was reviewed during this visit. Portions of this electronic health record were generated with voice-recognition software. CATRACHO Ornelas 10/19/18 2259 documented in this encounter Plan of Treatment Not on filedocumented as of this encounter Procedures Procedure Name Priority Date/Time Associated Comments Diagnosis XR CHEST 2 VW STAT 10/19/2018 8:50 PM Results for this EST procedure are i n the results section. INFLUENZA A/B STAT 10/19/2018 8:27 PM Results for this ANTIGENS, RAPID EST procedure ar e in the results section. GROUP A STREP ANTIGEN STAT 10/19/2018 8:27 PM Results for this EST procedure are i n the results section. URINALYSIS STAT 10/19/2018 8:27 PM Results f or this EST procedure are i n the results section. THROAT CULTURE Routine 10/19/2018 8:27 PM Results for this EST procedure are i n the results section. GOLD TOP STAT 10/19/2018 7:03 PM EST GOLD TOP STAT 10/19/2018 7:03 PM EST CBC WITH AUTO STAT 10/19/2018 7:03 PM Results for this DIFFERENTIAL EST procedure are i n the results section. RED TOP STAT 10/19/2018 7:03 PM EST LIGHT BLUE TOP STAT 10/19/2018 7:03 PM EST RAINBOW DRAW STAT 10/19/2018 7:03 PM Results f or this EST procedure are i n the results section. HCG, SERUM, STAT 10/19/2018 7:03 PM Results f or this QUALITATIVE EST procedure are i n the results section. BASIC METABOLIC PANEL STAT 10/19/2018 7:03 PM Results for this EST procedure are i n the results section. documented in this encounter Results X-ray Chest 2 Views (10/19/2018 8:50 PM EST) Anatomical Region Laterality Modality Chest Digital Radiography Specimen (Source) Anatomical Collection Method Collection Time Re ceived Time Location / / Volume Laterality 10/19/2018 8:40 PM EST Impressions 10/20/2018 12:48 PM EST Normal chest radiographs. I, the attending physician, attest that I have performed and/or supervised the resident for the lanier and critical components of this procedure. I have personally reviewed th e images pertinent to this examination and agree with the interpret ation. Dictated: 10/20/2018 12:48 PM Report ID: [id number] Report signed in external system at 10/20 12:48 Reported By: Pratik Beatty M.D. (patricia t) ([id number]) Signed By: Martín Gallagher M.D. (PEDRO Cervantes) Narrative 10/20/2018 12:48 PM EST RESPONSIBLE RELAY TELEGRAPHER: Martín Gallagher M.D. EXAMINATION: XR CHEST 2 VW CLINICAL INDICATION: Cough, fever. TECHNIQUE: PA and lateral views of the chest. COMPARISON: None. FINDINGS: The lungs are well inflated. ??There are no focal airspace consolidations. There are no pleural effusions. No pneum othorax. The cardiomediastinal silhouette is norm al. ?? The bones and soft tissues are normal. Procedure Note Martín Gallagher MD - 10/20/2018For matting of this note might be different from the original. RESPONSIBLE RELAY TELEGRAPHER: Martín Gallagher M.D. EXAMINATION: XR CHEST 2 VW CLINICAL INDICATION: Cough, fever. TECHNIQUE: PA and lateral views of the chest. COMPARISON: None. FINDINGS: The lungs are well inflated. There are n o focal airspace consolidations. There are no pleural effusions. No pneum othorax. The cardiomediastinal silhouette is norm al. The bones and soft tissues are normal. IMPRESSION: Normal chest radiographs. I, the attending physician, attest that I have performed and/or supervised the resident for the lanier and critical components of this procedure. I have personally reviewed e images pertinent to this examination and agree with the interpret ation. Dictated: 10/20/2018 12:48 PM Report ID: [id number] Report signed in external system at 10/20 12:48 Reported By: Pratik Beatty M.D. (patricia t) ([id number]) Signed By: Martín Gallagher M.D. (PEDRO Cervantes) [facility] IMG XR PROCEDURES Throat culture (10/19/2018 8:27 PM EST) [facility] Method Time Signature Throat Culture Normal oral 10/21/2018 [facility] liset 11:51 AM EST HOSPITAL LAB[facility]ORY Specimen Anatomical Collection Method Collection Time Receive d Time (Source) Location / / Volume Laterality Swab Pharyngeal Non-blood 10/19/2018 8:27 PM 9 8:30 structure / Collection / EST PM EST Unknown Unknown [facility] LAB MICROBIOLOGY - GENERAL O RDERABLES Performing Organization Address City/State/ZIP Code Phon e Number [facility] [address] [place] [address] LABORATORY Group A strep test, rapid (10/19/2018 8:27 PM EST) P athologist Signature Strep A Ag Negative Negative 10/19/2018 [place] 8:47 PM EST HOSPITAL LAB[facility]ATORY Specimen Anatomical Collection Method Collection Time Receive d Time (Source) Location / / Volume Laterality Swab Pharyngeal Non-blood 10/19/2018 8:27 PM 9 8:30 structure / Collection / EST PM EST Unknown Unknown [facility] LAB MICROBIOLOGY - GENERAL O [place] Performing Organization Address City/[facility]/ZIP Code Phon e Number [address] [address] LABORATORY Influenza A/B Antigens, rapid (10/19/2018 8:27 PM EST) Analysis Performed At Patho logist Time Signature Influenza A Ag Negative Negative 10/19/2018 [place] 8:51 PM EST HOSPITAL LAB[facility]ATORY Influenza B Ag Negative Negative 10/19/2018 [place] 8:51 PM EST HOSPITAL LAB[facility]ATORY Specimen Anatomical Location / Collection Method Collection Yifan e Received Time (Source) Laterality / Volume Swab Nasopharyngeal Non-blood 10/19/2018 8:27 10/19/2018 8:30 structure / Unknown Collection / PM EST PM EST Unknown [facility] LAB MICROBIOLOGY - GENERAL O [place] Performing Organization Address City/[facility]/ZIP Code Phon e Number [address] [address] LABORATORY (ABNORMAL) Urinalysis (10/19/2018 8:27 PM EST) Analysis Performed At Patho logist Time Signature URINE Yes LAB 10/19/2018 [place] SEDIMENTATION URINALYSIS - 8:58 PM HOSPITAL REQUIRED? AUTOMATED EST LABORATORY METHOD Color Light 10/19/2018 [place] Yellow 8:58 PM HOSPITAL EST LABORATORY TURBIDITY Clear CLEAR 10/19/2018 [place] 8:58 PM HOSPITAL EST LABORATORY SG 1.002 1.002 - 10/19/2018 [place] 1.030 8:58 PM HOSPITAL EST LABORATORY pH, Urine 7.0 5.0 - 8.0 10/19/2018 [facility] 8:58 PM HOSPITAL EST LABORATORY Bile Negative Negative 10/19/2018 [place] 8:58 PM HOSPITAL EST LABORATORY Albumin Negative Negative 10/19/2018 [place] 8:58 PM HOSPITAL EST LABORATORY Glucose Negative Negative 10/19/2018 [facility] 8:58 PM HOSPITAL EST LABORATORY Ketones Trace (A) Negative 10/19/2018 [facility] 8:58 PM HOSPITAL EST LABORATORY Blood Negative Negative 10/19/2018 [facility] 8:58 PM HOSPITAL EST LABORATORY WBC esterase Negative Negative 10/19/2018 [facility] 8:58 PM HOSPITAL EST LABORATORY Nitrite Negative Negative 10/19/2018 [place] 8:58 PM HOSPITAL EST LABORATORY WBC 0-5 0 - 5 /HPF LAB 10/19/2018 [place] URINALYSIS - 8:58 PM HOSPITAL AUTOMATED EST LABORATORY METHOD RBC 0-5 0 - 5 /HPF LAB 10/19/2018 [place] [facility] URINALYSIS - 8:58 PM HOSPITAL AUTOMATED EST LABORATORY METHOD EPITH CELLS 0-5 0 - 5 /HPF LAB 10/19/2018 [place] URINALYSIS - 8:58 PM HOSPITAL AUTOMATED EST LABORATORY METHOD WBC Clumps None Seen None Seen LAB 10/19/2018 [facility] /HPF URINALYSIS - 8:58 PM HOSPITAL AUTOMATED EST LABORATORY METHOD Specimen Anatomical Collection Method Collection Time Receive d Time (Source) Location / / Volume Laterality Urine Urine specimen Non-blood 10/19/2018 8:27 PM 019 8:31 collection, clean Collection / EST PM EST catch / Unknown Unknown Monty Winters MD LAB URINE ORDERABLES Performing Organization Address City/[facility]/ZIP Code Phon e Number [place] [address] LABORATORY Red Top (10/19/2018 7:03 PM EST) Specimen Anatomical Collection Method / Collection Time Recei olman Time (Source) Location / Volume Laterality Blood Venous blood / Venipuncture / 10/19/2018 7:03 10/19/19 19 7:10 Unknown Unknown PM EST PM EST Monty Winters MD LAB BLOOD ORDERABLES Performing Organization Address City/State/ZIP Code Phon e Number [place] [address] LABORATORY Light Blue Top (10/19/2018 7:03 PM EST) Specimen Anatomical Collection Method / Collection Time Recei olman Time (Source) Location / Volume Laterality Blood Venous blood / Venipuncture / 10/19/2018 7:03 10/19/19 19 7:10 Unknown Unknown PM EST PM EST Monty Winters MD LAB BLOOD ORDERABLES Performing Organization Address City/[facility]/ZIP Code Phon e Number [address] [address] LABORATORY Gold Top (10/19/2018 7:03 PM EST) Specimen Anatomical Collection Method / Collection Time Recei olman Time (Source) Location / Volume Laterality Blood Venous blood / Venipuncture / 10/19/2018 7:03 10/19/19 19 7:11 Unknown Unknown PM EST PM EST Monty Winters MD LAB BLOOD ORDERABLES Performing Organization Address City/State/ZIP Code Phon e Number [address] [address] LABORATORY Gold Top (10/19/2018 7:03 PM EST) Specimen Anatomical Collection Method / Collection Time Recei olman Time (Source) Location / Volume Laterality Blood Venous blood / Venipuncture / 10/19/2018 7:03 10/19/19 19 7:10 Unknown Unknown PM EST PM EST Monty Winters MD LAB BLOOD ORDERABLES Performing Organization Address City/[facility]/ZIP Code Phon e Number [address] [address] LABORATORY hCG, serum, qualitative (10/19/2018 7:03 PM EST) Analysis Performed At Patho logist Time Signature HCG SERUM QUAL Negative Negative 10/19/2018 [place] 7:51 PM EST HOSPITAL LAB[facility]ATORY Specimen Anatomical Collection Method / Collection Time Recei olman Time (Source) Location / Volume Laterality Blood Venous blood / Venipuncture / 10/19/2018 7:03 10/19/19 19 7:10 Unknown Unknown PM EST PM EST Monty Winters MD LAB BLOOD ORDERABLES Performing Organization Address City/[facility]/[place]IP [facility] Number [address] [address] LABORATORY (ABNORMAL) Basic metabolic panel w/GFR (10/19/2018 7:03 PM EST) Patholo gist Method Time Signature Sodium 138 137 - 145 10/19/2018 [place] mmol/L 7:45 PM [facility] LABORATORY Potassium 3.9 3.5 - 5.1 10/19/2018 [place] mmol/L 7:45 PM [facility] LABOR[facility]ORY CHLORIDE 105 98 - 107 10/19/2018 [place] mmol/L 7:45 PM [facility] LABOR[facility]ORY CARBON DIOXIDE, 21.0 (L) 22.0 - 10/19/2018 [place] TOTAL 30.0 7:45 PM [facility] mmol/L LABORATORY ANION GAP 12.0 6 - 14 10/19/2018 [place] 7:45 PM [facility] LAB[facility]ORY GLUCOSE 127 (H) 70 - 99 10/19/2018 [place] mg/dL 7:45 PM [facility] LABORATORY BUN 6 (L) 7 - 17 10/19/2018 [place] mg/dL 7:45 PM [facility] LAB[facility] CREATININE 0.5 0.5 - 1.0 10/19/2018 [place] mg/dL 7:45 PM [facility] LABORATORY CALCIUM 9.3 8.3 - 10.3 10/19/2018 [place] mg/dL 7:45 PM [facility] LABORATORY Specimen Anatomical Collection Method / Collection Time Recei olman Time (Source) Location / Volume Laterality Blood Venous blood / Venipuncture / 10/19/2018 7:03 10/19/19 19 7:10 Unknown Unknown PM EST PM EST Monty Winters MD LAB BLOOD ORDERABLES Performing Organization Address City/State/ZIP Code Phon e Number [facility] [address] [phone] LABORATORY (ABNORMAL) CBC auto differential (10/19/2018 7:03 PM EST) [facility] gist Method Time Signature WBC 14.98 (H) 4.50 to 10/19/2018 [place] 13.50 x 7:36 PM [facility] 10*3u/L LABORATORY 10*3/uL nRBC 0 0 - 0 10/19/2018 [place] /100 WBCs 7:36 PM [facility] LABORATORY RBC 4.29 4.10 to 10/19/2018 [place] 5.20 x 7:36 PM [facility] 10*6/uL LABORATORY 10*6/uL HGB 12.4 12.0 to 10/19/2018 [place] 16.0 g/dL 7:36 PM [facility] g/dL LABORATORY HCT 36.9 (L) 37.0% to 10/19/2018 [place] 45.0% % 7:36 PM [facility] LABORATORY MCV 86.0 78.0 to 10/19/2018 [place] 102.0 fL 7:36 PM [facility] fL LABORATORY MCH 28.9 26.0 - 10/19/2018 [place] 33.0 pg 7:36 PM [facility] LABORATORY MCHC 33.6 21.0 to 10/19/2018 [place] 37.0 g/dl 7:36 PM [facility] g/dL LABORATORY PLT 264 150 to 10/19/2018 [place] 300 x 7:36 PM [facility] 10*3u/L LABORATORY 10*3u/L RDW-CV 14.0 11.5 - 10/19/2018 [place] 14.5 % 7:36 PM [facility] LABORATORY Segmented % 87.9 (H) 30.0 - 10/19/2018 [place] 85.0 % 7:36 PM [facility] LABORATORY ABS Neutrophil 13.16 (H) 1.5 - 6.5 10/19/2018 [place] 10*3/uL 7:36 PM [facility] LABORATORY Lymphocytes % 5.9 (L) 15.0 - 10/19/2018 [place] 50.0 % 7:36 PM [facility] LABORATORY ABS Lymphocyte 0.89 (L) 1.0 - 3.7 10/19/2018 [place] 10*3u/L 7:36 PM [facility] LABORATORY Monocytes % 5.6 0.0 - 10/19/2018 [place] 10.0 % 7:36 PM [facility] LABORATORY Eosinophils % 0.0 0.0 - 5.0 10/19/2018 [place] % 7:36 PM [facility] LABORATORY Basophil % 0.3 0.0 - 2.0 10/19/2018 [place] % 7:36 PM [facility] LABORATORY IMM GRAN 0.3 0.0 - 1.0 10/19/2018 [place] % 7:36 PM [facility] LABORATORY Specimen Anatomical Collection Method / Collection Time Recei olman Time (Source) Location / Volume Laterality Blood Venous blood / Venipuncture / 10/19/2018 7:03 10/19/19 19 7:10 Unknown Unknown PM EST EST Monty Winters MD LAB BLOOD ORDERABLES Performing Organization Address City/State/ZIP Code Phon e Number [facility] [address] [phone] LABORATORY documented in this encounter Visit Diagnoses Diagnosis Nonintractable headache, unspecified chr onicity pattern, unspecified headache type - Primary Acute febrile illness documented in this encounter Administered Medications Inactive Administered Medications - up to 3 most recent administrations Medication Order MAR Action Action Date Dose Rate Site acetaminophen (TYLENOL) tablet 650 Given 10/19/2018 7:15 PM EST 650 mg mg 650 mg, oral, Once, On Wed10/19/18 at 191, For 1 dose, Total daily acetaminophen from all sources should not exceed 4000 mg. diphenhydrAMINE (BENADRYL) injection 25 mg Given 10/19/2018 8:51 PM EST 25 mg 25 mg, intravenous, Administer over 5 Minutes, Once, On Wed10/19/18 at 2034, For 1 dose ketorolac (TORADOL) injection 15 mg Given 10/19/2018 8:51 PM EST 15 mg 15 mg, intravenous, Once, On Wed10/19/18 at 2034, For 1 dose prochlorperazine (COMPAZINE) injection 1 0 mg Given 10/19/2018 8:52 PM EST 10 mg 10 mg, intravenous, Once, On Wed10/19/18 at 2040, For 1 dose sodium chloride 0.9 % bolus New Bag 10/19/2018 7:05 PM EST 1,000 m L 1000 mL/hr 1,000 mL 1,000 mL, intravenous, at 1,000 mL/hr, Administer over 1 Hours, Once, On Wed10/19/18 at 1905, For 1 dose sodium chloride 0.9 % bolus New Bag 10/19/2018 10:17 PM EST 1,000 mL 1000 mL/hr 1,000 mL 1,000 mL, intravenous, at 1,000 mL/hr, Administer over 1 Hours, Once, On Wed10/19/18 at 2205, For 1 dose documented in this encounter Active and Recently Administered Medications Times are shown in EST. Scheduled Medication Order 10/17/2018 10/18/2018 10/19/2018 acetaminophen (TYLENOL) tablet 650 mg (COMPLETED) 1914 (Given - Provider: Mayelin Mcdowell RN) 650 mg, oral, Once, Wed10/19/18 at 191, For 1 dose, Total daily acetaminophen from all sources should not exceed 4000 mg. diphenhydrAMINE (BENADRYL) injection 25 mg (COMPLETED) 2050 (Given - Provider: Mayelin Mcdowell, RN) 25 mg, intravenous, Administer over 5 Mi nutes, Once, Wed10/19/18 at 2034, For 1 dose ketorolac (TORADOL) injection 15 mg (COMPLETED) 2050 (Given - Provider: Mayelin Mcdowell, RN) 15 mg, intravenous, Once, Wed10/19/18 at 2034, For 1 dose prochlorperazine (COMPAZINE) injection 10 mg (COMPLETED) 2051 (Given - Provider: Mayelin Mcdowell, RN) 10 mg, intravenous, Once, Wed10/19/18 at 2039, For 1 dose sodium chloride 0.9 % bolus 1,000 mL (COMPLETED) 1905 (New Bag - Provider: Lion Carmichael RN)2217 (Stopped - Provider: Carri Zapata RN) 1,000 mL, intravenous, at 1,000 mL/hr, A dminister over 1 Hours, Once, Wed10/19/18 at 1905, For 1 dose sodium chloride 0.9 % bolus 1,000 mL (COMPLETED) 221 (New Bag - Provider: Carri Zapata, LUIS)2330 (Stopped - Provider: Carri Zapata RN) 1,000 mL, intravenous, at 1,000 mL/hr, A dminister over 1 Hours, Once, Wed10/19/18 at 2205, For 1 dose documented in this encounter Care Teams Batch Plant Supervisor Relationship Specialty Start Date End Date Araceli Desai MD PCP - General Pediatrics 10/19/[address] [place] [id number] documented as of this encounter
--- OUTSIDE RECORDS SUMMARY | 2022-08-26 21:40 | XMS_ITS | Encounter Summary ---
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); Oncology, , PhD Encounter to discuss test results [address] [facility] [address] [place] [address] [facility] [email or web address] [address] [address] Social History Tobacco Use Types Packs/Day Years [...] counseling documented in this encounter Care Teams Skeet Operator Relationship Specialty Start Date End Date Araceli Desai MD PCP - General 10/14/[address] [place] [phone] Aliya Johnson Primary Oncologist Pediatric Hematology 03/03/19 06/01/22 MD Angeline and Oncology [email or web address] Birgit Pham, Fellow Oncologist Pediatrics 03/03/1905/14 Viri Stern, RN Primary Infusion Nurse 03/03/19 [email or web address] Ashanti Portillo, Nurse Practitioner 03/07/19 [facility] documented as of this encounter Additional Source Comments The information contained in this document represents components of the legal health record. It is not the complete legal health record.[facility]
--- OUTSIDE RECORDS SUMMARY | 2022-08-26 21:40 | XMS_ITS | Encounter Summary ---
:2000 Author Organization [facility] Address [phone] [address] [place] [address] Care Team Providers Name Role Phone Araceli Desai MD Primary Care Provider Reason for Visit Reason Comments Nasal Congestion Sore Throat Encounter Details Date Type Department Care Team Description 10/14/2018 Office Visit [facility] Frandy Henao Ac nome pharyngitis (Primary Dx); Urgent Care - CLIENT SERVICES REPRESENTATIVE Acute upper respiratory infection, unspe [facility] [address] [place] [phone] (Wo rk) Social History Tobacco Use Types Packs/Day Years Used Date Smoking Tobacco: Never Sex Assigned at Date Recorded Not on file documented as of this encounter Last Filed Vital Signs Vital Sign Reading Time Taken Comments Blood Pressure 96/67 10/14/2018 4:59 PM EST Pulse 88 10/14/2018 4:59 PM EST Temperature 36.9 ??C (98.5 ??F) 10/14/2018 4:59 PM EST Respiratory Rate - - Oxygen Saturation 99% 10/14/2018 4:59 PM EST Inhaled Oxygen Concentration - - Weight 22.6 kg (49 lb 14.4 oz) 10/14/2018 4:59 PM EST Height 158.8 cm (5' 2.5) 10/14/2018 4:59 PM EST Body Mass Index 8.98 10/14/2018 4:59 PM EST Body Mass Index Percentile 0.00 % 10/14/2018 4:59 PM ES T Growth Chart: [facility] (Girls, 2-20 Years) documented in this encounter Patient Instructions Patient InstructionsFrandy Henao NP - 10/14/2018 4:40 PM EST Images from the original note were not included. Upper Respiratory Infection (Cold) in Children: Care Instructions Your Care Instructions An upper respiratory infection, also called a URI, is an infection of the nose, sinuses, or throat. URIs are spread by coughs, sneezes, and direct contact. The common cold is the most frequent kind of URI. The flu and sinus infections are other kinds of URIs. Almost all URIs are caused by viruses, so antibiotics won't cure them. But you can do things at hometo help your child get better. With most URIs, your child should feel better in 4 to 10 days. The doctor has checked your child carefully, but problems can develop later. If you notice any problems or new symptoms, get medical treatment right away. Follow-up care is a lanier part of your child's treatment and safety. Be sure to make and go to all appointments, and call your doctor if your child is having problems. It's also a good idea to know your child's test results and keep a list of the medicines your child takes. How can you care for your child at home? ?? Give your child acetaminophen (Tylenol) or ibuprofen (Advil, Motrin) for fever, pain, or fussiness. Do not use ibuprofen if your child is less than 6 months old unless the doctor gave you instructions to use it. Be safe with medicines. For children 6 months and older, read and follow all instructions on the label. ?? Do not give aspirin to anyone younger than 20. It has been linked to Stormy syndrome, a serious illness. ?? Be careful with cough and cold medicines. Don't give them to children younger than 6, because they don't work for children that age and can even be harmful. For children 6 and older, always follow all the instructions carefully. Make sure you know how much medicine to give and how long to use it. And use the dosing device if one is included. ?? Be careful when giving your child mphm-rxr-ygftozw cold or flu medicines and Tylenol at the same time. Many of these medicines have acetaminophen, which is Tylenol. Read the labels to make sure thatyou are not giving your child more than the recommended dose. Too much acetaminophen (Tylenol) can be harmful. ?? Make sure your child rests. Keep your child at home if he or she has a fever. ?? If your child has problems breathing because of a stuffy nose, squirt a few saline (saltwater) nasal drops in one nostril. Then have your child blow his or her nose. Repeat for the other nostril. Donot do this more than 5 or 6 times a day. ?? Place a humidifier by your child's bed or close to your child. This may make it easier for your child to breathe. Follow the directions for cleaning the machine. ?? Keep your child away from smoke. Do not smoke or let anyone else smoke around your child or in your house. ?? Wash your hands and your child's hands regularly so that you don't spread the disease. When should you call for help? Call 911 anytime you think your child may need emergency care. For example, call if: ? Your child seems very sick or is hard to wake up. ? Your child has severe trouble breathing. Symptoms may include: ? Using the belly muscles to breathe. ? The chest sinking in or the nostrils flaring when your child struggles to breathe. ??Call your doctor now or seek immediate medical care if: ? Your child has new or worse trouble breathing. ? Your child has a new or higher fever. ? Your child seems to be getting much sicker. ? Your child coughs up dark brown or bloody mucus (sputum). ??Watch closely for changes in your child's health, and be sure to contact your doctor if: ? Your child has new symptoms, such as a rash, earache, or sore throat. ? Your child does not get better as expected. Where can you learn more? Go to https://patientgateway.partners.org/public. Enter M207 in the search box to learn more about Upper Respiratory Infection (Cold) in Children: Care Instructions. Current as of: June 15, 2018 Content Version: 11.9 ?? [id number] [employer]. Care instructions adapted under license by your healthcare professional. If you have questions about a medical condition or this instruction, always ask your healthcare professional. [employer] disclaims any warranty or liability for your use of this information. Sore Throat Almost everyone feels the scratchy, raw ache of a sore throat at some time. Sore throats can be painful, but they are seldom serious. They almost always go away--naturally, without any treatment--in a few days to a week. Why does my throat hurt? Most sore throats are caused by a virus. A sore throat often comes with a cold or the flu. Other causes include: ?? Coughing or yelling a lot ?? Dry air ?? Smoking or air pollution ?? Hay fever and other allergies Less common causes of a sore throat are: ?? Strep throat, a bacteria called streptococcus (strep), which is found in between 5 and 20 percent of people who see their doctor for sore throat ?? Mononucleosis (mono), a viral infection ?? Laryngitis, an infection or irritation of the voice box ?? Tonsillitis, an infection or inflammation of the tonsils How does the clinician find out what is causing my sore throat? Your clinician will ask some questions, look at your throat, and check for other cold symptoms or a fever. He or she may also ask you questions about whether people in your family or at work have the same symptoms, and if you have had your tonsils taken out. In many cases, it is hard to tell whether a sore throat means a strep throat. If the doctor is not sure, he or she may obtain a throat swab for either a rapid test done in the office while you wait, or a throat culture that will be sent to a laboratory. The clinician will swab the back of your throat with a long Q- tip to get a sample from the infected area for testing. The advantages of the rapid test are: 1) results are available in about fifteen minutes, and 2) if you do have strep throat, treatment can start right away. If a throat culture is sent to the lab, it will take 24-48 hours to determine if your sore throat is due to strep. How does the doctor treat strep throat? Antibiotics are used to treat strep throat. If you get antibiotics, it is important to take the entire course of medicine, exactly as prescribed. Do not stop before the medicine is finished, even if your symptoms improve. Although you feel better, there may still be bacteria in your throat. Stopping too soon might allow bacteria to build up again. It can also encourage antibiotic resistance, which means this medicine may not work well if you need it again. See the last question for more information on antibiotic resistance. How will the doctor treat my sore throat if I have a virus? If the cause of your sore throat is a virus, your doctor will most likely recommend treatments that control the symptoms while your body fights the virus. What can I do to feel better? Regardless of cause, the best things you can do for a sore throat are: ?? Drink plenty of fluids ?? Get plenty of rest ?? Take an vhru-xfb-vvcnyap pain reliever such as acetaminophen (Tylenol) or ibuprofen (Advil, Motrin), as needed It may also help to: ?? Gargle with warm salt water (1 teaspoon of salt per glass of water) ?? Suck on throat lozenges or hard candy ?? Suck on frozen juice pops or Popsicles ?? Use a humidifier in your bedroom or other rooms where you spend lots of time Why didn't my doctor prescribe antibiotics? Antibiotics do not work against viruses. Infections caused by viruses just have to run their course.Most people feel better within a week. Using antibiotics when they are not needed can cause side effects and antibiotic resistance. People can become resistant to antibiotics if they use them too frequently. As a result, they need to use stronger and larger doses of antibiotics the next time they get sick. Stronger antibiotics have more side effects and are harder to tolerate. Overuse of antibiotics is also a problem for society because it leads to the development of antibiotic-resistant bacteria. These resistant bacteria must be treated with different, more powerful antibiotics and they are much more difficult to treat. This document is intended to provide health related information so that you may be better informed. It is not a substitute for your doctor's medical advice and should not be relied upon for treatment for specific medical conditions. ?? 2015 The [employer]. Primary Care Operations Improvement Site prepared by the [facility] [place] Laboratory of [employer] Recommendations for sore throats, upper respiratory illnesses [...] forsore throats and hoarseness. 5. Saline Nasal Wallback. (My favorite is Simply Saline Nasal Mist). [...] not be used more than 3 days. 8. Oral decongestants. Phenylephrine is in all over the counter cold medications for nasal congestion. It is a weaker decongestant and last 4-6 hours. Pseudoephedrine is located at the pharmacy and needs a photo ID to be purchased. It is a stronger decongestant and comes as 30 mg tablet lasting 4-6 hours, 120 mg tablet lasting 12 hours and 240 mg tablet lasting 24 hours. Decongestants can be very drying, and you need to drink a lot of water with them. People who have high blood pressure and thyroid disease should NOT USE decongestants. documented in this encounter Progress Notes Frandy Henao NP - 10/14/2018 4:40 PM EST Subjective: Patient ID: Haley Garcia is a 18 y.o. female. URI This is a new problem. Episode onset: 4 days. The problem has been rapidly worsening. Maximum temperature: 99.4 F. Associated symptoms include congestion, coughing, headaches, rhinorrhea, sinus pain and a sore throat. Pertinent negatives include no abdominal pain, chest pain, diarrhea, dysuria, ear pain, joint pain, joint swelling, nausea, neck pain, plugged ear sensation, rash, sneezing, swollen glands, vomiting or wheezing. Treatments tried: multisx cold med. The treatment provided mild relief. Review of Systems Constitutional: Positive for fever. HENT: Positive for congestion, rhinorrhea, sinus pressure, sinus pain and sore throat. Negative for ear pain and sneezing. Eyes: Negative. Respiratory: Positive for cough. Negative for wheezing. Cardiovascular: Negative. Negative for chest pain. Gastrointestinal: Negative. Negative for abdominal pain, diarrhea, nausea and vomiting. Endocrine: Negative. Genitourinary: Negative. Negative for dysuria. Musculoskeletal: Negative. Negative for joint pain and neck pain. Skin: Negative. Negative for rash. Allergic/Immunologic: Negative. Neurological: Positive for headaches. Hematological: Negative. Psychiatric/Behavioral: Negative. Objective: Physical Exam Constitutional: She is oriented to person, place, and time. Vital signs are normal. She appears well-developed and well-nourished. Non-toxic appearance. No distress. HENT: Head: Normocephalic and atraumatic. Right Ear: Hearing, tympanic membrane, external ear and ear canal normal. Left Ear: Hearing, tympanic membrane, external ear and ear canal normal. Nose: Mucosal edema and rhinorrhea present. Right sinus exhibits no maxillary sinus tenderness and no frontal sinus tenderness. Left sinus exhibits no maxillary sinus tenderness and no frontal sinus tenderness. Mouth/Throat: Uvula is midline and mucous membranes are normal. Posterior oropharyngeal erythema (cobblestoning) present. Eyes: EOM are normal. Pupils are equal, round, and reactive to light. No scleral icterus. Neck: Normal range of motion. Neck supple. Cardiovascular: Normal rate, regular rhythm and normal heart sounds. No murmur heard. Pulmonary/Chest: Effort normal and breath sounds normal. No respiratory distress. Abdominal: Soft. Normal appearance, normal aorta and bowel sounds are normal. She exhibits no distension and no mass. There is no hepatosplenomegaly. There is no tenderness. There is no [...] and vitals reviewed. Assessment/Plan: Diagnosis Plan 1. Acute pharyngitis POCT Rapid Strep A 2. Acute upper respiratory infection, unspecified Procedure: Procedures documented in this encounter Plan of Treatment Not on filedocumented as of this encounter Procedures Procedure Name Priority Date/Time Associated Diagnosis Comme nts POCT RAPID STREP A Routine 10/14/2018 5:17 PM Acute pharyngiti s Results for this EST procedure are i n the results section. documented in this encounter Results POCT Rapid Strep A (10/14/2018 5:17 PM EST) [facility] Method Time Signature Rapid Strep A Negative, Negative PUC Internal QCs [place] acceptable Specimen (Source) Anatomical Collection Method Collection Time Re ceived Time Location / / Volume Laterality Other 10/14/2018 5:17 PM EST Frandy Henao CLIENT SERVICES REPRESENTATIVE POINT OF CARE TEST ORDERABLE S Performing Organization Address City/State/ZIP Code Phon e Number [facility] [address] [place] [address] documented in this encounter Visit Diagnoses Diagnosis Acute pharyngitis - Primary Acute upper respiratory infection, unspe cified documented in this encounter Care Teams Engineering Manager Relationship Specialty Start Date End Date Araceli Desai MD PCP - General 10/14/[address] [place] [phone] documented as of this encounter Additional Source Comments The information contained in this document represents components of the legal health record. It is not the complete legal health record.[facility]
--- OUTSIDE RECORDS SUMMARY | 2022-08-26 21:40 | XMS_ITS | Encounter Summary ---
:2001 Author Organization [employer] [facility] Address [phone] [facility] [place] [address] Care Team Providers Name Role Phone Araceli Desai MD Primary Care Provider Aliya Johnson MD Unavailable Viri Stern RN Unavailable Ashanti Portillo CABIN MAN Unavailable Encounter Details Date Type Department Care Team Description 08/23/2019 Office Visit Pediatric Neuro Aliya Johnson Low grade glioma of cerebrum (Primary Dx); OncologyAngeline MD Encounter to discuss test results; [facility]/[address] Seizure disorder; [place] [address] History of anxiety Blood Disorders [phone] (Wo rk) [place] [address] Juan Pablo [email or web address] Yesica Leal, [address] [place] [address] Social History Tobacco Use Types Packs/Day Years [...] 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 Encounter to discuss test results Other specified counseling Seizure disorder Unspecified epilepsy without mention of intractable epilepsy History of anxiety documented in this encounter Care Teams Direct Marketing Representative Relationship Specialty Start Date End Date Araceli Desai MD PCP - General 10/14/[address] [place] [phone] Aliya Johnson Primary Oncologist Pediatric Hematology 03/03/19 06/01/22 MD Angeline and Oncology [email or web address] Viri Stern, RN Primary Infusion Nurse 03/03/19 [email or web address] Ashanti Portillo, Nurse Practitioner 03/07/19 CABIN MAN documented as of this encounter Additional Source Comments The information contained in this document represents components of the legal health record. It is not the complete legal health record.[facility]
--- OUTSIDE RECORDS SUMMARY | 2022-08-26 21:40 | XMS_ITS | Encounter Summary ---
:2001 Author Organization [employer] [facility] Address [phone] [facility] [employer] [place] [address] Care Team Providers Name Role Phone Araceli Desai MD Primary Care Provider Aliya Johnson MD Unavailable Viri Stern RN Unavailable Ashanti Portillo LAST REPAIRER HELPER Unavailable Encounter Details Date Type Department Care Team Description 05/22/2020 Telemedicine Pediatric Neuro Aliya Johnson Low grade glioma of brain (Primary Dx); OncologyAngeline MD Headache disorder; [facility]/[address] Seizure disorder; [place] [address] Encounter to discuss test results Blood Disorders [phone] (Wo rk) [facility] Juan Pablo [email or web address] Yesica Leal, [address] [place] [address] Social History Tobacco Use Types Packs/Day Years [...] Low grade glioma of brain - Primary Headache disorder Headache Seizure disorder Unspecified epilepsy without mention of intractable epilepsy Encounter to discuss test results Other specified counseling documented in this encounter Care Teams Ticket Puller Relationship Specialty Start Date End Date Araceli Desai MD PCP - General 10/14/[address] [place] [phone] Aliya Johnson Primary Oncologist Pediatric Hematology 03/03/19 06/01/22 MD Angeline and Oncology [email or web address] Viri Stern, RN Primary Infusion Nurse 03/03/19 [email or web address] Ashanti Portillo, Nurse Practitioner 03/07/19 LAST REPAIRER HELPER documented as of this encounter Additional Source Comments The information contained in this document represents components of the legal health record. It is not the complete legal health record.[facility]
--- OUTSIDE RECORDS SUMMARY | 2022-08-26 21:40 | XMS_ITS | Encounter Summary ---
:2000 Author Organization [employer] [facility] Address [phone] [facility] [place] [address] Care Team Providers Name Role Phone Araceli Desai MD Primary Care Provider Encounter Details Date Type Department Care Team Description 11/07/2018 Hospital Encounter [facility] Microbiology Lab [address] [place] [address] Social History Tobacco Use Types Packs/Day Years Used Date Smoking Tobacco: Never Smokeless Tobacco: Never Alcohol Use Standard Drinks/Week Comments No 0 (1 standard drink = 0.6 oz pure alcoho l) Sex Assigned at Date Recorded Not on file documented as of this encounter Medications at Time of Discharge Medication Sig Dispensed Refills Start Date End Date BLISOVI FE 1.5/30, 28, 1.5 TK 1 T PO QD 12 018 mg-30 mcg (21)/75 mg (7) tablet SUMAtriptan (IMITREX) 100 TK 1 T PO 1 TIME PRN 0 08/29/2018 MG tablet DIRECTED. MAXIMUM 3 TS PER WEEK documented as of this encounter Plan of Treatment Not on filedocumented as of this encounter Procedures Procedure Name Priority Date/Time Associated Diagnosis Comme nts THROAT CULTURE Routine 11/07/2018 12:43 PM Sore throat Result s for this EST procedure are i n the results section . documented in this encounter Results Throat culture (11/07/2018 12:43 PM EST) Component Value Ref Test Analysis Performed At [facility] Range Method Time Signature Specimen THROAT THROAT [facility] CLINICAL Source/ LABORATORIES Description Special None [facility] CLINICAL Requests LABORATORIES Culture/Test NO BETA [facility] CLINICAL HEMOLYTIC LABORATORIES STREPTOCOCCUS ISOLATED Report Status 11/09/2018 FINAL [facility] CLINI [facility] Specimen Anatomical Collection Method Collection Time Receive d Time (Source) Location / / Volume Laterality Throat 11/07/2018 12:43 11/07/2018 PM EST 10:43 PM EST Frandy Henao NP MICROBIOLOGY - GENERAL ORDER RADHA Performing Organization Address City/State/ZIP Code Phon e Number [facility] CLINICAL LABORATORIES [address] [place] [address] documented in this encounter Visit Diagnoses Diagnosis Sore throat Acute pharyngitis documented in this encounter Care Teams Camp Dining Room Attendant Relationship Specialty Start Date End Date Araceli Desai MD PCP - General 10/14/[address] [place] [phone] documented as of this encounter Additional Source Comments The information contained in this document represents components of the legal health record. It is not the complete legal health record.[facility]
--- OUTSIDE RECORDS SUMMARY | 2022-08-26 21:40 | XMS_ITS | Encounter Summary ---
:2001 Author Organization [email or web address] [facility] Address [phone] [facility] [place] [address] Care Team Providers Name Role Phone Araceli Desai MD Primary Care Provider Aliya Johnson MD Unavailable Viri Stern RN Unavailable Ashanti Portillo DESIGN ENGINEER PRODUCTS Unavailable Encounter Details Date Type Department Care Team Description 11/29/2019 Office Visit Pediatric Neuro Aspen Carreno MD, PhD [address] [place] [phone] [email or web address] Low grade glioma of brain (Primary Dx); Oncology, Rose Mary Curry MD [address] [place] [phone] [email or web address] Seizures [facility] [address] [place] [address] Yesica Leal [place] [phone] Social History Tobacco Use Types Packs/Day Years [...] Low grade glioma of brain - Primary Seizures Other convulsions documented in this encounter Care Teams Foreign Exchange Services Manager Relationship Specialty Start Date End Date Araceli Desai MD PCP - General 10/14/[address] [place] [phone] Aliya Johnson Primary Oncologist Pediatric Hematology 03/03/19 06/01/22 MD Angeline and Oncology [email or web address] Viri Stern, RN Primary Infusion Nurse 03/03/19 [email or web address] Ashanti Portillo, Nurse Practitioner 03/07/19 DESIGN ENGINEER PRODUCTS documented as of this encounter Additional Source Comments The information contained in this document represents components of the legal health record. It is not the complete legal health record.[facility]
[2022-08-26 21:41] VITALS: BP 101/63; PULSE 102; RESP 16; O2SAT 99
[2022-08-26 21:43] LABS: Blood Urea Nitrogen* 9 mg/dL (5-24); Carbon Dioxide* 21 mmol/L (20-32); Creatinine* 0.5 mg/dL (0.5-1.5); Estimated Glomerular Filt Rate 137 ml/min; Glucose* 131 mg/dL (60-115)
[2022-08-26 21:44] LABS: Calcium* 8.3 mg/dL (8.4-10.6)
[2022-08-28 16:30] LABS: Keppra (Levetiracetam) 9 ug/mL (10-40)
== END 2022-08-26 23:09 | disposition home or self-care (01) ==
LOC: ED 21:35
PROVIDERS: Emergency Provider Family Medicine
DX: G40.909 Epilepsy, unspecified, not intractable, without status epilepticus (principal)
CPT/HCPCS: 36415; 80048; 80177; 85025; 99284; A9270; J7030